=== PATIENT | female | born 1990 | race African-American/Black ===

== ENCOUNTER 2020-10-09 09:20 | Emergency (ER) | payer OTHER, SELFPAY ==
--- NOTE | ~2020-10-09 | US_ITS ---
EXAMINATION: US OB <=14 wk fetus w TV EXAM DATE: 10/09/2020 11:38 INDICATION: Threatened AB bleeding. 1st trimester. TECHNIQUE: Pelvic obstetrical transabdominal and transvaginal sonogram was performed by a technologisiah valencia. There are multiple grayscale and Doppler images available for interpretation. There are no torsten ier studies of this gestation for comparison. FINDINGS: Uterus measures 8.8 x 5.0 x 4.3 cm. There is a 5 mm cystic region which appears more likely in the endometrium rather than the endometrial canal, but can't exclude that this is a gestation sac but without yolk sac or pole. There is a larger nonloculated pocket of fluid in the uterine fu ndus likely blood. Both ovaries are identified and morphologically normal, the left has the corpus kristen teal cyst. No extrauterine identified. IMPRESSION: Small contained appearing cystic endometrial fluid pocket or early gestation sac, with mu ch larger amount of hemorrhage within the endometrial canal. No pole or yolk sac identified at this time. Follow-up with serial beta hCG and/or ultrasound as indicated clinically. Reviewed, dictated and finalized at location A. L BUFFER IMPRESSION: Small contained appearing cystic endometrial fluid pocket or early gestation sac, with much larger amount of hemorrhage within the endometrial can al. No pole or yolk sac identified at this time. Follow-up with serial be ta hCG and/or ultrasound as indicated clinically.
[2020-10-09 09:26] VITALS: BP 138/113; PULSE 113; RESP 20; TEMP 36.5; O2SAT 100
[2020-10-09 09:50] LABS: Basophils Absolute Auto 0.1 K/mm3 (0.0-0.1); Basophils Percent Auto 0.4 % (0.2-1.2); Eosinophils Percent Auto 0.3 % (0-4.4); Hematocrit 42.4 % (37.0-47.0); Hemoglobin 14.8 g/dL (12.0-15.0); Immature Granulocyte Absolute 0.03 K/mm3 (0.00-0.031); Immature Granulocyte Percent A 0.3 % (0-0.5); Lymphocytes Absolute Auto 3.56 K/mm3 (0.9-3.2); Mean Corpuscular HGB Conc 34.9 g/dl (32-36); Mean Corpuscular Hemoglobin 30.3 pg (26-34); Mean Corpuscular Volume 86.9 fl (80-100); Mean Platelet Volume 9.4 fl (7.4-10.4); Monocytes Absolute Auto 0.7 K/mm3 (0.1-0.6); Monocytes Percent Auto 5.8 % (2.6-8.5); Neutrophils Absolute Auto 6.8 K/mm3 (1.3-6.7); Neutrophils Percent Auto 61.2 % (45.5-73.1); Platelet Count Result 463 k/mm3 (150-375); Red Blood Count 4.88 M/mm3 (4.2-5.4); Red Cell Distribution Width 12.1 % (11.5-14.5); White Blood Count 11.1 K/mm3 (4.5-10.0)
--- NOTE | 2020-10-09 11:26 | ED.FEMALEGU ---
HPI - Female Genitourinary General Chief complaint: [employer] Stated complaint: pos preg test, vag bleeding Time Seen by Provider: 10/09/20 09:53 Source: patient Mode of arrival: ambulatory Limitations: no limitations History of Present Illness HPI Narrative: 30-year-old female Reports she was on on Depo shots until stopping them last March purposefully and that her periods since then have been irregular Last period was around August 29 so 3 days ago she did a couple home urine test which were positive The day after that she had some rather heavy vaginal bleeding which at this point is now more or less stopped just a little bit of pink discharge when she wipes She continues to have some moderate lower abdominal crampy discomfort similar to menstrual cramps Related Data Allergies Allergy/AdvReac Type Severity Reaction Status Date / Time No Known Allergies Allergy Verified 10/09/20 09:37 Review of Systems Review of Systems: All systems reviewed & are unremarkable except as noted in HPI and below Constitutional: Constitutional: Denies fatigue, Denies fever(s), Denies headache(s) and Denies weakness ENT: Denies headache(s) Cardiovascular: Cardiovascular: Denies leg edema, Denies palpitations and Denies dyspnea Respiratory: Respiratory: Denies cough and Denies dyspnea Gastrointestinal: Gastrointestinal: Reports abdominal pain, Denies diarrhea, Denies nausea and Denies vomiting Genitourinary: Genitourinary: Reports abnormal vaginal bleeding, Denies hematuria, Denies urinary frequency, Denies dysuria and Reports vaginal discharge Musculoskeletal: Musculoskeletal: Denies deformity, Denies muscle weakness and Denies numbness Integumentary/Breasts: Skin/Breast: Denies wounds Neurologic: Denies headache(s) Psychiatric: Psychiatric: Reports no additional psychiatric complaints Endocrine: Endocrine: Denies palpitations [facility] Social History Social History Gender identity (if verbalized by the patient): Female Exam Const: General: no acute distress, well developed, alert and awake Orientation/consciousness: patient oriented x3 (alert) HENMT: Head: normocephalic and atraumatic General nose exam: No nasal discharge present Face and sinus: face symmetric Eyes: Conjunctivae: conjunctivae normal Sclera: sclerae normal EOM: EOMs intact bilaterally Neck: Neck: normal visual inspection, supple and no JVD Chest: Chest palpation & inspection: deferred Resp: Effort & Inspection: normal respiratory effort and not labored Auscultation: other (BS =) Cardio: Heart sounds: no gallops GI: Inspection: normal to inspection GI Palp: Yes Soft to palpation, Yes Tenderness to palpation present (GI) (Mild, suprapubic), No Guarding due to palpation present (GI) and No Rebound tenderness present : General: Yes bladder normal to palpation and Yes no CVA tenderness Other: Cervical os is closed and there is no bleeding identified whatsoever Back/Spine/Pelvis: Thoracic/Lumbar Spine: thoracic and lumbar spine normal to inspection Skin: General skin exam: normal color and no rashes or lesions noted Neuro: General: patient oriented x3 (alert) and moves all extremities Cranial nerves: Yes facial symmetry Speech: normal speech Extrem: General: normal to inspection and full ROM Psych: Affect: normal affect Course Vital Signs Vital signs: Vital Signs Temperature 36.5 C 10/09/20 09:26 Pulse Rate 113 H 10/09/20 09:26 Respiratory Rate 20 10/09/20 09:26 Blood Pressure 138/113 H 10/09/20 09:26 Pulse Oximetry 100 10/09/20 09:26 Temperature 36.5 C 10/09/20 09:26 Pulse Rate 105 H 10/09/20 11:30 Respiratory Rate 18 10/09/20 11:30 Blood Pressure 129/86 10/09/20 11:30 Pulse Oximetry 98 10/09/20 11:30 MDM - Female Genitourinary Lab Data Result diagrams: 10/09/20 09:36 Labs: Lab Results 10/09/20 10/09/20
[2020-10-09 11:30] VITALS: BP 129/86; PULSE 105; RESP 18; O2SAT 98
== END 2020-10-09 13:10 | disposition home or self-care (01) ==
PROVIDERS: Emergency Provider Emergency Medicine; PCP Physician Assistant
DX: O20.0 Threatened abortion (principal); Z3A.01 Less than 8 weeks gestation of pregnancy
CPT/HCPCS: 36415; 76801; 76817; 84702; 85025; 85461; 99284

== ENCOUNTER 2021-08-13 19:26 | Emergency (ER) | payer OTHER, SELFPAY ==
[2021-08-13 19:43] VITALS: BP 162/100; PULSE 93; RESP 18; TEMP 36.8; O2SAT 96
--- NOTE | 2021-08-13 19:49 | ECG_ITS ---
Measurements Intervals [place] Rate: 90 P: 41 TN: 122 QRS: 33 QRSD: 89 T: 23 QT: 349 QTc: 429 Interpretive Statements SINUS RHYTHM BORDERLINE R WAVE PROGRESSION, ANTERIOR LEADS BASELINE ARTIFACT- I, II, III, AVR, AVL BORDERLINE ECG Electronically Signed On 08-13-2021 20:02:16 SPECIMEN ACCESSIONER by Cory Eli D.O.
--- NOTE | 2021-08-13 22:20 | ED.URI ---
HPI - URI/Sore Throat General Chief Complaint: Upper Respiratory Infection Stated Complaint: I think I have Covid Time Seen by Provider: 08/13/21 22:17 Source: patient Mode of arrival: ambulatory Limitations: no limitations History of Present Illness HPI Narrative: Patient is a 31-year-old female complaining of cough, body aches, fever, chills, shortness of breath that started today. Patient states that she wants to get tested for Covid so she was exposed to someone that tested positive. Patient states that her daughter has similar symptoms and is also here to get tested for Covid. Related Data Allergies Allergy/AdvReac Type Severity Reaction Status Date / Time No Known Allergies Allergy Verified 10/09/20 09:37 Review of Systems Review of Systems: All systems reviewed & are unremarkable except as noted in HPI and below Constitutional: Constitutional: Denies excessive sweating, Denies fatigue, Denies headache(s), Denies lethargy, Denies malaise, Denies weakness and Denies weight loss Eyes: Eyes: Denies blurry vision, Denies change in vision and Denies loss of vision ENT: Denies dizziness, Denies ear discharge, Denies headache(s), Denies lip swelling, Denies epistaxis, Denies nasal congestion, Denies neck pain, Denies throat swelling and Denies tongue swelling Cardiovascular: Cardiovascular: Denies chest pain, Denies chest pain at rest, Denies chest pain with activity, Denies diaphoresis, Denies rapid heart rate, Denies edema, Denies irregular heart rhythm, Denies lightheadedness and Denies palpitations Respiratory: Respiratory: Denies chest congestion and Denies hemoptysis Gastrointestinal: Gastrointestinal: Denies abdominal pain, Denies melena, Denies hematochezia, Denies diarrhea, Denies nausea, Denies vomiting and Denies hematemesis Musculoskeletal: Musculoskeletal: Denies abnormal gait, Denies deformity, Denies joint swelling, Denies limited range of motion, Denies neck pain and Denies numbness Neurologic: Denies Abnormal speech present, Denies abnormal gait, Denies confusion, Denies dizziness, Denies headache(s), Denies focal weakness, Denies loss of vision, Denies numbness, Denies Other visual disturbances, Denies Sensory deficit (Neuro) and Denies weakness Psychiatric: Psychiatric: Denies confusion, Denies depression, Denies auditory hallucinations, Denies homicidal ideation and Denies suicidal ideation Endocrine: Endocrine: Denies cold intolerance, Denies excessive sweating, Denies fatigue, Denies heat intolerance and Denies palpitations Hematologic/Lymphatic: Hematologic/Lymphatic: Denies easy bleeding and Denies easy bruising Allergic/Immunologic: Allergic/Immunologic: Denies lip swelling, Denies throat swelling and Denies tongue swelling [facility] Social History Social History Gender identity (if verbalized by the patient): Female Comments Past medical history: None Family history: None Social history: Non-smoker no EtOH or drug use Exam Const: General: cooperative, healthy appearing, comfortable, no acute distress, well developed, alert and awake; No confusion Orientation/consciousness: oriented to person, oriented to place, oriented to time, patient oriented x3 and No confusion Limitations: no limitations HENMT: Head: normal to inspection, normocephalic and atraumatic Ears: hearing grossly normal bilaterally, TM normal on the right and TM normal on the left General nose exam: Normal external nose present, Normal nares present and No nasal discharge present Face and sinus: normal facial exam Mouth: Yes Normal oral and palatal mucosa present, Yes lip normal, Yes tongue normal and Yes oropharynx normal Throat: posterior oropharynx normal, tonsils normal and uvula midline Eyes: General: appearance normal, both eyes and all related structures Pupils: Equal, round and reactive pupils present EOM: EOMs intact bilaterally Neck: Neck: normal visual inspection, fu
[2021-08-13 22:37] LABS: SARS-CoV-2 RNA PCR Negative
[2021-08-13 22:38] VITALS: BP 134/91; PULSE 83; RESP 18; O2SAT 100
== END 2021-08-13 22:40 | disposition home or self-care (01) ==
PROVIDERS: Emergency Provider Emergency Medicine; PCP Physician Assistant
DX: B34.9 Viral infection, unspecified (principal); J06.9 Acute upper respiratory infection, unspecified; Z20.822 Contact with and (suspected) exposure to COVID-19; R94.31 Abnormal electrocardiogram [ECG] [EKG]
CPT/HCPCS: 87804; 93005; 99283; C9803; U0003; U0005

== ENCOUNTER 2024-03-16 11:22 | Emergency (ER) | payer OTHER, SELFPAY ==
--- NOTE | ~2024-03-16 | XR_ITS ---
EXAMINATION: XR chest 2V DATE: 03/16/2024 11:47 INDICATION: Shortness of breath on exertion. Right chest pain. TECHNIQUE: Frontal and lateral views of the chest were obtained. COMPARISON: Chest single view 04/16/2018 FINDINGS: There is no pneumonia, pleural effusion, or pneumothorax. The heart size is normal. IMPRESSION: 1. No acute cardiopulmonary disease. Reviewed, dictated and finalized at location A.
--- NOTE | 2024-03-16 11:26 | ECG_ITS ---
Test Date: 2024-03-16 11:33:43 Measurements Intervals [place] Rate: 90 P: 39 NM: 128 QRS: 21 QRSD: 85 T: 24 QT: 364 QTc: 447 Interpretive Statements SINUS RHYTHM No previous ECG available for comparison Electronically Signed On 03-17-2024 11:58:19 CDT by Eliel Watters M.D.
[2024-03-16 11:27] VITALS: BP 141/87; PULSE 93; RESP 11; TEMP 36.7; O2SAT 99
[2024-03-16 11:36] VITALS: O2SAT 100
--- NOTE | 2024-03-16 11:43 | PC.NURSE ---
patient to radiology at this time
[2024-03-16 12:08] LABS: Basophils Percent Auto 0.4 % (0.2-1.2); Eosinophils Absolute Auto 0.1 K/mm3 (0-0.3); Eosinophils Percent Auto 0.7 % (0-4.4); Hematocrit 36.6 % (37.0-47.0); Hemoglobin 12.4 g/dL (12.0-15.0); Immature Granulocyte Absolute 0.04 K/mm3 (0.00-0.031); Immature Granulocyte Percent A 0.4 % (0-0.5); Lymphocytes Absolute Auto 2.98 K/mm3 (0.9-3.2); Lymphocytes Percent Auto 32.5 % (18.3-44.2); Mean Corpuscular HGB Conc 33.9 g/dl (32-36); Mean Corpuscular Hemoglobin 30.7 pg (26-34); Mean Corpuscular Volume 90.6 fl (80-100); Mean Platelet Volume 9.8 fl (7.4-10.4); Monocytes Absolute Auto 0.6 K/mm3 (0.1-0.6); Monocytes Percent Auto 6.8 % (2.6-8.5); Neutrophils Absolute Auto 5.4 K/mm3 (1.3-6.7); Neutrophils Percent Auto 59.2 % (45.5-73.1); Platelet Count Result 405 k/mm3 (150-375); Red Blood Count 4.04 M/mm3 (4.2-5.4); Red Cell Distribution Width 13.4 % (11.5-14.5); White Blood Count 9.2 K/mm3 (4.5-10.0)
[2024-03-16 12:23] LABS: Alanine Aminotransferase 23 U/L (6-35); Albumin Level 4.6 g/dL (3.5-5.1); Alkaline Phosphatase 82 U/L (38-126); Anion Gap 13 mmol/L (4-12); Aspartate Amino Transferase 21 U/L (14-36); Bilirubin,Total 0.8 mg/dL (0.2-1.3); Blood Urea Nitrogen 14 mg/dL (7-17); Calcium 9.3 mg/dL (8.4-10.2); Carbon Dioxide 21 mmol/L (22-30); Chloride 101 mmol/L (98-107); Estimated CRCL calculation 142 ml/min; Estimated Glomerular Filt Rate > 60; Glucose 284 mg/dL (65-110); Potassium 3.9 mmol/L (3.4-5.0); Sodium 135 mmol/L (137-145)
[2024-03-16 12:31] LABS: D Dimer 0.83 ug/mL (<0.48)
[2024-03-16 12:34] LABS: Troponin I < 0.012 ng/mL (0.000-0.034)
--- NOTE | 2024-03-16 12:49 | ED.SOB ---
HPI - SOB/Dyspnea General Chief Complaint: Shortness of Breath/Dyspnea Stated Complaint: shortness of breath Time Seen by Provider: 03/16/24 12:03 History of Present Illness HPI Narrative: This is a 34-year-old female with a past medical history significant for insulin-dependent diabetes, hypertension who presents to the ED for evaluation of shortness of breath and congestion. Patient states her symptoms started yesterday and she believes she might have pneumonia. She took a Zyrtec at home with no relief of her symptoms. She took a COVID test at home which was negative. She states she started developing sharp breath under her right rib cage with deep inhalation. Denies any trauma or injuries, no rashes with no long travel or recent procedures. No history of blood clots or leg swelling. She was otherwise in her normal state of health. Denies any chest pain, nauseousness, vomiting, vision changes, abdominal pain, back pain. Related Data Allergies Allergy/AdvReac Type Severity Reaction Status Date / Time No Known Allergies Allergy Verified 03/16/24 11:32 Review of Systems Review of Systems: As reviewed above in the [facility] Social History Social History Gender identity (if verbalized by the patient): Female Exam Narrative: GENERAL: [Well-appearing, well-nourished, and in no acute distress.] HEAD: [Normocephalic, atraumatic.] EYES: [PERRLA and EOMI.] ENT: Nares clear, rhinorrhea is evident, congestion sounds, no posterior pharyngeal swelling or edema, exudates NECK: Supple. CHEST: [Clear to auscultation. No respiratory distress.] HEART: [Regular rate and rhythm]. No murmur heard. [Normal peripheral pulses.] ABDOMEN: [Soft, nondistended], [nontender], [No rigidity or guarding] EXTREMITIES: Normal range of motion. [No edema.] SKIN: Warm, dry, no rash. NEURO: [No focal deficits]. Alert and oriented [x3.] PSYCH: [Normal mood and affect.] Course Vital Signs Vital signs: Vital Signs Temperature 36.7 C 03/16/24 11:27 Pulse Rate 93 03/16/24 11:27 Respiratory Rate 11 L 03/16/24 11:27 Blood Pressure 141/87 H 03/16/24 11:27 Pulse Oximetry 99 03/16/24 11:27 Oxygen Delivery Room Air 03/16/24 11:27 Temperature 36.7 C 03/16/24 11:27 Pulse Rate 93 03/16/24 11:27 Respiratory Rate 11 L 03/16/24 11:27 Blood Pressure 141/87 H 03/16/24 11:27 Pulse Oximetry 100 03/16/24 11:36 Oxygen Delivery Room Air 03/16/24 11:36 MDM - SOB/Dyspnea MDM Narrative Medical decision making narrative: This is a 34-year-old female with history of hypertension, insulin-dependent diabetes presenting with dyspnea. Symptoms started 2 days prior. She woke up today with difficulty in breathing she describes as a pain with deep inhalation and feeling congested in her face and throat. She is not hypoxic, afebrile and aside from stable hypertension she has normal reassuring vital signs without any tachycardia. Patient is concerned she has pneumonia. CBC, BMP, chest x-ray, troponin, code flu and RSV swabs and EKG were obtained. Chest x-ray was independently reviewed by myself and interpreted by radiology with no acute cardiopulmonary process. Patient was re-evaluated still felt some dyspnea. A DM was at on this time to assess for any kind of thromboembolic process. D-dimer was slightly elevated however per the years out rhythm and can be safely exclude that she does not have a pulmonary embolism as is less than 1.0. Lab studies showed no leukocytosis or anemia. Chest x-ray was clear without any signs of pneumonia. Renal function was within normal limits. Normal electrolyte panel. Negative troponin. Because while patient was in the emergency department she received a phone call that her mother was being hospitalized after motor vehicle crash and she needed to leave. Given her reassuring workup at this time she is stable for discharge home and
[2024-03-16 13:48] VITALS: BP 137/82; PULSE 87; RESP 18; TEMP 36.7; O2SAT 98
[2024-03-16 13:58] LABS: Influenza A QL RT-PCR Negative (Negative); Influenza B QL RT-PCR Negative (Negative); RSV RNA, RT-PCR Negative (Negative); SARS-CoV-2 RNA PCR Negative (Negative)
== END 2024-03-16 13:50 | disposition home or self-care (01) ==
PROVIDERS: Emergency Medicine; Emergency Provider Student in an Organized Health Care Education/Training Program; PCP Physician Assistant
DX: J06.9 Acute upper respiratory infection, unspecified (principal); B34.9 Viral infection, unspecified; E11.9 Type 2 diabetes mellitus without complications; I10 Essential (primary) hypertension; Z20.822 Contact with and (suspected) exposure to COVID-19
CPT/HCPCS: 36415; 71046; 80053; 84484; 85025; 85380; 87637; 93005; 99284

== ENCOUNTER 2024-04-15 08:56 | Emergency (ER) | payer OTHER, SELFPAY ==
[2024-04-15] VITALS (13 sets, daily range): BP systolic 125–151; BP diastolic 84–106; PULSE 75–100; RESP 14–18; TEMP 36.5–36.8; O2SAT 97–100
--- NOTE | ~2024-04-15 | CT_ITS ---
EXAMINATION: CT abdomen pelvis w con DATE: 04/15/2024 14:57 INDICATION: Left flank pain TECHNIQUE: Computed tomography (CT) of the abdomen and pelvis was performed with 100 mL Omnipaque-350 intravenous contrast. Automated exposure control and iterative reconstruction technique were employe d. The dose-length product was 754.32 mGy-cm. COMPARISON: None FINDINGS: Lung bases are clear. No pleural effusion. Heart size is normal. Small pericardial effusion. [place] e in the dependent aspect of the normal-appearing gallbladder. Liver, spleen and bilateral adrenal gl ands are normal. A few small dystrophic calcifications in the body of the pancreas consistent with se quela of chronic pancreatitis. There are a few subcentimeter low-attenuation likely cysts in both kid neys. There is an approximately 1.5 cm more ill-defined hypoenhancing parenchymal lesion at the mid l eft kidney. No evident urolithiasis or hydronephrosis. Bowels including the appendix are normal. Blad jerri, anteverted uterus and left adnexa are unremarkable. 2.0 cm hyperdense lesion at the right adnexa which could represent either an enhancing nodule or hemorrhagic cyst. Small amount of likely physiol ogic free fluid in the cul-de-sac. No pathologically enlarged abdominal or pelvic lymphadenopathy. IMPRESSION: 1. Small ill-defined hypoenhancing parenchymal lesion at the mid left kidney suspicious for pyeloneph ritis. Correlate with urinalysis. 2. Cholelithiasis. 3. Indeterminate 2 cm hyperdense lesion at the right ovary which could represent a hemorrhagic cyst o r enhancing nodule. Consider further evaluation with pelvic ultrasound. Reviewed, dictated and finalized at location B. IMPRESSION: 1. Small ill-defined hypoenhancing parenchymal lesion at the mid left kidney rivera spicious for pyelonephritis. Correlate with urinalysis. 2. Cholelithiasis. 3. Indeterminate 2 cm hyperdense lesion at the right ovary which could represen t a hemorrhagic cyst or enhancing nodule. Consider further evaluation with pelv ic ultrasound.
[2024-04-15 10:54] LABS: Basophils Absolute Auto 0.1 K/mm3 (0.0-0.1); Basophils Percent Auto 0.5 % (0.2-1.2); Eosinophils Absolute Auto 0.2 K/mm3 (0-0.3); Eosinophils Percent Auto 1.5 % (0-4.4); Hematocrit 37.8 % (37.0-47.0); Hemoglobin 12.8 g/dL (12.0-15.0); Immature Granulocyte Absolute 0.03 K/mm3 (0.00-0.031); Immature Granulocyte Percent A 0.3 % (0-0.5); Lymphocytes Absolute Auto 3.92 K/mm3 (0.9-3.2); Lymphocytes Percent Auto 39.2 % (18.3-44.2); Mean Corpuscular HGB Conc 33.9 g/dl (32-36); Mean Corpuscular Hemoglobin 30.4 pg (26-34); Mean Corpuscular Volume 89.8 fl (80-100); Mean Platelet Volume 9.5 fl (7.4-10.4); Monocytes Absolute Auto 0.7 K/mm3 (0.1-0.6); Monocytes Percent Auto 6.5 % (2.6-8.5); Neutrophils Absolute Auto 5.2 K/mm3 (1.3-6.7); Platelet Count Result 442 k/mm3 (150-375); Red Blood Count 4.21 M/mm3 (4.2-5.4); Red Cell Distribution Width 12.4 % (11.5-14.5)
[2024-04-15 10:56] LABS: Add Urine Microscopic? NO; Appearance Urine Clear (Clear); Bilirubin Urine Negative (Negative); Blood Urine Negative (Negative); Color Urine Yellow (Yellow); Glucose Urine UA 3+ mg/dL (Negative); Ketones Urine Trace mg/dL (Negative); Leukocyte Esterase Ur Negative LEU/UL (Negative); Nitrate Urine Negative (Negative); Protein Urine Negative (Negative); Urobilinogen Urine 0.2 mg/dL (<2.0); pH Urine 5.5 (5.0-9.0)
[2024-04-15 11:05] LABS: Partial Thromboplastin Time 23.3 Seconds (22.3-36.8); Prothrombin Time 13.2 Seconds (11.1-14.7)
[2024-04-15 11:06] LABS: Lactic Acid Reflex 1.1 mmol/L (0.7-2.0)
[2024-04-15 11:09] LABS: Alanine Aminotransferase 23 U/L (6-35); Albumin Level 4.8 g/dL (3.5-5.1); Alkaline Phosphatase 80 U/L (38-126); Anion Gap 13 mmol/L (4-12); Aspartate Amino Transferase 23 U/L (14-36); Bilirubin,Total 0.5 mg/dL (0.2-1.3); Blood Urea Nitrogen 10 mg/dL (7-17); CRP < 0.5 mg/dL (<1.0); Calcium 9.4 mg/dL (8.4-10.2); Carbon Dioxide 24 mmol/L (22-30); Chloride 99 mmol/L (98-107); Estimated CRCL calculation 163 ml/min; Estimated Glomerular Filt Rate > 60; Glucose 147 mg/dL (65-110); Sodium 136 mmol/L (137-145)
--- NOTE | 2024-04-15 12:08 | ED.GENADULT ---
HPI - General Adult General Chief complaint: Back Pain/Injury Stated complaint: left flank pain Time Seen by Provider: 04/15/24 09:16 History of Present Illness HPI narrative: Patient is a 34-year-old female who presents ER with left-sided flank pain. She is concerned that she has recurrence of urinary tract infection. Patient was recently at [facility] 2 weeks ago and diagnosed with a kidney infection that developed into bacteremia. She reports she is discharged home with a midline she was supposed to take daily ceftriaxone. She was supposed to take it until next month but she had stopped giving herself doses and she removed her midline yesterday on her own. She has not been having any documented fevers currently. No dysuria. No abdominal discomfort. She reports increased flank pain on left side over last 24 hours. Patient has no records with her. She is unsure what bacteria they are treating. She reports she was not getting any help at home and not was another reason she removed the line. She also thought it might be infected because it had a small area of redness. Related Data Allergies Allergy/AdvReac Type Severity Reaction Status Date / Time No Known Allergies Allergy Verified 03/16/24 11:32 Review of Systems Review of Systems: All systems reviewed & are unremarkable except as noted in HPI and below Constitutional: Constitutional: Reports no additional constitutional complaints ENT: Reports system reviewed and no additional complaints, except as documented Cardiovascular: Cardiovascular: Reports no additional cardiovascular complaints Respiratory: Respiratory: Reports no additional respiratory complaints Gastrointestinal: Gastrointestinal: Reports no additional gastrointestinal complaints Genitourinary: Genitourinary: Denies abnormal vaginal bleeding, Denies nocturia, Denies dysuria and Reports flank pain PMFSH Past Medical History Medical History (Updated 04/15/24 @ 15:42 by Sudeep Koroma MD) Healthy female adult Surgical History Surgical History (Updated 04/15/24 @ 13:16 by Sudeep Koroma MD) No pertinent past surgical history Social History Social History Gender identity (if verbalized by the patient): Female Exam Narrative: GENERAL: Well-appearing, well-nourished, and in no acute distress. HEAD: Normocephalic, atraumatic. ENT: Mucous membranes moist. NECK: Supple. CHEST: Clear to auscultation. No respiratory distress. HEART: Regular rate and rhythm. Normal peripheral pulses. ABDOMEN: Soft, nontender, nondistended. No CVA tenderness. EXTREMITIES: Normal range of motion. No edema. SKIN: Warm, dry, no rash. No infection left arm or midline was placed. NEURO: Alert and oriented x3. PSYCH: Normal mood and affect. Course Course Emergency Course: Patient resting comfortably. Receive some Toradol for pain. Discussed lab results. Received records from [facility]. Patient has talked to her ID doctor and has been on oral cefdinir. CT scan shows small hyperdense area on the left kidney that may represent pyelonephritis. Urine clean. Recommend continuing home antibiotics and following up with her physicians at [facility]. We will provide her with some Tylenol with hydrocodone for pain. Patient verbalized understanding. She has been provided a copy of her imaging report. We did discuss the lesion the right ovary that could be a cyst and recommended out patient pelvic ultrasound if she is not having pain in this location. Vital Signs Vital signs: Vital Signs Temperature 98.2 F 04/15/24 09:07 Pulse Rate 100 04/15/24 09:07 Respiratory Rate 16 04/15/24 09:07 Blood Pressure 145/100 H 04/15/24 09:07 Pulse Oximetry 100 04/15/24 09:07 Oxygen Delivery Room Air 04/15/24 09:07 Temperature 97.7 F 04/15/24 11:21 Pulse Rate 75 04/15/24 11:21 Respiratory Rate 18 04/15/24 11:21 Blood Pres
--- NOTE | 2024-04-15 13:31 | PC.NURSE ---
Medical records recieved via fax from [facility]. URI Koroma Notified.
[2024-04-15] MEDS: KETOROLAC 30 MG/ML VIAL (*BKC) IV PUSH (14:31)
[2024-04-15 14:34] LABS: BEDSIDEPREGUCG Negative (Negative)
== END 2024-04-15 15:57 | disposition home or self-care (01) ==
PROVIDERS: Emergency Provider Emergency Medicine
DX: N12 Tubulo-interstitial nephritis, not specified as acute or chronic (principal); K80.20 Calculus of gallbladder without cholecystitis without obstruction; N83.201 Unspecified ovarian cyst, right side
CPT/HCPCS: 36415; 74177; 80053; 81003; 81025; 83605; 85025; 85610; 85730; 86140; 87040; 96374; 99284; J1885; Q9967

== ENCOUNTER 2024-09-23 17:24 | Emergency (ER) | payer BC, MEDICAID, SELFPAY ==
--- NOTE | ~2024-09-23 | CT_ITS ---
EXAMINATION: CT brain wo con DATE: 09/23/2024 17:52 INDICATION: Dizziness. TECHNIQUE: Computed tomography (CT) of the head was performed without intravenous contrast. The mA wa s adjusted according to patient size. Iterative reconstruction technique was employed. The dose-lengt h product was 681.00 mGy-cm. COMPARISON: None FINDINGS: There is no intracranial hemorrhage, acute infarction, or abnormal intracranial mass lesion . The ventricles are normal in size. There is mild mucosal thickening in the paranasal sinuses. The o rbits are normal. The mastoid air cells are normal. IMPRESSION: 1. Normal brain. Reviewed, dictated and finalized at location A. EMIC SUPPORT DIRECTOR IMPRESSION: 1. Normal brain.
--- NOTE | ~2024-09-23 | XR_ITS ---
EXAMINATION: XR chest 2V DATE: 09/23/2024 17:58 INDICATION: Dizziness. TECHNIQUE: Frontal and lateral views of the chest were obtained. COMPARISON: Chest 2 views 03/16/2024, CT abdomen and pelvis 04/15/2024 FINDINGS: There is no pneumonia, pleural effusion, or pneumothorax. The heart size is normal. IMPRESSION: 1. No acute cardiopulmonary disease. Reviewed, dictated and finalized at location A. LATION CUTTER AND FORMER
--- OUTSIDE RECORDS SUMMARY | 2024-09-23 17:27 | XMS_ITS | Encounter Summary ---
Author Organization [facility] Address [address] [place] [address] Care Team Providers Care Real Estate Leasing Manager Name Role Phone Evelin Ruiz MD Primary Care Provider [phone] Kamla Nuñez NP Primary Care Provider [phone] Encounter Details Date Type Department Care Team (Late st Contact Info) Description 06/15/2024 [facility] Message Enc [facility] [address] [place] [address] Josue Dorsey MD [address] [place] [address] Follow up Social History Tobacco Use Types Packs/Day Years Used Date Smoking Tobacco: Never Smokeless Tobacco: Never Alcohol Use Standard Drinks/Week Comments Not Currently 0 (1 standard drink = 0.6 oz pur e alcohol) OASIS D0700: Social Isolation Answer Da te Recorded Frequency of experiencing loneliness or isolatio n Never 04/08/2024 OASIS A1250: Transportation Answer Date Recorded Lack of Transportation (Medical) Yes 04/08/2024 Lack of Transportation (Non-Medical) No 04/08/2024 Patient Unable or Declines to Respond No 04/08/2024 OASIS B1300: Health Literacy Answer Ramirez e Recorded Frequency of needing help to read materials from doctor or pharmacy Never 04/08/2024 B1300 Health Literacy Answer Date Recor ded How often do you need to hav e someone help you when you read instructions, pamphlets, or other written material from your doctor or pharmacy? Never 03/29/2024 [facility] Utilities Answer Date Recorded In the past 12 months has e electric, gas, oil, or water company threatened to shut off services in your home? No 03/29/2024 Humiliation, Afraid, Rape, and Kick questionnair e Answer Date Recorded Within the last year, have y ou been afraid of your partner or ex-partner? No 03/29/2024 Within the last year, have y ou been humiliated or emotionally abused in other ways by your partner or ex-partner? No Within the last year, have y ou been kicked, hit, slapped, or otherwise physically hurt by your partner or ex-partner? No 03/29/2024 Within the last year, have y ou been raped or forced to have any kind of sexual activity by your partner or ex-partner? No 03/29/2024 Social Connection and Isolat ion Panel [NHANES] Answer Date Recorded In a typical week, how many times do you talk on the phone with family, friends, or neighbors? More than three times a week 03/29/2024 How often do you get togethe r with friends or relatives? Three times a week 03/29/2024 How often do you attend chur or voodoo services? 1 to 4 times per year 03/29/2024 Do you belong to any clubs o r organizations such as denominational groups, unions, fraternal or athletic groups, or school groups? No 03/29/2024 How often do you attend meet ings of the clubs or organizations you belong to? Never 03/29/2024 Are you , , di vorced, , never , or living with a partner? 03/29/2024 AUDIT-C Answer Date Recorded Q1: How often do you have a drink containing alcohol? Never 03/29/2024 Q2: How many drinks containi ng alcohol do you have on a typical day when you are drinking? Patient does not drink Q3: How often do you have si x or more drinks on one occasion? Never 03/29/2024 Overall Financial Resource Strain (CARDIA) Answe r Date Recorded How hard is it for you to pa y for the very basics like food, housing, medical care, and heating? Not hard at all 03/29/2024 PHQ-2 Answer Date Recorded Patient Health Questionnaire-2 Score 0 05/13/2024 [facility] - Occupational Stress Questionnaire Answer Date Recorded Do you feel stress - tense, restless, nervous, or anxious, or unable to sleep at night because your mind is troubled all the time - these days? Not at all 03/29/2024 Hunger Vital Sign Answer Date Recorded Within the past 12 months, y ou worried that your food would run out before you got the money to buy more. Never true 03/29/20 24 Within the past 12 months, t he food you bought just didn't last and you didn't have money to get more. Never true 03/29/2024 PRAPARE - Transportation Answer Date Re corded In the past 12 months, has l ack of transportation kept you from medical appointments or from getting medications? No 03/06 In the past 12 months, has l ack of transportation kept you from meetings, work, or from getting things needed for daily living? No 03/29/2024 Housing Stability Vital Sign Answer Ramirez e Recorded In the last 12 months, was t here a time when you were not able to pay the mortgage or rent on time? No 03/29/2024 In the past 12 months, how m any times have you moved where you were living? 0 03/29/2024 At any time in the past 12 m [facility], were you homeless or living in a long-term (including now)? No 03/29/2024 Comments No Sex and Gender Information Value Date Recorded Sex Assigned at Female 09/12/2024 2:[address]ER Legal Sex Female 8:11 PM CDT Gender Identity Not on file Sexual Orientation Not on file documented as of this encounter Functional Status * Are you deaf or do you have serious difficulty hearing Answer Date of Assessment Author Status No 03/29/2024 5:15 PM LINDENT Jimi Cuellar RN Active * Are you blind or do you have serious difficulty seeing, even when wearing glasses? Answer Date of Assessment Author Status No 03/29/2024 5:15 PM LINDENT Jimi Cuellar RN Active * Do you have serious difficulty walking or climbing stairs? Answer Date of Assessment Author Status No 03/29/2024 5:15 PM CDT Jimi Cuellar RN Active * Do you have difficulty dressing or bathing? Answer Date of Assessment Author Status No 03/29/2024 5:15 PM LINDENT Jimi Cuellar RN Active * Because of a physical, mental, or emotional condition, do you have difficulty doing errands alone such as visiting a doctor's office or shopping? Answer Date of Assessment Author Status No 03/29/2024 5:15 PM CDT Jimi Cuellar RN Active documented as of this encounter Mental Status * Because of a physical, mental, or emotional condition, do you have serious difficulty concentrating, remembering, or making decisions? Answer Entry Date Author Status No 03/29/2024 5:15 PM LINDENT Jimi Cuellar RN Active documented in this encounter Plan of Treatment Not on file documented as of this encounter Visit Diagnoses Not on filedocumented in this encounter Care Teams Real Estate Leasing Manager Relationship Specialty Start Date End Date Evelin Ruiz MD [address] [facility] [address] [place] [address] PCP - General FAMILY PRACTICE 04/01/24 08/15/24 Kamla Nuñez NP [address] [facility] [address] [place] [address] PCP - General Nurse Practitioner Family 08/16/24 documented as of this encounter
--- OUTSIDE RECORDS SUMMARY | 2024-09-23 17:27 | XMS_ITS | Clinical Summary ---
Author Organization [facility] Address [address] [place] [id number] Phone Care Team Providers Care Physician Gynecologist Name Role Phone Unavailable Primary Care Provider Unavailabl e Social History Tobacco Use Types Packs/Day Years Used Date Smoking Tobacco: Never Assessed Comments Unknown Sex and Gender Information Value Date Recorded Sex Assigned at Not on file Legal Sex Female 4:39 PM CDT Gender Identity Not on file Sexual Orientation Not on file Plan of Treatment Health Maintenance Due Date Last Done Comments DTAP/TDAP/TD VACCINES (1 - Tdap) 2011 HEPATITIS B VACCINES (1 of 3 - 19+ 3-dose series) 2011 CERVICAL CANCER SCREENING 2022 INFLUENZA VACCINE (#1) 2024 HPV VACCINES Aged Out No longer eligi ble based on patient's age to complete this topic
--- OUTSIDE RECORDS SUMMARY | 2024-09-23 17:27 | XMS_ITS | Clinical Summary ---
Author Organization [facility] Address [address] [place] [address] Care Team Providers Care Fuel Oil Clerk Name Role Phone Unknown, Notinfile Primary Care Provider Unavail [facility], [facility] Mat Med Unavailabl e Unavailable Allergies No known active allergies Medications lancets 28 gauge misc Use as directed 6-8 times per day 6 Active insulin syringe-needle U-100 1 mL 31 gauge x 5/16 syringe 5 injections daily 6 Active pen needle, diabetic 33 gauge x 5/32 needle 4 INJECTIONS DAILY DIRECTED 200 each 2 1 Active blood-glucose meter kit Use as directed. 1 kit 4 Active blood glucose diagnostic (glucose blood) strip Use as directed up to four times a day. 100 each 1 4 Active lancets misc Use as directed up to 4 times a day. 100 each 1 4 Active vit 17-[id number]-dh a 27mg iron- 800 mcg-250 mg capsule Take 1 tablet by mouth daily 90 capsule 2 4 Active glucagon (BAQSIMI) 3 mg/actuation spray,non-aeroso lIndications:Pre -existing type 2 diabetes mellitus during , antepartum Administer 1 spray into one nostril as needed (Hypoglycemia) 2 each 3 4 Active blood-glucose transmitter (Dexcom G6 Transmitter) deviceIndication s:Type 2 diabetes mellitus without complication, with long-term current use of insulin ([facility]) ([facility]) Will use 1 transmitter every 90 days 1 each 3 4 Active blood-glucose sensor (Dexcom G6 Sensor) deviceIndication s:Type 2 diabetes mellitus without complication, with long-term current use of insulin ([facility]) ([facility]) Will use 1 sensor every 10 days. 1 box = 3 sensors. 3 each 4 Active insulin pump cart,auto,BT-cnt r (Omnipod 5 G6 Intro Kit, Gen 5,) cartridgeIndicat ions:Type 2 diabetes mellitus without complication, with long-term current use of insulin ([facility] ([facility]) To change POD once every 2 days. 1 each 4 Active insulin lispro (HumaLOG) 100 unit/mL vial for injection Use to fill insulin pump 10 mL 11 4 Active insulin pump cart,automated,B T (Omnipod 5 G6 Pods, Gen 5,) cartridgeIndicat ions:Type 2 diabetes mellitus without complication, with long-term current use of insulin ([facility]) ([facility]) To change POD every 2 days. 15 each 4 Active polyethylene glycol (MIRALAX) 17 gram/dose bulk powder Take 17 g by mouth daily as needed (constipation) 289 g 4 Active labetaloL (NORMODYNE,TRAND ATE) 200 mg tablet Take 2 tablets (400 mg total) by mouth 2 (two) times a day 120 tablet 11 4 12/07/19 25 Active acetaminophen 500 mg capsuleIndicatio ns:Pain Take 2 capsules (1,000 mg total) by mouth every 6 (six) hours as needed for headaches (Pain) 60 tablet 4 Active ibuprofen (ADVIL,MOTRIN) 600 mg tabletIndication s:Pain Take 1 tablet (600 mg total) by mouth every 6 (six) hours as needed for pain 60 tablet 4 Active oxyCODONE (ROXICODONE) 5 mg immediate release tabletIndication s:Pain Take 1 tablet (5 mg total) by mouth every 4 (four) hours as needed for pain 5 tablet 4 Active Active Problems Problem Noted Date Diagnosed Date History of female sterilization 12/13/2023 Overview (12/13/2023): S/p PP BTL on 12/05/23. B. Fallopian tubes, left and right, bilateral salpingectomy - Fallopian tubes with two complete cross-sections identified care following vaginal delivery 12/03 Overview (12/13/2023): # ID: Afebrile. No signs/symptoms of infection. #Varicella and rubella NI: Recc PP vaccinations # Heme: Hgb 11.7. EBL 350 mL. Hemodynamically stable. # CV/Pulm: superimposed Pre-eclampsia with severe features - magnesium sulfate running at 2g/hr for a total of 24 hours . Blood pressures moderately controlled on labetalol 400 BID. CBC/CMP wnl, UPC not collected . Consented for home BP, has cuff at home. # GI/: Tolerating PO. Voiding spontaneously. #TIIDM: A1c 6.8% on 11/27. Has an Omnipod, managed with insulin pump prior to admission however with poor glycemia control. SETTINGS: Time Basal Rate ICR ISF [id number] 0.5 1:20 1:60 Endocrine consulted for insulin pump management . # Pain: Controlled with above regimen. # MOC: s/p BTL. # MOF: . Urine drug screen not indicated. Patient informed of results: N/A. # Post DVT prophylaxis: The patient has the following MAJOR risk factors none and the following MINOR risk factors BMI 30-39 and parity >/=3. enoxaparin 40 mg daily ordered for VTE prophylaxis # Disposition: Follow up task sent to [facility] scheduling pool. Desires discharge home today pending BP control. 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 11/13/2023 Overview (11/13/2023): - CF carrier on carrier screen Plan: - s/p counseling 11/13 - Offer partner screening CDP: [id number] 10/03/2023 Overview (11/28/2023): Rubella non-immune Plan: [] For PP MMR CDP: VZV non-immune 10/03/2023 Overview (11/28/2023): Varicella non-immune Plan: [] For PP Varivax CDP: Hypokalemia 10/03/2023 Overview (10/03/2023): K 2.9 on IOB labs drawn on 09/18 Repeat CMP K 3.5 HROB: 09/30/2023 Overview (12/02/2023): 1st Trimester: [x] Dating Criteria: 3T US (YESSENIA 12/11/23) [x] Labs: Rh +, Ab neg, Hgb 10.2, Rubella non-immune, VZV non-immune, HIV neg, RPR neg, HepBSAg neg, Hep C Ab neg [x] GC/CT/Trich: Neg (09/18/23) [x] UCx: CISG [x] vitamins [x] Genetic Screening: LR NIPT, BOY! [x] CF/SMA carrier screening: cystic fibrosis carrier > declines partner screening [x] Hgb electrophoresis: normal [x] Pap: NILM (10/2020) [] EPDS: PNBHS referral (if indicated) [x] ASA at 12 weeks (if indicated): Needs Rx [x] DM screening: Ha1c 6.9 > See CDP problem for Diabetes [] Feeding Preferences: benefits of discussed with patient at RN IOB 2nd Trimester: [x] Anatomy ultrasound: wnl [] CBC: [x] 1hr GTT (24-28wks): See diabetes [] Flu Shot (Apr-Jul): [x] Tdap (27-36wks): given [x] Rhogam (if Rh neg): N/A [] Childbirth classes discussed [] education (colostrum, expected breast changes, plan for RTW) and breast pump ordered [] Second trimester education packet 3rd Trimester: [x] CBC/HIV/RPR/T&S: 11/27 [x] GBS: neg [] GC/CT/Trich (if indicated): ordered today [] RSV vaccine [] Final discussion (S2S, Baby Friendly, LC Support, PP experience) [] Third trimester education packet Last visit: [] Last clinic visit SVE: [] IOL start agent: [] Epidural: [] Consents signed: Counseling: [x] Method of delivery: anticipate [] Bottle of CHG 4% and hand out provided @ 36wks (if planned) [x] Timing of delivery: IOL at 38w1d, scheduled for 12/03 at 2100 [x] MOC: BTL, tubal papers signed on [x] MOF: Breast, breast pump given on [] COVID-19 vaccine counseling [] education: completed in all 3 trimesters [x] Prototype Engineer: ALIVIA Melara [x] Car seat discussed [] PP depression counseling HROB: T2DM 09/30/2023 Overview (12/03/2023): History: Diagnosed age 18 History of DKA? no Last hemoglobin A1C: 6.8% on 11/28/23 Pre- regimen: Omni pod PIN [id number] S/p counseling - 11/27: on review of patient's omnipod pump, she has not been putting in her carbs for ICR calculation. She usually guesses how much mealtime coverage she needs. She guesses anywhere from 4-6U depending on what she eats. She has never used her ICR since being on a pump. Will not make changes given suboptimal use of pump and plan for IOL in 6 days. Reviewed importance of putting carbs into pump for correct insulin dose administrations with meals. Plan: Current regimen: see below Time Basal Rate ICR - patient does not put carbs into pump for ICR calculation. Has been putting in 4-6U per meals based on her best guess ISF [id number] 2.6 1:20 1:20 [id number] 2.6 1:20 1:20 [id number] 2.5 1:20 1:20 [id number] 3 1:30 1:20 [id number] 3.1 1:30 1:20 [id number] 3 1:25 1:20 SETTINGS Time Basal Rate ICR ISF [id number] 0.5 1:20 1:60 If patient will not put in carbs to pump to calculate insulin with meals, recommend patient given herself 1-3 units TID with meals. She has been doing this for the majority of her time using the pump. - Physician adjusting insulin dosage: MFM [x] Glucagon prescribed, ordered on 10/01 [x] Referral to ophthalmology for comprehensive eye exam [x] Baseline CMP, UPC, and 24 hour urine protein: Hgb 10.2, Cr 0.35, AST/ALT wnl [x] ASA starting at 12 weeks gestation [x] Baseline EKG ordered [x] Specialized anatomy ultrasound at 18-20 weeks [x] echocardiogram (if Hgb A1C >8.5%): Ha1c 6.9% [x] Serial growth scans starting at 24 weeks [x] Twice weekly testing starting at 32 weeks [] Delivery at 39 0/7-39 6/7. (36 0/7 to 38 6/7 with vascular complications or poorly controlled) [x] insulin pump settings to be calculated after visit. TDD over last week ~75U. Patient will need further education immediately that she should put carbs into pump so she does not use too much insulin and increase her risk of hypoglyecmia [] For endocrine follow up for new pump and dexcom, referral placed HROB: cHTN 09/30/2023 Overview (11/27/2023): S/p counseling 11/13: MR Allen, patient left without collecting CBC/CMP/UPC CURRENT REGIMEN: labetalol 200mg BID Pre- regimen: losartan 50mg every day Plan: [x] ASA at 12 weeks - Ordered on [x] Baseline labs (CBC, CMP, UPC): Hgb 10.2, Cr 0.35, AST/ALT wnl, UPC 128 [] Secondary HTN work-up (if resistant to tx, dx < 30 years) [x] EKG/Echo (if dx>4 years or >30) - Ordered on [x] Serial growth ultrasound starting at 24 weeks - see T2DM prob [] Weekly testing at 32 weeks - see T2DM prob HROB: Anxiety and depression 09/30/2023 Overview (11/13/2023): History - history of hospitalizations: n/A - current regimen: Zoloft (will clarify dose next visit) - therapist/psychiatrist: n/A - history of substance use disorder: n/A S/p counseling Recommendations [] Referral to psychiatry (if severe symptoms, diagnostic uncertainty, suicidality, psychosis, lack of response to interventions and/or need for multiple medications) [] behavioral health services referral HROB: Anemia 09/30/2023 Overview (11/28/2023): IOB Labs notable for Hgb 10.2 Plan: [x] Obtain Hgb electrophoresis - normal hemoglobin electrophoresis [x] Iron studies - iron 42, TIBC 454, transferrin saturation 10% () [x] Rx for PO iron and vitamin C every other for supplementation Uncontrolled diabetes mellitus ([facility]) 021 Overview (08/14/2021): Maternal risks: Reviewed the maternal risk including dvelopment of hypertensive disorders in including but not limited to exacerbation of her chronic hypertension, preeclampsia, HELLP syndrome, and even eclampsia. / risks: Women who have pregestational diabetes are at an increased risk based on their glycemia during conception and through the first trimester during organogenesis for congenital anomalies. The most sensitive organ tissues are the cardiovascular and central nervous system tissues. Given her A1c of 10.1% we discussed a risk of near 20% of congential anomalies. With improvement in overall glycemia, ideally less an A1c less than 6.0, this risk can decrease to the baseline of the general population. We also reviewed the risk for growth restriction or large for gestational age fetuses which is more attributable to increased fat/adipose tissue, which can lead to increased risks for large birthweight, delivery, and shoulder dystocia/ injury. Neonates can also have difficulty with transition to life outside of the uterus. They are at an increased risk for hypoglycemia requiring treatment, NICU admission, jaundice, polycythaemia after , future childhood obesity and diabetes mellitus. Diabetes management: She did not bring her glucose log today but reports fasting blood sugar values in the 140s and pre-prandial values ranging from 160-240. Given this information, her control is sub-optimal. we discussed her goals including fasting values between 60-95 mg/dL and 1 hour post-prandial values less than 140 mg/dL. I encourage her to continue her current CBG checks of fasting, pre and post prandial. We plan to significantly increase her insulin regimen please see below monitoring and assessment: Serial growth ultrasonographic assessments should be performed every 4 weeks. Antepartum testing should include daily kick counts starting at 28 weeks gestational age. testing with nonstress test or Biophysical profile should begin at 32 weeks and occur twice weekly until delivery. Labor/Delivery management: Timing of delivery may be planned for 39 weeks or earlier if indicated with poor glycemic control. Route of delivery and timing may also depend on ultrasound estimation of weight and obstetrical history. If she decides to attempt a trial of labor her glucose control in labor may be achieved by capillary glucose assessment every 2-4 hours in the latent phase of labor and every 1-2 hours in the active phase of labor. Blood glucose values should be maintained between 70-110 mg/dL during labor, and insulin can be utilized if values exceed this target range. If the patient is not taking p.o. nutrition during labor, maintenance fluids should include 5% dextrose to prevent ketosis. is strongly encouraged as long as there are no other contraindications. The benefits of go beyond health. may influence fat deposition that affects adiposity in childhood and adolescence that later tracks into adulthood. : Ms. Castillo insulin requirements will decrease and her regimen should be decreased by 50 percent and further decrease if she is to avoid hypoglycemia. Current Regimen: 11/11/2020 Lantus 30->36 qHS Novolog Breakfast 8 units/ Lunch 10 units/ Dinner 10 units Last Hgb A1c on 10/17/20: 10.1% Plan: - baseline CBC/CMP, Urinary Protein assessment - LD ASA at 12 weeks - Specialized Anatomy Ultrasound at 18-20 weeks - Echo at 20-22 weeks (will work on scheduling after next appointment) - Serial growth ultrasounds at 24-28 weeks - testing at 32 weeks - Delivery by 39 weeks. Maternal risks: Reviewed the maternal risk including dvelopment of hypertensive disorders in including but not limited to exacerbation of her chronic hypertension, preeclampsia, HELLP syndrome, and even eclampsia. / risks: Women who have pregestational diabetes are at an increased risk based on their glycemia during conception and through the first trimester during organogenesis for congenital anomalies. The most sensitive organ tissues are the cardiovascular and central nervous system tissues. Given her A1c of 10.1% we discussed a risk of near 20% of congential anomalies. With improvement in overall glycemia, ideally less an A1c less than 6.0, this risk can decrease to the baseline of the general population. We also reviewed the risk for growth restriction or large for gestational age fetuses which is more attributable to increased fat/adipose tissue, which can lead to increased risks for large birthweight, delivery, and shoulder dystocia/ injury. Neonates can also have difficulty with transition to life outside of the uterus. They are at an increased risk for hypoglycemia requiring treatment, NICU admission, jaundice, polycythaemia after , future childhood obesity and diabetes mellitus. Diabetes management: She did not bring her glucose log today but reports fasting blood sugar values in the 140s and pre-prandial values ranging from 160-240. Given this information, her control is sub-optimal. we discussed her goals including fasting values between 60-95 mg/dL and 1 hour post-prandial values less than 140 mg/dL. I encourage her to continue her current CBG checks of fasting, pre and post prandial. We plan to significantly increase her insulin regimen please see below monitoring and assessment: Serial growth ultrasonographic assessments should be performed every 4 weeks. Antepartum testing should include daily kick counts starting at 28 weeks gestational age. testing with nonstress test or Biophysical profile should begin at 32 weeks and occur twice weekly until delivery. Labor/Delivery management: Timing of delivery may be planned for 39 weeks or earlier if indicated with poor glycemic control. Route of delivery and timing may also depend on ultrasound estimation of weight and obstetrical history. If she decides to attempt a trial of labor her glucose control in labor may be achieved by capillary glucose assessment every 2-4 hours in the latent phase of labor and every 1-2 hours in the active phase of labor. Blood glucose values should be maintained between 70-110 mg/dL during labor, and insulin can be utilized if values exceed this target range. If the patient is not taking p.o. nutrition during labor, maintenance fluids should include 5% dextrose to prevent ketosis. is strongly encouraged as long as there are no other contraindications. The benefits of go beyond health. may influence fat deposition that affects adiposity in childhood and adolescence that later tracks into adulthood. : Ms. Castillo insulin requirements will decrease and her regimen should be decreased by 50 percent and further decrease if she is to avoid hypoglycemia. Current Regimen: 11/11/2020 Lantus 30->36 qHS Novolog Breakfast 8 units/ Lunch 10 units/ Dinner 10 units Last Hgb A1c on 10/17/20: 10.1% Plan: - baseline CBC/CMP, Urinary Protein assessment - LD ASA at 12 weeks - Specialized Anatomy Ultrasound at 18-20 weeks - Echo at 20-22 weeks (will work on scheduling after next appointment) - Serial growth ultrasounds at 24-28 weeks - testing at 32 weeks - Delivery by 39 weeks. Pre-existing hypertension affecting , a ntepartum 10/24/2020 Overview (11/11/2020): We counseled the patient on the effects of chronic hypertension on including the risk of worsening blood pressures requiring titration of antihypertensive therapy, increased risk of preeclampsia, growth restriction, and need for delivery with associated complications of prematurity. Rates of abruption and stillbirth are also higher in women with chronic hypertension. Specifically, we discussed that hypertension is associated with development of superimposed pre-eclampsia in approximately 25% of patients, which can result in iatrogenic delivery in up to 30% of women with mild chronic hypertension. Baseline pre-eclampsia labs (CBC, creatinine, BUN, AST, ALT) is recommended in all patients with a history of hypertension. A workup for end organ damage is also recommended, including an EKG and 24-hour urine for protein. A fundoscopic exam by ophthalmology is recommended as well, if one has not been performed within 12 months. A baby aspirin is recommended at 12 weeks for preeclampsia prophylaxis. Precautions (headache, scotomata, epigastric pain) were reviewed. We reviewed the natural course of blood pressures in , that usually patients experience a decrease in systemic pressure in the first trimester and a gradual rise starting around 28 weeks back to their baseline by the third trimester. This decline in blood pressure does not always occur in women with chronic hypertension. Mildly elevated blood pressures (<150/100) in of patients with chronic hypertension have not been associated with poor outcome in the fetus or the mother. We reviewed the goals of antihypertensive therapy in . Specifically, the goal is to avoid severe hypertension which can result in maternal cerebrovascular accidents or coronary events. In contrast to the non state, very tight blood pressure control is not recommended during and has been associated with lower birthweight infants. In general, antihypertensive therapy is initiated when systolic blood pressures are greater than 160 mmHg and/or diastolic blood pressures are greater than 105 mm Hg. The goals of therapy are between 120 and 155 mmHg systolic and 80-105 mmHg diastolic. We generally recommend home blood pressure monitoring to assist with medication titration as well as to monitor her for the development of preeclampsia. We reviewed the relative safety of various antihypertensive classes of medications during . Labetalol or long- acting nifedipine are safe options for blood pressure control in . We generally avoid TAYLER inhibitors or angiotensin receptor blockers during due to their association with malformations if taken during the first trimester as well as renal dysfunction and oligohydramnios during the second trimester. Finally, we discussed the recommendation for increased antepartum surveillance in patients with chronic hypertension. Given the increased risk of IUGR, serial monthly growth scans are recommended starting at 24-26 weeks, with surveillance starting at 32 weeks. If her hypertension remains mild with no need for medication, delivery at 38 - 39 6/7 weeks is recommended, although we discussed the possibility of earlier delivery for uncontrolled hypertension or pre-clampsia. Current Regimen: 11/11/2020 labetalol 100mg BID Summary - Baseline labs including CBC/CMP and 24hr Urine Assessment, on 10/28, CBC: 12.0/35.5/378, BUN: 6. Cr: 0.52, Ca: 9.4, ALT: 28, AST: 24 - Low dose aspirin to start at 12 weeks - Specialized Anatomy Ultrasound at 18-20 weeks - Serial Growth Ultrasound every 4 weeks from 24-28 weeks - testing at 32 weeks - Delivery at 39 weeks Migraine without aura 10/24/2020 Overview (10/28/2020): Persistent migraines usually daily treated with amitriptyline outside of . She has stopped medication for and is currently using PRN tylenol. We discussed that the course of migraine frequency in is unpredictable, however most women report improvement. We discussed that propranolol is not teratogenic and can be used in , however, some effects have been observed. Beta-blockers are associated with growth restriction and we would again recommend serial growth assessments. We discussed briefly abortive therapies. Although triptans are class C medications, we would recommend alternative medications as first line, including Tylenol, caffeine and Fioricet. We will add Riboflavin for prophylactic therapy HROB: History of PTD 10/24/2020 Overview (09/30/2023): Ms. Danielle has a clear history of cervical insufficiency with a 21 week loss in G1 and a history indicated cerclage in her second with a resultant 35 week delivery after she started having contractions and her cerclage was removed. Discussed with patient that women with a prior spontaneous are at high risk for recurrent . In these women with prior spontaneous , a short cervix is clearly associated with an increased risk of compared with women with a prior spontaneous who have a normal cervical length. Unfortunately patient is past the gestational age for cervical length screening. Will continue closely follow labor symptoms at each OB visit. Hypertension 04/05/2015 Immunizations Immunization Administration Dates Next Due DTP 12/14/1993, 3,1992,05/23 Hep A, Adult 01/19/2020,02/12/2019 Hep B, Adolescent or Pediatric 08/09/1994,1992,01/31/1993 HiB 12/14/1993, 3,01/31/1993,05/23 Influenza, Quadrivalent, Spl it, Intramuscular 08/27/2017,07/23/2016 Influenza, Trivalent, Preser vative Free, Intramuscular 04/25/2016 Influenza, Unspecified 05/13/2018,06/05/2016 MMR 12/07/2023,12/14/1993 OPV 12/14/1993,1992,1992 Pneumococcal Polysaccharide PPV23 08/27/2017 Tdap 10/03/2023,07/23/2016 Varicella 12/07/2023 Surgical History Surgery Date Site/Laterality Comments US ABDOMEN COMPLETE W LIVER DOPPLER (C) 10/10/2020 R ight Medical History Medical History Date Comments Essential (primary) hypertension Hypertension - (Added by TW Conv) Maternal hypertension during Hypertension in , antepartum - (Added by TW Conv) Migraines Family History Medical History Relation Name Comments Hypertension Maternal Grandmother Family history of hypertension - (Added by TW Conv) Thyroid disease Mother Family histo ry of thyroid disease - (Added by TW Conv) Diabetes type II Other Family hist ory of type 2 diabetes mellitus - (Added by TW Conv) Relation Name Status Comments Maternal Grandmother Mother Other Social History Tobacco Use Types Packs/Day Years Used Date Smoking Tobacco: Never Smokeless Tobacco: Never Tobacco Cessation:Counseling Given: Not Answered Alcohol Use Standard Drinks/Week Comments Never 0 (1 standard drink = 0.6 oz pur e alcohol) Social Connection and Isolat ion Panel [NHANES] Answer Date Recorded In a typical week, how many times do you talk on the phone with family, friends, or neighbors? More than three times a week 12/06/2023 How often do you get togethe r with friends or relatives? More than three times a week 12/06/2023 How often do you attend chur ch or mormonism services? Never 12/06/2023 Do you belong to any clubs o r organizations such as anabaptism groups, unions, fraternal or athletic groups, or school groups? No 12/06/2023 How often do you attend meet ings of the clubs or organizations you belong to? Never 12/06/2023 Are you , , di vorced, , never , or living with a partner? Living with partner 12/06/2023 AUDIT-C Answer Date Recorded Frequency of Alcohol Consumption Never 11/29/2018 Average Number of Drinks Not on file 019 Frequency of Binge Drinking Not on file 11/04 Overall Financial Resource Strain (CARDIA) Answe r Date Recorded How hard is it for you to pa y for the very basics like food, housing, medical care, and heating? Not hard at all 12/06/2023 Hunger Vital Sign Answer Date Recorded Within the past 12 months, y ou worried that your food would run out before you got the money to buy more. Never true 12/26/19 24 Within the past 12 months, t he food you bought just didn't last and you didn't have money to get more. Never true 12/26/2023 PRAPARE - Transportation Answer Date Re corded In the past 12 months, has l ack of transportation kept you from medical appointments or from getting medications? No 10/2023 In the past 12 months, has l ack of transportation kept you from meetings, work, or from getting things needed for daily living? No 12/06/2023 Housing Stability Vital Sign Answer Ramirez e Recorded In the last 12 months, was t here a time when you were not able to pay the mortgage or rent on time? No 12/06/2023 In the last 12 months, how many places have you lived? 1 12/06/2023 In the last 12 months, was t here a time when you did not have a steady place to sleep or slept in a longterm (including now)? No 12/06/2023 [place] Depression Scale Answer Date Recorded [place] Depression Scale Total 4 12/26/2023 The thought of harming myself has occurred to me . Never 12/26/2023 Personal Safety Answer Date Recorded Have you ever been in or are you currently in a harmful physical or emotional relationship or is someone making you feel afraid or unsafe? Denies 09/18/2023 Comments No Sex and Gender Information Value Date Recorded Sex Assigned at Not on file Legal Sex Female 6:13 AM [facility] NURSE Gender Identity Not on file Sexual Orientation Not on file Obstetrics History Para Term AB IAB SAB Ectopic Multiple Livin g Live Births 4 4 2 2 0 0 3 3 Date Outcome GA Total Labor Labor/2nd/3rd Weight Sex Type Anes PTL Trupti A1 A5 Name Clin 21w 0d 2016 35w 1d 3.4 kg (7 lb 7.9 oz) F Vag-Sp ont Epidur al Livin g 2021 Term M Vag-Sp ont Livin g 2023 Term 38w 2d 0h 04m 0h 04m 3.32 kg (7 lb 5.1 oz) M Vagina l Epidur al N Livin g 5 [facility] ([facility]LD) Last Filed Vital Signs Vital Sign Reading Time Taken Comments Blood Pressure 141/103 12/26/2023 2:18 PM CDT Pulse 110 12/26/2023 2:18 PM CDT Temperature 36.7 C (98.1 F) 12/07/2023 7:45 AM CDT Respiratory Rate 18 12/07/2023 7:45 AM CDT Oxygen Saturation 97% 12/26/2023 2:18 PM CDT Inhaled Oxygen Concentration - - Weight 91.1 kg (200 lb 14.4 oz) 12/26/2023 2:18 PM CDT Height 175.3 cm (5' 9 ) 12/26/2023 2:18 PM CDT Body Mass Index 29.67 12/26/2023 2:18 PM CDT Plan of Treatment Health Maintenance Due Date Last Done Comments Albumin Creatinine Ratio, Urine 1990 Dilated Eye Exam 1990 Foot Exam 1990 Regular Well Visit/Exam 18-64 2010 Pneumococcal vaccine <65 (2 of 2 - PCV) 08/27/2018 08/27/2017 Cervical Cancer Screening 10/28/2021 10/28/2020 Lipid Panel 09/20/2022 09/20/2021 Varicella Vaccines (2 of 2 - 13+ 2-dose series) 01/04/2024 12/07/2023 Covid-19 Vaccine ( - season) 2024 12/06/2020, 11/18/2020 Influenza Vaccine (#1) 2024 , 05/13/2018, 08/27/2017, Additional history exists Hemoglobin A1C 05/29/2024 11/28/2023, 09/05, 01/31/2023, Additional history exists eGFR 12/03/2024 12/04/2023, 09/06, 09/18/2023, Additional history exists Depression Screening 12/25/2024 12/26/2023 DTaP/Tdap/Td Vaccine (8 - Td or Tdap) 10/02/2033 10/03/2023, 04/24/2022, 07/23/2016, Additional history exists Hepatitis B Screening Completed 08/09/1994 , 05/26/1993, 01/31/1993 Hepatitis C Screening Completed 09/18/2023 HPV Vaccines Aged Out No longer eligi ble based on patient's age to complete this topic Procedures Procedure Name Priority Date/Time Associated Diagnosis Comments EGFR STAT 12/04/2023 9:32 PM CDT HEMOGLOBIN A1C Routine 11/28/2023 11:16 AM CDT Gestational diabetes mellitus (GDM), antepartum, gestational diabetes method of control unspecified HEPATITIS C ANTIBODY STAT 09/18/2023 11:19 AM [facility] NURSE PAP WITH REFLEX TO HIGH RISK HPV Routine 10/28/2020 10:27 AM CDT Supervision of high-risk , unspecified trimester from Last 3 Months or Most Recently Relevant to Health Maintenance Results * eGFR (12/04/2023 9:32 PM CDT) eGFR >90 >=60 mL/min/1. 73 m2 Comment: Interpretive Data Reference Interval Normal >/= 90 mL/min/1.73m2 Mildly decreased* 60 - 89 mL/min/1.73m2 Mildly to moderately decreased 45 - 59 mL/min/1.73m2 Moderately to severely decreased 30 - 44 mL/min/1.73m2 Severely decreased 15 - 29 mL/min/1.73m2 Kidney Failure < 15 mL/min/1.73m2 *Relative to young adult level Estimated glomerular filtration rate is determined by the 2020 CKD-EPI equation recommended by the National Kidney Foundation (A Unifying Approach to GFR Estimation: Recommendations of the NKF-ASK Task Force on Reassessing the Inclusion of Race in Diagnosing Kidney Disease, JASN 2020). The CKD-EPI equation should not be used for patients with unstable renal function and has not been validated in children and those over 70. Current interpretive data was last reviewed 2021. Blood 12/04/2023 9:32 PM CDT 12/04/2023 10:16 PM CDT us India Quesada MD LAB BLOOD ORDERABLES Final Result [facility] Department [place] [address] * (ABNORMAL) Hemoglobin A1c (11/28/2023 11:16 AM CDT) Hgb A1C 6.8(H) 4.0 - 5.6 % Estimated Average Glucose 148 mg/dL [facility] Comment: The ADA recommends reporting an estimated Average Glucose (eAG) with all Hemoglobin A1c results using the equation derived from a study of 507 normal and diabetic adults. Minority populations were underrepresented and children were not included. (Diabetes Care 2020; 43(S1): S66-S76). The eAG is not equivalent to a fasting glucose. Blood 11/28/2023 11:1 6 AM CDT 11/28/2023 11:45 AM CDT Yeny Ku MD LAB BLOOD ORDERABLES Final Result Performing Organization Address City/[facility] Co de Phone Number [facility] [place] [address] * Hepatitis C antibody Blood (09/18/2023 11:19 AM [facility] NURSE) Hep C Ab Nonreactive Nonreactive [facility] Comment:Antibodies to HCV no t detected. Does NOT exclude the possibility of recent exposure to HCV. Current interpretive data was last revised on 22 Blood 09/18/2023 11:1 9 AM [facility] NURSE 09/18/2023 11:32 AM [facility] NURSE India Carrera NP LAB MICROBIOLOGY - GENERA L ORDERABLES Final Result Performing Organization Address City/[facility]/ZIP Co de Phone Number [facility] [place] [address] * Pap with reflex to High Risk HPV (10/28/2020 10:27 AM CDT) Swab (Pap test) 10/28/2020 1 0:27 AM CDT 10/28/2020 12:10 PM CDT Narrative PATHOLOGY [facility] - 11/07/2020 2:00 PM CDT EPIC results best viewed via link to PDF [facility] Christine Tavera [facility] [place] [address] CYTOPATHOLOGY REPORT FINAL Patient Name: ALLEGRA DANIELLE Gender: F : 1990 (Age: 30) Address: [address] [place] [id number] Hospital #: [id number] Service: Laboratory Location: [facility] Patient Type: [facility] Lab Taken: 10/28/2020 Received: 10/28/2020 Accessioned: 10/28/2020 Reported: 11/07/2020 Physician(s): Mariah Malone M.D. FINAL INTERPRETATION SOURCE OF SPECIMEN: Liquid based Thin Prep pap with Reflex HPV STATEMENT OF ADEQUACY: - Satisfactory for evaluation - No endocervical/transformation zone sample present in a patient GENERAL CATEGORY: - Negative for squamous intraepithelial lesion or malignancy DESCRIPTION: - Fungal organisms morphologically consistent with raymond species earle/11/07/2020 14:00 CECI Caballero(ASCP) Report Electronically Reviewed and Signed Out By CECI Caballero(ASCP) 11/07/2020 14:00:24 Cervicovaginal Cytology (Pap Test) Disclaimer: The Pap test is a screening test used to detect cervical cancer and its precursors; it is not a diagnostic procedure. False negative and false positive results do occur. Pap test results should be interpreted in the context of pertinent clinical information and biopsy results as indicated. Gross Description A. Liquid based Thin Prep pap with Reflex HPV: Cervical/vaginal - Screening ThinPrep Clinical Diagnosis and History Last Menstrual Period: unknown Menstrual History: The patient is a 30 year old woman with . Report Images and scanned documents, if included only viewable in PDF version The performance characteristics of some immunohistochemical stains, in-situ hybridization and fluorescence in-situ hybridization tests and immunophenotyping by flow cytometry cited in this report (if any) were determined by the Surgical Pathology Department at [facility] as part of an ongoing quality technician program and in compliance with federally mandated regulations drawn from the Clinical Laboratory Improvement Act of 1988 (CLIA '88). Some of these tests rely on the use of analyte specific reagents and are subject to specific labeling requirements by the US Food and Drug Administration. Such diagnostic tests may only be performed in a facility that is certified by the Department of Health and Human Services as a high complexity laboratory under CLIA '88. The FDA has determined that such clearance or approval is not necessary. This test is used for clinical purposes. It should not be regarded as investigational or for research. Nevertheless, federal rules concerning the medical use of analyte specific reagents require that the following disclaimer be attached to the report: This test was developed and its performance characteristics determined by the Surgical Pathology Department of [facility]. It has not been cleared or approved by the U. S. Food and Drug Administration. Mariah Malone MD LAB CYTOLOGY ORDERABLES Fi nal Result PATHOLOGY [facility] [address] Floor [place], [place] [phone] from Last 3 Months or Most Recently Relevant to Health Maintenance Insurance [facility] [employer] [facility] Address: [facility] [id number] [place] [address] [facility] Member Subscriber Plan / Payer (Ef fective 2017-Present) Name:Sabrina Daniellenylaiman Justin Relation to Subscriber:Self Name:Sabrina Daniellenylaiman Justin Payer ID:[id number] (NAIC) Type:MEDICAID RISK OTHER Address: [address] [address] Address: [address] [place] [address] Advance Directives For more information, please contact: [phone] * Full Code (Latest Code Status on File) Date Activated Date Inactivated Comments 12/05/2023 1:06 PM 12/07/2023 5:17 PM * Full Code Date Activated Date Inactivated Comments 12/04/2023 9:02 PM 12/05/2023 1:06 PM Full CPR in ca se of cardiopulmonary arrest Care Teams Fuel Oil 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
--- OUTSIDE RECORDS SUMMARY | 2024-09-23 17:27 | XMS_ITS | Continuity of Care Document ---
Author Organization [facility] Address [address] [place] [address] Phone Care Team Providers Care Apparel Cutter Name Role Phone Unavailable Unavailable Unavailable Advance Directives Directive Yes / No Effective Date File Name No Information Encounters Encounter Description Practice Location Reason(s) For Visit Diagnoses Date Provider Providers Copied on Encounter [facility], [address] [facility], [place], [place], [id number], [place] tel:[phone] [facility] No Information No Information Family History Family Member Type Diagnosis Age At Onset No Information Payers Payer name Insurance type Covered democrat ID Authoriza tion(s) No Information Social History Type Description Quantity Date Captured Comments Sex Female Smoking Status No Information Chief Complaint And Reason For Visit No Information History Of Present Illness Encounter Date Complaint History Of Prese nt Illness No Information Instructions Date Instruction Additional Infor mation No Information Assessments Type Assessment Date No Information
--- OUTSIDE RECORDS SUMMARY | 2024-09-23 17:27 | XMS_ITS | Data Portability ---
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 Plan of Treatment Reminders Order Date Submit Date Provider Last Modified By Organization Details Last Modified Time Details Appointments None recorded. Lab None recorded. Referral endocrinolo gy referral 2023 024 [facility] - Endocrinology , [address], [facility] [address], [place], [address], 4 11:50:18 Procedures None recorded. Surgeries None recorded. Imaging None recorded. Medication Orders sertraline 100 mg tablet 2023 024 [facility]/Pharmacy #[id number], [address] [place], [address], 4 13:22:58 Ozempic 0.25 mg or 0.5 mg (2 mg/1.5 mL) subcutaneou s pen injector 2023 024 [facility]/Pharmacy #6830, [address] [place], [address], 4 14:30:04 sertraline 100 mg tablet 2023 024 [facility]Pharm[facility] #6830, [address] [place], [address], 4 09:15:08 sertraline 50 mg tablet 2022 023 [facility]/Pharmacy #6830, [address] [place], [address], 4 09:17:50 losartan 50 mg tablet 2022 023 [email or web address] [facility]/Pharmacy #6830, [address] [place], [address], 4 09:38:14 Patient TargetsNo targets recorded. Patient Instructions Encounter Date Encounter Id Patient Instructions Last Modified By Organization Details Last Modified Time 02/04/2023 [id number] dash diet: care instructions [email or web address] Not available 02/27/2023 09:54:59 Reason for Referral Endocrinology Referral for D iabetes mellitus Referring Physician: Zach Soliz Medical Billing Coordinator, Encounter Date: 09/02/2023 Results Created Date Observation Date Name Description Value Unit Range Abnormal Flag Note LastModifiedBy Organization Detail LastModifiedTime 03/25/20 24 03/25/2024 URINE DIP specimen type URINE CLEAN CATCH Not Available [facility] (Lab) [place], [address], 03/25/2024 15:59:56 03/25/20 24 03/25/2024 URINE DIP color YELLOW Not Available [facility] (Lab) [place], [address], 03/25/2024 15:59:56 03/25/20 24 03/25/2024 URINE DIP clarity CLOUDY Not Available [facility] (Lab) [place], [address], 03/25/2024 15:59:56 03/25/20 24 03/25/2024 URINE DIP specific gravity 1.025 1.001- 1.030 Not Available [facility] (Lab) [place], [address], 03/25/2024 15:59:56 03/25/20 24 03/25/2024 URINE DIP pH, urine 6.0 5.0-9. 0 Not Available [facility] (Lab) [address] [place], [address], 03/25/2024 15:59:56 03/25/20 24 03/25/2024 URINE DIP leukocytes TRACE neg abnormal Not Available [facility] (Lab) [address] [place], [address], 03/25/2024 15:59:56 03/25/20 24 03/25/2024 URINE DIP nitrite POSITI VE neg abnormal Not Available [facility] (Lab) [address] [place], [address], 03/25/2024 15:59:56 03/25/20 24 03/25/2024 URINE DIP protein NEGATI VE mg/dL <30 Not Available [facility] (Lab) [address] [place], [address], 03/25/2024 15:59:56 03/25/20 24 03/25/2024 URINE DIP glucose 500 mg/dL neg abnormal Janes er, PA notif ied of +gluc ose in urine , verba l readb ack Not Available [facility] (Lab) [address] [place], [address], 03/25/2024 15:59:56 03/25/20 24 03/25/2024 URINE DIP ketone NEGATI VE mg/dL neg Not Available [facility] (Lab) [address] [place], [address], 03/25/2024 15:59:56 03/25/20 24 03/25/2024 URINE DIP urobilinogen 0.2 mg/dL neg abnormal Not Available [facility] (Lab) [address], [place], [address], 03/25/2024 15:59:56 03/25/20 24 03/25/2024 URINE DIP bilirubin NEGATI VE mg/dL neg Not Available [facility] (Lab) [address], [place], [address], 03/25/2024 15:59:56 03/25/20 24 03/25/2024 URINE DIP blood TRACE neg abnormal Not Available [facility] (Lab) [address], [place], [address], 03/25/2024 15:59:56 03/25/20 24 03/25/2024 URINE CULTU RE header [facility] [place] [address] Patie nt:AMRAAN HANLEY [id number] Med Rec#: [id number] Order ing MD: JANES REBOLLAR : [birth year] Sex: F Locat ion: SEOUC Test: URINE CULTU RE Colle ct Date: 03-25 14:56 Acces cecille #: [id number] Not Available [facility] (Lab) [address], [place], [address], 03/27/2024 10:33:09 03/25/20 24 03/25/2024 URINE CULTU RE urine culture SPECI MEN DESCR IPTIO N - URINE CLEAN CATCH SPECI AL REQUE STS - NO SPECI AL REQUE ST CULTU RE - >100, 000 COL/M L KLEBS IELLA PNEUM ONIAE REPOR T STATU S - FINAL 03/27 ORGAN ISM - >100, 000 COL/M L KLEBS IELLA PNEUM ONIAE METHO D - TOMAS AMPIC ILLIN - 16 RESIS TANT AMP/S ULBAC MAGANA - 4 SUSCE PTIBL E CEFTR IAXON E - <=1 SUSCE PTIBL E CEFTA ZIDIM E - <=1 SUSCE PTIBL E CEFAZ HOPE - <=4 SUSCE PTIBL E ESBL - NEG NITRO FURAN TOIN - 64 INTER MEDIA TE GENTA MICIN - <=1 SUSCE PTIBL E LEVOF LOXAC IN - <=0.1 2 SUSCE PTIBL E PIPRA CIL/T AZO - <=4 SUSCE PTIBL E TRIME TH-GARCIA LFAME THOXA ZOLE - <=20 SUSCE PTIBL E Not Available [facility] (Lab) One [facility], [place], [address], 03/27/2024 10:33:09 04/08/20 24 04/08/2024 CBC W/ DIFFE RENTI AL WBC 9.12 x10'3 /uL 4.4-11 .0 Not Available [facility] (Lab) [address] [place], [address], 04/08/2024 11:53:10 04/08/20 24 04/08/2024 CBC W/ DIFFE RENTI AL RBC 3.70 x10'6 /uL 4.50-5 .10 low Not Available [facility] (Lab) [address] [place], [address], 04/08/2024 11:53:10 04/08/20 24 04/08/2024 CBC W/ DIFFE RENTI AL hemoglobin 11.2 g/dL 12.3-1 5.3 low Not Available [facility] (Lab) [address] [place], [address], 04/08/2024 11:53:10 04/08/20 24 04/08/2024 CBC W/ DIFFE RENTI AL hematocrit 33.4 % 35.9-4 4.6 low Not Available [facility] (Lab) [address] [place], [address], 04/08/2024 11:53:10 04/08/20 24 04/08/2024 CBC W/ DIFFE RENTI AL MCV 90.3 fL 80.0-9 6.0 Not Available [facility] (Lab) [address] [place], [address], 04/08/2024 11:53:10 04/08/20 24 04/08/2024 CBC W/ DIFFE RENTI AL MCH 30.3 pg 25.3-3 0.9 Not Available [facility] (Lab) [facility] [place], [address], 04/08/2024 11:53:10 04/08/20 24 04/08/2024 CBC W/ DIFFE RENTI AL MCHC 33.5 g/dL 31.0-3 4.1 Not Available [facility] (Lab) [address] [place] [address], [address], 04/08/2024 11:53:10 04/08/20 24 04/08/2024 CBC W/ DIFFE RENTI AL RDW 13.0 % 12.4-1 5.1 Not Available [facility] (Lab) [facility] [place], [address], 04/08/2024 11:53:10 04/08/20 24 04/08/2024 CBC W/ DIFFE RENTI AL platelet count 434 x10'3 /uL 151-35 3 high Not Available [facility] (Lab) [address] [place], [address], 04/08/2024 11:53:10 04/08/20 24 04/08/2024 CBC W/ DIFFE RENTI AL MPV 9.4 fL 9.6-12 .0 low Not Available [facility] (Lab) [address] [place] [address], [address], 04/08/2024 11:53:10 04/08/20 24 04/08/2024 CBC W/ DIFFE RENTI AL RBC morphology NORMAL Not Available [facility] (Lab) [facility] [place], [address], 04/08/2024 11:53:10 04/08/20 24 04/08/2024 CBC W/ DIFFE RENTI AL platelet evaluation NORMAL Not Available [facility] (Lab) [address] [place] [address], [address], 04/08/2024 11:53:10 04/08/20 24 04/08/2024 CBC W/ DIFFE RENTI AL WBC morphology NORMAL Not Available [facility] (Lab) [address] [place] [address], [address], 04/08/2024 11:53:10 04/08/20 24 04/08/2024 CBC W/ DIFFE RENTI AL lymphocytes 32.0 % 15.8-4 5.0 Not Available [facility] (Lab) [address] [place], [address], 04/08/2024 11:53:10 04/08/20 24 04/08/2024 CBC W/ DIFFE RENTI AL neutrophils 58.7 % 42.1-7 1.9 Not Available [facility] (Lab) [address] [place] [address], [address], 04/08/2024 11:53:10 04/08/20 24 04/08/2024 CBC W/ DIFFE RENTI AL monocytes 7.3 % 5.7-12 .5 Not Available [facility] (Lab) [address] [place] [address], [address], 04/08/2024 11:53:10 04/08/20 24 04/08/2024 CBC W/ DIFFE RENTI AL eosinophils 1.2 % 0.0-5. 6 Not Available [facility] (Lab) [address] [place] [address], [address], 04/08/2024 11:53:10 04/08/20 24 04/08/2024 CBC W/ DIFFE RENTI AL basophils 0.4 % 0.0-1. 3 Not Available [facility] (Lab) [address] [place], [address], 04/08/2024 11:53:10 04/08/20 24 04/08/2024 CBC W/ DIFFE RENTI AL abs. neutrophils 5.34 x10'3 /uL 1.40-6 .00 Not Available [facility] (Lab) [address] [place], [address], 04/08/2024 11:53:10 04/08/20 24 04/08/2024 CBC W/ DIFFE RENTI AL immature granulocytes 0.4 % 0.0-0. 5 Not Available [facility] (Lab) [address] [place] [address], [address], 04/08/2024 11:53:10 04/08/20 24 04/08/2024 CBC W/ DIFFE RENTI AL abs. lymphocytes 2.92 x10'3 /uL 0.80-4 .70 Not Available [facility] (Lab) [facility] [place], [address], 04/08/2024 11:53:10 04/08/20 24 04/08/2024 COMPR EHENS BERNADETTE METAB OLIC PANEL glucose 193 mg/dL 70-99 high Not Available [facility] (Lab) [address] [place], [address], 04/08/2024 12:12:25 04/08/20 24 04/08/2024 COMPR EHENS BERNADETTE METAB OLIC PANEL BUN 11 mg/dL 7-18 Not Available [facility] (Lab) [address] [place] [address], [address], 04/08/2024 12:12:25 04/08/20 24 04/08/2024 COMPR EHENS BERNADETTE METAB OLIC PANEL creatinine 0.73 mg/dL 0.55-1 .02 Not Available [facility] (Lab) [address] [place] [address], [address], 04/08/2024 12:12:25 04/08/20 24 04/08/2024 COMPR EHENS BERNADETTE METAB OLIC PANEL sodium 137 mmol/ L 136-14 5 Not Available [facility] (Lab) [address] [place] [address], [address], 04/08/2024 12:12:25 04/08/20 24 04/08/2024 COMPR EHENS BERNADETTE METAB OLIC PANEL potassium 4.1 mmol/ L 3.5-5. 1 Not Available [facility] (Lab) [address] [place] [address], [address], 04/08/2024 12:12:25 04/08/20 24 04/08/2024 COMPR EHENS BERNADETTE METAB OLIC PANEL chloride 102 mmol/ L 100-10 8 Not Available [facility] (Lab) [address] [place] [address], [address], 04/08/2024 12:12:25 04/08/20 24 04/08/2024 COMPR EHENS BERNADETTE METAB OLIC PANEL total CO2 26.1 mmol/ L 21-32 Not Available [facility] (Lab) [address] [place] [address], [address], 04/08/2024 12:12:25 04/08/20 24 04/08/2024 COMPR EHENS BERNADETTE METAB OLIC PANEL calcium 9.3 mg/dL 8.5-10 .1 Not Available [facility] (Lab) [address] [place] [address], [address], 04/08/2024 12:12:25 04/08/20 24 04/08/2024 COMPR EHENS BERNADETTE METAB OLIC PANEL total bilirubin 0.4 mg/dL 0.2-1. 2 Not Available [facility] (Lab) [address] [place], [address], 04/08/2024 12:12:25 04/08/20 24 04/08/2024 COMPR EHENS BERNADETTE METAB OLIC PANEL total protein 7.2 g/dL 6.4-8. 2 Not Available [facility] (Lab) [address] [place] [address], [address], 04/08/2024 12:12:25 04/08/20 24 04/08/2024 COMPR EHENS BERNADETTE METAB OLIC PANEL albumin 3.8 g/dL 3.4-5. 0 Not Available [facility] (Lab) [address] [place] [address], [address], 04/08/2024 12:12:25 04/08/20 24 04/08/2024 COMPR EHENS BERNADETTE METAB OLIC PANEL AST 13 U/L 15-37 low Not Available [facility] (Lab) [address] [place] [address], [address], 04/08/2024 12:12:25 04/08/20 24 04/08/2024 COMPR EHENS BERNADETTE METAB OLIC PANEL ALT 24 U/L 14-55 Not Available [facility] (Lab) [address] [place] [address], [address], 04/08/2024 12:12:25 04/08/20 24 04/08/2024 COMPR EHENS BERNADETTE METAB OLIC PANEL alk phosphatase 87 U/L 50-136 Not Available [facility] (Lab) [address] [place] [address], [address], 04/08/2024 12:12:25 04/08/20 24 04/08/2024 COMPR EHENS BERNADETTE METAB OLIC PANEL anion gap 8.9 mmol/ L 5-15 Not Available [facility] (Lab) [address] [place] [address] [place], [address], 04/08/2024 12:12:25 04/08/20 24 04/08/2024 COMPR EHENS BERNADETTE METAB OLIC PANEL BUN creatinine ratio 15.1 6-26 Not Available [facility] (Lab) [address] [place], [address], 04/08/2024 12:12:25 04/08/20 24 04/08/2024 COMPR EHENS BERNADETTE METAB OLIC PANEL A:g ratio 1.1 ratio 1.0-2. 0 Not Available [facility] (Lab) [address] [place], [address], 04/08/2024 12:12:25 04/08/20 24 04/08/2024 COMPR EHENS BERNADETTE METAB OLIC PANEL est GFR >90 mL/mi n/1.7 3_M2 >90 NOTE: eGFR is not calcu lated for patie nts <18 years of age. This is an estim ated GFR calcu latio n using the new CKD EPI creat inine equat ion witho ut race and so does not requi re a corre ction facto r for race. This estim ated GFR shoul d not be used for calcu latin g drug doses . Not Available [facility] (Lab) [address] [place], [address], 04/08/2024 12:12:25 03/16/20 24 03/16/2024 XR, chest No observ ation record ed. [facility] [address], [place], [address], 03/16/2024 15:19:51 03/29/20 CT ABD+p el W con [facility] ONE [facility] [place] [address] Examin ation: CT ABD+PE L W CON Exam time: 024 10:34 AM Indica tion: Bilate ral flank pain for 2 days. Diagno sed with a UTI Saturday with no improv ement on antibi otics. Compar dimitri:N one Techni que: IV contra st: 100 mL Isovue 370. Oral contra st: None. Techni herbert commen ts: Standa rd techni que. Dose reduct ion: This CT exam was perfor med using one or more of the follow ing dose reduct ion techni ques: Automa janina exposu re contro l, adjust ment of the mA and/or kV accord ing to patien t size, and/or use of iterat bernadette recons tructi on techni que. Findin gs: There is a small region of atelec tasis or infilt rate in the manager code ior left lower lobe. The liver is enlarg ed. There is fatty infilt ration of the liver. Cholel ithias is. The spleen and pancre as are unrema rkable . No adrena l mass. There is a somewh at wedge- shaped hypode nse region in the left renal midpol e which is nonspe cific but given the histor y probab ly repres ents pyelon ephrit is. There is no hydron ephros is. No renal or ureter al calcul us. The urinar y bladde r is now well disten ded which preclu ashly evalua tion for urinar y bladde r wall thicke vanessa. There are calcif ied pelvic phlebo liths. There is no eviden ce for append icitis . No bowel obstru ction or free intrap eriton eal air. There is no lympha denopa thy noted. There is a small osteoc hondro ma arisin g from the superi or latera l aspect of the left iliac crest. No acute osseou s abnorm ality. Impres cecille: 1. There is a somewh at wedge- shaped hypode nse region in the left renal midpol e which is nonspe cific but given the histor y probab ly resent s pyelon ephrit is. 2. Hepato megaly . Fatty infilt ration of the liver. 3. Cholel ithias is. 4. There is a small region of atelec tasis or infilt rate in the manager code ior left lower lobe. An early pneumo cally is not exclud ed. Referr ed By: Sara onical ly Signed By: Doug funez MD on 11:31 AM Interp reted By: Doug funez MD, 11:23 AM [email or web address] [facility] [address] [facility], [place], [address], 04/01/2024 12:29:23 05/15/[address] ABD+p el W con [facility] [address] [facility] [place] [address] [facility] [address] [place] [address] Examin ation: CT abdome n and pelvis with IV contra st. Access ion: [id number] Exam Date/T tom: 2023 8:12 AM Indica tion: 34 female . Acute left-s ided pyelon ephrit is. Follow -up compar dimitri PET/CT on 4 Compar dimitri: CT abdome n pelvis Techni que: Comput ed tomogr aphy of the abdome n and pelvis perfor med follow ing uneven tful intrav enous admini strati on of 100 mL Isovue -[address] A dose loweri ng techni que was used for this proced ure, which may includ e, but is not limite d to, dose reduct ion techni que, automa janina exposu re contro l, the use of iterat bernadette recons tructi on, and ALARA (As Low As Reason ably Achiev able) / Image Gently techni ques. CT Findin gs: LOWER CHEST Normal cardia c size. No perica rdial or pleura l effusi on. Lung bases are grossl y clear UPPER ABDOME N Liver and bile ducts: Mild hepati c steato sis. Normal size contou r and enhanc ement. No focal lesion . Hepati c and portal venous system s are patent . No intra or extrah epatic biliar y tree dilata tion. Gallbl adder: Presen t and unrema rkable . Possib le sludge ball versus cholel ithias is (the axial CT image 71). No gallbl adder wall thicke vanessa or inflam mation . Pancre as: Normal . Spleen : Normal . RETROP ERITON EUM Adrena ls: Normal . Kidney s: Normal size and contou r. Improv ed, resolv ing imagin g findin gs of left pyelon ephrit is with a small residu al wedge- shaped area of the parenc hymal hypoen hancem ent extend ing to the cortex left renal manager code ior latera l interp olar region (axial image 55). Remain jerri of both kidney s enhanc e normal ly. No suspic ious focal lesion , collec ting system obstru ction or perine phric strand ing. Lymph nodes: No lympha denopa thy in the abdome n or pelvis . BOWEL AND PERITO NEUM Bowel: Normal in calibe r and wall thickn ess. Distal esopha geal modera te circum ferent ial mural thicke vanessa may be relate d to reflux or a small hiatal hernia . Normal calibe r and thickn ess of the small and large bowel. Normal noninf lamed append ix. Mild right coloni c divert iculos is withou t divert iculit is. Free air or fluid: Trace probab le physio logic fluid fluid in the cul-de -sac. No focal fluid collec tion or genera lized ascite s or free air.. VASCUL ATURE Abdomi nal aorta is unrema rkable . No athero sclero sis or aneury sm. Viscer al branch es are patent . PELVIS Anteve rted nonenl arged uterus . There is a right adnexa l, ovaria n 3.1 cm periph erally enhanc ing statis ticall y most likely physio logic cyst. No follow -up indica janina. Left ovaria n the 1.9 cm probab le luteal cyst. Trace likely physio logic fluid in the cul-de -sac. BONES/ SOFT TISSUE S Normal bone densit y. L4-5 modera te degene rative disc bulge with manager code ior annula r calcif icatio n. Mild diasta ses rectus and a small shallo w fat-co ntaini ng right para midlin e anteri or abdomi nal wall hernia . No concer vanessa focal osteol ytic or blasti c lesion Impres cecille: 1. Left renal improv ed, resolv ing imagin g findin gs of lottie gamble is with a small residu al wedge- shaped area of parenc hymal hypoen hancem ent, as discus sed above. Normal imagin g appear ance of the remain jerri of the urinar y tract. 2. 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 3. Hepati c steato sis. 4. Gallbl adder suspec janina sludge ball versus cholel ithias is. 5. L4-5 disc degene ration . 6. Other noneme rgent, incide ntal, and potent ial chroni c findin gs as discus sed in the report body above. Ordere d By: NELY Alvarez CHEN Electr onical ly Signed By: Beverly Alberto MD on 2023 9:05 AM Interp reted By: Beverly Alberto MD, 2023 8:56 AM [email or web address], [place], [address], 05/15/2024 13:36:42 Result Notes None recorded. Problems Name Problem SNOMED Code Status Onset Date Resolution Date Notes Provider Name and Address Organization Details Recorded Time Benny melgoza 38399830 Completed 201701/19/2019 Zach Soliz PA-C Attn: Accounting ,[address] [facility], [place], [address] , [place] - [facility] 9 11:54:34 Noncompl iance with treatmen t 8312518 Active 2020 Not Available [employer] 3 22:14:09 Migraine 99666341 Active 2020 Not Available [employer] 3 22:14:09 [facility] hyperten cecille 06538557 Active Not Available [employer] 3 22:14:09 Diabetes mellitus 87640827 Active Managed by Endo [facility] Available [facility] 3 22:14:09 Hyperten sive disorder 62969619 Completed 05/29/2018 Zach Soliz PA-C Attn: Accounting ,[address] [facility], [place], [address] , [place] [facility] 8 11:53:29 Diabetes mellitus 55918098 Completed Skip Craion null, [place] [facility] 6 16:32:46 Hyperten sive disorder 44340860 Completed Skip Craion null, [place] [facility] 6 16:32:46 Vaginal discharg e 817509666 Completed 05/29/2018 Zach Soliz PA-C Attn: Accounting ,[address] [facility], [place], [address] , [facility] - [facility] 8 11:53:22 Vaginal discharg e 956018101 Completed Skip Craion null, [place] - [facility] 6 16:32:46 Pain in throat 355053905 Completed 05/29/2018 Zach Soliz PA-C Attn: Accounting ,[address] [facility], [place], [address] , [facility] - S[facility] 8 11:53:25 Problem Notes None recorded. Procedures Surgical History Date Name Laterality Status Provider Name and Address Organization Details Recorded Time Diabetic Foot Exam completed Zach Soliz PA-C Attn: Accounting,[address] [facility], [place], [address], [place] [facility] 05/24/2021 15:18:27 Imaging Results Imaging Date Name Status LastModified by Organiz ation Details LastModified Time 03/16/2024 XR, chest [facility] [place] [id number] [facility] [address], [place], [address], 03/16/2024 15:19:51 03/29/2024 CT ABD+pel W con completed [email or web address] [facility] [address] [facility], [place], [address], 04/01/2024 12:29:23 05/15/2024 CT ABD+pel W con completed [email or web address] [facility] [address], [place], [address], 05/15/2024 13:36:42 Procedure Notes None recorded. Medical Equipment None Reported. Allergies No known drug allergies Medications Name Sig Start Date Stop Date Status Note LastModified by Organization Details LastModified Time losartan 50 mg tablet TAKE 1 TABLET BY MOUTH EVERY DAY 2023 active appt due 03/30/24 Not Available Not Available Not Available amoxicill in 500 mg capsule 01/18 completed Not Available Not Available Not Available metformin 500 mg tablet Take 2 tablets twice a day by oral route with meals. 01/15 completed Not Available Not Available Not Available butalbita l-acetami nophen-ca ffeine 50 mg-325 mg-40 mg capsule 05/24 completed Not Available Not Available Not Available neomycin- polymyxin -hydrocor t 3.5 mg/mL-10, 000 unit/mL-1 % ear solution INSTILL 4 DROPS IN BOTH EARS FOUR TIMES A DAY. LIE WITH EAR UPWARD FOR 5 MIN FOLLOWIN G DROPS. 11/17 completed Not Available Not Available Not Available Vitamin B-6 25 mg tablet TAKE 2 TABLETS BY MOUTH 4 TIMES DAILY NEEDED AFTER MEALS AND AT BEED TIME active Not Available Not Available No t Available labetalol 200 mg tablet TAKE 1 TABLET (200 MG TOTAL) BY MOUTH 2 TIMES A DAY. active Not Available Not Available No t Available clindamyc in HCl 300 mg capsule TAKE 1 CAPSULE THREE TIMES DAILY FOR 7 DAYS 08/12 completed Not Available Not Available Not Available azithromy camelia 250 mg tablet TAKE 2 TABLETS (500 MG) BY ORAL ROUTE ONCE DAILY FOR 1 DAY THEN 1 TABLET (250 MG) BY ORAL ROUTE ONCE DAILY FOR 4 DAYS 11/14 completed Not Available Not Available Not Available ibuprofen 800 mg tablet TAKE 1 TABLET EVERY 8 HOURS NEEDED FOR PAIN-JOSE CRUZ E WITH FOOD active Not Available Not Available No t Available fluconazo le 150 mg tablet 1 TABLET 08/12 completed Not Available Not Available Not Available benzonata te 200 mg capsule TAKE 1 CAPSULE (200 MG TOTAL) BY MOUTH 3 (THREE) TIMES A DAY NEEDED FOR COUGH FOR UP TO 7 DAYS. active Not Available Not Available No t Available hydrocodo ne 5 mg-acetam inophen 325 mg tablet Take 1 tablet every 6 hours by oral route as needed. 10/17 completed Not Available Not Available Not Available meloxicam 15 mg tablet 01/18 completed Not Available Not Available Not Available famotidin e 40 mg tablet 02/12 completed Not Available Not Available Not Available sertralin e 100 mg tablet TAKE 1 TABLET BY MOUTH EVERY DAYnee ds to establis h with new PCP first-no further refills will be provided until finds new PCP active needs to establis h with new PCP first-no further refills will be provided until finds new PCP Not Available Not Available Not Available Milk of Magnesia 400 mg/5 mL oral suspensio n 11/14 completed Not Available Not Available Not Available glipizide ER 5 mg tablet, extended release 24 hr TAKE 1 TABLET EVERY DAY WITH BREAKFAS T 12/20 completed Not Available Not Available Not Available penicilli n V potassium 500 mg tablet 01/18 completed Not Available Not Available Not Available clotrimaz ole 1 % vaginal cream INSERT 1 APPLICAT ORFUL EVERY DAY BY VAGINAL ROUTE AT DINNER FOR 7 DAYS. 05/24 completed Not Available Not Available Not Available metronida zole 500 mg tablet TAKE 1 TABLET BY MOUTH TWICE DAILY 7 DAYS 02/04 completed Not Available Not Available Not Available nifedipin e ER 30 mg tablet,ex tended release Take 1 tablet every day by oral route. 03/05 completed Not Available Not Available Not Available prochlorp erazine maleate 10 mg tablet 05/24 completed Not Available Not Available Not Available ciproflox acin 500 mg tablet 12/05 completed Not Available Not Available Not Available sulfameth oxazole 800 mg-trimet hoprim 160 mg tablet 01/18 completed Not Available Not Available Not Available aspirin 81 mg tablet,de layed release TAKE 2 TABLETS BY MOUTH ONCE DAILY. START AT 12 WEEKS GESTATIO N. 10/10 completed Not Available Not Available Not Available tramadol 50 mg tablet 01/19 completed Not Available Not Available Not Available amoxicill in 500 mg tablet 02/04 completed Not Available Not Available Not Available levothyro xine 25 mcg tablet TAKE 1 TABLET BY MOUTH EVERY DAY IN THE MORNING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 12/09/2018 09:22:49 Contraception care [id number] Z30.42 Due for Depo today. , but outside of window. Negative test discussed with pt today. Other options of contracept iglbert discussed (eg implanon/n explanon/I UD/OCPs/Pa tches/ring s); stated not interested at the time of the encounter. Advised w/ Depo contracept ion can increase risk of Osteoporos is thus take Ca w/ Vit D supplement . Advised must get every 3 months within window period or can possibly get . Advised does not protect from STD & to use condoms. [id number] GAGANDEEP Page ([facility]NA 104) [address] [place] [address] 01/15/2019 11:40:22 01/20/2019 08:35:06 History and physical examination, [facility] 12633734 Z02.0 Routine school physical, completed forms and returned to patient. Diabetes mellitus 833691 09 E11.9 Pt last seen for DM visit in August.. I advised that she needs to take her medication s as directed and see me agin in one month with home glucose readings for review. Last A1C: .10 Aug 2017 Fasting BG range: Not checking Current Therapy: Metformin 1000mg BID and continue Basaglar 10 units daily. Statin: N/A TAYLER: None Foot Exam: Due Microalbum in: 08/27/17 Pneumovax 23: 08/27/17 Pt was counseled on low carbohydra te diet to better manage diabetes. We went discussed pt's diet at length and I made specific dietary recommenda tions. I also encouraged regular exercise of 30-60 minutes most days of the week. Pt was encouraged to get yearly diabetic eye exams as well. [id number] GAGANDEEP Page [address]) [address] [place] [address] 02/12/2019 09:44:13 02/12/2019 13:45:51 Diabetes mellitus 19372723 E11.9 Since pt has not been taking Basaglar we will d/c today and have her start Glipizide ER 5mg daily. She is also going to work on her diet. I will see her again in one month to review home glucose records. Last A1C: .04 February 2019 Fasting BG range: Not checking Current Therapy: Metformin 1000mg BID and Glipizide ER 5mg daily Statin: N/A TAYLER: None Foot Exam: 02/12/19 Microalbum in: 08/27/17 Pneumovax 23: 08/27/17 Pt was counseled on low carbohydra te diet to better manage diabetes. We went discussed pt's diet at length and I made specific dietary recommenda tions. I also encouraged regular exercise of 30-60 minutes most days of the week. Pt was encouraged to get yearly diabetic eye exams as well. Active or passive immunization [id number] Z23 [id number] GAGANDEEP Page [facility] ([facility] [address]) [address] [place] [address] 05/14/2019 10:45:10 05/15/2019 08:26:09 Diabetes mellitus 40035346 E11.9 Last A1C: 10.04 February 2019 Fasting BG range: Not checking, we will revisit this idea next month as pt feels very overwhelme d. Current Therapy: Metformin 1000mg BID and Glipizide ER 5mg daily Statin: N/A TAYLER: None Foot Exam: 02/12/19 Microalbum in: Today Pneumovax 23: 08/27/17 Pt was counseled on low carbohydra te diet to better manage diabetes. We went discussed pt's diet at length and I made specific dietary recommenda tions. I also encouraged regular exercise of 30-60 minutes most days of the week. Pt was encouraged to get yearly diabetic eye exams as well. Depressive disorder 3544 9435 F32.9 We will start Prozac 20mg daily and have pt f/u with Juany for counseling and me in one month for med management . I advised that pt go to ER immediatel y should SI/HI develop and they agreed to do so. [id number] GAGANDEEP Page [facility] ([address]) [address] [place] [address] 12/21/2019 15:38:58 12/22/2019 09:43:46 Contraception care 034856349 Z30.42 Depo continued today, test negative. Other options of contracept gilbert discussed (eg implanon/n explanon/I UD/OCPs/Pa tches/ring s); stated not interested at the time of the encounter. Advised w/ Depo contracept ion can increase risk of Osteoporos is thus take Ca w/ Vit D supplement ation Advised must get every 3 months within window period or can possibilit y get . Advised does not protect from STD & to use condoms - Advised pt that tobacco use with control may increase risk of RI, PE or CVA. Abscess 772197788 L02.91 Pt is currently on antibiotic s for her axillary abscesses, but would like Rx for Ibuprofen for pain. Pt advised to continue antibiotic s and RTC if no improvemen t in ten days. Seek further medical care if condition worsens or fever develops. Diabetes mellitus 796118 09 E11.9 Pt has stopped both Metformin and Glipizide. She felt the immediate release formulatio n of Metformin caused too much GI distress, so we are going to try slowly increasing the ER formulatio n over four weeks. Pt to call office if she cannot tolerate this medication and will likely need to start insulin in that case. Otherwise we will see her again in one month to review home glucose records. Last A1C: 10.04 February 2019 Fasting BG range: Not checking, we will revisit this idea next month as pt feels very overwhelme d. Current Therapy: Metformin ER 1000mg BID Statin: N/A TAYLER: None Foot Exam: 02/12/19 Microalbum in: Today Pneumovax 23: 08/27/17 Pt was counseled on low carbohydra te diet to better manage diabetes. We went discussed pt's diet at length and I made specific dietary recommenda tions. I also encouraged regular exercise of 30-60 minutes most days of the week. Pt was encouraged to get yearly diabetic eye exams as well. [id number] GAGANDEEP Page ([address] [address]) [address] [place] [address] 01/19/2020 09:45:46 01/20/2020 08:01:38 Active or passive immunization [id number] Z23 History an d physical examination, school 10942811 Z02.0 Routine school physical, completed forms and returned to patient. No restrictio ns or or special accomodati ons needed. [id number] GAGANDEEP Page (BRENNA 104) [address] [place] [address] 10/17/2020 15:41:25 10/18/2020 10:55:07 High risk 19300906 O09.91 Shontelle has poorly controlled DM (see below) and HTN making this a high risk . She was counseled on ER precaution s and advised to go to the ER immediatel y if she develops abdominal pain, chest pain, abnormal bleeding or glucose reading above 400. I've placed a referral to maternal and medicine today for her to establish care with a highway technician. Additional ly, she will need to stop nortriptyl ine. I advised that she call her neurologis t to discuss a taper schedule vs abrupt cessation. Vaginal discharge 403319 006 N89.8 Will treat with seven day vaginal clotrimazo le. Pt self swabbed with nuswab, will adjust treatment as indicated when these results are available. Diabetes mellitus 051064 09 E11.9 Following our visit today, I spoke with pt's endocrinol ogist, Dr. India Barr, who said it has been nearly a year since Katie was seen there and that she has been non-compli ant with treatment. Nonetheles s, she suggested stopping both Metformin and Victoza and switching to insulin. Per her recommenda tions, Katie should start: - Lantus 8 units it the morning and 10 units in the evening. - Admelog 4 units with breakfast, lunch and dinner. Increase to 6 units if large meal. - Check glucose four times per day: Before breakfast, lunch, dinner and bedtime. - F/U with Maternal medicine clay! Unfortunat morales Wilson has not answered multiple calls, but I have left instructio ns with our RN to follow up with her tomorrow. Last A1C: 10.1 October 17, 2020 Fasting BG range: Not checking. Current Therapy: D/C Metformin and Victoza, start insulin regimen as noted above. Statin: N/A TAYLER: None Foot Exam: 02/12/19 Microalbum in: 05/14/19 Pneumovax 23: 08/27/17 Pt was counseled on low carbohydra te diet to better manage diabetes. We went discussed pt's diet at length and I made specific dietary recommenda tions. I also encouraged regular exercise of 30-60 minutes most days of the week. Pt was encouraged to get yearly diabetic eye exams as well. Essential hypertension 64129055 I10 Currently well controlled with labetalol, will continue today and have pt f/u with maternal and medicine for further management . Noncomplia nce with medication regimen 738398365 Z91.14 Pt has a history of noncomplia nce with our clinic and with her endocrinol ogist. We had a lengthy conversati on on the importance of follow up with her medical care to avoid negative and potentiall y fatal outcomes. I also stressed that this is no longer just about her health, but will impact her and could result in a miscarriag e if not properly managed. I answered all pt questions and again emphasized the importance of appropriat e medical care. She expressed understand ing. [id number] GAGANDEEP Page FP ([facility] [address]) [address] [facility] [place] [address] 05/24/2021 14:27:22 05/31/2021 12:13:46 History and physical examination, [facility] 63438017 Z02.0 Diabetes mellitus 099562 09 E11.9 Pt is following with Endo Dr. Hamlin but it is unclear when she last had an appt. She is trying to get , so I am going to have her restart Basal insulin at 10 units daily and have pt f/u with Endo as planned next month. Pt advised to inform Endo of her plans for to optimize her DM medication s. Last A1C: 9.3 May 24, 2021Fastin g BG range: Not checkingCu rrent Therapy: Victoza 1.2mg daily and restart Lantus 10 units daily.Stat in: Under 40ACE/ARB: NoneFoot Exam: 05/24/21Mi croalbumin : Ordered todayPneum ovax 23: 08/27/17 Pt was counseled on low carbohydra te diet to better manage diabetes. We went discussed pt's diet at length and I made specific dietary recommenda tions. I also encouraged regular exercise of 30-60 minutes most days of the week. Pt was encouraged to get yearly diabetic eye exams and counseled on diabetic foot care. Contraception care 3990697 3153 Z30.42 Pt currently has uncontroll ed Diabetes and is on nortriptyl ine which should not be taken while . She is wanting to get , but understand s that she needs to get her DM under better control and make some medication changes. Until that is accomplish ed, we are going to start OCP. She is to f/u with both endo and neurology next month to discuss treatment options that are safe to use during . [id number] GAGANDEEP Page FP ([address]) [address] [place] [address] 11/17/2021 10:03:42 11/24/2021 12:37:43 High risk 76390563 O09.91 Pt has already contacted maternal and medicine, who have switched her medication s to a regimen that is safer when . Pt has f/u scheduled with them on 11/23/21. I stressed the importance of keeping this appt and she expressed understand ing. Dental abscess 693208076 K04.7 Will treat with Augmentin x 10 days. Pt advised to take tylenol as needed for pain relief. Pt advised to schedule follow up with her dentist for definitive care. She expressed understand ing and agreed to this treatment plan. [id number] GAGANDEEP Page ([address]) [address] [facility] [address] 10/10/2022 10:52:48 10/11/2022 12:21:03 Obesity 034437307 E66.9 Pt needing labs, CXR and EKG done for [facility] weight loss program. All of which were ordered today. Will contact pt with results when available. Electrocar diogram abnormal 706501500 R94.31 Discussed abnormal EKG showing NSR but with possible anterior infarct of undetermin ed age. Given abnormal ekg, will refer to cardiology as she may now require cardiac clearance. She denies having any CP, SOB or other symptoms at this time. Pt was advised to go to ER immediatel y if CP becomes more persistent or they develop SOB or any other worrisome conditions . Answered all questions and pt expressed understand ing. [id number] GAGANDEEP Page [facility] ([address]) [address] [place] [address] 02/04/2023 11:54:36 02/27/2023 11:05:13 Essential hypertension 20674494 I10 BP elevated on multiple readings. Will start losartan 50mg daily and have pt f/u with me in clinic in a few weeks for BP monitoring . She expressed understand ing and agreed to this treatment plan. -Discussed lifestyle modificati ons including 150 minutes moderate intensity exercise per week, restrictin g intake of fast/proce ssed foods, sweets, sugary beverages. [id number] INOCENCIA [facility] ([facility] [address] [address] [facility] [place] [address] 05/20/2023 15:04:30 05/22/2023 15:23:38 Mixed anxiety and depressive disorder 445390902 F41.8 fu in 1 mo.report to ED if SI/HI, CP, SOB, LUCAS or the like experience dhydration and rest encouraged declined need for diaper and formula samplesDis cussed effectiven ess of medication may take 4-6 weeks. Encouraged to be consistent . [id number] GAGANDEEP Page FP ([address]) [address] [facility] [place] [address] 05/24/2023 14:32:23 05/30/2023 09:14:02 Active or passive immunization 583855391 Z23 [id number] GAGANDEEP Page FP ([address]) [address] [facility] [place] [address] 09/02/2023 09:01:43 09/02/2023 16:28:22 Mixed anxiety and depressive disorder 424723580 F41.8 Symptoms not well controlled , will increase Zoloft to 100mg and f/u with pt in four weeks for reassessme nt. I advised that pt go to ER immediatel y should SI/HI develop and they agreed to do so. Diabetes mellitus 439201 09 E11.9 Pt's previous endocrinol ogist has retired so she will need a new referral. Trulicity is out of stock at local pharmacies , so will switch to Ozempic. Continue to monitor FBG daily and call if above 150 consistent ly. I answered all pt questions, they expressed understand ing and are agreeable to this plan. Last A1C: 7.2 October 10, 2022Fastin g BG range: 190+Curren t Therapy: Metformin 500 mg daily, insulin pump, was on trulicity but out of stock so will switch to ozempicSta tin: Under 40ACE/ARB: NoneFoot Exam: 05/24/21Mi croalbumin : Ordered todayPneum ovax 23: 08/27/17 Pt was counseled on low carbohydra te diet to better manage diabetes. We went discussed pt's diet at length and I made specific dietary recommenda tions. I also encouraged regular exercise of 30-60 minutes most days of the week. Pt was encouraged to get yearly diabetic eye exams and counseled on diabetic foot care. [id number] GAGANDEEP Page ([address]) [address] [place] [address] 09/30/2023 09:25:56 10/02/2023 09:47:26 Mixed anxiety and depressive disorder 781835299 F41.8 Doing well with Zoloft, will continue today. I advised that pt go to ER immediatel y should SI/HI develop and they agreed to do so. 04067448 Z33.1 Continue f/u with highway technician as directed. Health Concerns Section Related Observation LastModified by Organization Detai ls LastModified Time None Recorded Concern Status LastModified by Organization Details LastModified Time None Recorded Advance Directives Directive None Recorded Payers Encounter Date Sequence Insurance Name Policy Number Policy Fisher Covered Member ID Fisher Member ID Guarantor Name 02/04/2023 1 [facility] (MEDICAID HMO) [id number] Katie Danielle [id number] Katie Danielle 05/20/2023 1 [facility] (MEDICAID HMO) [id number] Katie Danielle [id number] Katie Danielle 05/24/2023 1 [employer] [facility] [place] ([place] [id number] Katie Danielle [id number] Katie Danielle 09/02/2023 1 [employer] [facility] [place] [id number] Katie Danielle [id number] Katie Danielle 09/30/2023 1 [employer] [facility] [place] [id number] Katie Danielle [id number] Katie Danielle Notes Date Note Type Note Provider Name and Address Organization Details Recorded Time 02/04/2023 text/html Katie is calling today to discuss elevated BP. States that on multiple checks at work BP has averaged 140/100. Pt not currently on HTN meds and denies fever, SOB, wheezing, CP, LUCAS, hemoptysis, abdominal pain, N/V/D/C or rash. 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 She reports having a 10 months who is formula fed and an autistic 6 year old daughter. She reports difficulty GOOB and does not follow through with plans dt lack of desire. She feels like the world is on her shoulders; as she is the Go-To person in her family. She reports having a support system, however. Pt denies nausea, vomiting, fever, chills, rash, cough, CP, SOB, LUCAS, diarrhea, constipation and dysuria. JONNY Snell Attn: Accounting[address] [place], [address], [facility] 05/20/2023 15:29:42 09/02/2023 text/html Katie is calling today for f/u on depression. She continues to take Zoloft 50mg daily but is experiencing depressive symptoms. Pt reports poor mood, loss of interest, low energy, low motivation and feelings of guilt. Pt denies SI/HI, AH/VH or manic episodes. She would like to increase the dose. Also, she has been following with Dr. India Barr for DM and insulin pump management. However, she has retired and pt will need a new DM referral. She was prescribed Trulicity, but it is out of stock and she will need to switch to another GLP-1. Pt notes her FBG has averaged around 190 without Trulicity. She is otherwise doing well and denies fever, SOB, wheezing, CP, LUCAS, hemoptysis, abdominal pain, N/V/D/C or rash. Zach Soliz PA-C Attn: [address]ing[address] [place], [address], [place] [facility] 09/02/2023 13:01:43 09/30/2023 text/html Katie is calling today for one month follow up after increasing Zoloft to 100mg daily. She also tells me that she just found out she is 8 months . She states she is following with highway technician and recently had her medications adjusted to those in her current medication list. She is very happy with her anxiety and depression improvement on her current dose of Zoloft and would like to continue the medication. She denies SI/HI, AH/VH or manic episodes. Zach Soliz PA-C Attn: [address]ing[address] [facility], [place], [address], [facility] 10/01/2023 21:09:11 OBGyn Episode Ob Episode Information Episode Created Date Number of Fetuses Patient Bloodtype Patient rh Status Prepregnancy Weight lbs Domestic Partner Domestic Partner Phone Father Name Paper Wood Cutter Status 03/25/20 15 1 CLOSED Fetus Data First Name Last Name Admitted to NICU Weight (g) Sex Living Outcome Pediatric Complications Fetus ID Race Codes Race Delivery Type Baby was still born [id number] Vaginal Only Problems Problem Notes Problem Name Start Date End Date Resolution Snomed Code Not e Diabetes mellitus 75756113 Hypertensive disorder 08803678 Vaginal discharge [id number] Yessenia Calculation Initial Yessenia Date Initial Exam Date Initial Exam Provider Initial Ultrasound Date Last Menstrual Period Date Ultra Sound Weeks Gestation 10/08/2015 03/16/2015 03/16/2015 10 Eighteen To Twenty Week Yessenia Update Ultra Sound Date Fundal Height At Umbil Quickening Date Ultra Sound Latest Weeks Gestation Final Yessenia Confirmed By Final Yessenia Confirmed Date Final Yessenia Date Ultra Sound Latest Days Gestation 0 0 Pre-chris Flowsheet Flowsheet Date 03/25/2015 Raza Score Blood Edema Fundus Height Fundus Units Glucose Ketones Leukocytes Nitrite Labor Signs Protein Cervic Dilation Cervic Effacement Cervic Station Type Weight in lbs Pre/Post Dialysis Refused 235.754280728616 BP Diastolic BP Location Tested BP Systolic BP Type 88 134 sitting Fetus Heart Rate Present Fetus Movement Comments Flowsheet Date 08/29/2015 Raza Score Blood Edema Fundus Height Fundus Units Glucose Ketones Leukocytes Nitrite Labor Signs Protein Cervic Dilation Cervic Effacement Cervic Station Type Weight in lbs Pre/Post Dialysis Refused 236.108389865956 BP Diastolic BP Location Tested BP Systolic BP Type 90 134 sitting Fetus Heart Rate Present Fetus Movement Comments Flowsheet Date 10/25/2015 Raza Score Blood Edema Fundus Height Fundus Units Glucose Ketones Leukocytes Nitrite Labor Signs Protein Cervic Dilation Cervic Effacement Cervic Station Type Weight in lbs Pre/Post Dialysis Refused 233.412220589274 BP Diastolic BP Location Tested BP Systolic BP Type 92 140 sitting 80 R arm 130 sitting Fetus Heart Rate Present Fetus Movement Comments Menstrual History Last Menstrual Date Menses Monthly On Bcp Conception Prior Menses Frequency Hcg Plus Date Menarche Onset Age Genetic Screening And Infection History Question Response Note Patient's Age Will Be 35 Years Or Older At Estim ated Date of Delivery false Thalassemia (Luxembourgish, Slovenian, Mediterranean, Or Background): MCV < 80 false Neural Tube Defect (Meningomyelocele, Spina Bifi da, Or Anencephaly) false Congenital Heart Defect false Down Syndrome false Russel-Sachs (eg, Amish, Cajun, Vietnamese-Pitt) f alse Olamide Disease false Sickle Cell Disease Or Trait () false Hemophilia Or Other Blood Disorders false Muscular Dystrophy false Cystic Fibrosis false Nueces's Chorea false Mental Retardation/Autism false If Yes, Was Person Tested For Fragile X? false Other Inherited Genetic Or Chromosomal Disorder false Maternal Metabolic Disorder (eg, Type 1 Diabetes , PKU) false Patient Or Baby's Father Had A Child With Defects Not Listed Above false Recurrent Loss, Or A Stillbirth false Medications (including Suppl ements, Vitamins, Herbs, OTC Drugs), Illicit/Recreational Drugs, Alcohol true If Yes, Agent(s) And Strength/Dosage false Any Other Genetic History false Live With Someone With TB Or Exposed To TB false Patient Or Partner Has History Of Genital Herpes false Rash Or Viral Illness Since Last Menstrual Perio d false History Of STD, Gonorrhea, Chlamydia, HPV, Syphi lis false Other Infection History false Plans and Education First Trimester Discussed Date Discussion Item Discussion Note Discuss ed By 03/25/2015 Anticipated course of care tcraion 03/25/2015 Alcohol tcraion 03/25/2015 Intimate partner violence tc raion 03/25/2015 Environmental/work hazards t craion 03/25/2015 Screening for aneuploidy tcr aion 03/25/2015 Nutrition counseling ; special diet; dietary precautions (mercury, listeriosis) tcraion 03/25/2015 HIV and other routine tests tcraion 03/25/2015 Risk factors identif ied by history tcraion 03/25/2015 Weight gain counseling tcrai on 03/25/2015 Exercise tcron 03/25/2015 Teratogens tcron 03/25/2015 Use of any medicatio ns (including supplements, vitamins, herbs, or OTC drugs) tcron 03/25/2015 tcron 03/25/2015 Sexual activity tcron 03/25/2015 Tobacco/smoking cess ation counseling (ask, advise, assess, assist, and arrange) [facility] 03/25/2015 Illicit/recreational drugs t craion 03/25/2015 Dental care tcron 03/25/2015 Travel tcron 03/25/2015 Seat belt use [facility] 03/25/2015 Indications for ultrasonography tcron 03/25/2015 Avoidance of saunas or hot tubs tcron 03/25/2015 Toxoplasmosis precautions (cats/raw meat) [facility] Second Trimester Discussed Date Discussion Item Discussion Note Discuss ed By Third Trimester Discussed Date Discussion Item Discussion Note Discuss ed By Delivery Information Delivery Date Delivery Type Labor Anesthesia Weeks Gestation Incision Type Labor Labor Length Hrs Delivered By Post Complications Tubal Sterilization Discharge Date Comments 5 11.1 Discharge Information Feeding Method Contraceptive Method Maternal HG B and HCT Levels
--- OUTSIDE RECORDS SUMMARY | 2024-09-23 17:27 | XMS_ITS | Data Portability ---
Author Organization [facility] [employer], Main Office Address [address] [place] [address] Assessment No assessment recorded. Plan of Treatment Reminders Order Date Submit Date Provider Last Modified By Organization Details Last Modified Time Details Appointments None recorded. Lab dexamethaso ne, serum 2022 023 [facility], [address], [address], [place], [address], 3 17:28:23 cortisol, am, serum 2022 023 [facility], [address], [address], [place], [address], 3 17:28:22 HbA1c (hemoglobin A1c), blood 2022 023 [facility], [address], [address], [place], [address], 3 17:27:33 CMP, serum or plasma 2022 023 [facility], [address], [address], [place], [address], 3 17:27:32 microalbumi n/creatinin e, mass ratio, urine 2022 023 [facility], [address], [address], [place], [address], 3 17:27:33 lipid panel, serum 2022 023 [facility], [address] [facility], [address], [place], [address], 3 17:29:28 TSH + free T4, serum 2022 023 [facility], [address] [facility], [address], [place], [address], 3 17:29:28 Referral None recorded. Procedures None recorded. Surgeries None recorded. Imaging None recorded. Medication Orders dexamethaso ne 1 mg tablet 2022 023 [id number] [address] [place], [address], 17:28:09 Trulicity 1.5 mg/0.5 mL subcutaneou s pen injector [address]/Pharmacy #[id number], [address] [place], [address], 19:56:20 metformin ER 500 mg tablet,exte nded release 24 hr 2022 023 [id number], [address] [place], [address], 3 17:27:22 Patient TargetsNo targets recorded. Patient InstructionsNo instructions recorded. Reason for Referral None Reported. Results Created Date Observation Date Name Description Value Unit Range Abnormal Flag Note LastModifiedBy Organization Detail LastModifiedTime 10/17/1910/22/2021 TESTO STERO NE, FREE+ TOTAL LC/MS testosterone , total, lc/MS 36.8 NG/dL 10.0-5 5.0 Not Available [facility] (Lab) [address] [place], [address], 10/22/2021 18:07:52 10/17/19 22 10/22/2021 TESTO STERO NE, FREE+ TOTAL LC/MS testosterone , free 0.89 NG/dL 0.10-0 .85 high Not Available [facility] (Lab) [address] [place], [address], 10/22/2021 18:07:52 10/17/19 22 10/22/2021 TESTO STERO NE, FREE+ TOTAL LC/MS % free testosterone 2.41 % 0.50-2 .80 [facility]fo [facility] at: [facility] [address] [facility] [place] [address] 3[address] Lab Direc tor: Yvonne cantrell MD, Phone : [phone] Not Available [facility] (Lab) [address] [place], [address], 10/22/2021 18:07:52 10/17/19 22 10/17/2021 PROGE STERO NE progesterone <0.1 NG/mL Folli cular phase 0.1 - 0.9 Lutea l phase 1.8 - 23.9 Ovula tion phase 0.1 - 12.0 Pregn ant First trime ster 11.0 - 44.3 Secon d trime ster 25.4 - 83.3 Third trime ster 58.7 - 214.0 Postm enopa usal 0.0 - 0.1 Perfo rmed at: - [facility] [address] [place] [id number] Lab Direc tor: Vincenzo hoover PhD, Phone : [phone] Not Available [facility] (Lab) [address] [place], [address], 10/17/2021 09:14:24 10/17/19 22 10/16/2021 HEMOG LOBIN A1C HA1C 9.8 % 4.0-6. 0 high Diabe jaquan Scree vanessa Crite tex: <5.7% Consi stent with absen ce of diabe jaquan 5.7-6 .4% Consi stent with incre ased risk for diabe jaquan (pred iabet es) >OR=6 .5% Consi stent with diabe jaquan REFER ENCE: Diabe jaquan Care 2016, 39(Escudero ppl.1 ):s13 -s22 Not Available [facility] (Lab) [address] [place], [address], 10/16/2021 12:02:34 10/17/19 22 10/16/2021 TSH thyroid-stim ulating hormone <0.015 uIU/m L 0.465- 4.680 low RESUL T IS LESS THAN REPOR TABLE RANGE OF ASSAY . Not Available [facility] (Lab) [address] [place], [address], 10/16/2021 12:01:40 10/17/19 22 10/16/2021 T4 FREE free T4 0.80 NG/dL 0.78-2 .19 Not Available [facility] (Lab) [address] [place], [address], 10/16/2021 11:44:50 10/17/19 22 10/16/2021 LIPID PANEL cholesterol 222 mg/dL 140-19 9 high NIH ALYCE NSUS RECOM MENDA TION FOR DINH STERO L: ADULT CHILD LOW RISK: <200 <170 BORDE RLINE : <200- 239 ----- HIGH RISK: >240 >200 Not Available [facility] (Lab) [address] [place], [address], 10/16/2021 11:28:58 10/17/19 22 10/16/2021 LIPID PANEL triglyceride s 261 mg/dL 0-150 high NIH ALYCE NSUS REPOR T RECOM MENDA TION FOR TRIGL YCERI JER: ADULT CHILD LOW RISK: <150 ----- BODER LINE: 150-1 99 ----- HIGH RISK: >200 ----- Not Available [facility] (Lab) [address] [place], [address], 10/16/2021 11:28:58 10/17/19 22 10/16/2021 LIPID PANEL HDL cholesterol 52 mg/dL 40- Not Available [facility] (Lab) [address] [place], [address], 10/16/2021 11:28:58 10/17/19 22 10/16/2021 LIPID PANEL LDL cholesterol, calculated 118 mg/dL 0-130 NIH ALYCE NSUS REPOR T RECOM MENDA TIONS FOR LDL: ADULT CHILD LOW RISK <130 <110 (OPTI MAL LDL) <100 ----- BORDE RLINE : 130-1 59 ----- HIGH RISK: >160 >130 A TRIGL YCERI DE RESUL T >400 INVAL IDATE S THE CALCU LATIO N FOR LDL FRACT IONAT ION - THE LDL RESUL T WILL NOT BE REPOR YAMILET. Not Available [facility] (Lab) [address] [place], [address], 10/16/2021 11:28:58 10/17/19 22 10/16/2021 COMPR EHENS BERNADETTE METAB OLIC PANEL sodium 138 mmol/ L 137-14 5 Not Available [facility] (Lab) [address] [place], [address], 10/16/2021 11:28:55 10/17/19 22 10/16/2021 COMPR EHENS BERNADETTE METAB OLIC PANEL potassium 4.2 mmol/ L 3.5-5. 1 Not Available [facility] (Lab) [address] [place], [address], 10/16/2021 11:28:55 10/17/19 22 10/16/2021 COMPR EHENS BERNADETTE METAB OLIC PANEL chloride 104 mmol/ L 98-107 Not Available [facility] (Lab) [address] [place], [address], 10/16/2021 11:28:55 10/17/19 22 10/16/2021 COMPR EHENS BERNADETTE METAB OLIC PANEL carbon dioxide 21 mmol/ L 22-30 low Not Available [facility] (Lab) [address] [place], [address], 10/16/2021 11:28:55 10/17/19 22 10/16/2021 COMPR EHENS BERNADETTE METAB OLIC PANEL agap 17.2 mmol/ L Not Available [facility] (Lab) [address] [place], [address], 10/16/2021 11:28:55 10/17/19 22 10/16/2021 COMPR EHENS BERNADETTE METAB OLIC PANEL glucose 284 mg/dL 70-99 high Not Available [facility] (Lab) [address] [place], [address], 10/16/2021 11:28:55 10/17/19 22 10/16/2021 COMPR EHENS BERNADETTE METAB OLIC PANEL BUN 10 mg/dL 8-19 Not Available [facility] (Lab) [address] [place], [address], 10/16/2021 11:28:55 10/17/19 22 10/16/2021 COMPR EHENS BERNADETTE METAB OLIC PANEL creatinine 0.46 mg/dL 0.66-1 .25 low Not Available [facility] (Lab) [address] [place], [address], 10/16/2021 11:28:55 10/17/19 22 10/16/2021 COMPR EHENS BERNADETTE METAB OLIC PANEL GFR >60 Refer ence Range : Axson ge GFR Healt hy Adult : >60 mL/mi n/1.7 3 m2 Chron ic Kidne y Disea se: 15-60 mL/mi n/1.7 3 m2 Kidne y Failu re: <15/m L/min /1.73 m2 www.n iddk. nih.g ov The MDRD study equat ion has not been valid ated in child zaki <18 years of age; pregn ant women ; the elder ly >85 years of age; or in some racia l or ethni c subgr oups, such as Hispa nics. Outsi de the valid ated radha eters , estim ated GFR is less accur ate, requi ring clini herbert judgm ent on a case- by-ca se basis . Clini herbert inter preta tion for other races and ages must be made by the clini lavon. The MDRD study equat ion has not been valid ated for the evalu ation of serum creat inine relat ed to nutri solo l statu s or medic ation usage . For perso ns <18 years of age, a pedia tric GFR calcu lator is avail able on the [facility] websi te: https ://ww w.kid octavio.o rg/pr ofess ional s/kdo qi/gf r_cal culat or Not Available [facility] (Lab) [address] [place], [address], 10/16/2021 11:28:55 10/17/19 22 10/16/2021 COMPR EHENS BERNADETTE METAB OLIC PANEL alkaline phosphatase 85 U/L 38-126 Not Available [facility] (Lab) [address] [place], [address], 10/16/2021 11:28:55 10/17/19 22 10/16/2021 COMPR EHENS BERNADETTE METAB OLIC PANEL alanine aminotransfe rase 53 U/L 0-35 high Not Available [facility] (Lab) [address] [place], [address], 10/16/2021 11:28:55 10/17/19 22 10/16/2021 COMPR EHENS BERNADETTE METAB OLIC PANEL aspartate aminotransfe rase 40 U/L 15-37 high Not Available [facility] (Lab) [address] [place], [address], 10/16/2021 11:28:55 10/17/19 22 10/16/2021 COMPR EHENS BERNADETTE METAB OLIC PANEL bilirubin, total 0.70 mg/dL 0.20-1 .30 Not Available [facility] (Lab) [address] [place], [address], 10/16/2021 11:28:55 10/17/19 22 10/16/2021 COMPR EHENS BERNADETTE METAB OLIC PANEL calcium 9.7 mg/dL 8.4-10 .2 Not Available [facility] (Lab) [address] [place], [address], 10/16/2021 11:28:55 10/17/19 22 10/16/2021 COMPR EHENS BERNADETTE METAB OLIC PANEL total protein 7.4 g/dL 6.3-8. 2 Not Available [facility] (Lab) [address] [facility] [place], [address], 10/16/2021 11:28:55 10/17/19 22 10/16/2021 COMPR EHENS BERNADETTE METAB OLIC PANEL albumin 4.4 g/dL 3.4-5. 0 Not Available [facility] (Lab) [address] [place], [address], 10/16/2021 11:28:55 10/17/19 22 10/16/2021 COMPR EHENS BERNADETTE METAB OLIC PANEL globulin 3.0 g/dL 2.6-4. 2 Not Available [facility] (Lab) [address] [place], [address], 10/16/2021 11:28:55 10/17/19 22 10/16/2021 COMPR EHENS BERNADETTE METAB OLIC PANEL A/G ratio 1.5 ratio 1.0-2. 0 Not Available [facility] (Lab) [address] [place], [address], 10/16/2021 11:28:55 10/17/19 22 10/16/2021 MICRO ALBUM N RNDM W/CRE AT RATIO ur creat 319.70 mg/dL REFER ENCE RANGE NOT ESTAB LISHE D FOR RANDO M URINE CREAT ININE Not Available [facility] (Lab) [address] [place], [address], 10/16/2021 11:14:53 10/17/19 22 10/16/2021 MICRO ALBUM N RNDM W/CRE AT RATIO microalb 44.0 mg/L 0.0-16 .6 high Not Available [facility] (Lab) [address] [place], [address], 10/16/2021 11:14:53 10/17/19 22 10/16/2021 MICRO ALBUM N RNDM W/CRE AT RATIO ratio 14 mcg/m g 0-29 THE AMERI CAN DIABE JAQUAN ASSOC IATIO N DEFIN ES ABNOR MALIT IES IN ALBUM IN EXCRE TION FOLLO WS: CATEG ORY RESUL T (MCG/ MG CREAT ININE ) FREDA L <30 MICRO ALBUM INURI A 30-29 9 CLINI HERBERT ALBUM INURI A > OR = 300 THE ADA RECOM MENDS THAT 2 OF 2 SPECI MENS COLLE CTED WITHI N A 3- TO 6-MON TH PERIO D BE ABNOR MAL BEFOR E CONSI CORINNE G A PATIE NT TO HAVE CROSS ED ONE OF THESE DIAGN OSTIC THRES HOLDS . REFER ENCE: DIABE JAQUAN CARE, VOL. 26: S94-S , 2002 Not Available [facility] (Lab) [address] [place], [address], 10/16/2021 11:14:53 04/18/20 23 04/18/2023 CORTI NARESH, TOTAL , A.M. siomara AM 1.1 ug/dL 4.5-22 .7 low Not Available [facility] (Lab) [address] [place], [address], 04/18/2023 13:19:50 04/18/2004/25/2023 DEXAM ETHAS ONE dexamethason e 227 NG/dL This test was devel oped and its perfo rmanc e jb cteri stics deter mined by [facility]. It has not been clear ed or appro mirza by the Food and Drug Admin istra tion. Refer ence Range : Adult s basel ine: <30 8:00 AM follo wing 1 mg dexam ethas one previ ous eveni n - 295 8:00 AM follo wing 8 mg dexam ethas one (4 x 2 mg doses ) previ ous day: 1600 - 2850 Perfo rmed at: [facility] [employer] [facility] [address] [place] [id number] Lab Direc tor: Jayden ulloa MD, Phone : [phone] Not Available [facility] (Lab) [address] [place], [address], 04/25/2023 04:08:50 Result Notes None recorded. Problems Name Problem SNOMED Code Status Onset Date Resolution Date Notes Provider Name and Address Organization Details Recorded Time Well controlled type 2 diabetes mellitus 183310014 Active 023 India Barr MD [address], [address], [employer] 3 17:26:18 Weight gain 3072936 Active 023 India Barr MD [address] [facility], [place] [address], [place], [address], [employer] 3 17:27:31 Problem Notes None recorded. Medical Equipment None Reported. Allergies No known drug allergies Medications Name Sig Start Date Stop Date Status Note LastModified by Organization Details LastModified Time losartan 50 mg tablet TAKE 1 TABLET BY MOUTH EVERY DAY active Not Available Not Available No t Available butalbital- acetaminoph en-caffeine 50 mg-325 mg-40 mg capsule 07/20 completed Not Available Not Available Not Available neomycin-po lymyxin-hyd rocort 3.5 mg/mL-10,00 0 unit/mL-1 % ear solution active Not Available Not Available Not Available Vitamin B-6 25 mg tablet TAKE 2 TABLETS BY MOUTH 4 TIMES DAILY NEEDED AFTER MEALS AND AT BEED TIME active Not Available Not Available No t Available clindamycin HCl 300 mg capsule TAKE 1 CAPSULE TWICE DAILY 03/12 completed Not Available Not Available Not Available ibuprofen 800 mg tablet TAKE 1 TABLET BY MOUTH EVERY 6 HOURS NEEDED FOR PAIN active Not Available Not Available No t Available fluconazole 150 mg tablet TAKE 1 TABLET BY MOUTH. TAKE IN 3 DAYS IF SYMPTOMS PERSIST. WILL NEED TO CONTACT DR FOR MORE active Not Available Not Available No t Available clotrimazol e 1 % vaginal cream 07/20 completed Not Available Not Available Not Available metronidazo le 500 mg tablet TAKE 1 TABLET BY MOUTH TWICE DAILY 7 DAYS 11/08 completed Not Available Not Available Not Available prochlorper azine maleate 10 mg tablet 07/20 completed Not Available Not Available Not Available aspirin 81 mg tablet,aline yed release TAKE 2 TABLETS BY MOUTH ONCE DAILY. START AT 12 WEEKS GESTATION . active Not Available Not Available No t Available amoxicillin 500 mg tablet TAKE 1 TABLET BY MOUTH TWICE A DAY 03/07 completed Not Available Not Available Not Available levothyroxi ne 25 mcg tablet TAKE 1 TABLET BY MOUTH EVERY DAY IN THE MORNING 11/08 completed Not Available Not Available Not Available hydrocortis one 2.5 % topical cream with perineal applicator INSERT INTO THE RECTUM AT BEDTIME 11/08 completed Not Available Not Available Not Available amoxicillin 875 mg tablet TAKE 1 TABLET BY MOUTH EVERY 12 HOURS 03/07 completed Not Available Not Available Not Available Humalog U-100 Insulin 100 unit/mL subcutaneou s solution FOR USE IN INSULIN PUMP. TOTAL DAILY DOSE UP TO 100U PER DAY. active Not Available Not Available No t Available Mapap (acetaminop hen) 500 mg capsule TAKE 2 (TWO) CAPSULES BY MOUTH EVERY 8 HOURS NEEDED FOR FEVER OR PAIN 11/08 completed Not Available Not Available Not Available OneTouch Ultra Test strips active Not Available Not Available Not Available dexamethaso ne 1 mg tablet TAKE 1 TABLET BY MOUTH AT 10 PM NIGHT BEFORE 8AM CORTISOL active Not Available Not Available No t Available nortriptyli ne 75 mg capsule Take 1 capsule every day by oral route. 07/20 completed Not Available Not Available Not Available levothyroxi ne 50 mcg tablet Take 1 tablet every day by oral route in the morning for 90 days. 11/08 completed Not Available Not Available Not Available ferrous sulfate 325 mg (65 mg iron) tablet TAKE 1 TABLET BY MOUTH EVERY DAY active Not Available Not Available No t Available polymyxin B sulfate 10,000 unit-trimet hoprim 1 mg/mL eye drops INSTILL 1 DROP INTO LEFT EYE EVERY 4 HOURS FOR 7 DAYS 11/08 completed Not Available Not Available Not Available indomethaci n 25 mg capsule TAKE 1 (ONE) CAPSULE BY MOUTH EVERY 6 HOURS FOR 7 DOSES START ON 01/16 AT 6PM 11/08 completed Not Available Not Available Not Available docusate sodium 100 mg capsule TAKE 1 (ONE) CAPSULE BY MOUTH ONCE DAILY NEEDED FOR CONSTIPAT ION. active Not Available Not Available No t Available gabapentin 300 mg capsule Take 1 capsule 3 times a day by oral route before meals for 90 days. active Not Available Not Available No t Available ergocalcife rol (vitamin D2) 1,250 mcg (50,000 unit) capsule TAKE 1 CAPSULE EVERY WEEK BY ORAL ROUTE. active Not Available Not Available No t Available ibuprofen 600 mg tablet TAKE 1 TABLET BY MOUTH EVERY 6 HOURS NEEDED FOR PAIN 11/08 completed Not Available Not Available Not Available labetalol 100 mg tablet TAKE 1 TABLET BY MOUTH TWICE A DAY 11/08 completed Not Available Not Available Not Available ondansetron 4 mg disintegrat ing tablet DISSOLVE 1 TABLET ON THE TONGUE EVERY 6 HOURS NEEDED FOR NAUSEA AND VOMITING 11/08 completed Not Available Not Available Not Available metformin ER 500 mg tablet,exte nded release 24 hr TAKE 1 TABLET BY MOUTH EVERY DAY WITH MEALS FOR 90 DAYS active Not Available Not Available No t Available Ketostix strips 11/08 completed Not Available Not Available Not Available naproxen 500 mg tablet TAKE 1 TABLET BY MOUTH TWICE A DAY NEEDED active Not Available Not Available No t Available nortriptyli ne 50 mg capsule 07/20 completed Not Available Not Available Not Available metoclopram jarocho 10 mg tablet 07/20 completed Not Available Not Available Not Available amoxicillin 875 mg-potassiu m clavulanate 125 mg tablet TAKE 1 TABLET BY MOUTH TWICE A DAY FOR 7 DAYS 03/07 completed Not Available Not Available Not Available insulin lispro (U-100) 100 unit/mL subcutaneou s pen INJECT 8 UNITS THREE TIMES DAILY WITH MEALS IN ADDITION TO SLIDING SCALE active Not Available Not Available No t Available rosuvastati n 20 mg tablet TAKE 1 TABLET BY MOUTH EVERYDAY AT BEDTIME active Not Available Not Available No t Available nitrofurant oin monohydrate /macrocryst als 100 mg capsule 07/20 completed Not Available Not Available Not Available chlorhexidi ne gluconate 0.12 % mouthwash SWISH AND SPIT WITH 15 ORAL ML TWICE DAILY AFTER BRUSHING TEETH. active Not Available Not Available No t Available Lantus Solostar U-100 Insulin 100 unit/mL (3 mL) subcutaneou s pen INJECT 16 UNITS IN THE AM AND 20 UNITS IN PM. MAX DAILY DOSE:60 2022 active Not Available Not Available Not Avai mirtha Victoza 3-Adebayo 0.6 mg/0.1 mL (18 mg/3 mL) subcutaneou s pen injector Inject 1.2 mg every day by subcutane ous route with meals for 30 days. 10/20 completed Not Available Not Available Not Available Trulicity 1.5 mg/0.5 mL subcutaneou s pen injector INJECT 1.5 MG EVERY WEEK BY SUBCUTANE OUS ROUTE AT DINNER 2022 active Not Available Not Available Not Averik huitronle Trulicity 0.75 mg/0.5 mL subcutaneou s pen injector INJECT 0.75 MG EVERY WEEK BY SUBCUTANE OUS ROUTE AT DINNER FOR 30 DAYS. active Not Available Not Available No t Available TechLITE Pen Needle 31 gauge x 5/16 active Not Available Not Available Not Available TRUEplus Pen Needle 32 gauge x 5/32 USE 1 NEEDLE ONCE DAILY TO USE FOR INSULIN active Not Available Not Available No t Available Dexcom G6 Sensor device CHANGE EVERY 10 DAYS active Not Available Not Available No t Available Dexcom G6 Framing Mill Supervisor USE DIRECTED active Not Available Not Available No t Available Dexcom G6 Transmitter device CHANGE EVERY 90 DAYS active Not Available Not Available No t Available Dedra 0.25 mg-35 mcg tablet active Not Available Not Available Not Available Omnipod Dash Pods (Gen 4) subcutaneou s cartridge CHANGE POD EVERY 72 HOURS 2022 active Not Available Not Available Not Kim shannon M- Plus 27 mg iron-1 mg tablet TAKE 1 TABLET BY MOUTH EVERY DAY active Not Available Not Available No t Available OneTouch Delica Plus Lancet 33 gauge active Not Available Not Available Not Available Baqsimi 3 mg/actuatio n nasal spray 11/08 completed Not Available Not Available Not Available OneTouch Verio Reflect Meter USE ONCE DAILY active Not Available Not Available No t Available Vitals Date Recorded Body weight Body temperature Heart rate Systolic blood pressure Diastolic blood pressure Provider Name and Address Organization Details Last Updated DateTime 11/08/2022 939192. 31 g 98.3 [degF] 90 /min 159 mm[Hg] 88 mm[Hg] Tonara Chamorrosaumya SHAUN CA - [facility] MD [employer] 17:00:09 Social History Question Answer Notes LastModified by Organizat ion Details LastModified Time Tobacco Smoking Status Never Smoker Not Available [employer] 10/03/2022 21:33:20 What Is Your Level Of Alcohol Consumption? Occasional [id number] Information not available 10/03/2022 If You Are , What Was Your Level Of Alcohol Consumption Prior To ? None [id number] Information not available 10/03/2022 What Is Your Level Of Caffeine Consumption? Heavy [id number] Information not available 10/03/2022 What Is The Highest Grade Or Level Of School You Have Completed Or The Highest Degree You Have Received? [id number] Information not available 10/03/2022 Have You Ever Been Counseled For Unhealthy Alcohol Use? No [id number] Information not available 10/03/2022 What Is Your Relationship Status? Single [id number] Information not available 10/03/2022 Do You Use Any Illicit Or Recreational Drugs? No [id number] Information not available 10/03/2022 Has Tobacco Cessation Counseling Been Provided? No [id number] Information not available 10/03/2022 Do You Or Have You Ever Used Any Other Forms Of Tobacco Or Nicotine? No [id number] Information not available 10/03/2022 Sex: Unknown Functional Status None recorded. Mental Status None recorded. Family History Relationship Description Onset Age of this Age Resolved Age Notes LastModified by Organization Details LastModified Time Mother Hypothyroidi sm [id number] Not available 10/03/2022 21:33:22 Mother Hypertensive disorder [id number] Not available 10/03/2022 21:33:22 Maternal Grandmother Hypertensive disorder [id number] Not available 10/03/2022 21:33:22 Paternal Grandmother Hypertensive disorder [id number] Not available 10/03/2022 21:33:22 Paternal Grandmother Diabetes mellitus [id number] Not available 10/03/2022 21:33:22 Paternal Aunt Diabetes mellitus [id number] Not available 10/03/2022 21:33:22 Paternal Uncle Diabetes mellitus [id number] Not available 10/03/2022 21:33:22 Medical History Condition Response DIABETES, TYPE Y HYPERTENSION Y Gynecological HistoryNo gynecological history recorded. Obstetrics History GPAL:G 0 P 0 0 0 0 Past Encounters Encounter ID Performer Location Encounter Start Date Encounter Closed Date Diagnosis/Indication Diagnosis SNOMED-CT Code Diagnosis ICD10 Code Diagnosis Note [id number] _ATHENA_M IGRATION_ DEFAULT_1 _1 , 07/20/2021 00:00:00 07/20/2021 12:08:22 [id number] [facility] [address] [place] [address] 10/20/2021 00:00:00 10/24/2021 20:46:38 [id number] India Barr MD [facility] [address] [place] [address] 11/08/2022 16:51:19 11/08/2022 17:34:03 Well controlled type 2 diabetes mellitus [id number] E11.9 a1c of 7.2%- will restart on metformin for insulin resistance -patient delivered her son 5 months ago and no longer breastfeed ing. Recommende d GLP1 agonist therapy as she is having trouble at times with cravings of sweets and portion control. Discussed potentiall y reducing total carb intake to 120 grams daily into 4-5 small split meals with addition of healthy protein based snack at bedtime to help reduce key maker hyperglyce florentin. She has no hx of pancreatit is or medullary thyroid cancer and is willing to trial on a GLP1 agonist therapy. She was advised to contact clinic if she experience s any nausea, vomiting or significan t thyroid pain / swelling or abdominal pain so we can discuss and discontinu e and potentiall y look to other therapy. Will trial on trulicity 0.75 mg SQ weekly x 4 weeks then increase to 1.5 mg SQ weekly with largest meal of that day as tolerated. Continue basal setting as follows:12 am 2.4 u/hr3 am at 2.5 u/hrnoon 3 u/hr12 am at 2.8 u/hr Patient is aware her glucose may drop lower when starting metformin and trulicity- she has a basal 2 setting that has up to 20% reduction of current settings- she was advised to transition to this setting if sugars under 100 mg/dL consistent ly. She is aware to reach out to clinic for pump setting changes if she has continued lows following any transition s. She voiced understand ing. Weight gain [id number] R63. 5 Will send for low dose dexa suppressio n testing to screen for hypercorti solic state. Spent up to 28 minutes preparing to see the patient (eg, review of tests), obtaining and/or reviewing separately obtained history, performing a medically appropriat e examinatio n and evaluation , counseling and educating the patient, ordering medication s, tests, along with documentin g clinical informatio n in the electronic health record, independen tly interpreti ng results and communicat ing results to the patient. RTC in 4 months. Patient was provided a handwritte n lab order which contains our fax number. If she chooses to go outside of the [facility] system to obtain labwork she was advised to provide our fax number and my informatio n to the lab she will be obtaining labwork from in order to have her labs properly forwarded over for me to review so there is no loss of follow up due to use of outside network. She was also advised to contact our clinic informing us that she has completed her labwork so we are aware we will need to reach out to the appropriat e laboratory to request her results be forwarded to us so I might have the ability to review and make further medical decision making in her case. She voiced understand ing. Health Concerns Section Related Observation LastModified by Organization Detai ls LastModified Time None Recorded Concern Status LastModified by Organization Details LastModified Time None Recorded Advance Directives Directive None Recorded Payers Encounter Date Sequence Insurance Name Policy Number Policy Fisher Covered Member ID Fisher Member ID Guarantor Name 11/08/2022 1 [facility] (MEDICAID HMO) [id number] Katie Danielle [id number] Katie Danielle Notes Date Note Type Note Provider Name and Address Organization Details Recorded Time 11/08/2022 text/html 32 yo female com es in for follow up in management of now better controlled type 2 DM (A1C of 7.2%), findings of mixed dyslipidemia and hypercalcemia. last seen in October 2021 at that time we had patient start on lantus at 20 units in morning and 25 units at bedtime and increase by 3 units every 3 days until fasting glucose 90-130 mg/dL.Continue on lispro prior to meals plus correction.Since her last visit she had a baby- her son was 5 months old now. She is not . She is having cycles that are regular in nature. She never started the trulicity. she is only on pump therapy. She is also taking lantus but doesn't remember her dosing. Sugars over 200 mg/dL premealssugars over 150 mg/dl fasting basal program:12 am 2.4 u/hr3 am at 2.5 u/hrnoon 3 u/hr12 am at 2.8 u/hrtotal dose of 65.25 u/day labs from 10/11/22:a1c 7.2%276/326/48/165B1 2 336 pg/mlfolate 9.8Cal 10.6 mg/dL with PTH 18 pg/MLvit D 9.2 ng/mLTSH of 0.66 uIU/mLglucose 146 mg/dLCr normalLFT normal India Barr MD [address] [facility], [facility] [address], [place], [address], [facility] 11/08/2022 20:00:11 OBGyn Episode No OBEpisode recorded.
--- OUTSIDE RECORDS SUMMARY | 2024-09-23 17:27 | XMS_ITS | Referral Summary ---
Author Organization [facility] Address [address] [place] [address] Care Team Providers Care Bight Maker Name Role Phone Unknown, Notinfile Primary Care Provider Unavail able Clinic, [facility] Mat Med Unavailabl e Unavailable Allergies [...] day. 100 each 1 4 Active vit [id number]-dh a 27mg iron- 800 mcg-250 mg capsule [...] complication, with long-term current use of insulin ([facility]) ([facility]) Will use 1 transmitter every 90 days 1 each 3 4 Active blood-glucose sensor (Dexcom G6 Sensor) deviceIndication s:Type 2 diabetes mellitus without complication, with long-term current use of insulin ([facility]) ([facility]) Will use 1 sensor every 10 days. 1 box = 3 sensors. 3 each 4 Active insulin pump cart,auto,BT-cnt r (Omnipod 5 G6 Intro Kit, Gen 5,) cartridgeIndicat ions:Type 2 diabetes mellitus without complication, with long-term current use of insulin ([facility]) ([facility]) To change POD once every 2 days. 1 each 4 Active insulin lispro (HumaLOG) 100 unit/mL vial for injection Use to fill insulin pump 10 mL 11 4 Active insulin pump cart,automated,B T (Omnipod 5 G6 Pods, Gen 5,) cartridgeIndicat ions:Type 2 diabetes mellitus without complication, with long-term current use of insulin ([facility]) ([facility]) To change POD every 2 days. 15 [...] control. SETTINGS: Time Basal Rate ICR ISF 2771-9722 0.5 1:20 1:60 Endocrine consulted for insulin [...] # Disposition: Follow up task sent to [facility] scheduling pool. Desires discharge home today pending BP control. 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 11/13/2023 Overview (11/13/2023): - CF carrier on carrier screen Plan: - s/p counseling 11/13 - Offer partner screening CDP: [id number]-opy-[id number] 10/03/2023 Overview (11/28/2023): Rubella non-immune Plan: [] [...] education: completed in all 3 trimesters [x] Service Dog Trainer: ALIVIA Melara [x] Car seat discussed [] [...] meals based on her best guess ISF 5621-2159 2.6 1:20 1:20 7944-9374 2.6 1:20 1:20 7443-0160 2.5 1:20 1:20 5726-6651 3 1:30 1:20 9224-3243 3.1 1:30 1:20 8547-5690 3 1:25 1:20 SETTINGS Time Basal Rate ICR ISF 9107-8321 0.5 1:20 1:60 If patient will not [...] every other for supplementation Uncontrolled diabetes mellitus ([facility]) 021 Overview (08/14/2021): Maternal risks: Reviewed the [...] Polysaccharide PPV23 08/27/2017 Tdap 10/03/2023,07/23/2016 Varicella 12/07/2023 Social History Tobacco Use Types Packs/Day Years [...] often do you attend chur ch or hinduism services? Never 12/06/2023 Do you belong to any clubs o r organizations such as hinduism groups, unions, fraternal or athletic groups, or [...] place to sleep or slept in a mcfp (including now)? No 12/06/2023 Rowe Depression Scale Answer Date Recorded Rowe Depression Scale Total 4 12/26/2023 The thought [...] on file Legal Sex Female 6:13 AM LIVE OUT NANNY Gender Identity Not on file Sexual Orientation Not on file Last Filed Vital Signs Vital Sign Reading [...] 12/26/2023 2:18 PM CDT Plan of Treatment Not on file Procedures Procedure Name Priority Date/Time Associated Diagnosis Comments EGFR STAT 12/04/2023 9:32 PM CDT HEMOGLOBIN A1C Routine 11/28/2023 11:16 AM CDT Gestational diabetes mellitus (GDM), antepartum, gestational diabetes method of control unspecified HEPATITIS C ANTIBODY STAT 09/18/2023 11:19 AM LIVE OUT NANNY PAP WITH REFLEX TO HIGH RISK HPV [...] 9:32 PM CDT 12/04/2023 10:16 PM CDT India Quesada MD LAB BLOOD ORDERABLES Final Result [facility] Department [place] [address] * (ABNORMAL) Hemoglobin A1c (11/28/2023 11:16 AM CDT) Hgb A1C 6.8(H) 4.0 - 5.6 % Estimated Average Glucose 148 mg/dL [facility] Comment: The ADA recommends reporting an estimated [...] Ku MD LAB BLOOD ORDERABLES Final Result [facility] Department [place] [address] * Hepatitis C antibody Blood (09/18/2023 11:19 AM LIVE OUT NANNY) Hep C Ab Nonreactive Nonreactive [facility] Comment:Antibodies to HCV no t detected. Does NOT exclude the possibility of recent exposure to HCV. Current interpretive data was last revised on 22 Blood 09/18/2023 11:1 9 AM LIVE OUT NANNY 09/18/2023 11:32 AM LIVE OUT NANNY us India Carrera NP LAB MICROBIOLOGY - GENERA L ORDERABLES Final Result [facility] Department [place] [address] * Pap with reflex to High Risk HPV (10/28/2020 10:27 AM CDT) Swab (Pap test) 10/28/2020 1 0:27 AM CDT 10/28/2020 12:10 PM CDT Narrative PATHOLOGY [facility] - 11/07/2020 2:00 PM CDT EPIC results best viewed via link to PDF [facility] Christine Tavera [facility] [place] [address] CYTOPATHOLOGY REPORT FINAL Patient Name: ALLEGRA DANIELLE Gender: F : 1990 (Age: 30) Address: [address] [place] [address] Hospital #: [id number] Service: Laboratory Location: [facility] Patient Type: [facility] Ref Lab Taken: 10/28/2020 Received: 10/28/2020 Accessioned: 10/28/2020 Reported: 11/07/2020 Physician(s): Mariah B. Faisal, M.D. FINAL INTERPRETATION SOURCE OF SPECIMEN: Liquid [...] determined by the Surgical Pathology Department at [facility] as part of an ongoing research quality assurance specialist program and in compliance with federally mandated [...] determined by the Surgical Pathology Department of [facility]. It has not been cleared or approved by the U. S. Food and Drug Administration. Mariah Malone MD LAB CYTOLOGY ORDERABLES Fi nal Result PATHOLOGY [facility] 3rd Floor [place], [place] [phone] from Last 3 Months or Most Recently Relevant to Health Maintenance Insurance [facility] [employer] [facility] [employer] OOS Advance Directives For more information, please contact: [phone] * Full Code (Latest Code Status on File) Date Activated Date Inactivated Comments 12/05/2023 1:06 PM 12/07/2023 5:17 PM * Full Code Date Activated Date Inactivated Comments 12/04/2023 9:02 PM 12/05/2023 1:06 PM Full CPR in ca se of cardiopulmonary arrest Care Teams Bight Maker Relationship Specialty Start Date End Date Unknown, Notinfile PCP - General 07/19/22 Clinic, [facility] Mat Med 07/19/22
--- OUTSIDE RECORDS SUMMARY | 2024-09-23 17:27 | XMS_ITS | Encounter Summary ---
Author Organization [facility] Address [address] [address] Care Team Providers Care Trimming Department Blocker Name Role Phone Skip Gallo MD Primary Care Provider [phone] Zach Soliz Primary Care Provider [phone] Kamla Nuñez SENIOR MEDICAL TECHNOLOGIST-AUTOMOBILE DAMAGE FIELD APPRAISER Unavailable [phone] Jeanine Flowers MD Primary Care Provider Encounter Details Date Type Department Care Team (Late st Contact Info) Description 10/15/[address] [facility] [address] [place] [id number] Unknown, Provider Social History Tobacco Use Types Packs/Day Years Used Date Smoking Tobacco: Never Assessed Sex and Gender Information Value Date Recorded Sex Assigned at Female 08/17/2021 7:26 AM CREW DISPATCHER Gender Identity Female 08/17/2021 7:26 AM CREW DISPATCHER Sexual Orientation Not on file documented as of this encounter Plan of Treatment Not on file documented as of this encounter Procedures Procedure Name Priority Date/Time Associated Diagnosis Comments RUBEOLA ANTIBODY IGG Routine 10/15/2016 3:50 PM CDT MUMPS ANTIBODY IGG Routine 10/15/2016 3: 50 PM CDT VARICELLA ZOSTER ANTIBODY IGG Routine 10/15/2016 3:50 PM CDT RUBELLA ANTIBODY IGG Routine 10/15/2016 3:50 PM CDT HEPATITIS B SURFACE ANTIBODY Routine 10/15/2016 3:50 PM CDT documented in this encounter Results * VARICELLA ZOSTER ANTIBODY IGG (10/15/2016 3:50 PM CDT) Varicella zoster Virus Antibody IgG 255 Immune >165 index 10/17/2016 12:14 PM CDT [facility] ([facility]) Comment: Negative <135 Equivocal 135 - 165 Positive >165 A positive result generally indicates exposure to the pathogen or administration of specific immunoglobulins, but it is not indication of active infection or stage of disease. Blood BLOOD SPECIMEN / Unknown Venipuncture / Unknown 10/15/2016 3:50 PM CDT 10/15/2016 6:44 PM CDT Narrative [facility] ([facility]) - 10/17/2016 12:14 PM CDT Performed at: [address] [place] [address] [id number] Geospatial Applications Developer: Lucius Evans PhD, Phone: [phone] Provider Unknown LAB - CHEMISTRY ANGELA LEARY Performing Organization Address [facility] de Phone Number [facility]) [address] [place] [address] * RUBEOLA ANTIBODY IGG (10/15/2016 3:50 PM CDT) Pathologist [facility] Measles (Rubeola) Antibody IgG >300.0 Immune >29.9 AU/mL 10/17/2016 12:14 PM CDT [facility] ([facility]) Comment: Negative <25.0 Equivocal 25.0 - 29.9 Positive >29.9 Presence of antibodies to Rubeola is presumptive evidence of immunity except when acute infection is suspected. Blood BLOOD SPECIMEN / Unknown Venipuncture / Unknown 10/15/2016 3:50 PM CDT 10/15/2016 6:44 PM CDT Narrative [facility] ([facility]) - 10/17/2016 12:14 PM CDT Performed at: [address] [place] [address] [id number] Geospatial Applications Developer: Lucius Evans PhD, Phone: [phone] Provider Unknown LAB - CHEMISTRY ANGELA LEARY Performing Organization Address [facility] de Phone Number [facility] ([facility]) [address] [place] [address] * MUMPS ANTIBODY IGG (10/15/2016 3:50 PM CDT) [facility] Mumps Virus Antibody IgG Index 53.2 Immune >10.9 AU/mL 10/17/2016 12:14 PM CDT [facility] ([facility]) Comment: Negative <9.0 Equivocal 9.0 - 10.9 Positive >10.9 A positive result generally indicates past exposure to Mumps virus or previous vaccination. Blood BLOOD SPECIMEN / Unknown Venipuncture / Unknown 10/15/2016 3:50 PM CDT 10/15/2016 6:44 PM CDT Narrative [facility] ([facility]) - 10/17/2016 12:14 PM CDT Performed at: [address] [place] [address] [id number] Geospatial Applications Developer: Lucius Evans PhD, Phone: [phone] Provider Unknown LAB - CHEMISTRY ORDE SAPPHIRE [facility] ([facility]) [address] [place] [address] * RUBELLA ANTIBODY IGG (10/15/2016 3:50 PM CDT) [facility] Rubella Antibody IgG Positive - Immune 10/15/2016 8:[address] [facility] Blood BLOOD SPECIMEN / Unknown Venipuncture / Unknown 10/15/2016 3:50 PM CDT 10/15/2016 6:44 PM CDT Provider Unknown LAB - SEROLOGY ORDER JONO [facility] [address] [place] [address] * (ABNORMAL) HEPATITIS B SURFACE ANTIBODY (10/15/2016 3:50 PM CDT) [facility] HBsAb REACTIVE(A ) Non Reactive 10/15/2016 7:[address] [facility] Blood BLOOD SPECIMEN / Unknown Venipuncture / Unknown 10/15/2016 3:50 PM CDT 10/15/2016 6:44 PM CDT Provider Unknown LAB - CHEMISTRY ANGELA LEARY [facility] [address] [place] [address] documented in this encounter Visit Diagnoses Not on filedocumented in this encounter Care Teams Trimming Department Blocker Relationship Specialty Start Date End Date Skip Gallo MD [address] [place] [id number] PCP - General 12/23/17 09/14/18 Zach Soliz PA [address] [facility] [address] [place] [phone] PCP - General 09/15/18 06/03/24 Kamla Nuñez, SENIOR MEDICAL TECHNOLOGIST-AUTOMOBILE DAMAGE FIELD APPRAISER [address] [place] [id number] PCP - Attributed-[facility] [employer] ST 08/05/18 Jeanine Flowers MD [address] [place] [address] PCP - General Internal Medicine 06/04/24 documented as of this encounter
--- OUTSIDE RECORDS SUMMARY | 2024-09-23 17:28 | XMS_ITS | Encounter Summary ---
Author Organization [facility] Address [address] [place] [address] Care Team Providers Care Barrel Burner Name Role Phone Unknown, Notinfile Primary Care Provider Unavail able Clinic, [facility] Mat Med Unavailabl e Unavailable Encounter Details Date Type Department Care Team (Late st Contact Info) Description 01/03/2024 Telephone Obstetrics and Gynecology Clinic [address] [facility] 3rd Floor [address] [place] [address] Kelsey De La Rosa Social History Tobacco Use Types Packs/Day Years Used Date Smoking Tobacco: Never Smokeless Tobacco: Never Alcohol Use Standard Drinks/Week Comments Never 0 [...] often do you attend chur ch or mandaen services? Never 12/06/2023 Do you belong to any clubs o r organizations such as samaritan groups, unions, fraternal or athletic groups, or [...] place to sleep or slept in a [place] (including now)? No 12/06/2023 [place] Depression Scale Answer Date Recorded [place] Depression Scale Total 4 12/26/2023 The thought [...] on file Legal Sex Female 6:13 AM MILK BOTTLER Gender Identity Not on file Sexual Orientation Not on file documented as of this encounter Plan of Treatment Not on file documented as of this encounter Visit Diagnoses Not on filedocumented in this encounter Care Teams Barrel Burner Relationship Specialty Start Date End Date Unknown, Notinfile PCP - General 07/19/22 [facility], [facility] Mat Med 07/19/22 documented as of this encounter
--- OUTSIDE RECORDS SUMMARY | 2024-09-23 17:28 | XMS_ITS | Patient Health Summary ---
Author Organization [facility] Address [address] [place] [address] Care Team Providers Care Procedures Tech Name Role Phone Kamla Nuñez Nhan DELACRUZN-SALES LEADER Unavailable [phone] Jeanine Flowers MD Primary Care Provider Note from [facility],non-owned Affiliates and Associated Physician Practices is amultiple site organization consisting of ambulatory clinics and hospital sitesin [place], [place], [place] and [place]. This disclosure is being madepursuant to the Care Everywhere program and may not contain all information available regarding this patient. Last updated 18.[facility] Allergies No known active allergies Medications * Be aware that medications may not be up to date on this document. Alwaysverify current medications with the patient. * Glucagon (BAQSIMI TWO PACK) 3 MG/DOSE POWD(Started 11/23/2021) [place] 3 mg into the nose as needed 1 refill by 11/23/2022 * Continuous Blood Gluc Auricular Therapist (Dexcom G6 Auricular Therapist) NICOLE(Started 11/07/2021) as directed * Aspirin Low Dose 81 MG chew tablet(Started 04/10/2024) Take 1 (one) tablet by mouth once daily * Insulin Disposable Pump (Omnipod DASH Pods, Gen 4,) MISC(Started 03/27/2024) CHANGE POD EVERY 72 HOURS * labetalol (Normodyne; Trandate) 200 MG tablet(Started 01/22/2024) TAKE 1 TABLET (200 MG TOTAL) BY MOUTH 2 TIMES A DAY. * losartan (Cozaar) 50 MG tablet(Started 09/11/2023) Take 1 (one) tablet by mouth once daily * mupirocin (Bactroban) 2 % ointment(Started 05/06/2024) APPLY TO AFFECTED AREA 3 TIMES A DAY FOR 7 DAYS * Multiple Vitamins-Minerals (ONE-A-DAY WOMENS PO) Take 1 tablet by mouth once daily * Continuous Glucose Sensor (Dexcom G6 Sensor) [facility]Started 06/04/2024) Inject 1 kit subcutaneously 3 times daily 3 refills by 06/04/2025 * Continuous Glucose Transmitter (Dexcom G6 Transmitter) [facility]Started 06/04/2024) Use 1 kit 3 times daily 1 refill by 06/04/2025 * hydrOXYzine HCl (Atarax) 10 MG tablet(Started 07/09/2024) TAKE 1 (ONE) TABLET BY MOUTH 2 TIMES DAILY NEEDED REASONS: FEELING ANXIOUS * acetaminophen (Tylenol) 500 MG capsule(Started 12/07/2023) Take 2 (two) capsules by mouth every 6 hours as needed * sertraline (Zoloft) 100 MG tablet(Started 07/16/2024) Take 1.5 (one and one-half) tablets by mouth every 24 hours 1 refill by 07/16/2025 * traZODone (Desyrel) 50 MG tablet(Started 07/16/2024) Take 0.5 (one-half) tablet by mouth at bedtime Reasons: Anxiety Disorder, Major Depressive Disorder, Trouble Sleeping * metFORMIN ER 24hr (Glucophage XR) 500 MG tablet(Started 09/01/2024) TAKE 1 TABLET BY MOUTH TWICE A DAY WITH MORNING AND EVENING MEAL FOR TYPE 2 DIABETES * Mounjaro 2.5 MG/0.5ML injection(Started 08/27/2024) Inject 2.5 (two and one-half) mg subcutaneously every 7 days Ended Medications* HumaLOG 100 UNIT/ML vial(Started 06/18/2022)(Discontinued) FOR USE IN INSULIN PUMP. TOTAL DAILY DOSE UP TO 100U PER DAY. 5 refills by 06/18/2023 * HYDROcodone-acetaminophen ([place]) 5-325 MG tablet(Started 04/15/2024) (Discontinued) Take 1 (one) tablet by mouth every 6 hours as needed pain * ibuprofen (Motrin) 600 MG tablet(Started 05/06/2024)(Discontinued) Take 1 (one) tablet by mouth every 8 hours as needed * dulaglutide (Trulicity) 1.5 MG/0.5ML injection(Started 06/04/2024) (Discontinued) Inject 1.5 (one and one-half) mg subcutaneously every 7 days * metFORMIN ER 24hr (Glucophage XR) 500 MG tablet(Started 06/04/2024) (Discontinued) Take 1 (one) tablet by mouth 2 times daily with morning and evening meal Reasons: Type 2 Diabetes * dulaglutide (Trulicity) 1.5 MG/0.5ML injection(Started 08/26/2024) (Discontinued) INJECT 1.5 (ONE AND ONE-HALF) MG SUBCUTANEOUSLY EVERY 7 DAYS Active Problems Problem Noted Date Diagnosed Date Type 2 diabetes mellitus wit h other specified complication, unspecified whether title examiner insulin use 06/04/2024 Bacteremia due to Klebsiella pneumoniae 05/13/20 Sepsis 03/29/2024 History of female sterilization 12/13/2023 Cystic fibrosis carrier 11/13/2023 Hypokalemia 10/03/2023 Anxiety and depression 09/30/2023 Weight gain 11/08/2022 History of migraine 11/23/2021 High cholesterol 09/01/2021 Hyperthyroidism 09/01/2021 Hypertension 04/05/2015 PCOS (polycystic ovarian syndrome) Resolved Problems Problem Noted Date Diagnosed Date Resolved Date Anemia affecting in third trimester 09/30/19 24 06/04/2024 Chronic hypertension affecting 09/30/2023 06/04/2024 Encounter for induction of labor 06/27/2022 06/04/2024 Large for gestational age fetus 05/22/2022 06/04/2024 Cervical insufficiency durin g , antepartum 01/15/2022 06/04/2024 History of cerclage, currently 01/15/2022 06/04/2024 with poor obstetric history 01/15/2022 06/04/2024 History of delivery, currently 10/24/2020 06/04/2024 Pre-existing hypertension af fecting , antepartum 10/24/2020 06/04/2024 Supervision of high-risk pre gnancy, unspecified trimester 10/24/2020 06/04/2024 Type 2 diabetes mellitus in 10/24/2020 06/04/2024 Migraine 09/07/2019 11/23/2021 CERCLAGE STILL IN SITU 06/04 Immunizations * Covid Pfizer primary monovalent 12+ yr 0.3mL Purple cap(Given 12/06/2020, 11/18/2020) * DTP(Given 12/14/1993, 01/31/1993, 1992, 1992) * FLU VACCINE QUAD IIV4 SPLIT 0.25 ML IM(Given 08/27/2017, 07/23/2016) * HEP A VACCINE, ADULT(Given 01/19/2020, 02/12/2019) * HEP B VACCINE, PED/ADOL(Given 08/09/1994, 05/26/1993, 01/31/1993) * HIB VACCINE(Given 12/14/1993, 05/26/1993, 01/31/1993, 1992) * INFLUENZA VACCINE(Given 05/13/2018, 08/27/2017, 07/23/2016, 06/05/2016) * INFLUENZA VACCINE, QUADR. (FLUZONE; FLULAVAL; FLUARIX; AFLURIA QUADRIVALENT; 6MO+), 0.5 ML (IIV4)(Given 05/29/2022) * INFLUENZA VACCINE, TRIV. (FLUZONE; FLULAVAL; FLUARIX; AFLURIA TRIVALENT; 6MO+), 0.5 ML (IIV3)(Given 06/04/2024, 07/23/2016, 04/25/2016) * MMR(Given 12/07/2023, 12/14/1993) * PNEUMOCOCCAL PPSV23(Given 08/27/2017) * POLIO OPV(Given 12/14/1993, 1992, 1992) * TDAP (7yrs+)(Given 10/03/2023, 04/24/2022) * TDAP, HISTORIC VACCINE(Given 07/23/2016) * VARICELLA(Given 12/07/2023) Social History Tobacco Use Types Packs/Day Years Used Date Smoking Tobacco: Never Smokeless Tobacco: Never Tobacco Cessation:Counseling Given: Not Answered Alcohol Use Standard Drinks/Week Comments Yes 0 (1 standard drink = 0.6 oz pur e alcohol) holidays Overall Financial Resource Strain (CARDIA) Answe r Date Recorded How hard is it for you to pa y for the very basics like food, housing, medical care, and heating? Not hard at all 06/27/2022 PHQ-2 Answer Date Recorded Patient Health Questionnaire-2 Score 0 09/02/2024 Hunger Vital Sign Answer Date Recorded Within the past 12 months, y ou worried that your food would run out before you got the money to buy more. Never true 06/27/20 22 Within the past 12 months, t he food you bought just didn't last and you didn't have money to get more. Never true 06/27/2022 PRAPARE - Transportation Answer Date Re corded In the past 12 months, has l ack of transportation kept you from medical appointments or from getting medications? No 06/06 In the past 12 months, has l ack of transportation kept you from meetings, work, or from getting things needed for daily living? No 06/27/2022 Housing Stability Vital Sign Answer Ramirez e Recorded In the last 12 months, was t here a time when you were not able to pay the mortgage or rent on time? No 06/27/2022 In the last 12 months, how many places have you lived? 1 06/27/2022 In the last 12 months, was t here a time when you did not have a steady place to sleep or slept in a nursing home (including now)? No 06/27/2022 [place] Depression Scale Answer Date Recorded RETIRED: Total Score 1 11/23/2021 Last EPDS Self Harm Result Not on file 11/23 Sex and Gender Information Value Date Recorded Sex Assigned at Female 08/17/2021 7:26 AM BUSINESS DEVELOPMENT SALES EXECUTIVE Gender Identity Female 08/17/2021 7:26 AM BUSINESS DEVELOPMENT SALES EXECUTIVE Sexual Orientation Not on file Last Filed Vital Signs Vital Sign Reading Time Taken Comments Blood Pressure 124/83 06/04/2024 11:24 AM CDT Pulse 98 06/04/2024 11:24 AM CDT Temperature 37.1 C (98.7 F) 06/04/2024 11:24 AM CDT Respiratory Rate 16 10/04/2022 12:0 0 PM BUSINESS DEVELOPMENT SALES EXECUTIVE Oxygen Saturation 98% 06/04/2024 11: 24 AM CDT Inhaled Oxygen Concentration - - Weight 97.1 kg (214 lb) 09/02/2024 10:5 2 AM BUSINESS DEVELOPMENT SALES EXECUTIVE 2 weeks ago at the restorative aide Height 175.3 cm (5' 9 ) 09/02/2024 10:5 2 AM BUSINESS DEVELOPMENT SALES EXECUTIVE Body Mass Index 31.6 09/02/2024 10:52 AM BUSINESS DEVELOPMENT SALES EXECUTIVE Procedures * HEMOGLOBIN A1C - POINT OF CARE (AMB)(Performed 06/04/2024) Performed for Type 2 diabetes mellitus with other specified complication, with long-term current use of insulin (HCC) * [place] CHEMODENERV MUSC MIGRAINE(Performed 02/25/2023) Performed for Intractable chronic migraine without aura and without status migrainosus * EKG(Performed 10/10/2022) * LAB MISC TEST(Performed 10/10/2022) * CBC W AUTO DIFFERENTIAL(Performed 06/30/2022) * GLUCOSE - POINT OF CARE(Performed 06/30/2022) * GLUCOSE - POINT OF CARE(Performed 06/30/2022) * BASIC METABOLIC PANEL (CALCIUM TOTAL)(Performed 06/30/2022) * GLUCOSE - POINT OF CARE(Performed 06/30/2022) * GLUCOSE - POINT OF CARE(Performed 06/29/2022) * GLUCOSE - POINT OF CARE(Performed 06/29/2022) * GLUCOSE - POINT OF CARE(Performed 06/29/2022) * GLUCOSE - POINT OF CARE(Performed 06/29/2022) * GLUCOSE - POINT OF CARE(Performed 06/29/2022) * BASIC METABOLIC PANEL (CALCIUM TOTAL)(Performed 06/29/2022) * CBC W AUTO DIFFERENTIAL(Performed 06/29/2022) * GLUCOSE - POINT OF CARE(Performed 06/29/2022) * GLUCOSE - POINT OF CARE(Performed 06/29/2022) * PATHOLOGY TISSUE EXAM (STL)(Performed 06/29/2022) Performed for Type 2 diabetes mellitus during , antepartum (HCC) * BLOOD GASES CORD ART (ISTAT)(Performed 06/28/2022) * BLOOD GASES CORD IAM (ISTAT)(Performed 06/28/2022) * BLOOD GASES CORD ART (ISTAT)(Performed 06/28/2022) * GLUCOSE - POINT OF CARE(Performed 06/28/2022) * GLUCOSE - POINT OF CARE(Performed 06/28/2022) * GLUCOSE - POINT OF CARE(Performed 06/28/2022) * GLUCOSE - POINT OF CARE(Performed 06/28/2022) * GLUCOSE - POINT OF CARE(Performed 06/28/2022) * GLUCOSE - POINT OF CARE(Performed 06/28/2022) * URINE MICROSCOPIC ONLY REFLEX TO CULTURE(Performed 06/28/2022) Performed for Pre-existing hypertension affecting , antepartum ([facility]) * URINALYSIS REFLEX MICROSCOPIC REFLEX CULTURE(Performed 06/28/2022) Performed for Pre-existing hypertension affecting , antepartum ([facility]) * PROTEIN CREATININE RATIO URINE RANDOM PNL(Performed 06/28/2022) Performed for Pre-existing hypertension affecting , antepartum ([facility]) * CBC W AUTO DIFFERENTIAL(Performed 06/28/2022) Performed for Pre-existing hypertension affecting , antepartum ([facility]) * COMPREHENSIVE METABOLIC PANEL(Performed 06/28/2022) Performed for Pre-existing hypertension affecting , antepartum ([facility]) * CULTURE URINE(Performed 06/28/2022) Performed for Pre-existing hypertension affecting , antepartum ([facility]) * GLUCOSE - POINT OF CARE(Performed 06/28/2022) * NEURAXIAL BLOCK(Performed 06/28/2022) * GLUCOSE - POINT OF CARE(Performed 06/28/2022) * GLUCOSE - POINT OF CARE(Performed 06/28/2022) * GLUCOSE - POINT OF CARE(Performed 06/28/2022) * GLUCOSE - POINT OF CARE(Performed 06/28/2022) * GLUCOSE - POINT OF CARE(Performed 06/28/2022) * GLUCOSE - POINT OF CARE(Performed 06/28/2022) * GLUCOSE - POINT OF CARE(Performed 06/28/2022) * GLUCOSE - POINT OF CARE(Performed 06/28/2022) * GLUCOSE - POINT OF CARE(Performed 06/28/2022) * GLUCOSE - POINT OF CARE(Performed 06/27/2022) * NEURAXIAL BLOCK(Performed 06/27/2022) * GLUCOSE - POINT OF CARE(Performed 06/27/2022) * GLUCOSE - POINT OF CARE(Performed 06/27/2022) * GLUCOSE - POINT OF CARE(Performed 06/27/2022) * GLUCOSE - POINT OF CARE(Performed 06/27/2022) * GLUCOSE - POINT OF CARE(Performed 06/27/2022) * GLUCOSE - POINT OF CARE(Performed 06/27/2022) * GLUCOSE - POINT OF CARE(Performed 06/27/2022) * GLUCOSE - POINT OF CARE(Performed 06/27/2022) * GLUCOSE - POINT OF CARE(Performed 06/27/2022) * TYPE + SCREEN PANEL(Performed 06/27/2022) Performed for Encounter for induction of labor ([facility]) * CBC W AUTO DIFFERENTIAL(Performed 06/27/2022) Performed for Encounter for induction of labor ([facility]) * BIOPHYSICAL PROFILE W NST(Performed 06/26/2022) Performed for Primary hypertension, with type 2 diabetes mellitus in third trimester ([facility]) * URINALYSIS REFLEX MICROSCOPIC REFLEX CULTURE(Performed 06/19/2022) Performed for Supervision of high-risk , unspecified trimester ([facility]) * PROTEIN CREATININE RATIO URINE RANDOM PNL(Performed 06/19/2022) Performed for Supervision of high-risk , unspecified trimester ([facility]) * COMPREHENSIVE METABOLIC PANEL(Performed 06/19/2022) Performed for Supervision of high-risk , unspecified trimester ([facility]) * CBC W AUTO DIFFERENTIAL(Performed 06/19/2022) Performed for Supervision of high-risk , unspecified trimester ([facility]) * BIOPHYSICAL PROFILE W NST(Performed 06/19/2022) Performed for Primary hypertension, with type 2 diabetes mellitus in third trimester ([facility]) * CULTURE STREP B(Performed 06/19/2022) Performed for Supervision of high-risk , unspecified trimester ([facility]) * BIOPHYSICAL PROFILE W NST(Performed 06/12/2022) * URINALYSIS - POCT (IP) BEAKER INTERFACE(Performed 06/12/2022) * NON-STRESS TEST(Performed 06/08/2022) * LAB RESULTS ORDER(Performed 06/02/2022) * BIOPHYSICAL PROFILE W NST(Performed 05/29/2022) * TSH REFLEX FREE T4(Performed 05/29/2022) Performed for Thyroid Disease, unspecified * URINALYSIS - POCT (IP) BEAKER INTERFACE(Performed 05/29/2022) * SONOGRAM - COMPLETE(Performed 05/22/2022) Performed for with type 2 diabetes mellitus in third trimester ([facility]), Pre-existing hypertension affecting , antepartum ([facility]), Supervision of high-risk , unspecified trimester ([facility]), with poor obstetric history ([facility]), History of delivery, currently , unspecified trimester ([facility]) * LAB RESULTS ORDER(Performed 05/21/2022) * HEMOGLOBIN A1C(Performed 04/24/2022) Performed for with type 2 diabetes mellitus in second trimester ([facility]) * SYPHILIS ANTIBODY CASCADING REFLEX(Performed 04/24/2022) Performed for Supervision of high-risk , unspecified trimester ([facility]) * HIV-1 HIV-2 ANTIBODY + HIV P24 AG PANEL(Performed 04/24/2022) Performed for Supervision of high-risk , unspecified trimester ([facility]) * CBC W/O DIFFERENTIAL(Performed 04/24/2022) Performed for Supervision of high-risk , unspecified trimester ([facility]) * TSH REFLEX FREE T4(Performed 04/24/2022) Performed for Cervical insufficiency during in first trimester, antepartum ([facility]) * URINALYSIS - POCT (IP) BEAKER INTERFACE(Performed 04/24/2022) * SONOGRAM - COMPLETE(Performed 04/24/2022) * URINALYSIS REFLEX MICROSCOPIC REFLEX CULTURE(Performed 04/06/2022) Performed for Cervical cerclage suture present in second trimester ([facility]) * TRICHOMONAS RAPID TEST(Performed 04/06/2022) Performed for Cervical cerclage suture present in second trimester ([facility]) * CHLAMYDIA + GC AMPLIFIED PROBE(Performed 04/06/2022) Performed for Cervical cerclage suture present in second trimester ([facility]) * GLUCOSE - POINT OF CARE(Performed 04/06/2022) * SONOGRAM - COMPLETE(Performed 03/27/2022) * URINALYSIS - POCT (IP) BEAKER INTERFACE(Performed 03/06/2022) * SONOGRAM - TRANSVAGINAL(Performed 03/06/2022) * SONOGRAM - COMPLETE(Performed 02/21/2022) * URINALYSIS - POCT (IP) BEAKER INTERFACE(Performed 02/21/2022) * THYROID AB PANEL (TPO AB+THYROGLOB AB)(Performed 02/07/2022) Performed for Thyroid Disease, unspecified * THYROID STIMULATING IMMUNOGLOBULIN (TSI)(Performed 02/07/2022) Performed for Thyroid Disease, unspecified * T3 FREE(Performed 02/07/2022) Performed for Thyroid Disease, unspecified * T4 FREE(Performed 02/07/2022) Performed for Thyroid Disease, unspecified * TSH(Performed 02/07/2022) Performed for Thyroid Disease, unspecified * URINALYSIS - POCT (IP) BEAKER INTERFACE(Performed 02/07/2022) * SONOGRAM - TRANSVAGINAL(Performed 02/07/2022) * URINALYSIS - POCT (IP) BEAKER INTERFACE(Performed 01/24/2022) * SONOGRAM - TRANSVAGINAL(Performed 01/24/2022) * CARDIAC EKG ORDER(Performed 01/19/2022) * GLUCOSE - POINT OF CARE(Performed 01/16/2022) * ENDOTRACHEAL TUBE NOTE(Performed 01/16/2022) * NEURAXIAL BLOCK(Performed 01/16/2022) * CERCLAGE CERVIX(Performed 01/16/2022) Performed for Diagnosis unknown * GLUCOSE - POINT OF CARE(Performed 01/16/2022) * T4 FREE DIRECT REFLEXED(Performed 01/03/2022) Performed for Thyroid Disease, unspecified * TSH REFLEX FREE T4(Performed 01/03/2022) Performed for Thyroid Disease, unspecified * URINALYSIS - POCT (IP) BEAKER INTERFACE(Performed 01/03/2022) * FIRST TRI NUCHAL TRANSLUCENCY W:SEQ SCREEN(Performed 01/03/2022) Performed for Nuchal translucency of fetus on ultrasound ([facility]) * ANEUPLOIDY SCREENING(Performed 01/03/2022) * URINALYSIS - POCT (IP) BEAKER INTERFACE(Performed 12/05/2021) * COMPREHENSIVE METABOLIC PANEL(Performed 11/29/2021) Performed for Pre-existing hypertension affecting , antepartum ([facility]) * PROTEIN URINE TIMED QUANTITATIVE(Performed 11/29/2021) Performed for Supervision of high-risk , unspecified trimester ([facility]), Pre-existing hypertension affecting , antepartum ([facility]) * URINALYSIS - POCT (IP) BEAKER INTERFACE(Performed 11/29/2021) * TYPE + SCREEN PANEL(Performed 11/23/2021) Performed for Supervision of high-risk , unspecified trimester ([facility]) * T4 FREE DIRECT REFLEXED(Performed 11/23/2021) Performed for Hyperthyroidism * RUBELLA ANTIBODY IGG(Performed 11/23/2021) Performed for Supervision of high-risk , unspecified trimester ([facility]) * SYPHILIS ANTIBODY CASCADING REFLEX(Performed 11/23/2021) Performed for Supervision of high-risk , unspecified trimester ([facility]) * CBC W AUTO DIFFERENTIAL(Performed 11/23/2021) Performed for Supervision of high-risk , unspecified trimester (HCC) * HEPATITIS B SURFACE ANTIGEN W RFLX CONFIRMATION(Performed 11/23/2021) Performed for Supervision of high-risk , unspecified trimester (HCC) * TSH REFLEX FREE T4(Performed 11/23/2021) Performed for Hyperthyroidism * HEMOGLOBIN A1C(Performed 11/23/2021) Performed for Supervision of high-risk , unspecified trimester (HCC) * PROTEIN CREATININE RATIO URINE RANDOM PNL(Performed 11/23/2021) Performed for Supervision of high-risk , unspecified trimester (HCC) * COMPREHENSIVE METABOLIC PANEL(Performed 11/23/2021) Performed for Supervision of high-risk , unspecified trimester (HCC) * HEMOGLOBINOPATHY FRACTIONATION CASCADE(Performed 11/23/2021) Performed for Supervision of high-risk , unspecified trimester (HCC) * HEPATITIS C ANTIBODY(Performed 11/23/2021) Performed for Supervision of high-risk , unspecified trimester (HCC) * HEPATITIS B SURFACE ANTIGEN W RFLX CONFIRMATION(Performed 11/23/2021) Performed for Supervision of high-risk , unspecified trimester (HCC) * HIV-1 HIV-2 ANTIBODY + HIV P24 AG PANEL(Performed 11/23/2021) Performed for Supervision of high-risk , unspecified trimester (HCC) * CHLAMYDIA + GC AMPLIFIED PROBE(Performed 11/23/2021) Performed for Supervision of high-risk , unspecified trimester (HCC) * TRICHOMONAS RAPID TEST(Performed 11/23/2021) Performed for Supervision of high-risk , unspecified trimester (HCC) * CULTURE URINE(Performed 11/23/2021) Performed for Supervision of high-risk , unspecified trimester (HCC) * URINALYSIS - POCT (IP) BEAKER INTERFACE(Performed 11/23/2021) * SONOGRAM - COMPLETE(Performed 11/23/2021) Performed for Supervision of high-risk , unspecified trimester (HCC), Pre-existing hypertension affecting , antepartum (HCC), History of delivery, currently , unspecified trimester (HCC), Hyperthyroidism, Uncontrolled other specified diabetes mellitus with hypoglyce florentin without coma (HCC) * HEMOGLOBIN A1C(Performed 09/20/2021) Performed for Morbid obesity due to excess calories ([facility]), Pre-op evaluation, Type 2 diabetes mellitus with other specified complication, unspecified whether fdc insulin use (HCC) * TSH(Performed 09/20/2021) Performed for Pre-op evaluation * COMPREHENSIVE METABOLIC PANEL(Performed 09/20/2021) Performed for Pre-op evaluation * CBC W AUTO DIFFERENTIAL(Performed 09/20/2021) Performed for Pre-op evaluation * MAGNESIUM BLOOD(Performed 09/20/2021) Performed for Pre-op evaluation * LIPID PROFILE(Performed 09/20/2021) Performed for Pre-op evaluation * IRON + TRANSFERRIN PANEL(Performed 09/20/2021) Performed for Pre-op evaluation * HEMOGLOBIN A1C(Performed 09/20/2021) Performed for Pre-op evaluation * FERRITIN(Performed 09/20/2021) Performed for Pre-op evaluation * PTH INTACT(Performed 09/20/2021) Performed for Pre-op evaluation * PT PTT PANEL(Performed 09/20/2021) Performed for Pre-op evaluation * VITAMIN D 25-HYDROXY(Performed 09/20/2021) Performed for Pre-op evaluation * VITAMIN B12 FOLATE PANEL(Performed 09/20/2021) Performed for Pre-op evaluation * VITAMIN B1(Performed 09/20/2021) Performed for Pre-op evaluation * XR CHEST 2VW(Performed 09/20/2021) Performed for Morbid obesity due to excess calories (HCC), Pre-op evaluation * MRI BRAIN WO CONTRAST(Performed 02/03/2018) Performed for Intractable chronic post-traumatic headache * URINALYSIS - POINT OF CARE (AMB) [facility](Performed 01/03/2018) Performed for Type 2 diabetes mellitus with complication, without long-term current use of insulin (HCC) * XR CHEST 2VW(Performed 10/19/2016) Performed for Exposure to TB * VARICELLA ZOSTER ANTIBODY IGG(Performed 10/15/2016) * RUBEOLA ANTIBODY IGG(Performed 10/15/2016) * MUMPS ANTIBODY IGG(Performed 10/15/2016) * RUBELLA ANTIBODY IGG(Performed 10/15/2016) * HEPATITIS B SURFACE ANTIBODY(Performed 10/15/2016) Results * HEMOGLOBIN A1C - POINT OF CARE (AMB) (06/04/2024 11:34 AM CDT) Hemoglobin A1c POCT 10.1 % Expiration Date 03/05/26 Lot # [id number] QC Verified Yes Yes Blood BLOOD SPECIMEN / Unknown 06/04/2024 11:34 AM CDT Kamla Justin Joaquin ACADEMIC ASSISTANT-SALES LEADER LAB - POINT OF C ARE ORDERABLES * [place] CHEMODENERV MUSC MIGRAINE (02/25/2023 3:30 PM CDT) Narrative Lucrecia Rees MD - 02/25/2023 3:30 PM CDT Lucrecia Rees MD 02/25/2023 3:52 PM Botox Procedure Note Patient's identity confirmed by having patient say first and last name. Diagnosis: Chronic migraine Procedure code: 11476 History: Baseline number of headaches per month:30 Current migraine prophylactic medications: none Current migraine abortive treatments:none Antiplatelet/Anticoagulation: None The indications for botulinum toxin administration, the transient nature of the expected benefit and the potential side effects including lack of improvement, pain, infection, bleeding, allergic reaction, excessive local or distant paralysis, including the possibility of shortness of breath, swallowing difficulty, droopy eyelid and double vision were discussed. The patient had an opportunity to ask questions and consented to the procedure. BOTOX ADMINISTRATION MODIFIED PREEMPT PROTOCOL Diluted 200 units of Botox with 4 ml of non-preserved normal saline Drawn into 1 ml syringes fitted with 30 gauge 0.5 inch needles. Each syringe had 1 ml = 50 units, and 0.1 ml = 5 units Time out was performed before starting administration. Administration: Corrugators 10 Units (2 sites) Procerus 5 Units L and R Frontalis 20 units (4 sites) R Temporalis 25 units (4 sites) L Temporalis 25 units (4 sites) R occipitalis 15 units (3 sites) L occipitalis 15 units (3 sites) PATIENT WISHED TO STOP AFTER THESE INJECTIONS BECAUSE SHE DOES NOT GET HEADACHES IN BACK OF HER NECK/SHOULDER REGION Total 115 units 85 units wasted There were no complications. The patient tolerated the procedure. HOWEVER, BECAME ORTHOSTATIC. MAY DO INJECTIONS SUPINE AT NEXT BOTOX TREATMENT. Patient is call if experiences any side effects or has any questions. The number for the Neurology Clinic was provided to the patient. Patient to return in 3 months as needed for further treatment. Ordered 200 units for next visit. Lucrecia Rees MD PROCEDURE/MINOR SURG ICAL ORDERABLES * EKG (10/10/2022) Historical Provider MD SCANNING ONLY * LAB MISC TEST (10/10/2022) Blood BLOOD SPECIMEN / Unknown Historical Provider MD LAB SEND OUT * (ABNORMAL) CBC W AUTO DIFFERENTIAL (06/30/2022 1:59 PM BUSINESS DEVELOPMENT SALES EXECUTIVE) Only the most recent of7 resultswithin the time period is included. WBC 10.9(H) 4.4 - 10.7 x10E9/L 06/30/2022 2:03 PM BUSINESS DEVELOPMENT SALES EXECUTIVE [facility] WBC Corrected 06/30/2022 2:03 PM [facility] RBC 3.71(L) 3.80 - 5.20 x10E12/L 06/30/2022 2:03 PM [facility] Hemoglobin 10.8(L) 12.0 - 15.6 gm/dL 06/30/2022 2:03 PM [facility] Hematocrit 32.1(L) 35.9 - 45.5 % 06/30/2022 2:03 PM BUSINESS DEVELOPMENT SALES EXECUTIVE [facility] MCV 86.5 80.7 - 98.3 fl 06/30/2022 2:03 PM [facility] MCH 29.1 26.7 - 34.0 pg 06/30/2022 2:03 PM BUSINESS DEVELOPMENT SALES EXECUTIVE [facility] MCHC 33.6 30.8 - 35.9 gm/dL 06/30/2022 2:03 PM [facility] Platelet Count 283 153 - 416 x10E9/L 06/30/2022 2:03 PM [facility] RDW-CV 14.5 12.1 - 14.9 % 06/30/2022 2:03 PM BUSINESS DEVELOPMENT SALES EXECUTIVE [facility] MPV 9.9 9.4 - 12.9 fl 06/30/2022 2:03 PM BUSINESS DEVELOPMENT SALES EXECUTIVE [facility] Neutrophils % 59.9 44.0 - 73.0 % 06/30/2022 2:03 PM BUSINESS DEVELOPMENT SALES EXECUTIVE [facility] Lymphocytes % 32.0 20.0 - 43.0 % 06/30/2022 2:03 PM [facility] Monocytes % 6.2 5.0 - 13.0 % 06/30/2022 2:03 PM [facility] Eosinophils % 1.1 0.0 - 6.0 % 06/30/2022 2:03 PM [facility] Basophils % 0.6 0.0 - 2.0 % 06/30/2022 2:03 PM [facility] Immature Granulocytes 0.2 0 - 1 % 06/30/2022 2:03 PM [facility] Neutrophil Absolute 6.51 2.01 - 7.14 x10E9/L 06/30/2022 2:03 PM [facility] Lymphocytes Absolute 3.47 1.07 - 3.94 x10E9/L 06/30/2022 2:03 PM [facility] Monocytes Absolute 0.67 0.26 - 1.07 x10E9/L 06/30/2022 2:03 PM [facility] Eosinophils Absolute 0.12 0 - 0.47 x10E9/L 06/30/2022 2:03 PM [facility] Basophils Absolute 0.07 0 - 0.08 x10E9/L 06/30/2022 2:03 PM [facility] Immature Granulocytes Absolute 0.02 0.00 - 0.06 x10E9/L 06/30/2022 2:03 PM [facility] nRBC Auto 0 /100 WBC 06/30/2022 2:03 PM [facility] Blood BLOOD SPECIMEN / Unknown Lab Venipuncture / Unknown 06/30/2022 1:59 PM BUSINESS DEVELOPMENT SALES EXECUTIVE 06/30/2022 1:59 PM BUSINESS DEVELOPMENT SALES EXECUTIVE Cristine Smith MD LAB - HEMATOLOGY OR DERABLES Performing Organization Address City/State/[facility] Co de Phone Number [facility] [address] [place] [address] * (ABNORMAL) GLUCOSE - POINT OF CARE (06/30/2022 11:46 AM BUSINESS DEVELOPMENT SALES EXECUTIVE) Only the most recent of39 resultswithin the time period is included. Glucose WB/POC 69(L) 70 - 106 mg/dL 06/30/2022 11:56 AM [facility] Specimen Type Cap Fingerstick 2021 11:56 AM [facility] Blood BLOOD SPECIMEN / Unknown 06/30/2022 11:46 AM BUSINESS DEVELOPMENT SALES EXECUTIVE 06/30/2022 11:56 AM BUSINESS DEVELOPMENT SALES EXECUTIVE Cristine Smith MD LAB - POINT OF CARE ORDERABLES Performing Organization Address City/[facility]/ZIP Co de Phone Number [facility] [address] [place] [address], [place] [phone] * (ABNORMAL) BASIC METABOLIC PANEL (CALCIUM TOTAL) (06/30/2022 6:57 AM BUSINESS DEVELOPMENT SALES EXECUTIVE) Only the most recent of2 resultswithin the time period is included. [facility] Glucose 80 70 - 105 mg/dL 06/30/2022 7:59 AM [facility] Sodium 140 136 - 145 mmol/L 06/30/2022 7:59 AM [facility] Potassium 3.2(L) 3.5 - 5.1 mmol/L 06/30/2022 7:59 AM [facility] Chloride 108(H) 98 - 107 mmol/L 06/30/2022 7:59 AM [facility] CO2 21(L) 23 - 31 mmol/L 06/30/2022 7:59 AM [facility] Calcium 9.2 8.4 - 10.4 mg/dL 06/30/2022 7:59 AM [facility] Anion Gap 11 8 - 18 mmol/L 06/30/2022 7:59 AM [facility] BUN 7 7 - 18.7 mg/dL 06/30/2022 7:59 AM [facility] Creatinine 0.67 0.57 - 1.11 mg/dL 06/30/2022 7:59 AM [facility] eGFR by CKD-EPI >90 >=90 mL/min/1.7 3 m2 06/30/2022 7:59 AM [facility] Blood BLOOD SPECIMEN / Unknown Lab Venipuncture / Unknown 06/30/2022 6:57 AM BUSINESS DEVELOPMENT SALES EXECUTIVE 06/30/2022 7:36 AM BUSINESS DEVELOPMENT SALES EXECUTIVE Cristine Smith MD LAB - CHEMISTRY ORD ERABLES Performing Organization Address City/[facility]/ZIP Co de Phone Number [facility] [address] [place] [id number] * PATHOLOGY TISSUE EXAM (STL) (06/29/2022 2:40 AM BUSINESS DEVELOPMENT SALES EXECUTIVE) Case Report Surgical Pathology Report Case: [id number] Authorizing Provider: Kellee Eduardo MD Collected: 06/29/2022 02:40 AM Ordering Location: [address] Received: 06/29/2022 08:07 AM Pathologist: Ciarra Carter MD Specimen: Placenta 3rd Trimester 07/02/2022 8:59 AM [facility] Final Diagnosis Placenta, vaginal delivery - Mature placenta - membranes with no histopathologic abnormality - Three-vessel umbilical cord with amnionic web 07/02/2022 8:59 AM [facility] Clinical History The patient is a 32-year-old woman at 37 weeks, 1 day gestation. Procedure/findings: vaginal delivery, nuchal cord. 07/02/2022 8:59 AM [facility] Gross Description The specimen is identified with the patient's name and date of . Received fresh and placed in formalin, specimen A, placenta is a placental disc with attached umbilical cord and membranes. The umbilical cord is inserted centrally, 6.5 cm from margin measuring 21 cm long and 1.5-1.6 cm diameter. The cord is trivascular and appropriately coiled with partially attached membranes, 3 cm from the site of insertion. The membranes are inserted marginally and are novoa, opaque. The surface is blue-novoa with normal vasculature and scattered areas of white-novoa fibrin, less than 5%. The maternal surface is disrupted but appears complete, with mild adherent clot but no indentation. Mild areas of yellow-novoa discoloration is present, less than 5% of the surface. The placental disc is 471 g, 19 x 17.5 x 2.7 cm. Sectioning shows red-brown, spongy cut surfaces. Metal Model [employer] sections submitted as follows: A1-umbilical cord and membrane roll, A2-placental disc central, A3-placental disc peripheral. LJ 07/02/2022 8:59 AM [facility] Microscopic Description Microscopic examination substantiates the above diagnosis. 07/02/2022 8:59 AM [facility] Disclaimer All histochemical and/or immunohistochemical results are interpreted with controls that demonstrate appropriate staining reactions before reporting results. Note on use of immunocytochemistry reagents: This test was developed and its performance characteristic determined by [facility], Department of Laboratory Medicine. It has not been cleared or approved by the U.S. Food and Drug Administration (FDA). The FDA has determined that such clearance or approval is not necessary. The test is used for clinical purpose. It should not be regarded as investigational or for research. This laboratory is certified to perform high complexity testing. The performance characteristics of the IHC/EB assays have been validated on formalin-fixed paraffin embedded tissues only. The assays have not been validated on decalcified tissues. Results should be interpreted with caution. 07/02/2022 8:59 AM BUSINESS DEVELOPMENT SALES EXECUTIVE [facility] Embedded Images 07/02/2022 8:59 AM BUSINESS DEVELOPMENT SALES EXECUTIVE [facility] Pathology/Cytolo gy ENTIRE PLACENTA / Unknown Collection / Unknown 06/29/2022 2:40 AM BUSINESS DEVELOPMENT SALES EXECUTIVE 06/29/2022 8:07 AM BUSINESS DEVELOPMENT SALES EXECUTIVE Kellee Tavares MD LAB - PATHOLOGY /CYTOLOGY ORDERABLES Performing Organization Address [facility]/State/[facility] Co de Phone Number [facility] [address] [place] [address] * (ABNORMAL) BLOOD GASES CORD ART (ISTAT) (06/28/2022 11:22 PM BUSINESS DEVELOPMENT SALES EXECUTIVE) Only the most recent of2 resultswithin the time period is included. pH Cord Arterial POCT 7.22 7.20 - 7.34 pH 06/28/2022 11:32 PM BUSINESS DEVELOPMENT SALES EXECUTIVE [facility] pCO2 Cord Arterial POCT 56.4(H) 45 - 55 mm hg 06/28/2022 11:32 PM [facility] pO2 Cord Arterial POCT 17 12 - 25 mm hg 06/28/2022 11:32 PM BUSINESS DEVELOPMENT SALES EXECUTIVE [facility] HCO3 Cord Arterial POCT 23.2 22 - 24 mmol/L 06/28/2022 11:32 PM BUSINESS DEVELOPMENT SALES EXECUTIVE [facility] BE Cord Arterial POCT -5(L) -2.9 - 8.3 mmol/L 06/28/2022 11:32 PM BUSINESS DEVELOPMENT SALES EXECUTIVE [facility] TCO2 Cord Arterial POCT 25 mmol/L 06/28/2022 11:32 PM BUSINESS DEVELOPMENT SALES EXECUTIVE [facility] O2 Saturation Cord Art % Calc POCT 18 % 06/28/2022 11:32 PM BUSINESS DEVELOPMENT SALES EXECUTIVE [facility] Site CORD ART 06/28/2022 11:32 PM BUSINESS DEVELOPMENT SALES EXECUTIVE [facility] Sample iSTAT CORD ART 06/28/2022 11:32 PM BUSINESS DEVELOPMENT SALES EXECUTIVE [facility] Blood CORD BLOOD SPECIMEN / Unknown 06/28/2022 11:22 PM BUSINESS DEVELOPMENT SALES EXECUTIVE 06/28/2022 11:32 PM BUSINESS DEVELOPMENT SALES EXECUTIVE Cristine Smith MD LAB - POINT OF CARE ORDERABLES Performing Organization Address City/[facility] Co de Phone Number [facility] [address] [place] [address] * (ABNORMAL) BLOOD GASES CORD IAM (ISTAT) (06/28/2022 11:15 PM BUSINESS DEVELOPMENT SALES EXECUTIVE) pH Cord Venous POCT 7.34 7.28 - 7.40 pH 06/28/2022 11:32 PM BUSINESS DEVELOPMENT SALES EXECUTIVE [facility] pCO2 Cord Venous POCT 39.3 35 - 45 mm hg 06/28/2022 11:32 PM BUSINESS DEVELOPMENT SALES EXECUTIVE [facility] pO2 Cord Venous POCT 31 22 - 33 mm hg 06/28/2022 11:32 PM BUSINESS DEVELOPMENT SALES EXECUTIVE [facility] HCO3 Cord Arterial POCT 21.2(L) 22 - 24 mmol/L 06/28/2022 11:32 PM BUSINESS DEVELOPMENT SALES EXECUTIVE [facility] BE Cord Venous POCT Calc -4 -6.4 - 1.6 mmol/L 06/28/2022 11:32 PM BUSINESS DEVELOPMENT SALES EXECUTIVE [facility] TCO2 Cord Venous POCT 22 22 - 30 mmol/L 06/28/2022 11:32 PM BUSINESS DEVELOPMENT SALES EXECUTIVE [facility] O2 Saturation % Cord Venous Calc POCT 55 % 06/28/2022 11:32 PM BUSINESS DEVELOPMENT SALES EXECUTIVE [facility] Site CORD IAM 06/28/2022 11:32 PM BUSINESS DEVELOPMENT SALES EXECUTIVE [facility] Sample iSTAT CORD IAM 06/28/2022 11:32 PM BUSINESS DEVELOPMENT SALES EXECUTIVE [facility] Blood CORD BLOOD SPECIMEN / Unknown 06/28/2022 11:15 PM BUSINESS DEVELOPMENT SALES EXECUTIVE 06/28/2022 11:32 PM BUSINESS DEVELOPMENT SALES EXECUTIVE Cristine Smith MD LAB - POINT OF CARE ORDERABLES [facility] [address] [place], [place] [id number] * (ABNORMAL) URINE MICROSCOPIC ONLY REFLEX TO CULTURE (06/28/2022 5:35 PM BUSINESS DEVELOPMENT SALES EXECUTIVE) Reflex Status Culture to follow 06/28/2022 5:50 PM BUSINESS DEVELOPMENT SALES EXECUTIVE [facility] RBC UA 3-5 0 - 5 # /hpf 06/28/2022 5:50 PM BUSINESS DEVELOPMENT SALES EXECUTIVE [facility] WBC UA 0-5 0 - 5 # /hpf 06/28/2022 5:50 PM BUSINESS DEVELOPMENT SALES EXECUTIVE [facility] Bacteria UA Trace(A) None Seen 06/28/2022 5:50 PM BUSINESS DEVELOPMENT SALES EXECUTIVE [facility] Squamous Epithelial Cells 0-2 0 - 5 /hpf 06/28/2022 5:50 PM BUSINESS DEVELOPMENT SALES EXECUTIVE [facility] Urine URINE SPECIMEN OBTAINED BY SINGLE CATHETERIZATION OF URINARY BLADDER / Unknown Collection / Unknown 06/28/2022 5:35 PM BUSINESS DEVELOPMENT SALES EXECUTIVE 06/28/2022 5:39 PM BUSINESS DEVELOPMENT SALES EXECUTIVE Narrative [facility] - 06/28/2022 5:50 PM BUSINESS DEVELOPMENT SALES EXECUTIVE Cristine Smith MD LAB - URINALYSIS OR DERABLES Performing Organization Address [facility] de Phone Number [facility] [address] [place] [address] * (ABNORMAL) URINALYSIS REFLEX MICROSCOPIC REFLEX CULTURE (06/28/2022 5:35 PM BUSINESS DEVELOPMENT SALES EXECUTIVE) Only the most recent of3 resultswithin the time period is included. Color UA Yellow Straw, Yellow 06/28/2022 5:45 PM BUSINESS DEVELOPMENT SALES EXECUTIVE [facility] Clarity UA Clear Clear 06/28/2022 5:45 PM BUSINESS DEVELOPMENT SALES EXECUTIVE [facility] Glucose UA 1+(A) Negative 06/28/2022 5:45 PM BUSINESS DEVELOPMENT SALES EXECUTIVE [facility] Bilirubin UA Negative Negative 06/28/2022 5:45 PM BUSINESS DEVELOPMENT SALES EXECUTIVE [facility] Ketone UA 1+(A) Negative 06/28/2022 5:45 PM BUSINESS DEVELOPMENT SALES EXECUTIVE [facility] Specific Alliance UA 1.005 1.005 - 1.030 06/28/2022 5:45 PM BUSINESS DEVELOPMENT SALES EXECUTIVE [facility] Blood UA 2+(A) Negative 06/28/2022 5:45 PM BUSINESS DEVELOPMENT SALES EXECUTIVE [facility] pH UA 6.0 5.0 - 8.0 pH 06/28/2022 5:45 PM BUSINESS DEVELOPMENT SALES EXECUTIVE [facility] Protein UA Negative Negative 06/28/2022 5:45 PM BUSINESS DEVELOPMENT SALES EXECUTIVE [facility] Urobilinogen UA Negative Negative mg/dL 06/28/2022 5:45 PM BUSINESS DEVELOPMENT SALES EXECUTIVE [facility] Nitrite UA Negative Negative 06/28/2022 5:45 PM BUSINESS DEVELOPMENT SALES EXECUTIVE [facility] Leukocyte UA Trace(A) Negative 06/28/2022 5:45 PM BUSINESS DEVELOPMENT SALES EXECUTIVE [facility] Urine Microscopy Urine microscopy to follow 06/28/2022 5:45 PM BUSINESS DEVELOPMENT SALES EXECUTIVE [facility] Reflex Status Culture to follow 06/28/2022 5:45 PM BUSINESS DEVELOPMENT SALES EXECUTIVE [facility] Urine URINE SPECIMEN OBTAINED BY SINGLE CATHETERIZATION OF URINARY BLADDER / Unknown Collection / Unknown 06/28/2022 5:35 PM BUSINESS DEVELOPMENT SALES EXECUTIVE 06/28/2022 5:39 PM BUSINESS DEVELOPMENT SALES EXECUTIVE Narrative [facility] - 06/28/2022 5:45 PM BUSINESS DEVELOPMENT SALES EXECUTIVE Cristine Smith MD LAB - URINALYSIS OR DERABLES [facility] [address] [place] [address] * (ABNORMAL) CULTURE URINE (06/28/2022 5:35 PM BUSINESS DEVELOPMENT SALES EXECUTIVE) Only the most recent of2 resultswithin the time period is included. [facility] Culture Urine 1,000-10,000 CFU/mL Enterococcus faecalis(A) TOMAS 06/30/2022 10:52 PM BUSINESS DEVELOPMENT SALES EXECUTIVE [facility] Urine URINE SPECIMEN OBTAINED BY SINGLE CATHETERIZATION OF URINARY BLADDER / Unknown Collection / Unknown 06/28/2022 5:35 PM BUSINESS DEVELOPMENT SALES EXECUTIVE 06/28/2022 5:39 PM BUSINESS DEVELOPMENT SALES EXECUTIVE Narrative [facility] - 06/30/2022 10:52 PM BUSINESS DEVELOPMENT SALES EXECUTIVE Organism Antibiotic Method Susceptibility Enterococcus faecalis Ampicillin TOMAS <=2 ug/mL: Susceptible Enterococcus faecalis Doxycycline TOMAS >=16 ug/mL: Resistant Enterococcus faecalis Linezolid TOMAS 2 ug/mL: Susceptible Enterococcus faecalis Nitrofurantoin TOMAS <=16 ug/mL: Susceptible Enterococcus faecalis Tetracycline TOMAS >=16 ug/mL: Resistant Enterococcus faecalis Vancomycin TOMAS 1 ug/mL: Susceptible Cristine Smith MD LAB - MICROBIOLOGY ORDERABLES [facility] [address] [place] [address], [facility] [phone] * (ABNORMAL) COMPREHENSIVE METABOLIC PANEL (06/28/2022 5:35 PM BUSINESS DEVELOPMENT SALES EXECUTIVE) Only the most recent of5 resultswithin the time period is included. Glucose 173(H) 70 - 105 mg/dL 06/28/2022 6:03 PM [facility] Sodium 140 136 - 145 mmol/L 06/28/2022 6:03 PM [facility] Potassium 2.9(L) 3.5 - 5.1 mmol/L 06/28/2022 6:03 PM [facility] Chloride 109(H) 98 - 107 mmol/L 06/28/2022 6:03 PM [facility] CO2 16(L) 23 - 31 mmol/L 06/28/2022 6:03 PM [facility] Calcium 9.1 8.4 - 10.4 mg/dL 06/28/2022 6:03 PM [facility] Anion Gap 15 8 - 18 mmol/L 06/28/2022 6:03 PM [facility] BUN 5(L) 7 - 18.7 mg/dL 06/28/2022 6:03 PM [facility] Creatinine 0.71 0.57 - 1.11 mg/dL 06/28/2022 6:03 PM [facility] Alkaline Phosphatase 140 40 - 150 U/L 06/28/2022 6:03 PM [facility] ALT 10 0 - 61 U/L 06/28/2022 6:03 PM [facility] AST 15 5 - 34 U/L 06/28/2022 6:03 PM [facility] Protein Total 6.5 6.4 - 8.3 gm/dL 06/28/2022 6:03 PM [facility] Albumin 3.4(L) 3.5 - 5.2 gm/dL 06/28/2022 6:03 PM [facility] Bilirubin Total 1.2 0.2 - 1.2 mg/dL 06/28/2022 6:03 PM [facility] eGFR by CKD-EPI >90 >=90 mL/min/1.7 3 m2 06/28/2022 6:03 PM BUSINESS DEVELOPMENT SALES EXECUTIVE [facility] Blood BLOOD SPECIMEN / Unknown Venipuncture / Unknown 06/28/2022 5:35 PM BUSINESS DEVELOPMENT SALES EXECUTIVE 06/28/2022 5:39 PM BUSINESS DEVELOPMENT SALES EXECUTIVE Cristine Smith MD LAB - CHEMISTRY ORD ERABLES Performing Organization Address [facility] de Phone Number [facility] [address] [place] [address] * (ABNORMAL) PROTEIN CREATININE RATIO URINE RANDOM PNL (06/28/2022 5:35 PM BUSINESS DEVELOPMENT SALES EXECUTIVE) Only the most recent of3 resultswithin the time period is included. Protein Urine 19.1(H) <11.9 mg/dL 06/28/2022 6:03 PM BUSINESS DEVELOPMENT SALES EXECUTIVE [facility] Creatinine Urine 59.16 mg/dL 06/28/2022 6:03 PM BUSINESS DEVELOPMENT SALES EXECUTIVE [facility] Protein/Creatin ine Ratio Urine 0.32 06/28/2022 6:03 PM BUSINESS DEVELOPMENT SALES EXECUTIVE [facility] Urine URINE SPECIMEN OBTAINED BY CLEAN CATCH PROCEDURE / Unknown Collection / Unknown 06/28/2022 5:35 PM BUSINESS DEVELOPMENT SALES EXECUTIVE 06/28/2022 5:38 PM BUSINESS DEVELOPMENT SALES EXECUTIVE Cristine Smith MD LAB - URINE DISPLAY MANAGER RY ORDERABLES Performing Organization Address [facility] Phone Number [facility] [address] [place] [address] * EPIDURAL BLOCK PERF (06/28/2022 4:44 PM BUSINESS DEVELOPMENT SALES EXECUTIVE) Narrative Shey Cross APRN-CAR WASH ATTENDANT - 06/28/2022 4:44 PM BUSINESS DEVELOPMENT SALES EXECUTIVE Shey Cross APRN-CAR WASH ATTENDANT 06/28/2022 4:45 PM Neuraxial Block Note Pre-Procedure: Procedure Name: Neuraxial Block Patient Location: OB Indications: labor analgesia Pre-Anesthetic Checklist: Patient identified, IV Checked, Risks and benefits discussed, Surgical consent verified, Monitors and equipment, Site examined, Pre-op evaluation done, Time-out performed, Informed consent obtained, Questions answered/anesthesia questions answered and Allergies reviewed Anticoagulation/ Anti-thrombosis status confirmed? Yes Monitors: BP and continuous pluse ox Patient Condition: awake Patient Sedated? No Procedure: Block Type: Epidural Prep: Betadine Sterile Field: mask, cap/hat, sterile established and sterile gloves Approach: midline Skin was localized? Yes Skin localized with: lidocaine (XYLOCAINE MPF) 1 % injection - Infiltration, Back 5 mL - 06/28/2022 3:35:00 PM Epidural Block: Is this procedure for postop pain? No Needle Type: Tuohy Needle gauge: 18 G Needle length: 90 mm Placement Site: L3-L4 Number of Attempts: 1 Loss of Resistance: 9 air Catheter length at skin (cm): 14 CSF Aspirated from catheter: No Blood Aspirated: No Test Dose: lidocaine 1.5% with 1-200,000 epinephrine 3 mL Test Dose Response: No Epidural Infusion Medications: Ropivacaine: 0.2% with Fentanyl 2mcg/mL in NS , 150 cc (mL) at 12 mL/hr Degree of difficulty: none Procedure Tolerance: tolerated well Sensory Level: T10 Motor Blockade: Yes Position post procedure: head of bed elevated 30 degrees, left uterine displacement Vital Signs: Vital sings monitored and stable throughout. See anesthesia record for details., Vital signs moniitored and stable throughout. See nursing vitals flowsheet for details., heart tones monitored and stable throughout. Staff: Anesthesia Provider: Shey Cross APRN-CRNA - performed the procedure Additional Notes: Called to room for epidural re -placement. 5 cc local used for infiltration. Epidural placed without complications and pt getting comfortable. Francois Gallardo MD GENERAL ANESTHESIA O RDERABLES * EPIDURAL BLOCK PERF (06/27/2022 10:11 PM BUSINESS DEVELOPMENT SALES EXECUTIVE) Narrative India Lopez APRN-CRNA - 06/27/2022 10:11 PM BUSINESS DEVELOPMENT SALES EXECUTIVE India Lopez APRN-CRNA 06/27/2022 10:11 PM Neuraxial Block Note Pre-Procedure: Procedure Name: Neuraxial Block Patient Location: OB Indications: labor analgesia Pre-Anesthetic Checklist: Patient identified, IV Checked, Risks and benefits discussed, Surgical consent verified, Monitors and equipment, Site examined, Pre-op evaluation done, Time-out performed, Informed consent obtained, Questions answered/anesthesia questions answered and Allergies reviewed Anticoagulation/ Anti-thrombosis status confirmed? Yes Supplemental O2: room air Monitors: BP, continuous pluse ox and EKG Patient Condition: awake Patient Sedated? No Procedure: Block Type: Epidural Prep: Betadine Sterile Field: mask, cap/hat, sterile established and sterile gloves Approach: midline Skin was localized? Yes Skin localized with: lidocaine (XYLOCAINE) 1 % injection - Infiltration 3 mL - 06/27/2022 6:52:00 PM Epidural Block: Is this procedure for postop pain? No Needle Type: Tuohy Needle gauge: 18 G Needle length: 90 mm Placement Site: L3-L4 Number of Attempts: 1 Loss of Resistance: 8 air Catheter length at skin (cm): 13 CSF Aspirated from catheter: No Blood Aspirated: No Test Dose: lidocaine 1.5% with 1-200,000 epinephrine 3 mL Test Dose Response: No Degree of difficulty: none Procedure Tolerance: tolerated well Sensory Level: T10 Motor Blockade: No Position post procedure: left uterine displacement Vital Signs: heart tones monitored and stable throughout., Vital signs moniitored and stable throughout. See nursing vitals flowsheet for details. Staff: Anesthesia Provider: India Lopez APRN-CAR WASH ATTENDANT - performed the procedure Francois Gallardo MD GENERAL ANESTHESIA O RDERABLES * TYPE + SCREEN PANEL (06/27/2022 8:16 AM BUSINESS DEVELOPMENT SALES EXECUTIVE) Only the most recent of2 resultswithin the time period is included. ABO Rh O POS 06/27/2022 9:41 AM BUSINESS DEVELOPMENT SALES EXECUTIVE [facility] Comment:History checked. Antibody Screen NEG 9:41 AM BUSINESS DEVELOPMENT SALES EXECUTIVE [facility] Blood Bank BLOOD SPECIMEN / Unknown Venipuncture / Unknown 06/27/2022 8:16 AM BUSINESS DEVELOPMENT SALES EXECUTIVE 06/27/2022 8:29 AM BUSINESS DEVELOPMENT SALES EXECUTIVE Cristine Smith MD LAB - BLOOD BANK OR DERABLES [facility] [address] [place] [place] [id number] [place] [address] * BIOPHYSICAL PROFILE W NST (06/26/2022 1:16 PM BUSINESS DEVELOPMENT SALES EXECUTIVE) Only the most recent of4 resultswithin the time period is included. Anatomical Region Laterality Modality Other 06/26/2022 1:16 PM BUSINESS DEVELOPMENT SALES EXECUTIVE [facility] 06/26/2022 2:28 PM BUSINESS DEVELOPMENT SALES EXECUTIVE [facility] [place] PHONE: FAX: Pat. Name: ALLEGRA DANIELLE Pat. No: [id number] Study Date: 06/26/2022 1:16pm , Age: 10 1990, 32 Pregnancies: 4, Para 2, Ab 1 Height: 68 in Weight: 212 lb LMP: Unknown GA by Base: 36w6d YESSENIA: 07/18/2022 GA by US: 38w0d YESSENIA: 07/10/2022 GA Selected: 36w6d (From [facility]) YESSENIA: 07/18/2022 Referring MD: Tiesha, , [facility] Training Program Assistant: Ada Carreno, RDMS, RDCS CPT4: 69474,41176 BMI: 32.23 Hist/Ind: Cerclage Placed 01/16/22 T2DM Insulin cHTN Maternal Obesity H/O Pre_Eclampsia H/O Insufficient Cervix G1:Stillborn TAB x 1 H/O PTD at 35 wks (short cvx) Completed anatomy echo not done MEASUREMENTS & AGE GROWTH EVALUATION Measurement GA Range Srce %for GA Ratios ----- ---- ------- BPD 9.6 cm 39w0d (59s7q-79l9t) Hadl BPD 97% FL/BPD 0.75 (0.71 - 0.87) HC 34.2 cm 39w3d (86a9s-58u5p) Hadl HC 81% FL/AC 0.20 (0.20 - 0.24) AC 36.0 cm 39w6d (65o7y-26y7v) Hadl AC >99 HC/AC 0.95 (0.92 - 1.11) FL 7.2 cm 36w6d (72e1d-73q4a) Hadl FL 48% CI 0.80 (0.70 - 0.86) HL 6.9 cm 40w1d (75o5j-39a4h) Vitaly HL >95 GA for sonogram 38w0d (98q9k-87v1h) Weight Estimate: based on (BPD,HC,AC,FL) Hadlock Weight: 3689 gm (3150-4227gm) Had : 8lbs, 2oz Normal: 2997 gm (2248-3747gm) Had Wt% 96% for 36w6d Heart Rate: 149 bpm Amniotic Fluid Index: 16.0cm (07.5-24.5) Q1: 4.2cm Q2: 5.1cm Q3: 3.7cm Q4: 3.0cm Biophysical Profile: 05/14 Breathin Tone: 2 NST: 2 Movement: 2 AFV: 2 EVAL, PLACENTA Presentation: cephalic Placenta: posterior Heart Rate: 149 bpm CLINICAL SUMMARY A single fetus is seen in cephalic presentation. The measurements today are consistent with greater than expected growth. The YESSENIA is based on prior ultrasound examination (confirmed). The amniotic fluid volume is within normal limits. The FHR baseline was 891705 bpm during today's reactive NST. The FHR variability was moderate and no significant decelerations were detected. IMPRESSION: Single, live, intrauterine at 36w6d LGA size Amniotic fluid volume: within normal limits Biophysical profile: Reassuring RECOMMEND: Continue twice weekly NSTs and weekly BPP through delivery Close maternal monitoring of movement (IOL reportedly scheduled for 06/27/22) Thank you for allowing us the opportunity to care for your patient. Jb Leal MD <Electronic Signature> 06/26/2022 02:25pm Kiran Gonzalez MD [facility] * CULTURE STREP B (06/19/2022 12:53 PM BUSINESS DEVELOPMENT SALES EXECUTIVE) Culture Strep B Negative for beta-hemolytic Streptococcus Group B TOMAS 06/22/2022 1:19 PM BUSINESS DEVELOPMENT SALES EXECUTIVE [facility] Microbiology MISCELLANEOUS SAMPLES / Unknown Collection / Unknown 06/19/2022 12:53 PM BUSINESS DEVELOPMENT SALES EXECUTIVE 06/19/2022 2:25 PM BUSINESS DEVELOPMENT SALES EXECUTIVE Nikia Saul MD LAB - MICROBIOLOGY O RDERABLES [facility] [address] [place] [address], [facility] [phone] * (ABNORMAL) URINALYSIS - POCT (IP) BEAKER INTERFACE (06/12/2022 1:05 PM BUSINESS DEVELOPMENT SALES EXECUTIVE) Only the most recent of11 resultswithin the time period is included. Color UA POCT Yellow Straw, Yellow, Dark Yellow, Light Yellow 06/12/2022 1:07 PM BUSINESS DEVELOPMENT SALES EXECUTIVE [facility] Clarity UA POCT Slightly Cloudy(A) Clear 06/12/2022 1:07 PM BUSINESS DEVELOPMENT SALES EXECUTIVE [facility] Specific Alliance UA POCT 1.025 1.005 - 1.030 06/12/2022 1:07 PM BUSINESS DEVELOPMENT SALES EXECUTIVE [facility] pH UA POCT 6.0 5.0 - 8.0 pH 06/12/2022 1:07 PM BUSINESS DEVELOPMENT SALES EXECUTIVE [facility] Protein UA POCT Negative Negative 2 1:07 PM BUSINESS DEVELOPMENT SALES EXECUTIVE [facility] Blood UA POCT Negative Negative 06/12/2022 1:07 PM BUSINESS DEVELOPMENT SALES EXECUTIVE [facility] Leukocyte UA POCT Negative Negative 06/12/2022 1:07 PM BUSINESS DEVELOPMENT SALES EXECUTIVE [facility] Nitrite UA POCT Negative Negative 2 1:07 PM BUSINESS DEVELOPMENT SALES EXECUTIVE [facility] Glucose UA POCT Negative Negative 2 1:07 PM BUSINESS DEVELOPMENT SALES EXECUTIVE [facility] Ketone UA POCT Trace(A) Negative 06/12/2022 1:07 PM BUSINESS DEVELOPMENT SALES EXECUTIVE [facility] Bilirubin UA POCT Negative Negative 06/12/2022 1:07 PM BUSINESS DEVELOPMENT SALES EXECUTIVE [facility] Urobilinogen UA POCT 0.2 0.1 - 1.0 EU/dL 06/12/2022 1:07 PM BUSINESS DEVELOPMENT SALES EXECUTIVE [facility] Urine URINE / Unknown 06/12/2022 1 :05 PM BUSINESS DEVELOPMENT SALES EXECUTIVE 06/12/2022 1:06 PM BUSINESS DEVELOPMENT SALES EXECUTIVE Kiran Gonzalez MD LAB - POINT OF CARE ORDERABLES Performing Organization Address City/State/[facility] Co de Phone Number [facility] [address] [phone] * NON-STRESS TEST (06/08/2022 8:42 PM CDT) Anatomical Region Laterality Modality Other Narrative 06/08/2022 8:42 PM CDT Allison Blas MD 06/09/2022 12:06 AM Name: Allegra Danielle Date of : 1990 Today's Date: 06/08/2022 34w2d NST RESULTS ([place]) OBJECTIVE FINDINGS Temp: 99.9 F (37.7 C), Pulse: 88, Resp: 18, BP: 134/67 Uterine Irritability: No Contractions: Not present OBJECTIVE FINDINGS Monitoring Mode: External Baseline: 130 BPM Variability: Moderate Decelerations: None Accelerations: Yes OTHER INFORMATION Lissette Radford RN Non-Stress Test [facility] Patient Name: Allegra Danielle LMP: Patient's last menstrual period was 10/04/2021 (approximate). Gestational Age: 34w3d as of 06/09/2022 Estimated Date of Delivery: 07/18/22 Indications: other headache, swelling NST date: 06/08/2022 NST duration: >20 mins Interpretation: Baseline: 135 beats/minute moderate variability Reactive Contractions: none Decelerations: none Impression and Plan: FWB reassuring, continue monitoring as scheduled. Allison Blas MD 06/09/2022 12:05 AM Andreia Rothman MD [facility] * LAB RESULTS ORDER (06/02/2022 5:07 PM CDT) Only the most recent of2 resultswithin the time period is included. Narrative 06/02/2022 5:07 PM CDT Ordered by an unspecified provider. Scanned Document LAB - THERAPEUTIC DR UG MONITORING ORDERABLES * TSH REFLEX FREE T4 (05/29/2022 1:51 PM CDT) Only the most recent of4 resultswithin the time period is included. TSH 0.722 0.350 - 4.940 uIU/mL 05/29/2022 3:17 PM CDT [facility] Blood BLOOD SPECIMEN / Unknown Venipuncture / Unknown 05/29/2022 1:51 PM CDT 05/29/2022 2:15 PM CDT Nikia Saul MD LAB - CHEMISTRY [facility] Organization Address City/State/ZIP Co de Phone Number [facility] [address] [place] [address] * SONOGRAM - COMPLETE (05/22/2022 1:43 PM CDT) Only the most recent of5 resultswithin the time period is included. Anatomical Region Laterality Modality Other 05/22/2022 1:43 PM CDT Narrative 05/22/2022 2:54 PM CDT [facility] PHONE: FAX: Pat. Name: ALLEGRA DANIELLE. No: [id number] Study Date: 05/22/2022 1:43pm , Age: 08 1990, 32 Pregnancies: 4, Para 2, Ab 1 Height: 68 in Weight: 212 lb LMP: Unknown GA by Base: 31w6d YESSENIA: 07/18/2022 GA by US: 34w3d YESSENIA: 06/30/2022 GA Selected: 31w6d (From [facility]) YESSENIA: 07/18/2022 Referring MD: Tiesha, , [facility] Training Program Assistant: Maryam Sosa, RDMS, RDCS CPT4: 74171,19345 BMI: 32.23 Hist/Ind: Cerclage Placed 01/16/22 T2DM Insulin cHTN H/O Pre_Eclampsia H/O Insufficient Cervix G1:Stillborn TAB x 1 H/O PTD at 35 wks (short cvx) completed anatomy echo not done MEASUREMENTS & AGE GROWTH EVALUATION Measurement GA Range Srce %for GA Ratios ----- ---- ------- BPD 8.6 cm 34w3d (04d2m-33v9l) Hadl BPD 96% FL/BPD 0.78 (0.71 - 0.87) HC 31.0 cm 34w4d (24n6h-25t0q) Hadl HC 82% FL/AC 0.22 (0.20 - 0.24) AC 30.7 cm 34w4d (31s8u-79n8l) Hadl AC 98% HC/AC 1.01 (0.96 - 1.15) FL 6.6 cm 34w1d (29z4w-14w2e) Hadl FL 90% CI 0.79 (0.70 - 0.86) GA for sonogram 34w3d (15u1j-05q9r) Weight Estimate: based on (BPD,HC,AC,FL) Avg Weight: 2439 gm (2083-2795gm) Had : 5lbs, 6oz Normal: 1924 gm (1443-2405gm) Had Wt% >97 for 31w6d Heart Rate: 133 bpm Amniotic Fluid Index: 20.7cm (08.6-24.1) Q1: 6.5cm Q2: 4.5cm Q3: 4.9cm Q4: 4.8cm Biophysical Profile: 05/14 Breathin Tone: 2 NST: 2 Movement: 2 AFV: 2 EVAL, PLACENTA Presentation: cephalic Placenta: posterior Heart Rate: 133 bpm Amniotic Fluid Volume: normal CLINICAL SUMMARY A single fetus is seen in cephalic presentation. The measurements today are consistent with greater than expected growth. (EFW >97%, AC 98%ile). The YESSENIA is based on prior ultrasound examination. The amniotic fluid volume is within normal limits. Placenta is posterior. Normal cardiac activity and movements were seen today. TESTING The Biophysical profile score is 10/10 The FHR baseline was 130 bpm during today's reactive NST. The FHR variability was moderate. IMPRESSION: Single, live, intrauterine at 31w6d Amniotic fluid volume is within normal limits Biophysical profile is 10/10 size is large for gestational age (LGA) RECOMMEND: Continue twice weekly NST, once weekly BPP testing Repeat growth assessment in 4 weeks Thank you for allowing us the opportunity to care for your patient. Tosin Bro MD <Electronic Signature> 05/22/2022 02:52pm Kiran Gonzalez MD [facility] * SYPHILIS ANTIBODY CASCADING REFLEX (04/24/2022 3:30 PM CDT) Only the most recent of2 resultswithin the time period is included. Treponema pallidum Antibody Non Reactive Non Reactive 04/24/2022 4:33 PM CDT [facility] Comment: No Laboratory evidence of syphilis infection. Note: Circulating antibodies may be low or undetectable in early infection. If recent exposure is suspected, re-draw sample in 2-4 weeks and repeat testing. Blood BLOOD SPECIMEN / Unknown Venipuncture / Unknown 04/24/2022 3:30 PM CDT 04/24/2022 3:43 PM CDT Taihra Heredia MD LAB - SEROLOGY ORDER JONO Performing Organization Address [facility] Co de Phone Number [facility] [address] [place], [place] [phone] * HIV-1 HIV-2 ANTIBODY + HIV P24 AG PANEL (04/24/2022 3:30 PM CDT) Only the most recent of2 resultswithin the time period is included. HIV1/2 Ab + P24 Ag Non Reactive Non Reactive 04/24/2022 4:34 PM CDT [facility] Blood BLOOD SPECIMEN / Unknown Venipuncture / Unknown 04/24/2022 3:30 PM CDT 04/24/2022 3:43 PM CDT Narrative [facility] - 04/24/2022 4:34 PM CDT No Laboratory evidence of HIV infection. Tahira Heredia MD LAB - CHEMISTRY ORDKacy LEARY [facility] [address] [place] [address] * (ABNORMAL) HEMOGLOBIN A1C (04/24/2022 3:30 PM CDT) Only the most recent of4 resultswithin the time period is included. Pathologist [facility] Hemoglobin A1c 6.0(H) <5.7 % 04/24/2022 5:17 PM CDT [facility] Estimated Average Glucose 126 mg/dL 04/24/2022 5:17 PM CDT [facility] Blood BLOOD SPECIMEN / Unknown Venipuncture / Unknown 04/24/2022 3:30 PM CDT 04/24/2022 3:43 PM CDT Narrative [facility] - 04/24/2022 5:17 PM CDT HbA1c Interpretation: Normal: < 5.7% Pre-diabetes: 5.7-6.4% Diabetes: Equal to or greater than 6.5% Test results diagnostic of diabetes should be repeated for confirmation. Treatment target values recommended by ADA and other clinical organizations should be used to evaluate metabolic control in patients. This test should not replace glucose testing for patients with Type 1 diabetes, pediatric patients, or women. Falsely low HbA1c results may be observed in patients with clinical conditions that shorten erythrocyte life span or decrease mean erythrocyte age such as the presence of unstable hemoglobin variants, elevated hemoglobin F level or other causes of hemolytic anemia. HbA1c may not accurately reflect glycemic control when clinical conditions that affect erythrocyte survival are present. Severe Iron deficiency anemia may yield falsely high results. Hemoglobin A1c assay should not be used to diagnose or monitor diabetes in patients with malignancy, recent blood transfusion, chronic kidney or liver disease. This method may yield falsely low results when hemoglobin (HbF) exceeds 5% in the specimen. The [employer] assay for the measurement of HbA1c is a National Glycohemoglobin Standardization Program (NGSP) certified method. Tahira Heredia MD LAB - CHEMISTRY [facility] Organization Address City/State/ZIP Co de Phone Number [facility] [address] [place] [address] * (ABNORMAL) CBC W/O DIFFERENTIAL (04/24/2022 3:30 PM CDT) [facility] WBC 14.1(H) 4.4 - 10.7 x10E9/L 04/24/2022 3:54 PM CDT [facility] RBC 4.05 3.80 - 5.20 x10E12/L 04/24/2022 3:54 PM CDT [facility] Hemoglobin 11.8(L) 12.0 - 15.6 gm/dL 04/24/2022 3:54 PM CDT [facility] Hematocrit 35.3(L) 35.9 - 45.5 % 04/24/2022 3:54 PM CDT [facility] MCV 87.2 80.7 - 98.3 fl 04/24/2022 3:54 PM CDT [facility] MCH 29.1 26.7 - 34.0 pg 04/24/2022 3:54 PM CDT [facility] MCHC 33.4 30.8 - 35.9 gm/dL 04/24/2022 3:54 PM CDT [facility] Platelet Count 391 153 - 416 x10E9/L 04/24/2022 3:54 PM CDT [facility] RDW-CV 13.8 12.1 - 14.9 % 04/24/2022 3:54 PM CDT [facility] MPV 9.5 9.4 - 12.9 fl 04/24/2022 3:54 PM CDT [facility] Blood BLOOD SPECIMEN / Unknown Venipuncture / Unknown 04/24/2022 3:30 PM CDT 04/24/2022 3:43 PM CDT Tahira Heredia MD LAB - HEMATOLOGY ORD ERABLES [facility] [address] [place] [address] * CHLAMYDIA + GC AMPLIFIED PROBE (STL) (04/06/2022 6:38 PM CDT) Only the most recent of2 resultswithin the time period is included. [facility] Chlamydia Amplified Probe Negative Negative 04/07/2022 3:00 AM CDT [facility] GC Amplified Probe Negative Negative 04/07/2022 3:[address] [facility] Microbiology PART OF UTERINE CERVIX / Unknown Collection / Unknown 04/06/2022 6:38 PM CDT 04/06/2022 6:[address] [facility] - 04/07/2022 3:00 AM CDT Results based on detection/no detection of ribosomal RNA by amplified method. Waylon Stevens MD LAB - MICROBIOLOGY O RAKESH Performing Organization Address City/[facility]/ZIP Co de Phone Number [facility] [address] [place], [place] [address] [phone] * TRICHOMONAS RAPID TEST (04/06/2022 6:38 PM CDT) Only the most recent of2 resultswithin the time period is included. Trichomonas Rapid Test Negative Negative 04/06/2022 7:22 PM CDT [facility] Microbiology VAGINAL SWAB / Unknown Collection / Unknown 04/06/2022 6:38 PM CDT 04/06/2022 6:53 PM CDT Waylon Stevens MD LAB - MICROBIOLOGY O RAKESH Performing Organization Address City/[facility] Co de Phone Number [facility] [address] [place] [address] * SONOGRAM - TRANSVAGINAL (03/06/2022 1:24 PM CDT) Only the most recent of3 resultswithin the time period is included. Anatomical Region Laterality Modality Other 03/06/2022 1:24 PM CDT Narrative 03/06/2022 4:19 PM CDT [facility] PHONE: FAX: Pat. Name: ALLEGRA DANIELLE Pat. No: [id number] Study Date: 03/06/2022 1:24pm , Age: 08 1990, 32 Pregnancies: 4, Para 2, Ab 1 Height: 68 in Weight: 212 lb LMP: Unknown GA by Base: 21w3d YESSENIA: 07/14/2022 GA Selected: 21w3d (From [facility]) YESSENIA: 07/14/2022 Referring MD: Tiesha, , [facility] Training Program Assistant: Melly Murillo RDMS CPT4: 36061,61194 BMI: 32.23 Hist/Ind: Cerclage Placed 01/16/22 T2DM Insulin cHTN H/O Pre_Eclampsia H/O Insufficient Cervix G1:Stillborn TAB x 1 H/O PTD at 35 wks (short cvx) Cervix: Length: 5.2 cm Approach: transvaginal Funneling: not present Heart Rate: 156 bpm Amniotic Fluid Index: 07.3cm (Deepest Pocket) EVAL, PLACENTA Presentation: cephalic Umbilical Cord: 3 Vessels Placenta: posterior Previa: no previa seen Heart Rate: 156 bpm Amniotic Fluid Volume: normal Anatomy!Normal!Abnormal!Suboptimal!Prev. Seen!Comments Cranium ! ! ! ! x ! Mdl (CSP/Thal! ! ! ! x ! Ventricles ! ! ! ! x ! Choroid Plexu! ! ! ! x ! Cerebellum ! ! ! ! x ! Cisterna M. ! ! ! ! x ! Nuchal Fold ! ! ! ! x ! Orbits ! ! ! ! x ! Profile ! ! ! ! x ! Nasal Bone ! ! ! ! x ! Lip ! ! ! ! x ! Spine ! ! ! ! x ! Lungs ! ! ! ! x ! 4 Chamber Hea! ! ! ! x ! LVOT ! ! ! ! x ! RVOT ! ! ! ! x ! 3 Vessel View! ! ! ! x ! 3 Vessel Trac! ! ! ! x ! Cross-over ! ! ! ! x ! Ductal Arch ! ! ! ! x ! Aortic Arch ! ! ! ! x ! Caval View ! ! ! ! x ! Situs ! ! ! ! x ! Diaphragm ! ! ! ! x ! Stomach ! x ! ! ! x ! Bowel ! ! ! ! x ! Kidneys ! x ! ! ! x ! Bladder ! x ! ! ! x ! 3 Vessel Cord! x ! ! ! x ! Cord In! ! ! ! x ! Upper Extremi! x ! ! ! ! Hands ! x ! ! ! ! Lower Extremi! ! ! ! x ! Feet ! ! ! ! x ! External Dora! ! ! ! x ! Placental Cor! ! ! ! x ! CLINICAL SUMMARY Study Number: [id number] A single fetus is seen in cephalic presentation. The amniotic fluid volume is within normal limits. IMPRESSION: Single, live, intrauterine at 21w3d Amniotic fluid: within normal limits Reassuring transvaginal cervical length with cerclage imaged intact, in situ No malformations seen within the limitations of ultrasound RECCOMMEND: Ultrasound in 2 weeks for cervical length and growth Thanks for allowing us the opportunity to care for your patient Kiran Gonzalez MD <Electronic Signature> 03/06/2022 04:19pm Kiran Gonzalez MD [facility] * THYROID AB PANEL (TPO AB+THYROGLOB AB) (02/07/2022 3:56 PM CDT) Pathologist [facility] Thyroid Peroxidase TPO Antibody 11 0 - 34 IU/mL 02/09/2022 10:07 PM CDT [facility] ([facility]) Thyroglobulin Antibody <1.0 0.0 - 0.9 IU/mL 02/09/2022 10:07 PM CDT [facility] ([facility]) Comment:Thyroglobulin Antibo dy measured by [facility] [employer] Blood BLOOD SPECIMEN / Unknown Venipuncture / Unknown 02/07/2022 3:56 PM CDT 02/07/2022 4:08 PM CDT Narrative [facility] ([facility]) - 02/09/2022 10:07 PM CDT Performed at: [address] [id number] Proofsheet Corrector: Lucius Evans PhD, Phone: [phone] Kellee Tavares MD LAB - CHEMISTRY ORDERABLES Performing Organization Address [facility] de Phone Number [facility] ([facility]) [address] [place] [address] * THYROID STIMULATING IMMUNOGLOBULIN (TSI) (02/07/2022 3:56 PM CDT) [facility] Thyroid Stimulating Immunoglobulin <0.10 0.00 - 0.55 IU/L 02/10/2022 3:08 PM CDT [facility] ([facility]) Blood BLOOD SPECIMEN / Unknown Venipuncture / Unknown 02/07/2022 3:56 PM CDT 02/07/2022 4:08 PM CDT Narrative [facility] ([facility]) - 02/10/2022 3:08 PM CDT Performed at: [address] [id number] Proofsheet Corrector: Shoshana Kilpatrick MD, Phone: [phone] Kellee Tavares MD LAB - CHEMISTRY ORDERABLES Performing Organization Address City/[facility]/ZIP Co de Phone Number [facility] ([facility]) [address] [place] [address] * T3 FREE (02/07/2022 3:56 PM CDT) T3 Free 3.41 1.58 - 3.91 pg/mL 02/07/2022 5:52 PM CDT [facility] Blood BLOOD SPECIMEN / Unknown Venipuncture / Unknown 02/07/2022 3:56 PM CDT 02/07/2022 4:08 PM CDT Narrative [facility] - 02/07/2022 5:52 PM CDT Attention clinician: Reference Range has changed. Kellee Tavares MD LAB - CHEMISTRY ORDERABLES Performing Organization Address City/[facility]/ZIP Co de Phone Number [facility] [address] [place] [phone] * (ABNORMAL) TSH (02/07/2022 3:56 PM CDT) Only the most recent of2 resultswithin the time period is included. TSH 0.2964(L) 0.35 - 4.94 uIU/mL 02/07/2022 5:52 PM CDT [facility] Blood BLOOD SPECIMEN / Unknown Venipuncture / Unknown 02/07/2022 3:56 PM CDT 02/07/2022 4:08 PM CDT Kellee Tavares MD LAB - CHEMISTRY ORDERABLES Performing Organization Address City/[facility]/ZIP Co de Phone Number [facility] [address] [place] [phone] * T4 FREE (02/07/2022 3:56 PM CDT) T4 Free 0.74 0.70 - 1.48 ng/dL 02/07/2022 5:52 PM CDT [facility] Blood BLOOD SPECIMEN / Unknown Venipuncture / Unknown 02/07/2022 3:56 PM CDT 02/07/2022 4:08 PM CDT Kellee Tavares MD LAB - CHEMISTRY ORDERABLES [facility] [address] [place] [id number] * CARDIAC EKG ORDER (01/19/2022 12:33 AM CDT) Narrative 01/19/2022 12:33 AM CDT Ordered by an unspecified provider. Scanned Document CARDIAC SERVICES ORD ERABLES * ETT LINE PERFORMABLE (01/16/2022 10:20 AM CDT) Narrative Hyacinth Dennis APRN-CRNA - 01/16/2022 10:20 AM CDT Hyacinth Dennis APRN-CRNA 01/16/2022 10:20 AM Endotracheal Tube Placement: Patient Location: OR. Intubation Event Date/Time: 01/16/2022 10:12 AM Procedure: intubation ([id number]). Procedure Section: Sedation: IV sedation. Indications for Airway Management: airway protection Induction: standard IV Patient Position: sniffing and supine Mask Ventilation: easy. Blade Type: Phillip Blade Size: 3 Laryngoscopy View: grade 1 (full cords) Intubation Adjuncts: stylet Tube: endotracheal tube Placement: oral Tube type: cuff - inflated Tube Size (MM): 7 Depth of Insertion (CM): 22 Measured From: gums Cuff volume (mL): 7 Cuff inflation pressure (CM H20): 20 Cuff Inflated With: air Number of Attempts: 1. Placement Verified By: direct visualization, bilateral breath sounds, chest auscultation and CO2 monitor Tube secured with: adhesive tape. Dentition unchanged? Yes Difficult Airway? No. Procedure Start Time: 01/16/2022 10:12 AM. Staff Section Anesthesia Provider: Hyacinth Dennis APRN-CRNA, Performed the procedure Danilo Garcia DO GENERAL ANESTHESIA O RDERABLES * Neuraxial Block (01/16/2022 9:55 AM CDT) Narrative Danilo Garcia DO - 01/16/2022 9:55 AM CDT Danilo Garcia DO 01/16/2022 9:59 AM Neuraxial Block Note Pre-Procedure: Procedure Name: Neuraxial Block Patient Location: Holding Area Indications: surgical anesthesia Pre-Anesthetic Checklist: Patient identified, IV Checked, Risks and benefits discussed, Surgical consent verified, Monitors and equipment, Site examined, Pre-op evaluation done, Time-out performed, Informed consent obtained, Questions answered/anesthesia questions answered and Allergies reviewed Anticoagulation/ Anti-thrombosis status confirmed? Yes Monitors: BP Patient Condition: awake Patient Sedated? No Procedure: Block Type: Spinal Prep: Betadine Sterile Field: mask, cap/hat, sterile established and sterile gloves Approach: midline Skin was localized? Yes Skin localized with: lidocaine (XYLOCAINE) 1 % injection - Infiltration 3 mL - 01/16/2022 9:42:00 AM Spinal Block: Needle Type: spinal needle Needle Gauge: 24 Needle Length: 102 mm Placement Site: L5-S1 Number of Attempts: 3 CSF: free flow, aspiration before injection Local anesthetics used? Yes Spinal local anesthetics/Additives: bupivacaine 0.75 % in dextrose (SENSORCAINE) injection - Intraspinal 11.5 mg - 01/16/2022 9:45:00 AM Degree of difficulty: moderate Procedure Tolerance: tolerated well Motor Blockade: Yes Position post procedure: head of bed elevated 30 degrees Vital Signs: Vital signs monitored and stable throughout. See anesthesia record for details. Start Time: 01/16/2022 9:42 AM End Time: 01/16/2022 9:50 AM Total Time: 8 Staff: Anesthesia Provider: Danilo Garcia DO - performed the procedure Provider #1: Yasmin Gonzalez DO - performed the procedure Danilo Garcia DO GENERAL ANESTHESIA O RDERABLES * T4 FREE DIRECT REFLEXED (01/03/2022 4:34 PM CDT) Only the most recent of2 resultswithin the time period is included. T4 Free 0.77 0.70 - 1.48 ng/dL 01/03/2022 7:56 PM CDT [facility] Blood BLOOD SPECIMEN / Unknown Venipuncture / Unknown 01/03/2022 4:34 PM CDT 01/03/2022 4:50 PM CDT Vianney Solorio MD LAB - CHEMISTRY ANGELA LEARY [facility] [address] [place] [address] * FIRST TRI NUCHAL TRANSLUCENCY W:SEQ SCREEN (01/03/2022 2:45 PM CDT) Anatomical Region Laterality Modality Other 01/03/2022 2:45 PM CDT Narrative 01/03/2022 3:54 PM CDT [facility] PHONE: FAX: Pat. Name: ALLEGRA DANIELLE Pat. No: [id number] Study Date: 01/03/2022 2:45pm , Age: 08 1990, 31 Pregnancies: 4, Para 2211 Height: 68 in Weight: 212 lb LMP: Unknown GA by Base: 12w0d YESSENIA: 07/18/2022 GA by US: 12w1d YESSENIA: 07/17/2022 GA Selected: 12w0d (From [facility]) YESSENIA: 07/18/2022 Referring MD: MD Tiesha, [facility] Training Program Assistant: Melly Murillo RDMS CPT4: 41777,40532 BMI: 32.23 Hist/Ind: Nuchal Translucency T2DM, insulin cHTN Hx Pre-E Hx insufficient cervix G1: Stillborn TAb x 1 Hx PTD #35weeks, short cx Hx cerclage MEASUREMENTS & AGE GROWTH EVALUATION Measurement GA Range Srce %for GA Ratios ----- ---- ------- CRL 5.6 cm 12w1d ([id number]) Hadl CRL 57% GA for sonogram 12w1d ([id number]) based on (CRL) Avg Markers for Chromosomal Abnormality: NT 1.2 mm (Normal) Heart Rate: 166 bpm EVAL, PLACENTA Location: intrauterine Gestational Sac: normal Yolk Sac: not seen Embryo: visualized Heart Rate: 166 bpm MATERNAL ANATOMY Right Desc: Appears normal Left Desc: Appears normal Cul-de-sac LxHxW (mm) No free fluid Anatomy!Seen!Not Seen!Comments Myometrium ! x ! ! Right Ovary ! x ! ! Left Ovary ! x ! ! Cul de sac ! x ! ! Calvarium* ! x ! ! Midline Falx*! x ! ! 4th Ventricle! x ! ! Lateral Ventr! x ! ! Choroid Plexu! x ! ! Nasal Bone* ! x ! ! Neck/Dorsum* ! x ! !< 3mm Abdominal Cor! x ! ! Stomach* ! x ! ! Kidneys* ! x ! ! Bladder* ! x ! ! Upper Extremi! x ! ! Lower Extremi! x ! ! CLINICAL SUMMARY Study Number: 2 Here today for 1st trimester screening with NT. A single intrauterine with cardiac activity is seen. There is no free fluid seen in the pelvis. The right ovary appears normal. The left ovary appears normal. The nuchal translucency measures 1.2 mm. Nasal bone was present. Blood was obtained for serum screening. Although a complete anatomical survey was not performed due to early gestation, no gross abnormalities were noted. IMPRESSION: Single, live, intrauterine at 12w0d First trimester aneuploidy screening was performed RECOMMEND: *History indicated cerclage placement scheduled for 01/16/22- F/U ultrasound scheduled for 01/24/22 Follow up ultrasound at 20 weeks to evaluate anatomy and transvaginal cervical screening We anticipate results of aneuploidy screening within 1-2 weeks Patient may return for 2nd blood draw to complete aneuploidy screening between 15-22weeks (optimal time 16-18 weeks) Thank you for allowing us the opportunity to care for your patient. Mahesh Alcantar, <Electronic Signature> 01/03/2022 03:52pm Kiran Gonzalez MD [facility] ORDERABLES * PANORAMA TEST (01/03/2022) Trisomy 21 Low Risk Trisomy 18 Low Risk Trisomy 13 Low Risk Monosomy X Low Risk Triploidy/Jesenia shing Twin NIPT Low Risk Blood BLOOD SPECIMEN / Unknown 01/03/2022 Narrative Ava Perez RN - 01/11/2022 LOW RISK Predicted Sex: male Fraction: 2.9% Panorama - Anthony Screen Hard copy results available in Media. Tomasa Sanchez MD LAB - C HEMISTRY ORDERABLES * PROTEIN URINE TIMED QUANTITATIVE (11/29/2021 2:16 PM CDT) Volume 24 Hour Urine 2,650 mL 11/29/2021 3:01 PM CDT [facility] Collection Time Hours 24 hrs 11/29/2021 3:01 PM CDT [facility] Protein 24 Hour Urine 11/29/2021 3:01 PM CDT [facility] Comment:Unable to calculate due to limited levels of measurable protein. Protein Urine <6.8 <11.9 mg/dL 11/29/2021 3:01 PM CDT [facility] Urine TIMED URINE SPECIMEN / Unknown Timed Urine Volume Measurement / Unknown 11/29/2021 2:16 PM CDT 11/29/2021 2:37 PM CDT Ciarra Beal MD LAB - URINE DISPLAY MANAGER RY ORDERABLES [facility] [address] [place] [address] * HEMOGLOBINOPATHY FRACTIONATION CASCADE (11/23/2021 10:52 AM CDT) Hemoglobin F 0.0 0.0 - 2.0 % 11/24/2021 2:09 PM CDT [facility] ([facility]) Hemoglobin A 97.0 96.4 - 98.8 % 11/24/2021 2:09 PM CDT [facility] ([facility]) Hemoglobin A2 3.0 1.8 - 3.2 % 11/24/2021 2:09 PM CDT [facility] ([facility]) Hemoglobin S 0.0 0.0 % 11/24/2021 2:09 PM CDT [facility] ([facility]) Interpretation Comment 11/24/2021 2:09 PM CDT [facility] ([facility]) Comment: Normal hemoglobin present; no hemoglobin variant or thalassemia observed. Blood BLOOD SPECIMEN / Unknown Venipuncture / Unknown 11/23/2021 10:52 AM CDT 11/23/2021 11:35 AM CDT Narrative [facility] ([facility]) - 11/24/2021 2:09 PM CDT Performed at: [address] [place] [id number] Proofsheet Corrector: Lucius Evans PhD, Phone: [phone] Ciarra Beal MD LAB - CHEMISTRY ORD ERABLES Performing Organization Address [facility]/ZIP Co de Phone Number [facility] ([facility]) [address] [place] [address] * RUBELLA ANTIBODY IGG (11/23/2021 10:52 AM CDT) Only the most recent of2 resultswithin the time period is included. [facility] Rubella Antibody 1.23 Immune >0.99 index 11/24/2021 7:09 AM CDT [facility] ([facility]) Comment: Non-immune <0.90 Equivocal 0.90 - 0.99 Immune >0.99 Blood BLOOD SPECIMEN / Unknown Venipuncture / Unknown 11/23/2021 10:52 AM CDT 11/23/2021 11:35 AM CDT Narrative [facility] ([facility]) - 11/24/2021 7:09 AM CDT Performed at: [address] [id number] Proofsheet Corrector: Lucius Evans PhD, Phone: [phone] Ciarra Beal MD LAB - SEROLOGY ORDE RABLES Performing Organization Address City/[facility]/ZIP Co de Phone Number [facility] ([facility]) [address] [place] [address] * HEPATITIS B SURFACE ANTIGEN W RFLX CONFIRMATION (11/23/2021 10:52 AM CDT) HBsAg Non Reactive Non Reactive 11/23/2021 12:37 PM CDT [facility] Blood BLOOD SPECIMEN / Unknown Venipuncture / Unknown 11/23/2021 10:52 AM CDT 11/23/2021 11:35 AM CDT Ciarra Beal MD LAB - CHEMISTRY ORD ERABLES [facility] [address] [place] [address] * HEPATITIS C ANTIBODY (11/23/2021 10:52 AM CDT) HCV Antibody Screen Non Reactive Non Reactive 11/23/2021 12:37 PM CDT [facility] Blood BLOOD SPECIMEN / Unknown Venipuncture / Unknown 11/23/2021 10:52 AM CDT 11/23/2021 11:35 AM CDT Narrative [facility] - 11/23/2021 12:37 PM CDT Non Reactive - Antibodies to Hepatitis C virus (HCV) were not detected, result does not exclude early acute HCV infection. Ciarra Beal MD LAB - CHEMISTRY ORD ERABLES Performing Organization Address [facility] Co de Phone Number [facility] [address] [place] [phone] * MAGNESIUM BLOOD (09/20/2021 10:23 AM BUSINESS DEVELOPMENT SALES EXECUTIVE) Pathologist [facility] Magnesium 1.7 1.6 - 2.6 mg/dL 09/20/2021 11:30 AM BUSINESS DEVELOPMENT SALES EXECUTIVE [facility] Blood BLOOD SPECIMEN / Unknown Lab Venipuncture / Unknown 09/20/2021 10:23 AM BUSINESS DEVELOPMENT SALES EXECUTIVE 09/20/2021 10:29 AM BUSINESS DEVELOPMENT SALES EXECUTIVE Prema Gonzalez MD LAB - CHEMISTRY ORDERABLES Performing Organization Address City/[facility]/ZIP Co de Phone Number [facility] [address] [place] [phone] * (ABNORMAL) IRON + TRANSFERRIN PANEL (09/20/2021 10:22 AM BUSINESS DEVELOPMENT SALES EXECUTIVE) Iron 72 50 - 170 ug/dL 09/20/2021 10:55 AM [facility] Transferrin 326 180 - 382 mg/dL 09/20/2021 10:55 AM [facility] TIBC Calculated 408 240 - 450 ug/dL 09/20/2021 10:55 AM [facility] Iron Saturation % 18(L) 20 - 50 % 09/20/2021 10:55 AM [facility] Blood BLOOD SPECIMEN / Unknown Lab Venipuncture / Unknown 09/20/2021 10:22 AM BUSINESS DEVELOPMENT SALES EXECUTIVE 09/20/2021 10:29 AM BUSINESS DEVELOPMENT SALES EXECUTIVE Prema Gonzalez MD LAB - CHEMISTRY ORDERABLES Performing Organization Address [facility]/ZIP Co de Phone Number [facility] [address] [place] [phone] * (ABNORMAL) FERRITIN (09/20/2021 10:22 AM BUSINESS DEVELOPMENT SALES EXECUTIVE) Ferritin 261(H) 5 - 204 ng/mL 09/20/2021 11:15 AM [facility] Blood BLOOD SPECIMEN / Unknown Lab Venipuncture / Unknown 09/20/2021 10:22 AM BUSINESS DEVELOPMENT SALES EXECUTIVE 09/20/2021 10:29 AM BUSINESS DEVELOPMENT SALES EXECUTIVE Prema Gonzalez MD LAB - CHEMISTRY ORDERABLES Performing Organization Address City/[facility]/ZIP Co de Phone Number [facility] [address] [place] [phone] * (ABNORMAL) LIPID PROFILE (09/20/2021 10:22 AM BUSINESS DEVELOPMENT SALES EXECUTIVE) Cholesterol 152 <200 mg/dL 09/20/2021 10:55 AM [facility] Triglycerides 282(H) <150 mg/dL 09/20/2021 10:55 AM [facility] HDL Cholesterol 40(L) >40 mg/dL 10:55 AM [facility] LDL Calculated 56 <130 mg/dL 09/20/2021 10:55 AM [facility] VLDL Calculated 56(H) <=30 mg/dL 10:55 AM [facility] Chol HDL Ratio 3.8 <4.5 09/20/2021 10:55 AM [facility] LDL/HDL Ratio 1.4 <5.0 09/20/2021 10:55 AM [facility] Blood BLOOD SPECIMEN / Unknown Lab Venipuncture / Unknown 09/20/2021 10:22 AM BUSINESS DEVELOPMENT SALES EXECUTIVE 09/20/2021 10:29 AM BUSINESS DEVELOPMENT SALES EXECUTIVE Prema Gonzalez MD LAB - CHEMISTRY ORDERABLES Performing Organization Address City/[facility]/ZIP Co de Phone Number [facility] [address] [place] [address] [phone] * PTH INTACT (09/20/2021 10:21 AM BUSINESS DEVELOPMENT SALES EXECUTIVE) PTH Intact 34.8 8.7 - 77.1 pg/mL 09/20/2021 11:44 AM [facility] Calcium 9.8 8.4 - 10.4 mg/dL 09/20/2021 11:44 AM [facility] Blood BLOOD SPECIMEN / Unknown Lab Venipuncture / Unknown 09/20/2021 10:21 AM BUSINESS DEVELOPMENT SALES EXECUTIVE 09/20/2021 10:29 AM BUSINESS DEVELOPMENT SALES EXECUTIVE Prema Gonzalez MD LAB - CHEMISTRY ORDERABLES [facility] [address] [place] [phone] * PT PTT PANEL (09/20/2021 10:21 AM BUSINESS DEVELOPMENT SALES EXECUTIVE) PT 13.0 12.1 - 14.8 sec 09/20/2021 10:59 AM [facility] INR 1.0 0.9 - 1.1 09/20/2021 10:59 AM [facility] PTT 24.5 23.0 - 38.4 sec 09/20/2021 10:59 AM [facility] Blood BLOOD SPECIMEN / Unknown Lab Venipuncture / Unknown 09/20/2021 10:21 AM BUSINESS DEVELOPMENT SALES EXECUTIVE 09/20/2021 10:29 AM BUSINESS DEVELOPMENT SALES EXECUTIVE Narrative [facility] - 09/20/2021 10:59 AM BUSINESS DEVELOPMENT SALES EXECUTIVE Conventional Warfarin Anticoagulant Therapy: INR Reference Range: 2.0-3.0 Intensive Warfarin Anticoagulant Therapy: INR Reference Range: 2.5-3.5 Heparin Therapeutic Range for PTT: 69.0 - 110.0 seconds. Prema Gonzalez MD LAB - COAGULATIO N ORDERABLES Performing Organization Address City/[facility]/ZIP Co de Phone Number [facility] [address] [place] [address] * VITAMIN B1 (09/20/2021 10:20 AM BUSINESS DEVELOPMENT SALES EXECUTIVE) [facility] Vitamin B1 Whole Blood 147.1 66.5 - 200.0 nmol/L 09/29/2021 12:09 PM BUSINESS DEVELOPMENT SALES EXECUTIVE [facility] Blood BLOOD SPECIMEN / Unknown Lab Venipuncture / Unknown 09/20/2021 10:20 AM BUSINESS DEVELOPMENT SALES EXECUTIVE 09/20/2021 10:29 AM BUSINESS DEVELOPMENT SALES EXECUTIVE Narrative [facility] ([facility]) - 09/29/2021 12:09 PM BUSINESS DEVELOPMENT SALES EXECUTIVE Test(s) 397793-[id number]. B1, Whole Blood was developed and its performance characteristics [facility] by [facility]. It has not been cleared or approved by the Food and Drug Administration. Performed at: 01 - [address] [id number] Proofsheet Corrector: Shoshana Kilpatrick MD, Phone: [phone] Prema Gonzalez MD LAB - CHEMISTRY ORDERABLES Performing Organization Address City/[facility] Co de Phone Number [facility] ([facility]) [address] [place] [address] * (ABNORMAL) VITAMIN D 25-HYDROXY (09/20/2021 10:20 AM BUSINESS DEVELOPMENT SALES EXECUTIVE) [facility] Vitamin D, 25 Hydroxy 14.9(L) 30 - 100 ng/mL 09/20/2021 11:31 AM BUSINESS DEVELOPMENT SALES EXECUTIVE [facility] Blood BLOOD SPECIMEN / Unknown Lab Venipuncture / Unknown 09/20/2021 10:20 AM BUSINESS DEVELOPMENT SALES EXECUTIVE 09/20/2021 10:29 AM BUSINESS DEVELOPMENT SALES EXECUTIVE Narrative [facility] - 09/20/2021 11:31 AM BUSINESS DEVELOPMENT SALES EXECUTIVE Vitamin D Status: Deficiency <20 ng/mL Insufficiency 20-30 ng/mL Sufficiency 30-100 ng/mL Toxicity >100 ng/mL Prema Gonzalez MD LAB - CHEMISTRY ORDERABLES Performing Organization Address City/[facility] Co de Phone Number [facility] [address] [place] [phone] * VITAMIN B12 FOLATE PANEL (09/20/2021 10:20 AM BUSINESS DEVELOPMENT SALES EXECUTIVE) Vitamin B12 296 213 - 816 pg/mL 09/20/2021 11:31 AM BUSINESS DEVELOPMENT SALES EXECUTIVE [facility] Folate 18.0 7.0 - 31.4 ng/mL 09/20/2021 11:31 AM BUSINESS DEVELOPMENT SALES EXECUTIVE [facility] Blood BLOOD SPECIMEN / Unknown Lab Venipuncture / Unknown 09/20/2021 10:20 AM BUSINESS DEVELOPMENT SALES EXECUTIVE 09/20/2021 10:29 AM BUSINESS DEVELOPMENT SALES EXECUTIVE Prema Gonzalez MD LAB - CHEMISTRY ORDERABLES Performing Organization Address City/[facility] Co de Phone Number [facility] [address] [place] [address] [phone] * XR CHEST 2VW (09/20/2021 9:56 AM BUSINESS DEVELOPMENT SALES EXECUTIVE) Only the most recent of2 resultswithin the time period is included. Anatomical Region Laterality Modality Chest Radiographic Deb ging 09/20/2021 10:3 5 AM BUSINESS DEVELOPMENT SALES EXECUTIVE Impressions 09/20/2021 10:36 AM BUSINESS DEVELOPMENT SALES EXECUTIVE Normal. *Reading Radiologist: Janay Campbell on 09/20/2021 at 10:36 AM Narrative 09/20/2021 10:36 AM BUSINESS DEVELOPMENT SALES EXECUTIVE Chest, 2 views DATE: 09/20/2021 INDICATION: Preop weight loss surgery FINDINGS: The lungs are clear and free of effusion. The heart, mediastinum and bony thorax are normal. No change since 10/19/2016 Procedure Note Janay Campbell MD - 09/20/2021 Chest, 2 views DATE: 09/20/2021 INDICATION: Preop weight loss surgery FINDINGS: The lungs are clear and free of effusion. The heart, mediastinum and bony thorax are normal. No change since 10/19/2016 IMPRESSION Normal. *Reading Radiologist: Janay Campbell on 09/20/2021 at 10:36 AM Prema Gonzalez MD DIAGNOSTIC IMAGI NG ORDERABLES * MRI BRAIN WO CONTRAST (02/03/2018 2:49 PM CDT) Anatomical Region Laterality Modality Head Magnetic Resonan ce 02/03/2018 2:50 PM CDT Impressions 02/03/2018 2:55 PM CDT IMPRESSION: Unremarkable intracranial MRI findings. This report was electronically signed by DAINA CONKLIN on 02/03/2018 2:55 PM . Narrative 02/03/2018 2:55 PM CDT EXAMINATION: Magnetic resonance imaging (MRI) of the brain without contrast HISTORY: post-traumatic headaches TECHNIQUE: MRI of the brain was performed without contrast according to standard protocol. FINDINGS: No prior study is available for comparison at the time of this dictation. Supratentorial and infratentorial brain parenchyma has normal signal. No diffusion restriction to suggest cytotoxic edema. No abnormal susceptibility to suspect intracranial bleed. No mass effect or midline shift. Ventricles are normal in size, shape, and configuration. Usual vascular flow voids are present. Mild mucosal thickening of bilateral ethmoid air cells, maxillary antra, and right side of sphenoid sinus, and appearance of fluid level in the sphenoid sinus bilaterally. Mastoid air cells and middle ear cavities are well aerated. Procedure Note Daina Conklin MD - 02/03/2018 EXAMINATION: Magnetic resonance imaging (MRI) of the brain withoutcontrast HISTORY: post-traumatic headaches TECHNIQUE: MRI of the brain was performed without contrast accordingto standard protocol. FINDINGS: No prior study is available for comparison at the time of this dictation. Supratentorial and infratentorial brain parenchyma has normal signal. No diffusion restriction to suggest cytotoxic edema. No abnormal susceptibility to suspect intracranial bleed. No mass effect or midline shift. Ventricles are normal in size, shape,and configuration. Usual vascular flow voids are present. Mild mucosal thickening of bilateral ethmoid air cells, maxillary antra, and right side of sphenoid sinus, and appearance of fluid level in the sphenoid sinus bilaterally. Mastoid air cells and middle ear cavitiesare well aerated. IMPRESSION: Unremarkable intracranial MRI findings. This report was electronically signed by DAINA CONKLIN on 02/03/2018 2:55PM . Mando Smith MD MR ORDERABLES * URINALYSIS - POINT OF CARE (AMB) [facility] (01/03/2018) Pathologist [facility] Specific Alliance UA 1.025 pH UA 6.0 WBC UA neg Nitrite UA neg Protein UA neg Glucose UA 3+ Ketones UA POCT 1+ Urobilinogen UA 3.5 Bilirubin UA POCT neg Blood Urine POCT neg Urine URINE / Unknown 01/03/2018 Lencho Mackenzie PA-C LAB - POINT OF CARE ORDERABLES * RUBEOLA ANTIBODY IGG (10/15/2016 3:50 PM CDT) Pathologist [facility] Measles (Rubeola) Antibody IgG >300.0 Immune >29.9 AU/mL 10/17/2016 12:14 PM CDT [facility] ([facility]) Comment: Negative <25.0 Equivocal 25.0 - 29.9 Positive >29.9 Presence of antibodies to Rubeola is presumptive evidence of immunity except when acute infection is suspected. Blood BLOOD SPECIMEN / Unknown Venipuncture / Unknown 10/15/2016 3:50 PM CDT 10/15/2016 6:44 PM CDT Narrative [facility] ([facility]) - 10/17/2016 12:14 PM CDT Performed at: - [facility] [id number] [place], [place] [id number] Proofsheet Corrector: Lucius Evans PhD, Phone: [phone] Provider Unknown LAB - CHEMISTRY ANGELA LEARY [facility] ([facility]) [address] [place] [address] * MUMPS ANTIBODY IGG (10/15/2016 3:50 PM CDT) Pathologist [facility] Mumps Virus Antibody IgG Index 53.2 Immune >10.9 AU/mL 10/17/2016 12:14 PM CDT [facility] ([facility]) Comment: Negative <9.0 Equivocal 9.0 - 10.9 Positive >10.9 A positive result generally indicates past exposure to Mumps virus or previous vaccination. Blood BLOOD SPECIMEN / Unknown Venipuncture / Unknown 10/15/2016 3:50 PM CDT 10/15/2016 6:44 PM CDT N[facility]ative [facility]) - 10/17/2016 12:14 PM CDT Performed at: [address] [place] [id number] Proofsheet Corrector: Lucius Evans PhD, Phone: [phone] Provider Unknown LAB - [facility]MISTRY [facility] Performing Organization Address [facility] de Phone Number [facility] ([facility]) [address] [place] [address] * VARICELLA ZOSTER ANTIBODY IGG (10/15/2016 3:50 PM CDT) Pathologist [facility] Varicella zoster Virus Antibody IgG 255 Immune >165 index 10/17/2016 12:14 PM CDT [facility] ([facility]) Comment: Negative <135 Equivocal 135 - 165 Positive >165 A positive result generally indicates exposure to the pathogen or administration of specific immunoglobulins, but it is not indication of active infection or stage of disease. Blood BLOOD SPECIMEN / Unknown Venipuncture / Unknown 10/15/2016 3:50 PM CDT 10/15/2016 6:44 PM CDT Narrative [facility] [facility]) - 10/17/2016 12:14 PM CDT Performed at: [address] [id number] Proofsheet Corrector: Lucius Evans PhD, Phone: [phone] Provider Unknown LAB - CHEMISTRY ANGELA LEARY Performing Organization Address [facility] de Phone Number [facility] ([facility]) [address] [place] [address] * (ABNORMAL) HEPATITIS B SURFACE ANTIBODY (10/15/2016 3:50 PM CDT) HBsAb REACTIVE(A ) Non Reactive 10/15/2016 7:29 PM CDT [facility] Blood BLOOD SPECIMEN / Unknown Venipuncture / Unknown 10/15/2016 3:50 PM CDT 10/15/2016 6:44 PM CDT Provider Unknown LAB - CHEMISTRY ANGELA LEARY Performing Organization Address City/State/[facility] Co de Phone Number [facility] [address] [place] [address] Care Teams Procedures Tech Relationship Specialty Start Date End Date Kamla Nuñez, ACADEMIC ASSISTANT-SALES LEADER [address] [place] [phone] PCP - Attributed-[facility] [employer] [facility] 08/05/18 Jeanine Flowers MD [address] [place] [address] PCP - General Internal Medicine 06/04/24
--- OUTSIDE RECORDS SUMMARY | 2024-09-23 17:28 | XMS_ITS | Referral Summary ---
Author Organization [facility] Address [address] [place] [address] Care Team Providers Care Manager Architecture Name Role Phone Kamla Nuñez HOUSE COORDINATOR-DIRECTOR TRANSITION Unavailable [phone] Jeanine Flowers MD Primary Care Provider Source Comments [facility],non-owned Affiliates and Associated Physician Practices is [facility] organization consisting of ambulatory clinics and hospital sitesin [place], [place], [place] and [place]. This disclosure is being madepursuant to the Care Everywhere program and may not contain all information available regarding this patient. Last updated 18.[facility] Encounters Date Type Department Care Team Description 09/02/2024 11:00 AM SALES RECRUITMENT SPECIALIST Video Visit [facility] [address] [place] [phone] Kamla Nuñez, HOUSE COORDINATOR-DIRECTOR TRANSITION Anxiety and depression ; Psychophysiologic insomnia; Type 2 diabetes mellitus with other specified complication, unspecified whether termite control service representative insulin use (HCC); Hypertension due to endocrine disorder 09/01/2024 Refill [facility] [address], [address] [place] [phone] Kamla Nuñez, HOUSE COORDINATOR-DIRECTOR TRANSITION Refill Request 08/26/2024 Refill [facility] [address] [place] [phone] Kamla Nuñez, HOUSE COORDINATOR-DIRECTOR TRANSITION Refill Request 07/16/2024 Refill [facility] [address] [place] [address] Kamla Nuñez, HOUSE COORDINATOR-DIRECTOR TRANSITION Refill Request 07/16/2024 11:00 AM SALES RECRUITMENT SPECIALIST Video Visit [facility] [address] [place] [address] Kamla Nuñez, HOUSE COORDINATOR-DIRECTOR TRANSITION Anxiety and depression ; Psychophysiologic insomnia 07/09/2024 Refill [facility] [address] [place] [address] Kamla Nuñez, HOUSE COORDINATOR-DIRECTOR TRANSITION Med Change Request 06/28/2024 Refill [facility] [address] [place] [address] Kamla Nuñez, HOUSE COORDINATOR-DIRECTOR TRANSITION Med Change Request from Last 3 Months Allergies No known active allergies Medications * Be aware that medications may not be up to date on this document. Alwaysverify current medications with the patient. Medication Sig Dispensed Refills Start Date End Date Status Glucagon (BAQSIMI TWO PACK) 3 MG/DOSE POWD [place] 3 mg into the nose as needed 2 Each 1 2 Active Continuous Blood Gluc Indirect Sales Exec (Dexcom G6 Indirect Sales Exec) NICOLE as directed 2 Active Aspirin Low Dose 81 MG chew tablet Take 1 (one) tablet by mouth once daily 4 Active Insulin Disposable Pump (Omnipod DASH Pods, Gen 4,) MISC CHANGE POD EVERY 72 HOURS 4 Active labetalol (Normodyne; Trandate) 200 MG tablet TAKE 1 TABLET (200 MG TOTAL) BY MOUTH 2 TIMES A DAY. 4 Active losartan (Cozaar) 50 MG tablet Take 1 (one) tablet by mouth once daily 4 Active mupirocin (Bactroban) 2 % ointment APPLY TO AFFECTED AREA 3 TIMES A DAY FOR 7 DAYS 4 Active Multiple Vitamins-Minera ls (ONE-A-DAY WOMENS PO) Take 1 tablet by mouth once daily Active Continuous Glucose Sensor (Dexcom G6 Sensor) MISCIndications :Type 2 diabetes mellitus with other specified complication, with long-term current use of insulin (HCC) Inject 1 kit subcutaneously 3 times daily 1 Each 3 4 Active Continuous Glucose Transmitter (Dexcom G6 Transmitter) MISCIndications :Type 2 diabetes mellitus with other specified complication, with long-term current use of insulin (HCC) Use 1 kit 3 times daily 1 Each 1 4 Active hydrOXYzine HCl (Atarax) 10 MG tabletIndicatio ns:Anxiety TAKE 1 (ONE) TABLET BY MOUTH 2 TIMES DAILY NEEDED REASONS: FEELING ANXIOUS 180 tablet 4 Active acetaminophen (Tylenol) 500 MG capsule Take 2 (two) capsules by mouth every 6 hours as needed 4 Active sertraline (Zoloft) 100 MG tabletIndicatio ns:Anxiety and depression Take 1.5 (one and one-half) tablets by mouth every 24 hours 45 tablet 1 4 Active traZODone (Desyrel) 50 MG tabletIndicatio ns:Anxiety Disorder,Insomn ia,Major Depressive Disorder Take 0.5 (one-half) tablet by mouth at bedtime Reasons: Anxiety Disorder, Major Depressive Disorder, Trouble Sleeping 45 tablet 4 Active metFORMIN ER 24hr (Glucophage XR) 500 MG tablet TAKE 1 TABLET BY MOUTH TWICE A DAY WITH MORNING AND EVENING MEAL FOR TYPE 2 DIABETES 180 tablet 5 Active Mounjaro 2.5 MG/0.5ML injection Inject 2.5 (two and one-half) mg subcutaneously every 7 days 5 Active HumaLOG 100 UNIT/ML vial FOR USE IN INSULIN PUMP. TOTAL DAILY DOSE UP TO 100U PER DAY. 30 mL 5 2 025 Discontinued(Li st Clean-Up) HYDROcodone-ramone taminophen ([place]) 5-325 MG tablet Take 1 (one) tablet by mouth every 6 hours as needed pain 4 025 Discontinued(Li st Clean-Up) ibuprofen (Motrin) 600 MG tablet Take 1 (one) tablet by mouth every 8 hours as needed 4 025 Discontinued(Li st Clean-Up) dulaglutide (Trulicity) 1.5 MG/0.5ML injectionIndica tions:Type 2 diabetes mellitus with other specified complication, with long-term current use of insulin (HCC) Inject 1.5 (one and one-half) mg subcutaneously every 7 days 7 mL 4 025 Discontinued metFORMIN ER 24hr (Glucophage XR) 500 MG tabletIndicatio ns:Type 2 Diabetes Mellitus Take 1 (one) tablet by mouth 2 times daily with morning and evening meal Reasons: Type 2 Diabetes 180 tablet 4 025 Discontinued dulaglutide (Trulicity) 1.5 MG/0.5ML injectionIndica tions:Type 2 diabetes mellitus with other specified complication, with long-term current use of insulin (HCC) INJECT 1.5 (ONE AND ONE-HALF) MG SUBCUTANEOUSLY EVERY 7 DAYS 6 mL 5 025 Discontinued(Li st Clean-Up) Active Problems Patient Care Coordination No te Formatting of this note migh t be different from the original. [employer] form completed. Diapers given. 04/24/2022, 06/19/22 Problem Noted Date Diagnosed Date Type 2 diabetes mellitus wit h other specified complication, unspecified whether termite control service representative insulin use 06/04/2024 Bacteremia due to Klebsiella pneumoniae 05/13/20 Sepsis 03/29/2024 History of female sterilization 12/13/2023 Overview (06/04/2024): S/p PP BTL on 12/05/23. B. Fallopian tubes, left and right, bilateral salpingectomy - Fallopian tubes with two complete cross-sections identified Cystic fibrosis carrier 11/13/2023 Overview (06/04/2024): - CF carrier on carrier screen Plan: - s/p counseling 11/13 - Offer partner screening Hypokalemia 10/03/2023 Overview (06/04/2024): K 2.9 on IOB labs drawn on 09/18 Repeat CMP K 3.5 Anxiety and depression 09/30/2023 Overview (06/04/2024): History - history of hospitalizations: n/A - current regimen: Zoloft (will clarify dose next visit) - therapist/psychiatrist: n/A - history of substance use disorder: n/A S/p counseling Recommendations [] Referral to psychiatry (if severe symptoms, diagnostic uncertainty, suicidality, psychosis, lack of response to interventions and/or need for multiple medications) [] behavioral health services referral Weight gain 11/08/2022 History of migraine 11/23/2021 Overview (11/23/2021): Previously on nortriptyline High cholesterol 09/01/2021 Hyperthyroidism 09/01/2021 Overview (03/28/2022): Follows with Endocrinology at [facility] ([facility]) - Pt unsure if hypo or hyper. Labs not concerning for Graves disease (normal TPO, thyroglobulin, TSI) TSH 0.0131 (09/20) > TSH 0.016/fT4 wnl (11/23) > TSH 0.29/fT4 wnl (02/07) TFTs c/w subclinical hyperthyroidism - no treatment indicated Follow TFTs throughout Hypertension 04/05/2015 PCOS (polycystic ovarian syndrome) Resolved Problems Problem Noted Date Diagnosed Date Resolved Date Anemia affecting in third trimester 09/30/19 24 06/04/2024 Overview (06/04/2024): IOB Labs notable for Hgb 10.2 Plan: [x] Obtain Hgb electrophoresis - normal hemoglobin electrophoresis [x] Iron studies - iron 42, TIBC 454, transferrin saturation 10% () [x] Rx for PO iron and vitamin C every other for supplementation Chronic hypertension affecting 09/30/2023 06/04/2024 Overview (06/04/2024): S/p counseling 11/13: MR BPs, patient left without collecting CBC/CMP/UPC CURRENT REGIMEN: [...] at 32 weeks - see T2DM prob Encounter for induction of labor 06/27/2022 06/04/2024 Large for gestational age fetus 05/22/2022 06/04/2024 Cervical insufficiency durin g , antepartum 01/15/2022 06/04/2024 History of cerclage, currently 01/15/2022 06/04/2024 with poor obstetric history 01/15/2022 06/04/2024 History of delivery, currently 10/24/2020 06/04/2024 Overview (06/26/2022): G1 - 21 week delivery, painful ctx with ROM at home G2 - cerclage at 12 weeks > removed at 35 w due to painful ctx, 35 week delivery G3 - TAB, D&C Hx-indicated Hodge cerclage placed 01/16/22 - S/p normal CL screening - Cerclage removal 06/19/22 - incomplete (knot removed however small portion of mersilene retained in posterior cervix) Pre-existing hypertension af fecting , antepartum 10/24/2020 06/04/2024 Overview (06/26/2022): Previously on Labetalol 100 mg BID. Stopped 1 week ago per PCP direction. Currently stable on no meds ASA 162mg daily for preeclampsia risk reduction Baseline labs wnl, P:C 0.05, 24h UP <6.8 Supervision of high-risk pre gnancy, unspecified trimester 10/24/2020 06/04/2024 Overview (06/26/2022): Dated by 6wk US PNL: O+/ab-, RI, RPR/HIV/HepB/HepC- - GC/CT/trich- - Pap NILM 10/2020 - Hgb electrophoresis wnl - Genetics: NIPT low risk - GBS: neg - Imm: Tdap 04/24, flu 05/29 Type 2 diabetes mellitus in 10/24/2020 06/04/2024 Overview (06/26/2022): Diagnosed age 18 Follows with Endocrinology at [facility] - started on CGM and insulin pump at 5w A1c 9.6% (2) > 9.0% (4) Last eye exam - 2020 EKG wnl 01/19/22 ASA 162mg daily for preeclampsia risk reduction Baseline labs wnl, P:C 0.05 Currently using Omnipod and Dexcom echo deferred - normal heart views on anatomy US Serial growth US, 2x/weekly testing at 32wks Migraine 09/07/2019 11/23/2021 CERCLAGE STILL IN SITU 06/04 Overview (06/20/2022): Cerclage incompletely removed (see clinic note from 06/20) Immunizations Name Administration Dates Next Due TuneStars primary monoval ent 12+ yr 0.3mL Purple cap 12/06/2020,11/18/2020 DTP 12/14/1993, 3,1992,1991 FLU VACCINE QUAD IIV4 SPLIT 0.25 ML IM 08/27/2017,07/23/2016 HEP A VACCINE, ADULT 01/19/2020,02/12/2019 HEP B VACCINE, PED/ADOL 08/09/1994,05/26/1993, HIB VACCINE 12/14/1993, 3,01/31/1993,1991 INFLUENZA VACCINE 05/13/2018, 8,07/23/2016,2015 INFLUENZA VACCINE, QUADR. (F LUZONE; FLULAVAL; FLUARIX; AFLURIA QUADRIVALENT; 6MO+), 0.5 ML (IIV4) 05/29/2022 INFLUENZA VACCINE, TRIV. (FL UZONE; FLULAVAL; FLUARIX; AFLURIA TRIVALENT; 6MO+), 0.5 ML (IIV3) 06/04/2024,07/23/2016,04/25/2016 MMR 12/07/2023,(Deferred: See Comments - patient is immune),12/14/1993 PNEUMOCOCCAL PPSV23 08/27/2017 POLIO OPV 12/14/1993,1992,1992 TDAP (7yrs+) 10/03/2023, 2(Deferred: See Comments - ulysses had antepartum),04/24/2022 TDAP, HISTORIC VACCINE 07/23/2016 VARICELLA 12/07/2023 Social History Tobacco Use Types Packs/Day [...] money to buy more. Never true 06/27/20 Within the past 12 months, t he [...] slept in a mcfp (including now)? No 06/27/2022 [place] Depression Scale Answer Date Recorded RETIRED: Total Score 1 11/23/2021 Last EPDS Self Harm Result Not on file 11/23 Sex and Gender Information Value Date Recorded Sex Assigned at Female 08/17/2021 7:26 AM SALES RECRUITMENT SPECIALIST Gender Identity Female 08/17/2021 7:26 AM SALES RECRUITMENT SPECIALIST Sexual Orientation Not on file Last Filed Vital Signs Vital Sign Reading Time Taken Comments Blood Pressure 124/83 06/04/2024 11:24 AM CDT Pulse 98 06/04/2024 11:24 AM CDT Temperature 37.1 C (98.7 F) 06/04/2024 11:24 AM CDT Respiratory Rate 16 10/04/2022 12:0 0 PM SALES RECRUITMENT SPECIALIST Oxygen Saturation 98% 06/04/2024 11: 24 AM CDT Inhaled Oxygen Concentration - - Weight 97.1 kg (214 lb) 09/02/2024 10:5 2 AM SALES RECRUITMENT SPECIALIST 2 weeks ago at the quality control inspector Height 175.3 cm (5' 9 ) 09/02/2024 10:5 2 AM SALES RECRUITMENT SPECIALIST Body Mass Index 31.6 09/02/2024 10:52 AM SALES RECRUITMENT SPECIALIST Functional Status Functional Status Response Date of Assess ment Is person deaf or have serious hearing difficult y? No 06/27/2022 Is person blind or have serious difficulty seein g? No 06/27/2022 Does person have serious dif ficulty walking/climbing stairs? No 06/27/2022 Does person have difficulty dressing/bathing? No 06/27/2022 Does person have difficulty doing errands alone? No 06/27/2022 Cognitive Status Response Date of Assessm ent Does person have difficulty concentrating/remembering/making decisions? No 06/27/2022 Plan of Treatment Not on file Procedures Procedure Name Priority Date/Time Associated Diagnosis Comments HEMOGLOBIN A1C - POINT OF CARE (AMB) Routine 06/04/2024 11:34 AM CDT Type 2 diabetes mellitus with other specified complication, with long-term current use of insulin (HCC) BASIC METABOLIC PANEL (CALCIUM TOTAL) AM Draw 06/30/2022 6:57 AM SALES RECRUITMENT SPECIALIST HIV-1 HIV-2 ANTIBODY + HIV P24 AG PANEL Routine 04/24/2022 3:30 PM CDT Supervision of high-risk , unspecified trimester (HCC) HEPATITIS C ANTIBODY Routine 11/23/2021 10:52 AM CDT Supervision of high-risk , unspecified trimester (HCC) from Last 3 Months or Most Recently Relevant to Health Maintenance Results * HEMOGLOBIN A1C - POINT OF CARE (AMB) (06/04/2024 11:34 AM CDT) Hemoglobin A1c POCT 10.1 % Expiration Date 03/05/26 Lot # [id number] QC Verified Yes Yes Blood BLOOD SPECIMEN / Unknown 06/04/2024 11:34 AM CDT Kamla Nuñez HOUSE COORDINATOR-DIRECTOR TRANSITION LAB - POINT OF C ARE ORDERABLES * (ABNORMAL) BASIC METABOLIC PANEL (CALCIUM TOTAL) (06/30/2022 6:57 AM SALES RECRUITMENT SPECIALIST) Glucose 80 70 - 105 mg/dL 06/30/2022 7:59 AM [facility] Sodium 140 136 - 145 mmol/L 06/30/2022 7:59 AM [facility] Potassium 3.2(L) 3.5 - 5.1 mmol/L 06/30/2022 7:59 AM [facility] Chloride 108(H) 98 - 107 mmol/L 06/30/2022 7:59 AM [facility] CO2 21(L) 23 - 31 mmol/L 06/30/2022 7:59 AM [facility] Calcium 9.2 8.4 - 10.4 mg/dL 06/30/2022 7:59 AM [facility] Anion Gap 11 8 - 18 mmol/L 06/30/2022 7:59 AM [facility] BUN 7 7 - 18.7 mg/dL 06/30/2022 7:59 AM [facility] Creatinine 0.67 0.57 - 1.11 mg/dL 06/30/2022 7:59 AM [facility] eGFR by CKD-EPI >90 >=90 mL/min/1.7 3 m2 06/30/2022 7:59 AM [facility] Blood BLOOD SPECIMEN / Unknown Lab Venipuncture / Unknown 06/30/2022 6:57 AM SALES RECRUITMENT SPECIALIST 06/30/2022 7:36 AM SALES RECRUITMENT SPECIALIST Cristine Smith MD LAB - CHEMISTRY MATILDA ZAZUETA [facility] [address] [place] [phone] * HIV-1 HIV-2 ANTIBODY + HIV P24 AG PANEL (04/24/2022 3:30 PM CDT) HIV1/2 Ab + P24 Ag Non Reactive Non Reactive 04/24/2022 4:34 PM CDT [facility] Blood BLOOD SPECIMEN / Unknown Venipuncture / Unknown 04/24/2022 3:30 PM CDT 04/24/2022 3:43 PM CDT Narrative [facility] - 04/24/2022 4:34 PM CDT No Laboratory evidence of HIV infection. Tahira Heredia MD LAB - CHEMISTRY ANGELA LEARY Performing Organization Address City/[facility]/ZIP Co de Phone Number [facility] [address] [place], [place] [id number] * HEPATITIS C ANTIBODY (11/23/2021 10:52 AM CDT) HCV Antibody Screen Non Reactive Non Reactive 11/23/2021 12:37 PM CDT [facility] Blood BLOOD SPECIMEN / Unknown Venipuncture / Unknown 11/23/2021 10:52 AM CDT 11/23/2021 11:35 AM CDT Narrative [facility] - 11/23/2021 12:37 PM CDT Non Reactive - Antibodies to Hepatitis C virus (HCV) were not detected, result does not exclude early acute HCV infection. Ciarra Beal MD LAB - CHEMISTRY MATILDA ZAZUETA [facility] [address] [place] [phone] from Last 3 Months or Most Recently Relevant to Health Maintenance Advance Directives * Full Code (Latest Code Status on File) Date Activated Date Inactivated Comments 06/27/2022 8:07 AM 06/30/2022 3:06 PM Care Teams Manager Architecture Relationship Specialty Start Date End Date Kamla Nuñez, HOUSE COORDINATOR-DIRECTOR TRANSITION [address] [place] [phone] PCP - Attributed-[place] [employer] [place] 08/05/18 Jeanine Flowers MD [address] [address] PCP - General Internal Medicine 06/04/24
--- OUTSIDE RECORDS SUMMARY | 2024-09-23 17:28 | XMS_ITS | Clinical Summary ---
Author Organization [facility] Address [address] [place] [address] Care Team Providers Care Big Data Solutions Architect Name Role Phone Kamla Nuñez Nhan RUBBER GOODS FINISHER-REFRIGERATION LEAD Unavailable [phone] Jeanine Flowers MD Primary Care Provider Source Comments [facility],non-owned Affiliates and Associated Physician Practices is amultiple site organization consisting of ambulatory clinics and hospital sitesin [place], [place], [place] and [place]. This disclosure is being madepursuant to the Care Everywhere program and may not contain all information available regarding this patient. Last updated 18.[facility] Allergies No known active allergies Medications * Be aware that medications may not be up to date on this document. Alwaysverify current medications with the patient. Medication Sig Dispensed Refills Start Date End Date Status Glucagon (BAQSIMI TWO PACK) 3 MG/DOSE POWD [place] 3 mg into the nose as needed 2 Each 1 2 Active Continuous Blood Gluc Merchandising Coordinator (Dexcom G6 Merchandising Coordinator) NICOLE as directed 2 Active Aspirin Low [...] 2 025 Discontinued(Li st Clean-Up) HYDROcodone-ramone taminophen ([place]) 5-325 MG tablet Take 1 (one) tablet [...] migh t be different from the original. [employer] form completed. Diapers given. 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 Labs not concerning for Graves disease (normal TPO, thyroglobulin, TSI) TSH 0.0131 (09/20) > TSH 0.016/fT4 wnl (11/23) > TSH 0.29/fT4 wnl (02/07) TFTs c/w subclinical hyperthyroidism - no treatment indicated Follow TFTs throughout Hypertension 04/05/2015 PCOS (polycystic ovarian syndrome) Resolved Problems Problem Noted Date Diagnosed Date Resolved Date Anemia affecting in third trimester 09/30/1906/04/2024 Overview (06/04/2024): IOB Labs notable for Hgb 10.2 Plan: [x] Obtain Hgb electrophoresis - normal hemoglobin electrophoresis [x] Iron studies - iron 42, TIBC 454, transferrin saturation 10% () [x] Rx for PO iron and vitamin C every other for supplementation Chronic hypertension affecting 09/30/2023 06/04/2024 Overview (06/04/2024): S/p counseling 11/13: MR [place], patient left [...] Diagnosed age 18 Follows with Endocrinology at [place] - started on CGM and insulin pump at 5w A1c 9.6% (2/) > 9.0% (4/) Last eye exam - 2020 EKG wnl 01/19/22 ASA 162mg daily for preeclampsia risk reduction Baseline labs wnl, P:C 0.05 Currently using Omnipod and Dexcom echo deferred - normal heart views on anatomy US Serial growth US, 2x/weekly testing at 32wks Migraine 09/07/2019 11/23/2021 CERCLAGE STILL IN SITU 06/04 Overview (06/20/2022): Cerclage incompletely removed (see clinic note from 06/20) Encounters Date Type Department Care Team Description 09/02/2024 11:00 AM TYRE FITTER Video Visit [facility] [address] [place] [phone] Kamla Nuñez, RUBBER GOODS FINISHER-REFRIGERATION LEAD Anxiety and depression ; Psychophysiologic insomnia; Type 2 diabetes mellitus with other specified complication, unspecified whether mcfp insulin use (HCC); Hypertension due to endocrine disorder 09/01/2024 Refill [facility] [address] [place] [phone] Kamla Nuñez, RUBBER GOODS FINISHER-REFRIGERATION LEAD Refill Request 08/26/2024 Refill [facility] [address] [place] [phone] Kamla Nuñez, RUBBER GOODS FINISHER-REFRIGERATION LEAD Refill Request 07/16/2024 11:00 AM TYRE FITTER Video Visit [facility] [address], [address] [place] [phone] Kamla Nuñez, RUBB[facility] GOODS [facility] Anxiety and depression ; Psychophysiologic insomnia 07/16/2024 Refill [facility] [address], [address] [place] [phone] Kamla Nuñez, RUBBER GOODS FINISHER-[facility] Refill Request 07/09/2024 Refill [facility] [address], [address] [place] [phone] Kamla Nuñez, RUBBER GOODS FINISHER-[facility] Med Change Request 06/28/2024 Refill [facility] [address], [address] [place] [phone] Kamla Nuñez, RUBBER GOODS FINISHER-[facility] Med Change Request from Last 3 Months Immunizations Name Administration Dates Next Due [employer] primary monoval ent 12+ yr 0.3mL Purple [...] TRIVALENT; 6MO+), 0.5 ML (IIV3) 06/04/2024,07/23/2016,04/25/2016 MMR 12/07/2023, 2(Deferred: See Comments - patient is immune),12/14/1993 PNEUMOCOCCAL PPSV23 08/27/2017 POLIO OPV 12/14/1993,1992,1992 TDAP (7yrs+) 10/03/2023,(Deferred: See Comments - ulysses had antepartum),04/24/2022 TDAP, HISTORIC VACCINE 07/23/2016 VARICELLA 12/07/2023 Family History Medical History Relation Name Comments None Known Father Hypertension Mother Thyroid Disease Mother Diabetes; unknown type Paternal Grandfather Diabetes; unknown type Paternal Grandmother Migraine Neg Hx Relation Name Status Comments Father Alive Mother Alive Paternal Grandfather Paternal Grandmother Social History Tobacco Use Types Packs/Day Years [...] place to sleep or slept in a retirement (including now)? No 06/27/2022 [place] Depression Scale Answer Date Recorded RETIRED: Total Score 1 11/23/2021 Last EPDS Self Harm Result Not on file 11/23 Sex and Gender Information Value Date Recorded Sex Assigned at Female 08/17/2021 7:26 AM TYRE FITTER Gender Identity Female 08/17/2021 7:26 AM TYRE FITTER Sexual Orientation Not on file Last Filed Vital Signs Vital Sign Reading Time Taken Comments Blood Pressure 124/83 06/04/2024 11:24 AM CDT Pulse 98 06/04/2024 11:24 AM CDT Temperature 37.1 C (98.7 F) 06/04/2024 11:24 AM CDT Respiratory Rate 16 10/04/2022 12:0 0 PM TYRE FITTER Oxygen Saturation 98% 06/04/2024 11: 24 AM CDT Inhaled Oxygen Concentration - - Weight 97.1 kg (214 lb) 09/02/2024 10:5 2 AM TYRE FITTER 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 Height 175.3 cm (5' 9 ) 09/02/2024 10:5 2 AM TYRE FITTER Body Mass Index 31.6 09/02/2024 10:52 AM TYRE FITTER Plan of Treatment Health Maintenance Due Date Last Done Comments Opioid Medication Agreement - Annual 1992 PNEUMOCOCCAL VACCINE (2 of 2 - PCV) 08/27/2018 08/27/2017 DIABETES RETINOPATHY SCREENING 06/07/2021 DIABETES-FOOT EXAM WITH MONOFILAMENT 06/07/2021 COVID-19 VACCINE ( season) 2024 12/06/2020, 11/18/2020 DIABETES - URINE PROTEIN SCREENING 08/05/2024 PAP SMEAR 11/20/2024 11/20/2021, 04/0 12/2020 (Done Outside Per Report) DIABETES-HGB A1C 12/02/2024 06/04/2024, , 01/31/2023, Additional history exists DIABETES-SERUM CREATININE 04/08/20252023, 04/08/2024, 04/01/2024, Additional history exists DTAP/TDAP/TD VACCINES (8 - Td or Tdap) 10/02/2033 10/03/2023, 04/24/2022, 07/23/2016, Additional history exists ZOSTER VACCINE (1 of 2) 2042 HIB VACCINE Completed 12/14/1993, 05/06, 01/31/1993, Additional history exists HEPATITIS B VACCINE Completed 08/09/1994, 05/26/1993, 01/31/1993 HEPATITIS C SCREENING Completed 11/23/2021 HIV SCREENING Completed 04/24/2022, 11/23/2021 INFLUENZA VACCINE Completed 06/04/2024, , 05/13/2018, Additional history exists DEPRESSION SCREENING Completed 09/02/2024, 06/04/20 HPV VACCINE Aged Out No longer eligi ble based on patient's age to complete this topic MENINGOCOCCAL (Group B) VACCINE Aged Out No longer eligible based on patient's age to complete this topic MENINGOCOCCAL VACCINE Aged Out No cassidy davy eligible based on patient's age to complete this topic Procedures Procedure Name Priority Date/Time Associated Diagnosis Comments HEMOGLOBIN A1C - POINT OF CARE (AMB) Routine 06/04/2024 11:34 AM CDT Type 2 diabetes mellitus with other specified complication, with long-term current use of insulin (HCC) BASIC METABOLIC PANEL (CALCIUM TOTAL) AM Draw 06/30/2022 6:57 AM TYRE FITTER HIV-1 HIV-2 ANTIBODY + HIV P24 AG [...] 10.1 % Expiration Date 03/05/26 Lot # [id number] QC Verified Yes Yes Blood BLOOD SPECIMEN / Unknown 06/04/2024 11:34 AM CDT Kamla Nuñez RUBBER GOODS FINISHER-REFRIGERATION LEAD LAB - POINT OF C ARE ORDERABLES * (ABNORMAL) BASIC METABOLIC PANEL (CALCIUM TOTAL) (06/30/2022 6:57 AM TYRE FITTER) Pathologist [facility] Glucose 80 70 - 105 mg/dL 06/30/2022 7:59 AM TYRE FITTER [facility] Sodium 140 136 - 145 mmol/L 06/30/2022 7:59 AM [facility] Potassium 3.2(L) 3.5 - 5.1 mmol/L 06/30/2022 7:59 AM [facility] Chloride 108(H) 98 - 107 mmol/L 06/30/2022 7:59 AM [facility] CO2 21(L) 23 - 31 mmol/L 06/30/2022 7:59 AM [facility] Calcium 9.2 8.4 - 10.4 mg/dL 06/30/2022 7:59 AM [facility] Anion Gap 11 8 - 18 mmol/L 06/30/2022 7:59 AM [facility] BUN 7 7 - 18.7 mg/dL 06/30/2022 7:59 AM [facility] Creatinine 0.67 0.57 - 1.11 mg/dL 06/30/2022 7:59 AM [facility] eGFR by CKD-EPI >90 >=90 mL/min/1.7 3 m2 06/30/2022 7:59 AM [facility] Blood BLOOD SPECIMEN / Unknown Lab Venipuncture / Unknown 06/30/2022 6:57 AM TYRE FITTER 06/30/2022 7:36 AM [facility] Cristine Smith MD LAB - CHEMISTRY ORD ERABLES [facility] [address] [place] [address] * HIV-1 HIV-2 ANTIBODY + HIV P24 AG PANEL (04/24/2022 3:30 PM CDT) Pathologist [facility] HIV1/2 Ab + P24 Ag Non Reactive Non Reactive 04/24/2022 4:34 PM CDT [facility] Blood BLOOD SPECIMEN / Unknown Venipuncture / Unknown 04/24/2022 3:30 PM CDT 04/24/2022 3:43 PM CDT Narrative [facility] - 04/24/2022 4:34 PM CDT No Laboratory evidence of HIV infection. Tahira Heredia MD LAB - CHEMISTRY ANGELA LEARY Performing Organization Address [facility]/ZIP Co de Phone Number [facility] [address] [place] [address] * HEPATITIS C ANTIBODY (11/23/2021 10:52 AM CDT) [facility] HCV Antibody Screen Non Reactive Non Reactive 11/23/2021 12:37 PM CDT [facility] Blood BLOOD SPECIMEN / Unknown Venipuncture / Unknown 11/23/2021 10:52 AM CDT 11/23/2021 11:35 AM CDT Narrative [facility] - 11/23/2021 12:37 PM CDT Non Reactive - Antibodies to Hepatitis C virus (HCV) were not detected, result does not exclude early acute HCV infection. Ciarra Beal MD LAB - CHEMISTRY MATILDA ZAZUETA Performing Organization Address [facility] Co de Phone Number [facility] [address] [place] [address] from Last 3 Months or Most Recently Relevant to Health Maintenance Advance Directives * Full Code (Latest Code Status on File) Date Activated Date Inactivated Comments 06/27/2022 8:07 AM 06/30/2022 3:06 PM Care Teams Big Data Solutions Architect Relationship Specialty Start Date End Date Kamla Nuñez, RUBBER GOODS FINISHER-REFRIGERATION LEAD [address] [place] [phone] PCP - Attributed-[employer] Medicaid ST[place] 08/05/18 Jeanine Flowers MD [address] [place] [address] PCP - General Internal Medicine 06/04/24
--- OUTSIDE RECORDS SUMMARY | 2024-09-23 17:28 | XMS_ITS | Clinical Summary ---
Author Organization [facility] Address [address] [place] [address] Care Team Providers Care Oim Architect Name Role Phone Kamla Nuñez NP Primary Care Provider [phone] Allergies No known active allergies Medications labetalol 100 MG tabletIndicati ons:altered blood pressure Take 2 tablets (200 mg total) by mouth 2 (two) times daily. Indications: altered blood pressure 03/26/20 20 Active ASPIRIN LOW DOSE 81 MG chewable tabletIndicati ons:heart health Chew 1 tablet (81 mg total) by mouth daily. Indications: heart health 03/20/20 24 Active dulaglutide (TRULICITY) 1.5 MG/0.5ML injectionIndic ations:diabete s Inject 1.5 mg into the skin once a week. Indications: diabetes Active Glucagon 3 MG/DOSE PowderIndicati ons:low blood sugar 1 spray by Nasal route as needed (Low Blood Sugar). Indications: low blood sugar 10/03/19 24 Active insulin lispro (HUMALOG/ADMEL OG) 100 UNIT/ML injection (VIAL)Indicati ons:diabetes Inject 1 Units into the skin see administration instructions. Used with Insulin Pump [email or web address] ([email or web address]) Insulin Pump Humalog U-100 Basal Rates Pump to deliver from 00:01 to 06:00 = 2.6 units/hr; from 06:01 to 12:00 = 2.5 units/hr; from 12:01 to 16:00 = 3.1 units/hr; from 16:01 to 00:00 = 3.0 units/hr TOTAL: 67.2 units/day Prandial/Mealtime Insulin to CHO Ratios Pump to deliver 1 unit/20 grams CHO eaten (same ratio for all meals/snacks) Correction Insulin Programmed Sensitivity Factor(s) = 60 mg/dL (same sensitivity factor for all 24 hours) Programmed Blood Glucose (BG) Target = 130 mg/dL (same blood glucose target for all 24 hours). 11/28/19 24 Active sertraline (ZOLOFT) 100 MG tabletIndicati ons:depression Take 1 tablet (100 mg total) by mouth daily. Indications: depression 01/20/20 24 Active Senna (SENOKOT) 8.6 MG tabletIndicati ons:constipati on Take 1 tablet (8.6 mg total) by mouth daily as needed for Constipation. 30 tablet 1 04/01/20 24 Active oseltamivir (TAMIFLU) 75 MG capsule Take 1 capsule (75 mg total) by mouth 2 (two) times daily for 5 days. 10 capsule 09/12/19 25 025 benzonatate (TESSALON PERLES) 100 MG capsule Take 1 capsule (100 mg total) by mouth 3 (three) times daily as needed. 20 capsule 09/13/19 25 025 Active Problems Problem Noted Date Diagnosed Date Bacteremia due to Klebsiella pneumoniae 05/13/20 Pyelonephritis 05/13/2024 Sepsis ([facility]) 03/29/2024 Encounters Date Type Department Care Team Description 09/12/2024 2:26 PM BACK OFFICE MEDICAL ASSISTANT - 09/12/2024 3:15 PM BACK OFFICE MEDICAL ASSISTANT Hospital Encounter [facility] [address] [place] [address] Eduardo Anne NP Flu Like Symptoms Discharge Disposition: Home or Self Care (Routine Discharge) 09/12/2024 Travel 08/16/2024 8:57 AM BACK OFFICE MEDICAL ASSISTANT - 08/16/2024 9:29 AM BACK OFFICE MEDICAL ASSISTANT Hospital Encounter [facility] [address] [place] [address] Tenzin Stoll PA Flu Like Symptoms Discharge Disposition: Home or Self Care (Routine Discharge) 08/16/2024 Travel from Last 3 Months Family History Medical History Relation Comments Hypertension Mother Relation Status Comments Father Alive Mother Alive Social History Tobacco Use Types Packs/Day Years Used Date Smoking Tobacco: Never Passive Smoke Exposure: Never Smokeless Tobacco: Never Tobacco Cessation:Counseling Given: Not Answered Alcohol Use Standard Drinks/Week Comments Yes 0 (1 standard drink = 0.6 oz pur e alcohol) rare use OASIS D0700: Social Isolation Answer Da te [...] from your doctor or pharmacy? Never 03/29/2024 [employer] Util[employer] Answer Date Recorded In the past 12 months has [facility] [employer], [employer], or water [facility] threatened to shut off services in your [...] week 03/29/2024 How often do you attend [facility] or pentecostalism services? 1 to 4 times per year 03/29/2024 Do you belong to any clubs o r organizations such as christian groups, unions, fraternal or athletic groups, or [...] Recorded Patient Health Questionnaire-2 Score 0 05/13/2024 [facility] Occup[facility] ional [facility] - Occupational Stress Questionnaire Answer Date Recorded [...] any time in the past 12 m [facility], were you homeless or living in a detention (including now)? No 03/29/2024 Comments No Sex and Gender Information Value Date Recorded Sex Assigned at Female 09/12/2024 2:09 PM BACK OFFICE MEDICAL ASSISTANT Legal Sex Female 8:11 PM CDT Gender Identity Not on file Sexual Orientation Not on file Last Filed Vital Signs Vital Sign Reading Time Taken Comments Blood Pressure 111/76 09/12/2024 2:30 PM BACK OFFICE MEDICAL ASSISTANT Pulse 120 09/12/2024 2:30 PM BACK OFFICE MEDICAL ASSISTANT Temperature 37.3 C (99.1 F) 09/12/2024 2:30 PM BACK OFFICE MEDICAL ASSISTANT Respiratory Rate 16 09/12/2024 2:30 PM BACK OFFICE MEDICAL ASSISTANT Oxygen Saturation 100% 09/12/2024 2:30 PM BACK OFFICE MEDICAL ASSISTANT Inhaled Oxygen Concentration - - Weight 93 kg (205 lb) 09/12/2024 2:30 PM BACK OFFICE MEDICAL ASSISTANT Height 175.3 cm (5' 9 ) 09/12/2024 2:30 PM BACK OFFICE MEDICAL ASSISTANT Body Mass Index 30.27 09/12/2024 2:30 PM BACK OFFICE MEDICAL ASSISTANT Plan of Treatment Health Maintenance Due Date Last Done Comments Kidney Health Evaluation 1992 Annual Physical 1995 Diabetes: Retinopathy Eye Exam 2010 Pneumococcal Vaccine: Pediatrics (0 to 5 Years) and At-Risk Patients (6 to 64 Years) (2 of 2 - PCV) 08/27/2018 08/27/2017 Lipid Panel 09/20/2022 09/20/2021 Hemoglobin A1C 02/27/2024 11/28/2023, 09/05, 01/31/2023, Additional history exists COVID-19 Vaccine ( season) 2024 12/06/2020, 11/18/2020 PHQ-2 (Physician [place]) 08/05/2024 05/13/2024 Cervical Cancer Screening Pap Smear (Age 30 to 64) Every 3 Years 04/06/2025 04/06/2022 Cervical Cancer Screening Pap with HPV Testing (Age 30 to 64) Every 5 Years 04/06/2027 04/06/2022 Cervical Cancer Screening with HPV 04/06/2027 DTaP, Tdap and Td Vaccines (4 - Td or Tdap) 10/02/2033 10/03/2023, 04/24/2022, 07/23/2016, Additional history exists Hepatitis B Vaccines Completed 08/09/1994, 05/26/1993, 01/31/1993 Hepatitis C Completed 11/23/2021 Influenza Adult Completed 06/04/2024, 05/06, 05/29/2022, Additional history exists HPV Vaccines Aged Out No longer eligi ble based on patient's age to complete this topic Meningococcal B Vaccine Aged Out No l onger eligible based on patient's age to complete this topic Meningococcal Vaccine Aged Out No cassidy davy eligible based on patient's age to complete this topic RSV Immunizations Under 20 Months Aged Out No longer eligible based on patient's age to complete this topic Procedures Procedure Name Priority Date/Time Associated Diagnosis Comments STREP A RAPID STAT 09/12/2024 2:49 PM BACK OFFICE MEDICAL ASSISTANT STREP A RAPID STAT 08/16/2024 9:14 AM BACK OFFICE MEDICAL ASSISTANT from Last 3 Months Results * STREP A RAPID (09/12/2024 2:49 PM BACK OFFICE MEDICAL ASSISTANT) Only the most recent of2 resultswithin the time period is included. SPECIMEN TYPE THROAT 09/12/2024 2:49 PM BACK OFFICE MEDICAL ASSISTANT [facility] RAPID STREP TEST NEGATIVE NEGATIVE 09/12/2024 3:03 PM BACK OFFICE MEDICAL ASSISTANT [facility] STRUCTURE OF ANTERIOR PORTION OF NECK / Unknown 09/12/2024 2:49 PM BACK OFFICE MEDICAL ASSISTANT us Eduardo Anne NP MICROBIOLOGY - GENERAL ORDERAB LES Final Result [facility] [place] [address], [place] from Last 3 Months Insurance [employer] Advance Directives * Full Code (Latest Code Status on File) Date Activated Date Inactivated Comments 04/24/2024 5:38 AM 05/06/2024 4:11 PM * Full Code Date Activated Date Inactivated Comments 04/03/2024 9:26 AM 04/10/2024 3:25 PM * Full Code Date Activated Date Inactivated Comments 03/29/2024 12:32 PM 04/01/2024 2:40 PM Care Teams Oim Architect Relationship Specialty Start Date End Date Kamla Nuñez NP [address] [place] [id number] PCP - General Nurse Practitioner Family 08/16/24
[2024-09-23 17:36] VITALS: BP 147/96; PULSE 100; RESP 16; TEMP 36.2; O2SAT 98
--- NOTE | 2024-09-23 17:37 | ED.DIZZY ---
HPI - Dizziness General Chief Complaint: Dizziness <Malgorzata Encarnacion PA-C - Last Filed: 09/24/24 09:49> Stated Complaint: vertigo x 3-4 days <Malgorzata Encarnacion PA-C - Last Filed: 09/24/24 09:49> Time Seen by Provider: 09/23/24 17:37 <Malgorzata Encarnacion PA-C - Last Filed: 09/24/24 09:49> Focused HPI: This is a 34 year old female that presents to the ER for dizziness. Reports associated nausea and vomiting. Reports she has tried taking meclizine and zofran with little relief. Ongoing over the last 3 days. Denies any recent injury or illness. Reports history of hypertension, diabetes. GENERAL: Well-appearing, well-nourished, and in no acute distress. HEAD: Normocephalic, atraumatic. CHEST: Clear to auscultation. ?No respiratory distress. HEART: Regular rate and rhythm.? NEURO: ?Alert and oriented x3. Patient screened in triage and initial orders placed.? ?Additional care and disposition to be based upon?diagnostic testing and treatment. <Malgorzata Encarnacion PA-C - Last Filed: 09/24/24 09:49> Related Data Home Medications: Home Medications ?Medication ?Instructions ?Recorded ?Confirmed ?Last Taken ?Type hydroxyzine HCl 25 mg tablet 25 mg PO DAILY 08/18/24 08/18/24 Unknown History labetalol 200 mg tablet 200 mg PO Q12H 08/18/24 08/18/24 Unknown History sertraline 100 mg tablet (Zoloft) 100 mg PO DAILY 08/18/24 08/18/24 Unknown History sertraline 25 mg tablet (Zoloft) 25 mg PO DAILY 08/18/24 08/18/24 Unknown History trazodone 50 mg tablet 50 mg PO QHS 08/18/24 08/18/24 Unknown History <GAGANDEEP Gee Last Filed: 09/24/24 09:49> Allergies/Adverse Reactions: Allergies Allergy/AdvReac Type Severity Reaction Status Date / Time No Known Allergies Allergy Verified 08/18/24 09:22 <GAGANDEEP Gee Last Filed: 09/24/24 09:49> Review of Systems Review of Systems: All systems reviewed & are unremarkable except as noted in HPI and below <Malgorzata Encarnacion PA-C - Last Filed: 09/24/24 09:49> PMFSH Past Medical History Medical History: Medical History (Updated 09/24/24 @ 09:49 by Malgorzata Encarnacion PA-C) Healthy female adult <Malgorzata Encarnacion PA-C - Last Filed: 09/24/24 09:49> Surgical History Surgical History: Surgical History (Updated 04/15/24 @ 13:16 by Sudeep Koroma MD) No pertinent past surgical history <Malgorzata Encarnacion PA-C - Last Filed: 09/24/24 09:49> Family History Family History: Family History (Updated 08/18/24 @ 09:24 by Raven Coles MA) Father Diabetes mellitus Mother Hypertension <Malgorzata Encarnacion PA-C - Last Filed: 09/24/24 09:49> Social History Social History: Social History Smoking status: Never smoker Gender identity (if verbalized by the patient): Female <Malgorzata Encarnacion PA-C - Last Filed: 09/24/24 09:49> Exam Narrative: GENERAL: Well-appearing, well-nourished, and in no acute distress. HEAD: Normocephalic, atraumatic. EYES: PERRLA and EOMI. ENT: Nares clear, no rhinorrhea or epistaxis. Mucous membranes moist. Oropharynx without tonsillar hypertrophy exudate or other lesions. NECK: Supple. No adenopathy or masses. CHEST: No respiratory distress. Clear to auscultation. No wheezes rales or rhonchi HEART: Regular rate and rhythm. No murmur heard. Normal peripheral pulses. ABDOMEN: Soft, nontender, nondistended, normal active bowel sounds. MSK: Normal range of motion. No edema. SKIN: Warm, dry, no rash. NEURO: Alert and oriented x4. No focal deficits. PSYCH: Normal mood and affect. <Bk Avery PA-C - Last Filed: 09/23/24 20:29> Course Vital Signs Vital signs: Vital Signs Temperature 97.2 F L 09/23/24 17:36 Pulse Rate 100 09/23/24 17:36 Respiratory Rate 16 09/23/24 17:36 Blood Pressure 147/96 H 09/23/24 17:36 Pulse Oximetry 98 09/23/24 17:36 Temperature 97.2 F L 09/23/24 17:36 Pulse Rate 86 09/23/24 18:21 Respiratory Rate 17 09/23/24 18:21 Blood Pressure 162/98 H 09/23/24 18:21 Pulse Oximetry 100 09/23/24 18:21 Oxygen Delivery Room Air 09/23/24 18:19 <Malgorzata Encarnacion PA-C - Last Filed: 09/24/24 09:49> Vital Signs Temperature 97.2 F L 09/23/24 17:36 Pulse Rate 100 09/23/24 17:36 Respiratory Rate 16 09/23/24 17:36 Blood Pressure 147/96 H 09/23/24 17:36 Pulse Oximetry 98 09/23/24 17:36 Temperature 97.2 F L 09/23/24 17:36 Pulse Rate 86 09/23/24 18:21 Respiratory Rate 17 09/23/24 18:21 Blood Pressure 162/98 H 09/23/24 18:21 Pulse Oximetry 100 09/23/24 18:21 Oxygen Delivery Room Air 09/23/24 18:19 <Bk Avery PA-C - Last Filed: 09/23/24 20:29> MDM - Dizziness MDM Narrative Medical decision making narrative: This is a 34-year-old female who presents to the ED for chief complaint of dizziness. Vitals are normal. Exam is unremarkable overall. No focal neurologic deficits. Dizziness seems to be orthostatic based on history and presentation. EKG shows sinus rhythm with sinus arrhythmia. No significant change compared to previous ECG. Lab work shows mild elevation in white count at 11.9. CMP unremarkable. Urinalysis shows overt UTI with nitrite positive urine, 1+ leuks. Culture pending. Head CT and chest x-ray show no acute findings. Patient patient was given dizziness medications as well as fluids on arrival and is feeling asymptomatic on re-evaluation. Suspect dizziness associated with UTI. She does not exhibit pyelonephritis. Rocephin given here and Rx for Keflex. Patient will be discharged in stable condition. Supportive measures discussed and return precautions given. Patient is understanding and agreeable with plan for discharge with PCP follow-up. <Bk Avery PA-C - Last Filed: 09/23/24 20:29> Lab Data Result diagrams: 09/23/24 18:33 09/23/24 18:33 <Malgorzata Encarnacion PA-C - Last Filed: 09/24/24 09:49> Labs: Lab Results 09/23/24 09/23/24 09/23/24 Range/Units 17:38 18:33 18:52 WBC 11.9 H (4.5-10.0) K/mm3 RBC 4.03 L (4.2-5.4) M/mm3 Hgb 11.7 L (12.0-15.0) g/dL Hct 34.6 L (37.0-47.0) % MCV 85.9 (80-100) fl MCH 29.0 (26-34) pg MCHC 33.8 (32-36) g/dl RDW 12.3 (11.5-14.5) % Plt Count 499 H (150-375) k/mm3 MPV 9.1 (7.4-10.4) fl Immature Gran % (Auto) 0.3 (0-0.5) % Neut % (Auto) 57.8 (45.5-73.1) % Lymph % (Auto) 32.6 (18.3-44.2) % Marathon % (Auto) 8.5 (2.6-8.5) % Eos % (Auto) 0.5 (0-4.4) % Baso % (Auto) 0.3 (0.2-1.2) % Lymph # (Auto) 3.87 H (0.9-3.2) K/mm3 Marathon # (Auto) 1.0 H (0.1-0.6) K/mm3 Eos # (Auto) 0.1 (0-0.3) K/mm3 Baso # (Auto) 0.0 (0.0-0.1) K/mm3 Abs Immat Gran (auto) 0.04 H (0.00-0.031) K/mm3 Absolute Neuts (auto) 6.9 H (1.3-6.7) K/mm3 Absolute Nucleated RBC 0.000 (0.0-0.012) K/mm3 Nucleated RBC % 0.0 (0.0-0.2) % Sodium 141 (137-145) mmol/L Potassium 3.4 (3.4-5.0) mmol/L Chloride 105 (98-107) mmol/L Carbon Dioxide 23 (22-30) mmol/L Anion Gap 13 H (4-12) mmol/L BUN 12 (7-17) mg/dL Creatinine 0.63 L (0.7-1.0) mg/dL Estim Creat Clear Calc 127 ml/min Estimated GFR > 60 (59 - ) Glucose 131 H (65-110) mg/dL Calcium 9.6 (8.4-10.2) mg/dL Total Bilirubin 0.6 (0.2-1.3) mg/dL AST 18 (14-36) U/L ALT 18 (6-35) U/L Alkaline Phosphatase 65 (38-126) U/L Total Protein 8.0 (6.3-8.2) g/dL Albumin 4.4 (3.5-5.1) g/dL Urine Color Dark yellow (Yellow) Urine Appearance Turbid H (Clear) Urine pH 5.0 (5.0-9.0) Ur Specific Closplint 1.042 H (1.001-1.035) Urine Protein 1+ H (Negative) mg/dL Urine Glucose (UA) Negative (Negative) mg/dL Urine Ketones Trace H (Negative) mg/dL Ur Blood (Man) Negative (Negative) Urine Nitrate Positive H (Negative) Urine Bilirubin 1+ H (Negative) Urine Urobilinogen 1.0 (<2.0) mg/dL Add Ur Microanalysis Reviewed Leukocyte Esterase Rfl 1+ H (Negative) FIORDALIZA/UL Urine RBC >100 H (0-2) /hpf Urine WBC 0-5 (0-3) /hpf Ur Squamous Epith Cells Few (Few) /hpf Urine Bacteria 1+ H /hpf Urine Casts 6-10 POC Urine HCG, Qual Negative (Negative) <Malgorzata Encarnacion PA-C - Last Filed: 09/24/24 09:49> Lab Results 09/23/24 09/23/24 09/23/24 Range/Units 17:38 18:33 18:52 WBC 11.9 H (4.5-10.0) K/mm3 RBC 4.03 L (4.2-5.4) M/mm3 Hgb 11.7 L (12.0-15.0) g/dL Hct 34.6 L (37.0-47.0) % MCV 85.9 (80-100) fl MCH 29.0 (26-34) pg MCHC 33.8 (32-36) g/dl RDW 12.3 (11.5-14.5) % Plt Count 499 H (150-375) k/mm3 MPV 9.1 (7.4-10.4) fl Immature Gran % (Auto) 0.3 (0-0.5) % Neut % (Auto) 57.8 (45.5-73.1) % Lymph % (Auto) 32.6 (18.3-44.2) % Marathon % (Auto) 8.5 (2.6-8.5) % Eos % (Auto) 0.5 (0-4.4) % Baso % (Auto) 0.3 (0.2-1.2) % Lymph # (Auto) 3.87 H (0.9-3.2) K/mm3 Marathon # (Auto) 1.0 H (0.1-0.6) K/mm3 Eos # (Auto) 0.1 (0-0.3) K/mm3 Baso # (Auto) 0.0 (0.0-0.1) K/mm3 Abs Immat Gran (auto) 0.04 H (0.00-0.031) K/mm3 Absolute Neuts (auto) 6.9 H (1.3-6.7) K/mm3 Absolute Nucleated RBC 0.000 (0.0-0.012) K/mm3 Nucleated RBC % 0.0 (0.0-0.2) % Sodium 141 (137-145) mmol/L Potassium 3.4 (3.4-5.0) mmol/L Chloride 105 (98-107) mmol/L Carbon Dioxide 23 (22-30) mmol/L Anion Gap 13 H (4-12) mmol/L BUN 12 (7-17) mg/dL Creatinine 0.63 L (0.7-1.0) mg/dL Estim Creat Clear Calc 127 ml/min Estimated GFR > 60 (59 - ) Glucose 131 H (65-110) mg/dL Calcium 9.6 (8.4-10.2) mg/dL Total Bilirubin 0.6 (0.2-1.3) mg/dL AST 18 (14-36) U/L ALT 18 (6-35) U/L Alkaline Phosphatase 65 (38-126) U/L Total Protein 8.0 (6.3-8.2) g/dL Albumin 4.4 (3.5-5.1) g/dL Urine Color Dark yellow (Yellow) Urine Appearance Turbid H (Clear) Urine pH 5.0 (5.0-9.0) Ur Specific Closplint 1.042 H (1.001-1.035) Urine Protein 1+ H (Negative) mg/dL Urine Glucose (UA) Negative (Negative) mg/dL Urine Ketones Trace H (Negative) mg/dL Ur Blood (Man) Negative (Negative) Urine Nitrate Positive H (Negative) Urine Bilirubin 1+ H (Negative) Urine Urobilinogen 1.0 (<2.0) mg/dL Add Ur Microanalysis Reviewed Leukocyte Esterase Rfl 1+ H (Negative) FIORDALIZA/UL Urine RBC >100 H (0-2) /hpf Urine WBC 0-5 (0-3) /hpf Ur Squamous Epith Cells Few (Few) /hpf Urine Bacteria 1+ H /hpf Urine Casts 6-10 POC Urine HCG, Qual Negative (Negative) <Bk Avery PA-C - Last Filed: 09/23/24 20:29> Imaging Data Radiologist's impression: ITS Impressions Head CT 09/23/24 17:56 IMPRESSION: 1. Normal brain. Chest X-Ray 09/23/24 18:04 IMPRESSION: 1. No acute cardiopulmonary disease. <GAGANDEEP Gee Last Filed: 09/24/24 09:49> ECG Data EKG #1: ECG completion date: 09/23/24 <GAGANDEEP Gyale Last Filed: 09/23/24 20:29> ECG completion time: 18:57 <GAGANDEEP Gayle Last Filed: 09/23/24 20:29> Prior ECG tracings: available for review <GAGANDEEP Gayle Last Filed: 09/23/24 20:29> Interpretation: Sinus rhythm with sinus arrhythmia Rate 77 Normal QRS Normal QTC No acute ischemic findings Appears similar compared ECG 03/16/2024 <GAGANDEEP Gayle Last Filed: 09/23/24 20:29> Critical Care Time Critical Care Time Critical Care Time: No <GAGANDEEP Gee Last Filed: 09/24/24 09:49> Discharge Plan Discharge Clinical Impression: Dizziness UTI (urinary tract infection) Qualifiers: Urinary tract infection type: acute cystitis Hematuria presence: without hematuria Qualified Code(s): N30.00 - Acute cystitis without hematuria <GAGANDEEP Gee Last Filed: 09/24/24 09:49> Patient Disposition: Home, Self-Care <GAGANDEEP Gee Last Filed: 09/24/24 09:49> Condition: Stable <GAGANDEEP Gee Last Filed: 09/24/24 09:49> Instructions: Antibiotic Form <GAGANDEEP Gee Last Filed: 09/24/24 09:49> Additional Instructions: Your exam today shows evidence of UTI. Please take it as prescribed. Make sure they are staying well hydrated to assist with the dizziness. Symptoms should start resolve over the next couple of days. Follow-up with PCP closely on this issue. If you have any new or worsening symptoms please return to the ER for further evaluation. <GAGANDEEP Gee Last Filed: 09/24/24 09:49> Patient Language: Nepalese <GAGANDEEP Gee Last Filed: 09/24/24 09:49> Prescriptions: New cephalexin 500 mg capsule 500 mg PO Q8H 7 Days Qty: 21 0RF No Action labetalol 200 mg tablet 200 mg PO Q12H hydroxyzine HCl 25 mg tablet 25 mg PO DAILY trazodone 50 mg tablet 50 mg PO QHS Rx Instructions: take 1/2 tablet at hs sertraline [Zoloft] 100 mg tablet 100 mg PO DAILY sertraline [Zoloft] 25 mg tablet 25 mg PO DAILY (DME) Omnipod 5 G6-G7 Pods (Gen 5) Cartridge See Rx Instructions .ROUTE .MEDSUPPLY Qty: 45 2RF Rx Instructions: Change every 48-72 hours (DME) Omnipod 5 G6-G7 Intro Kt(Gen5) Cartridge See Rx Instructions .Route Qty: 1 0RF Rx Instructions: As directed Mounjaro 2.5 mg/0.5 mL pen injector 2.5 mg subcut WEEKLY Qty: 2 1RF Rx Instructions: for 4 weeks Gvoke HypoPen 2-Pack 1 mg/0.2 mL auto-injector 1 mg subcut ONCE Qty: 0.4 4RF Rx Instructions: may repeat once after 15 minutes if no response glucose [Dex4 Glucose] 4 gram tablet,chewable 16 g PO Q15M PRN (Reason: hypoglycemia) Qty: 60 1RF Rx Instructions: until symptoms of low blood sugar are controlled (DME) pen needle, diabetic [BD Ultra-Fine Terese Pen Needle] 32 gauge x 5/32 needle See Rx Instructions .Route Qty: 100 3RF Rx Instructions: use to take insulin once daily (DME) Dexcom G7 Sensor Device See Rx Instructions .Route Qty: 3 2RF Rx Instructions: change every 10 days insulin glargine [Lantus Solostar U-100 Insulin] 100 unit/mL (3 mL) insulin pen 30 unit subcut QAM PRN (Reason: insulin pump malfuction) Qty: 30 1RF insulin aspart U-100 [Novolog U-100 Insulin aspart] 100 unit/mL solution 100 unit continuous subcutaneous infusion DAILY MDD 100 Qty: 100 1RF <Malgorzata Encarnacion PA-C - Last Filed: 09/24/24 09:49> Follow-up/Referrals: PHYSICIAN NOT ON STAFF,NONSTAFF [Non-Staff] - <Malgorzata Encarnacion PA-C - Last Filed: 09/24/24 09:49> Time of Disposition: 20:07 <Malgorzata Encarnacion PA-C - Last Filed: 09/24/24 09:49> 20:07 <Bk Avery PA-C - Last Filed: 09/23/24 20:29>
--- NOTE | 2024-09-23 17:38 | ECG_ITS ---
Test Date: 2024-09-23 18:57:10 Measurements Intervals Dierks Rate: 77 P: 60 LA: 159 QRS: 52 QRSD: 92 T: 44 QT: 374 QTc: 425 Interpretive Statements SINUS RHYTHM WITH SINUS ARRHYTHMIA BASELINE ARTIFACT- II, III, AVR, AVL, AVF, V4-V6 NORMAL ECG Compared to ECG 03/16/2024 11:33:43 No significant changes Electronically Signed On 09-24-2024 05:56:23 TALENT DIRECTOR by Cory Eli D.O.
[2024-09-23 18:19] VITALS: PULSE 92; RESP 18; O2SAT 98
[2024-09-23 18:21] VITALS: BP 162/98; PULSE 86; RESP 17; O2SAT 100
[2024-09-23 18:40] LABS: Basophils Percent Auto 0.3 % (0.2-1.2); Eosinophils Absolute Auto 0.1 K/mm3 (0-0.3); Eosinophils Percent Auto 0.5 % (0-4.4); Hematocrit 34.6 % (37.0-47.0); Hemoglobin 11.7 g/dL (12.0-15.0); Immature Granulocyte Absolute 0.04 K/mm3 (0.00-0.031); Immature Granulocyte Percent A 0.3 % (0-0.5); Lymphocytes Absolute Auto 3.87 K/mm3 (0.9-3.2); Lymphocytes Percent Auto 32.6 % (18.3-44.2); Mean Corpuscular HGB Conc 33.8 g/dl (32-36); Mean Corpuscular Volume 85.9 fl (80-100); Mean Platelet Volume 9.1 fl (7.4-10.4); Monocytes Percent Auto 8.5 % (2.6-8.5); Neutrophils Absolute Auto 6.9 K/mm3 (1.3-6.7); Neutrophils Percent Auto 57.8 % (45.5-73.1); Platelet Count Result 499 k/mm3 (150-375); Red Blood Count 4.03 M/mm3 (4.2-5.4); Red Cell Distribution Width 12.3 % (11.5-14.5); White Blood Count 11.9 K/mm3 (4.5-10.0)
[2024-09-23 18:50] LABS: Alanine Aminotransferase 18 U/L (6-35); Albumin Level 4.4 g/dL (3.5-5.1); Alkaline Phosphatase 65 U/L (38-126); Anion Gap 13 mmol/L (4-12); Aspartate Amino Transferase 18 U/L (14-36); Bilirubin,Total 0.6 mg/dL (0.2-1.3); Blood Urea Nitrogen 12 mg/dL (7-17); Calcium 9.6 mg/dL (8.4-10.2); Carbon Dioxide 23 mmol/L (22-30); Chloride 105 mmol/L (98-107); Estimated CRCL calculation 127 ml/min; Estimated Glomerular Filt Rate > 60; Glucose 131 mg/dL (65-110); Potassium 3.4 mmol/L (3.4-5.0); Sodium 141 mmol/L (137-145)
--- OUTSIDE RECORDS SUMMARY | 2024-09-23 18:50 | XMS_ITS | Clinical Summary ---
Author Organization [facility] Address [address] [place] [phone] Phone Care Team Providers Care Head Of Marketing Adometry Name Role Phone Unavailable Primary Care Provider [...]
--- OUTSIDE RECORDS SUMMARY | 2024-09-23 18:50 | XMS_ITS | Clinical Summary ---
Author Organization [facility] Address [address] [place] [address] Care Team Providers Care Coating Manager Name Role Phone Unknown, Notinfile Primary Care Provider Unavail [facility], [facility] Mat Med Unavailabl e Unavailable Allergies [...] day. 100 each 1 4 Active vit [id number] a 27mg iron- 800 mcg-250 mg capsule [...] complication, with long-term current use of insulin ([facility]) ([facility]) Will use 1 transmitter every 90 days 1 each 3 4 Active blood-glucose sensor (Dexcom G6 Sensor) deviceIndication s:Type 2 diabetes mellitus without complication, with long-term current use of insulin ([facility]) ([facility]) Will use 1 sensor every 10 days. 1 box = 3 sensors. 3 each 4 Active insulin pump cart,auto,BT-cnt r (Omnipod 5 G6 Intro Kit, Gen 5,) cartridgeIndicat ions:Type 2 diabetes mellitus without complication, with long-term current use of insulin ([facility]) ([facility]) To change POD once every 2 days. 1 each 4 Active insulin lispro (HumaLOG) 100 unit/mL vial for injection Use to fill insulin pump 10 mL 11 4 Active insulin pump cart,automated,B T (Omnipod 5 G6 Pods, Gen 5,) cartridgeIndicat ions:Type 2 diabetes mellitus without complication, with long-term current use of insulin ([facility]) ([facility]) To change POD every 2 days. [...] control. SETTINGS: Time Basal Rate ICR ISF [id number] 0.5 1:20 1:60 Endocrine consulted for insulin [...] # Disposition: Follow up task sent to [facility] scheduling pool. Desires discharge home today pending BP control. 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 11/13/2023 Overview (11/13/2023): - CF carrier on carrier screen Plan: - s/p counseling 11/13 - Offer partner screening CDP: [id number]-[id number] 10/03/2023 Overview (11/28/2023): Rubella non-immune Plan: [] [...] education: completed in all 3 trimesters [x] Make Up Operator Helper: ALIVIA Melara [x] Car seat discussed [] [...] meals based on her best guess ISF [id number] 2.6 1:20 1:20 2776-6747 2.6 1:20 1:20 8198-4976 2.5 1:20 1:20 2479-6644 3 1:30 1:20 4597-4033 3.1 1:30 1:20 4400-8436 3 1:25 1:20 SETTINGS Time Basal Rate ICR ISF 7671-4559 0.5 1:20 1:60 If patient will not [...] every other for supplementation Uncontrolled diabetes mellitus ([facility]) 021 Overview (08/14/2021): Maternal risks: Reviewed [...] often do you attend chur ch or buddhism services? Never 12/06/2023 Do you belong to any clubs o r organizations such as protestant groups, unions, fraternal or athletic groups, or [...] place to sleep or slept in a mcc (including now)? No 12/06/2023 [place] Depression Scale Answer Date Recorded [place] Depression Scale Total 4 12/26/2023 The thought [...] on file Legal Sex Female 6:13 AM COVER SEAMER Gender Identity Not on file Sexual Orientation [...] Epidur al N Livin g 5 [facility] ([facility]) Last Filed Vital Signs Vital Sign [...] HEPATITIS C ANTIBODY STAT 09/18/2023 11:19 AM COVER SEAMER PAP WITH REFLEX TO HIGH RISK HPV [...] BLOOD ORDERABLES Final Result [facility] Department [place] [address] * (ABNORMAL) Hemoglobin A1c (11/28/2023 11:16 AM CDT) Hgb A1C 6.8(H) 4.0 - 5.6 % Estimated Average Glucose 148 mg/dL [facility] Comment: The ADA recommends reporting an estimated [...] BLOOD ORDERABLES Final Result Performing Organization Address City/[facility] Co de Phone Number [facility] Department [place] [address] * Hepatitis C antibody Blood (09/18/2023 11:19 AM COVER SEAMER) Hep C Ab Nonreactive Nonreactive [facility] Comment:Antibodies to HCV no t detected. Does NOT exclude the possibility of recent exposure to HCV. Current interpretive data was last revised on 22 Blood 09/18/2023 11:1 9 AM COVER SEAMER 09/18/2023 11:32 AM COVER SEAMER India Carrera NP LAB MICROBIOLOGY - GENERA L ORDERABLES Final Result Performing Organization Address City/[facility]/ZIP Co de Phone Number [facility] Department [place] [address] * Pap with reflex to High Risk HPV (10/28/2020 10:27 AM CDT) Swab (Pap test) 10/28/2020 1 0:27 AM CDT 10/28/2020 12:10 PM CDT Narrative PATHOLOGY [facility] - 11/07/2020 2:00 PM CDT EPIC results best viewed via link to PDF [facility] Christine Tavera [facility] [place] [address] CYTOPATHOLOGY REPORT FINAL Patient Name: ALLEGRA DANIELLE Gender: F : 1990 (Age: 30) Address: [address] [place] [id number] Hospital #: [id number] Service: Laboratory Location: [facility] Patient Type: [facility] Lab Taken: 10/28/2020 Received: 10/28/2020 Accessioned: 10/28/2020 [...] determined by the Surgical Pathology Department at [facility] as part of an ongoing quality control inspector heading program and in compliance with federally mandated [...] determined by the Surgical Pathology Department of [facility]. It has not been cleared or approved by the U. S. Food and Drug Administration. Mariah Malone MD LAB CYTOLOGY ORDERABLES Fi nal Result PATHOLOGY [facility] 3rd Floor [place], [place] [phone] from Last 3 Months or Most Recently Relevant to Health Maintenance Insurance [facility] [employer] [facility] Member Subscriber Plan / Payer (Ef fective 2017-Present) Name:Sabrina Daniellenylaiman Justin Relation to Subscriber:Self Name:Sabrina Daniellenylaiman Justin Payer ID:[id number] (NAIC) Type:MEDICAID RISK OTHER Address: [address] [id number] ACCESS O Advance Directives For more information, please contact: [phone] * Full Code (Latest Code Status on File) Date Activated Date Inactivated Comments 12/05/2023 1:06 PM 12/07/2023 5:17 PM * Full Code Date Activated Date Inactivated Comments 12/04/2023 9:02 PM 12/05/2023 1:06 PM Full CPR in ca se of cardiopulmonary arrest Care Teams Coating Manager Relationship Specialty Start Date End Date Unknown, Notinfile PCP - General 07/19/22 Clinic, [facility] Mat Med 07/19/22
--- OUTSIDE RECORDS SUMMARY | 2024-09-23 18:50 | XMS_ITS | Continuity of Care Document ---
Author Organization [facility] Address [address] [place] [address] Phone Care Team Providers Care Tailer Off Name Role Phone Unavailable Unavailable Unavailable Advance Directives Directive Yes / No Effective Date File Name No Information Encounters Encounter Description Practice Location Reason(s) For Visit Diagnoses Date Provider Providers Copied on Encounter [facility], [address] [facility], [place], [place], [id number], [place] tel:[phone] [facility] No Information No Information Family History [...]
--- OUTSIDE RECORDS SUMMARY | 2024-09-23 18:51 | XMS_ITS | Clinical Summary ---
Author Organization [facility] Address [address] [place] [address] Care Team Providers Care Catering Assistant Name Role Phone Kamla Nuñez NP Primary Care Provider [phone] Allergies No known active allergies Medications labetalol [...] see administration instructions. Used with Insulin Pump Slate ScienceipTimeliner (Gen4) Insulin Pump Humalog U-100 Basal Rates [...] to Klebsiella pneumoniae 05/13/20 Pyelonephritis 05/13/2024 Sepsis ([facility]) 03/29/2024 Encounters Date Type Department Care Team Description 09/12/2024 2:26 PM [employer] - 09/12/2024 3:15 PM [employer] Hospital Encounter [facility] [address] [place] [address] Eduardo Anne NP Flu Like Symptoms Discharge Disposition: Home or Self Care (Routine Discharge) 09/12/2024 Travel 08/16/2024 8:57 AM [employer] - 08/16/2024 9:29 AM [employer] Hospital Encounter [facility] [address] [place] [address] Tenzin Stoll PA Flu Like Symptoms Discharge [...] from your doctor or pharmacy? Never 03/29/2024 [employer] Answer Date Recorded In the past 12 months has [facility] [employer], [employer], or water [employer] threatened to shut off services in your [...] week 03/29/2024 How often do you attend [facility] or [facility]? 1 to 4 times per year 03/29/2024 Do you belong to any clubs o r organizations such as nondenominational groups, unions, fraternal or athletic groups, or [...] Recorded Patient Health Questionnaire-2 Score 0 05/13/2024 [facility] - Occupational Stress Questionnaire Answer Date Recorded [...] any time in the past 12 m [facility], were you homeless or living in a senior living (including now)? No 03/29/2024 Comments No Sex and Gender Information Value Date Recorded Sex Assigned at Female 09/12/2024 2:09 PM [employer] Legal Sex Female 8:11 PM CDT Gender Identity Not on file Sexual Orientation Not on file Last Filed Vital Signs Vital Sign Reading Time Taken Comments Blood Pressure 111/76 09/12/2024 2:30 PM [employer] Pulse 120 09/12/2024 2:30 PM [employer] Temperature 37.3 C (99.1 F) 09/12/2024 2:30 PM [employer] Respiratory Rate 16 09/12/2024 2:30 PM [employer] Oxygen Saturation 100% 09/12/2024 2:30 PM [employer] Inhaled Oxygen Concentration - - Weight 93 kg (205 lb) 09/12/2024 2:30 PM [employer] Height 175.3 cm (5' 9 ) 09/12/2024 2:30 PM [employer] Body Mass Index 30.27 09/12/2024 2:30 PM [employer] Plan of Treatment Health Maintenance Due Date [...] ( season) 2024 12/06/2020, 11/18/2020 PHQ-2 (Physician [place]) 08/05/2024 05/13/2024 Cervical Cancer Screening Pap Smear [...] STREP A RAPID STAT 09/12/2024 2:49 PM [employer] STREP A RAPID STAT 08/16/2024 9:14 AM [employer] from Last 3 Months Results * STREP A RAPID (09/12/2024 2:49 PM [employer]) Only the most recent of2 resultswithin the time period is included. SPECIMEN TYPE THROAT 09/12/2024 2:49 PM [employer] [facility] RAPID STREP TEST NEGATIVE NEGATIVE 09/12/2024 3:03 PM [employer] [facility] C[facility] STRUCTURE OF ANTERIOR PORTION OF NECK / Unknown 09/12/2024 2:49 PM [employer] us Eduardo Anne NP MICROBIOLOGY - GENERAL ORDERAB LES Final Result [facility] [place] [address], [place] from Last 3 Months Insurance [employer] Advance Directives * Full Code (Latest Code Status on File) Date Activated Date Inactivated Comments 04/24/2024 5:38 AM 05/06/2024 4:11 PM * Full Code Date Activated Date Inactivated Comments 04/03/2024 9:26 AM 04/10/2024 3:25 PM * Full Code Date Activated Date Inactivated Comments 03/29/2024 12:32 PM 04/01/2024 2:40 PM Care Teams Catering Assistant Relationship Specialty Start Date End Date Kamla Nuñez NP [address] [place] [id number] PCP - General Nurse Practitioner Family 08/16/24
--- OUTSIDE RECORDS SUMMARY | 2024-09-23 18:51 | XMS_ITS | Patient Health Summary ---
Author Organization [facility] eEvent Address [address] [place] [address] Care Team Providers Care Buncher Hand Name Role Phone Kamla Nuñez Nhan DELACRUZN-IOS DEVELOPER Unavailable [phone] Jeanine Flowers MD Primary Care Provider Note from [facility],non-owned Affiliates and Associated Physician Practices is amultiple site organization consisting of ambulatory clinics and hospital sitesin [place], [place], [place] and [place]. This disclosure is being madepursuant to the Care Everywhere program and may not contain all information available regarding this patient. Last updated 18.[facility] Allergies No known active allergies Medications * Be aware that medications may not be up to date on this document. Alwaysverify current medications with the patient. * Glucagon (BAQSIMI TWO PACK) 3 MG/DOSE POWD(Started 11/23/2021) [place] 3 mg into the nose as needed 1 refill by 11/23/2022 * Continuous Blood Gluc Retail Custodial Associate (Dexcom G6 Retail Custodial Associate) NICOLE(Started 11/07/2021) as directed * Aspirin Low [...] * Continuous Glucose Sensor (Dexcom G6 Sensor) [facility](Started 06/04/2024) Inject 1 kit subcutaneously 3 times daily 3 refills by 06/04/2025 * Continuous Glucose Transmitter (Dexcom G6 Transmitter) [facility](Started 06/04/2024) Use 1 kit 3 times daily [...] DAY. 5 refills by 06/18/2023 * HYDROcodone-acetaminophen ([place]) 5-325 MG tablet(Started 04/15/2024) (Discontinued) Take 1 [...] wit h other specified complication, unspecified whether exterminator termite insulin use 06/04/2024 Bacteremia due to Klebsiella [...] place to sleep or slept in a group home (including now)? No 06/27/2022 [place] Depression Scale Answer Date Recorded RETIRED: Total Score 1 11/23/2021 Last EPDS Self Harm Result Not on file 11/23 Sex and Gender Information Value Date Recorded Sex Assigned at Female 08/17/2021 7:26 AM GIS CONSULTANT Gender Identity Female 08/17/2021 7:26 AM GIS CONSULTANT Sexual Orientation Not on file Last Filed Vital Signs Vital Sign Reading Time Taken Comments Blood Pressure 124/83 06/04/2024 11:24 AM CDT Pulse 98 06/04/2024 11:24 AM CDT Temperature 37.1 C (98.7 F) 06/04/2024 11:24 AM CDT Respiratory Rate 16 10/04/2022 12:0 0 PM GIS CONSULTANT Oxygen Saturation 98% 06/04/2024 11: 24 AM CDT Inhaled Oxygen Concentration - - Weight 97.1 kg (214 lb) 09/02/2024 10:5 2 AM GIS CONSULTANT 2 weeks ago at the accordion tuner Height 175.3 cm (5' 9 ) 09/02/2024 10:5 2 AM GIS CONSULTANT Body Mass Index 31.6 09/02/2024 10:52 AM GIS CONSULTANT Procedures * HEMOGLOBIN A1C - POINT OF CARE (AMB)(Performed 06/04/2024) Performed for Type 2 diabetes mellitus with other specified complication, with long-term current use of insulin (HCC) * RI CHEMODENERV MUSC MIGRAINE(Performed 02/25/2023) Performed for Intractable [...] Performed for Pre-existing hypertension affecting , antepartum ([facility]) * URINALYSIS REFLEX MICROSCOPIC REFLEX CULTURE(Performed 06/28/2022) Performed for Pre-existing hypertension affecting , antepartum ([facility]) * PROTEIN CREATININE RATIO URINE RANDOM PNL(Performed 06/28/2022) Performed for Pre-existing hypertension affecting , antepartum ([facility]) * CBC W AUTO DIFFERENTIAL(Performed 06/28/2022) Performed for Pre-existing hypertension affecting , antepartum ([facility]) * COMPREHENSIVE METABOLIC PANEL(Performed 06/28/2022) Performed for Pre-existing hypertension affecting , antepartum ([facility]) * CULTURE URINE(Performed 06/28/2022) Performed for Pre-existing hypertension affecting , antepartum ([facility]) * GLUCOSE - POINT [...] Performed for Encounter for induction of labor ([facility]) * CBC W AUTO DIFFERENTIAL(Performed 06/27/2022) Performed for Encounter for induction of labor ([facility]) * BIOPHYSICAL PROFILE W NST(Performed 06/26/2022) Performed for Primary hypertension, with type 2 diabetes mellitus in third trimester ([facility]) * URINALYSIS REFLEX MICROSCOPIC REFLEX CULTURE(Performed 06/19/2022) Performed for Supervision of high-risk , unspecified trimester ([facility]) * PROTEIN CREATININE RATIO URINE RANDOM PNL(Performed 06/19/2022) Performed for Supervision of high-risk , unspecified trimester ([facility]) * COMPREHENSIVE METABOLIC PANEL(Performed 06/19/2022) Performed for Supervision of high-risk , unspecified trimester ([facility]) * CBC W AUTO DIFFERENTIAL(Performed 06/19/2022) Performed for Supervision of high-risk , unspecified trimester ([facility]) * BIOPHYSICAL PROFILE W NST(Performed 06/19/2022) Performed for Primary hypertension, with type 2 diabetes mellitus in third trimester ([facility]) * CULTURE STREP B(Performed 06/19/2022) Performed for Supervision of high-risk , unspecified trimester ([facility]) * BIOPHYSICAL PROFILE W [...] type 2 diabetes mellitus in third trimester ([facility]), Pre-existing hypertension affecting , antepartum ([facility]), Supervision of high-risk , unspecified trimester ([facility]), with poor obstetric history ([facility]), History of delivery, currently , unspecified trimester ([facility]) * LAB RESULTS ORDER(Performed 05/21/2022) * HEMOGLOBIN A1C(Performed 04/24/2022) Performed for with type 2 diabetes mellitus in second trimester ([facility]) * SYPHILIS ANTIBODY CASCADING REFLEX(Performed 04/24/2022) Performed for Supervision of high-risk , unspecified trimester ([facility]) * HIV-1 HIV-2 ANTIBODY + HIV P24 AG PANEL(Performed 04/24/2022) Performed for Supervision of high-risk , unspecified trimester ([facility]) * CBC W/O DIFFERENTIAL(Performed 04/24/2022) Performed for Supervision of high-risk , unspecified trimester ([facility]) * TSH REFLEX FREE T4(Performed 04/24/2022) Performed for Cervical insufficiency during in first trimester, antepartum ([facility]) * URINALYSIS - POCT (IP) BEAKER INTERFACE(Performed 04/24/2022) * SONOGRAM - COMPLETE(Performed 04/24/2022) * URINALYSIS REFLEX MICROSCOPIC REFLEX CULTURE(Performed 04/06/2022) Performed for Cervical cerclage suture present in second trimester ([facility]) * TRICHOMONAS RAPID TEST(Performed 04/06/2022) Performed for Cervical cerclage suture present in second trimester ([facility]) * CHLAMYDIA + GC AMPLIFIED PROBE(Performed 04/06/2022) Performed for Cervical cerclage suture present in second trimester ([facility]) * GLUCOSE - POINT [...] for Nuchal translucency of fetus on ultrasound ([facility]) * ANEUPLOIDY SCREENING(Performed 01/03/2022) * URINALYSIS - POCT (IP) BEAKER INTERFACE(Performed 12/05/2021) * COMPREHENSIVE METABOLIC PANEL(Performed 11/29/2021) Performed for Pre-existing hypertension affecting , antepartum ([facility]) * PROTEIN URINE TIMED QUANTITATIVE(Performed 11/29/2021) Performed for Supervision of high-risk , unspecified trimester ([facility]), Pre-existing hypertension affecting , antepartum ([facility]) * URINALYSIS - POCT (IP) BEAKER INTERFACE(Performed 11/29/2021) * TYPE + SCREEN PANEL(Performed 11/23/2021) Performed for Supervision of high-risk , unspecified trimester ([facility]) * T4 FREE DIRECT REFLEXED(Performed 11/23/2021) Performed for Hyperthyroidism * RUBELLA ANTIBODY IGG(Performed 11/23/2021) Performed for Supervision of high-risk , unspecified trimester ([facility]) * SYPHILIS ANTIBODY CASCADING REFLEX(Performed 11/23/2021) Performed for Supervision of high-risk , unspecified trimester ([facility]) * CBC W AUTO [...] for Morbid obesity due to excess calories ([facility]), Pre-op evaluation, Type 2 diabetes mellitus with other specified complication, unspecified whether intermediate insulin use (HCC) * TSH(Performed 09/20/2021) Performed [...] 10.1 % Expiration Date 03/05/26 Lot # [id number] QC Verified Yes Yes Blood BLOOD SPECIMEN / Unknown 06/04/2024 11:34 AM CDT Kamla Justin Joaquin CAR DETAILER-IOS DEVELOPER LAB - POINT OF C ARE ORDERABLES * RI CHEMODENERV MUSC MIGRAINE (02/25/2023 3:30 PM CDT) Narrative Lucrecia Rees MD - 02/25/2023 3:30 PM CDT Lucrecia Rees MD 02/25/2023 3:52 PM Botox Procedure Note Patient's identity confirmed by having patient say first and last name. Diagnosis: Chronic migraine Procedure code: 75084 History: Baseline number of headaches per month:30 [...] CBC W AUTO DIFFERENTIAL (06/30/2022 1:59 PM GIS CONSULTANT) Only the most recent of7 resultswithin the time period is included. WBC 10.9(H) 4.4 - 10.7 x10E9/L 06/30/2022 2:03 PM GIS CONSULTANT [facility] WBC Corrected 06/30/2022 2:[address] [facility] RBC 3.71(L) 3.80 - 5.20 x10E12/L 06/30/2022 2:[address] [facility] Hemoglobin 10.8(L) 12.0 - 15.6 gm/dL 06/30/2022 2:[address] [facility] Hematocrit 32.1(L) 35.9 - 45.5 % 06/30/2022 2:03 PM GIS CONSULTANT [facility] MCV 86.5 80.7 - 98.3 fl 06/30/2022 2:[address] [facility] MCH 29.1 26.7 - 34.0 pg 06/30/2022 2:03 PM GIS CONSULTANT [facility] MCHC 33.6 30.8 - 35.9 gm/dL 06/30/2022 2:[address] [facility] Platelet Count 283 153 - 416 x10E9/L 06/30/2022 2:[address] [facility] RDW-CV 14.5 12.1 - 14.9 % 06/30/2022 2:03 PM GIS CONSULTANT [facility] MPV 9.9 9.4 - 12.9 fl 06/30/2022 2:03 PM GIS CONSULTANT [facility] Neutrophils % 59.9 44.0 - 73.0 % 06/30/2022 2:03 PM GIS CONSULTANT [facility] Lymphocytes % 32.0 20.0 - 43.0 % 06/30/2022 2:[address] [facility] Monocytes % 6.2 5.0 - 13.0 % 06/30/2022 2:[address] [facility] Eosinophils % 1.1 0.0 - 6.0 % 06/30/2022 2:[address] [facility] Basophils % 0.6 0.0 - 2.0 % 06/30/2022 2:[address] [facility] Immature Granulocytes 0.2 0 - 1 % 06/30/2022 2:[address] [facility] Neutrophil Absolute 6.51 2.01 - 7.14 x10E9/L 06/30/2022 2:[address] [facility] Lymphocytes Absolute 3.47 1.07 - 3.94 x10E9/L 06/30/2022 2:[address] [facility] Monocytes Absolute 0.67 0.26 - 1.07 x10E9/L 06/30/2022 2:[address] [facility] Eosinophils Absolute 0.12 0 - 0.47 x10E9/L 06/30/2022 2:[address] [facility] Basophils Absolute 0.07 0 - 0.08 x10E9/L 06/30/2022 2:[address] [facility] Immature Granulocytes Absolute 0.02 0.00 - 0.06 x10E9/L 06/30/2022 2:[address] [facility] nRBC Auto 0 /100 WBC 06/30/2022 2:[address] [facility] Blood BLOOD SPECIMEN / Unknown Lab Venipuncture / Unknown 06/30/2022 1:59 PM GIS CONSULTANT 06/30/2022 1:59 PM GIS CONSULTANT Cristine Smith MD LAB - HEMATOLOGY OR DERABLES Performing Organization Address City/State/[facility] Co de Phone Number [facility] [address] [place] [address] * (ABNORMAL) GLUCOSE - POINT OF CARE (06/30/2022 11:46 AM GIS CONSULTANT) Only the most recent of39 resultswithin the time period is included. Glucose WB/POC 69(L) 70 - 106 mg/dL 06/30/2022 11:[address] [facility] Specimen Type Cap Fingerstick 2021 11:[address] [facility] Blood BLOOD SPECIMEN / Unknown 06/30/2022 11:46 AM GIS CONSULTANT 06/30/2022 11:56 AM GIS CONSULTANT Cristine Smith MD LAB - POINT OF CARE ORDERABLES Performing Organization Address City/[facility]/ZIP Co de Phone Number [facility] [address] [place], [place] [id number] * (ABNORMAL) BASIC METABOLIC PANEL (CALCIUM TOTAL) (06/30/2022 6:57 AM GIS CONSULTANT) Only the most recent of2 resultswithin the time period is included. [facility] Glucose 80 70 - 105 mg/dL 06/30/2022 7:[address] [facility] Sodium 140 136 - 145 mmol/L 06/30/2022 7:[address] [facility] Potassium 3.2(L) 3.5 - 5.1 mmol/L 06/30/2022 7:[address] [facility] Chloride 108(H) 98 - 107 mmol/L 06/30/2022 7:[address] [facility] CO2 21(L) 23 - 31 mmol/L 06/30/2022 7:[address] [facility] Calcium 9.2 8.4 - 10.4 mg/dL 06/30/2022 7:[address] [facility] Anion Gap 11 8 - 18 mmol/L 06/30/2022 7:[address] [facility] BUN 7 7 - 18.7 mg/dL 06/30/2022 7:[address] [facility] Creatinine 0.67 0.57 - 1.11 mg/dL 06/30/2022 7:[address] [facility] eGFR by CKD-EPI >90 >=90 mL/min/1.7 3 m2 06/30/2022 7:[address] [facility] Blood BLOOD SPECIMEN / Unknown Lab Venipuncture / Unknown 06/30/2022 6:57 AM GIS CONSULTANT 06/30/2022 7:36 AM GIS CONSULTANT Cristine Smith MD LAB - CHEMISTRY ORD ERABLES Performing Organization Address City/[facility]/ZIP Co de Phone Number [facility] [address] [place] [id number] * PATHOLOGY TISSUE EXAM (STL) (06/29/2022 2:40 AM GIS CONSULTANT) Case Report Surgical Pathology Report Case: [id number] Authorizing Provider: Kellee Eduardo MD Collected: 06/29/2022 02:40 AM Ordering Location: [address] Received: 06/29/2022 08:07 AM Pathologist: Ciarra Carter MD Specimen: Placenta 3rd Trimester 07/02/2022 8:[address] [facility] Final Diagnosis Placenta, vaginal delivery - Mature placenta - membranes with no histopathologic abnormality - Three-vessel umbilical cord with amnionic web 07/02/2022 8:[address] [facility] Clinical History The patient is a 32-year-old woman at 37 weeks, 1 day gestation. Procedure/findings: vaginal delivery, nuchal cord. 07/02/2022 8:[address] [facility] Gross Description The specimen [...] cm. Sectioning shows red-brown, spongy cut surfaces. Truss Driver Helper sections submitted as follows: A1-umbilical cord and membrane roll, A2-placental disc central, A3-placental disc peripheral. LJ 07/02/2022 8:[address] [facility] Microscopic Description Microscopic examination substantiates the above diagnosis. 07/02/2022 8:[address] [facility] Disclaimer All histochemical and/or immunohistochemical results are interpreted with controls that demonstrate appropriate staining reactions before reporting results. Note on use of immunocytochemistry reagents: This test was developed and its performance characteristic determined by [facility], Department of Laboratory Medicine. It has not [...] be interpreted with caution. 07/02/2022 8:59 AM GIS CONSULTANT [facility] Embedded Images 07/02/2022 8:59 AM GIS CONSULTANT [facility] Pathology/Cytolo gy ENTIRE PLACENTA / Unknown Collection / Unknown 06/29/2022 2:40 AM GIS CONSULTANT 06/29/2022 8:07 AM GIS CONSULTANT Kellee Tavares MD LAB - PATHOLOGY /CYTOLOGY ORDERABLES Performing Organization Address [facility]/State/[facility] Co de Phone Number [facility] [address] [place] [address] * (ABNORMAL) BLOOD GASES CORD ART (ISTAT) (06/28/2022 11:22 PM GIS CONSULTANT) Only the most recent of2 resultswithin the time period is included. pH Cord Arterial POCT 7.22 7.20 - 7.34 pH 06/28/2022 11:32 PM GIS CONSULTANT [facility] pCO2 Cord Arterial POCT 56.4(H) 45 - 55 mm hg 06/28/2022 11:[address] [facility] pO2 Cord Arterial POCT 17 12 - 25 mm hg 06/28/2022 11:32 PM GIS CONSULTANT [facility] HCO3 Cord Arterial POCT 23.2 22 - 24 mmol/L 06/28/2022 11:32 PM GIS CONSULTANT [facility] BE Cord Arterial POCT -5(L) -2.9 - 8.3 mmol/L 06/28/2022 11:32 PM GIS CONSULTANT [facility] TCO2 Cord Arterial POCT 25 mmol/L 06/28/2022 11:32 PM GIS CONSULTANT [facility] O2 Saturation Cord Art % Calc POCT 18 % 06/28/2022 11:32 PM GIS CONSULTANT [facility] Site CORD ART 06/28/2022 11:32 PM GIS CONSULTANT [facility] Sample iSTAT CORD ART 06/28/2022 11:32 PM GIS CONSULTANT [facility] Blood CORD BLOOD SPECIMEN / Unknown 06/28/2022 11:22 PM GIS CONSULTANT 06/28/2022 11:32 PM GIS CONSULTANT Cristine Smith MD LAB - POINT OF CARE ORDERABLES Performing Organization Address City/[facility] Co de Phone Number [facility] [address] [place] [address] * (ABNORMAL) BLOOD GASES CORD IAM (ISTAT) (06/28/2022 11:15 PM GIS CONSULTANT) pH Cord Venous POCT 7.34 7.28 - 7.40 pH 06/28/2022 11:32 PM GIS CONSULTANT [facility] pCO2 Cord Venous POCT 39.3 35 - 45 mm hg 06/28/2022 11:32 PM GIS CONSULTANT [facility] pO2 Cord Venous POCT 31 22 - 33 mm hg 06/28/2022 11:32 PM GIS CONSULTANT [facility] HCO3 Cord Arterial POCT 21.2(L) 22 - 24 mmol/L 06/28/2022 11:32 PM GIS CONSULTANT [facility] BE Cord Venous POCT Calc -4 -6.4 - 1.6 mmol/L 06/28/2022 11:32 PM GIS CONSULTANT [facility] TCO2 Cord Venous POCT 22 22 - 30 mmol/L 06/28/2022 11:32 PM GIS CONSULTANT [facility] O2 Saturation % Cord Venous Calc POCT 55 % 06/28/2022 11:32 PM GIS CONSULTANT [facility] Site CORD IAM 06/28/2022 11:32 PM GIS CONSULTANT [facility] Sample iSTAT CORD IAM 06/28/2022 11:32 PM GIS CONSULTANT [facility] Blood CORD BLOOD SPECIMEN / Unknown 06/28/2022 11:15 PM GIS CONSULTANT 06/28/2022 11:32 PM GIS CONSULTANT Cristine Smith MD LAB - POINT OF CARE ORDERABLES [facility] [address] [place], [place] [id number] * (ABNORMAL) URINE MICROSCOPIC ONLY REFLEX TO CULTURE (06/28/2022 5:35 PM GIS CONSULTANT) Reflex Status Culture to follow 06/28/2022 5:50 PM GIS CONSULTANT [facility] RBC UA 3-5 0 - 5 # /hpf 06/28/2022 5:50 PM GIS CONSULTANT [facility] WBC UA 0-5 0 - 5 # /hpf 06/28/2022 5:50 PM GIS CONSULTANT [facility] Bacteria UA Trace(A) None Seen 06/28/2022 5:50 PM GIS CONSULTANT [facility] Squamous Epithelial Cells 0-2 0 - 5 /hpf 06/28/2022 5:50 PM GIS CONSULTANT [facility] Urine URINE SPECIMEN OBTAINED BY SINGLE CATHETERIZATION OF URINARY BLADDER / Unknown Collection / Unknown 06/28/2022 5:35 PM GIS CONSULTANT 06/28/2022 5:39 PM GIS CONSULTANT Narrative [facility] - 06/28/2022 5:50 PM GIS CONSULTANT Cristine Smith MD LAB - URINALYSIS OR DERABLES Performing Organization Address [facility] de Phone Number [facility] [address] [place] [address] * (ABNORMAL) URINALYSIS REFLEX MICROSCOPIC REFLEX CULTURE (06/28/2022 5:35 PM GIS CONSULTANT) Only the most recent of3 resultswithin the time period is included. Color UA Yellow Straw, Yellow 06/28/2022 5:45 PM GIS CONSULTANT [facility] Clarity UA Clear Clear 06/28/2022 5:45 PM GIS CONSULTANT [facility] Glucose UA 1+(A) Negative 06/28/2022 5:45 PM GIS CONSULTANT [facility] Bilirubin UA Negative Negative 06/28/2022 5:45 PM GIS CONSULTANT [facility] Ketone UA 1+(A) Negative 06/28/2022 5:45 PM GIS CONSULTANT [facility] Specific Venus UA 1.005 1.005 - 1.030 06/28/2022 5:45 PM GIS CONSULTANT [facility] Blood UA 2+(A) Negative 06/28/2022 5:45 PM GIS CONSULTANT [facility] pH UA 6.0 5.0 - 8.0 pH 06/28/2022 5:45 PM GIS CONSULTANT [facility] Protein UA Negative Negative 06/28/2022 5:45 PM GIS CONSULTANT [facility] Urobilinogen UA Negative Negative mg/dL 06/28/2022 5:45 PM GIS CONSULTANT [facility] Nitrite UA Negative Negative 06/28/2022 5:45 PM GIS CONSULTANT [facility] Leukocyte UA Trace(A) Negative 06/28/2022 5:45 PM GIS CONSULTANT [facility] Urine Microscopy Urine microscopy to follow 06/28/2022 5:45 PM GIS CONSULTANT [facility] Reflex Status Culture to follow 06/28/2022 5:45 PM GIS CONSULTANT [facility] Urine URINE SPECIMEN OBTAINED BY SINGLE CATHETERIZATION OF URINARY BLADDER / Unknown Collection / Unknown 06/28/2022 5:35 PM GIS CONSULTANT 06/28/2022 5:39 PM GIS CONSULTANT Narrative [facility] - 06/28/2022 5:45 PM GIS CONSULTANT Cristine Smith MD LAB - URINALYSIS OR DERABLES [facility] [address] [place] [address] * (ABNORMAL) CULTURE URINE (06/28/2022 5:35 PM GIS CONSULTANT) Only the most recent of2 resultswithin the time period is included. [facility] Culture Urine 1,000-10,000 CFU/mL Enterococcus faecalis(A) TOMAS 06/30/2022 10:52 PM GIS CONSULTANT [facility] Urine URINE SPECIMEN OBTAINED BY SINGLE CATHETERIZATION OF URINARY BLADDER / Unknown Collection / Unknown 06/28/2022 5:35 PM GIS CONSULTANT 06/28/2022 5:39 PM GIS CONSULTANT Narrative [facility] - 06/30/2022 10:52 PM GIS CONSULTANT Organism Antibiotic Method Susceptibility Enterococcus faecalis Ampicillin TOMAS <=2 ug/mL: Susceptible Enterococcus faecalis Doxycycline TOMAS >=16 ug/mL: Resistant Enterococcus faecalis Linezolid TOMAS 2 ug/mL: Susceptible Enterococcus faecalis Nitrofurantoin TOMAS <=16 ug/mL: Susceptible Enterococcus faecalis Tetracycline TOMAS >=16 ug/mL: Resistant Enterococcus faecalis Vancomycin TOMAS 1 ug/mL: Susceptible Cristine Smith MD LAB - MICROBIOLOGY ORDERABLES [facility] [address] [place] [address], [facility] [phone] * (ABNORMAL) COMPREHENSIVE METABOLIC PANEL (06/28/2022 5:35 PM GIS CONSULTANT) Only the most recent of5 resultswithin the time period is included. Glucose 173(H) 70 - 105 mg/dL 06/28/2022 6:[address] [facility] Sodium 140 136 - 145 mmol/L 06/28/2022 6:[address] [facility] Potassium 2.9(L) 3.5 - 5.1 mmol/L 06/28/2022 6:[address] [facility] Chloride 109(H) 98 - 107 mmol/L 06/28/2022 6:[address] [facility] CO2 16(L) 23 - 31 mmol/L 06/28/2022 6:[address] [facility] Calcium 9.1 8.4 - 10.4 mg/dL 06/28/2022 6:[address] [facility] Anion Gap 15 8 - 18 mmol/L 06/28/2022 6:[address] [facility] BUN 5(L) 7 - 18.7 mg/dL 06/28/2022 6:[address] [facility] Creatinine 0.71 0.57 - 1.11 mg/dL 06/28/2022 6:[address] [facility] Alkaline Phosphatase 140 40 - 150 U/L 06/28/2022 6:[address] [facility] ALT 10 0 - 61 U/L 06/28/2022 6:[address] [facility] AST 15 5 - 34 U/L 06/28/2022 6:[address] [facility] Protein Total 6.5 6.4 - 8.3 gm/dL 06/28/2022 6:[address] [facility] Albumin 3.4(L) 3.5 - 5.2 gm/dL 06/28/2022 6:[address] [facility] Bilirubin Total 1.2 0.2 - 1.2 mg/dL 06/28/2022 6:[address] [facility] eGFR by CKD-EPI >90 >=90 mL/min/1.7 3 m2 06/28/2022 6:03 PM [facility] Blood BLOOD SPECIMEN / Unknown Venipuncture / Unknown 06/28/2022 5:35 PM [facility] 06/28/2022 5:39 PM [facility] Cristine Smith MD LAB - CHEMISTRY ORD ERABLES Performing Organization Address [facility] de Phone Number [facility] [address] [place] [address] * (ABNORMAL) PROTEIN CREATININE RATIO URINE RANDOM PNL (06/28/2022 5:35 PM GIS CONSULTANT) Only the most recent of3 resultswithin the time period is included. Protein Urine 19.1(H) <11.9 mg/dL 06/28/2022 6:03 PM GIS CONSULTANT [facility] Creatinine Urine 59.16 mg/dL 06/28/2022 6:03 PM GIS CONSULTANT [facility] Protein/Creatin ine Ratio Urine 0.32 06/28/2022 6:03 PM GIS CONSULTANT [facility] Urine URINE SPECIMEN OBTAINED BY CLEAN CATCH PROCEDURE / Unknown Collection / Unknown 06/28/2022 5:35 PM GIS CONSULTANT 06/28/2022 5:38 PM GIS CONSULTANT Cristine Smith MD LAB - URINE DOUBLE END PRODUCTION GRINDER RY ORDERABLES Performing Organization Address [facility] Phone Number [facility] [address] [place] [address] * EPIDURAL BLOCK PERF (06/28/2022 4:44 PM GIS CONSULTANT) Narrative Shey Cross APRN-WET END HELPER - 06/28/2022 4:44 PM GIS CONSULTANT Shey Cross APRN-WET END HELPER 06/28/2022 4:45 PM Neuraxial Block Note Pre-Procedure: [...] * EPIDURAL BLOCK PERF (06/27/2022 10:11 PM GIS CONSULTANT) Narrative India Lopez APRN-CRNA - 06/27/2022 10:11 PM GIS CONSULTANT India Lopez APRN-CRNA 06/27/2022 10:11 PM Neuraxial [...] for details. Staff: Anesthesia Provider: India Lopez APRN-WET END HELPER - performed the procedure Francois Gallardo MD GENERAL ANESTHESIA O RDERABLES * TYPE + SCREEN PANEL (06/27/2022 8:16 AM GIS CONSULTANT) Only the most recent of2 resultswithin the time period is included. ABO Rh O POS 06/27/2022 9:41 AM GIS CONSULTANT [facility] Comment:History checked. Antibody Screen NEG 9:41 AM GIS CONSULTANT [facility] Blood Bank BLOOD SPECIMEN / Unknown Venipuncture / Unknown 06/27/2022 8:16 AM GIS CONSULTANT 06/27/2022 8:29 AM GIS CONSULTANT Cristine Smith MD LAB - BLOOD BANK OR DERABLES [facility] [address] [place], [place] [id number] [place] [address] * BIOPHYSICAL PROFILE W NST (06/26/2022 1:16 PM GIS CONSULTANT) Only the most recent of4 resultswithin the time period is included. Anatomical Region Laterality Modality Other 06/26/2022 1:16 PM GIS CONSULTANT [facility] 06/26/2022 2:28 PM GIS CONSULTANT [facility] [place] PHONE: FAX: Pat. Name: ALLEGRA DANIELLE Pat. No: [id number] Study Date: 06/26/2022 1:16pm , Age: 08 1990, 32 Pregnancies: 4, Para 2, Ab 1 Height: 68 in Weight: 212 lb LMP: Unknown GA by Base: 36w6d YESSENIA: 07/18/2022 GA by US: 38w0d YESSENIA: 07/10/2022 GA Selected: 36w6d (From [facility]) YESSENIA: 07/18/2022 Referring MD: Tiesha, , [facility] Top Former: Ada Carreno, RDMS, RDCS CPT4: 65525,92030 BMI: 32.23 Hist/Ind: Cerclage Placed 01/16/22 T2DM Insulin cHTN Maternal Obesity H/O Pre_Eclampsia H/O Insufficient Cervix G1:Stillborn TAB x 1 H/O PTD at 35 wks (short cvx) Completed anatomy echo not done MEASUREMENTS & AGE GROWTH EVALUATION Measurement GA Range Srce %for GA Ratios ----- ---- ------- BPD 9.6 cm 39w0d (37t6d-31f2p) Hadl BPD 97% FL/BPD 0.75 (0.71 - 0.87) HC 34.2 cm 39w3d (61g0h-46f3u) Hadl HC 81% FL/AC 0.20 (0.20 - 0.24) AC 36.0 cm 39w6d (86y3d-41h2p) Hadl AC >99 HC/AC 0.95 (0.92 - 1.11) FL 7.2 cm 36w6d (32o1z-39l5v) Hadl FL 48% CI 0.80 (0.70 - 0.86) HL 6.9 cm 40w1d (03p0r-37g2f) Vitaly HL >95 GA for sonogram 38w0d (24x1b-10l5t) Weight Estimate: based on (BPD,HC,AC,FL) [place] Weight: [...] within normal limits. The FHR baseline was 656333 bpm during today's reactive NST. The FHR [...] <Electronic Signature> 06/26/2022 02:25pm Kiran Gonzalez MD [facility] ORDERABLES * CULTURE STREP B (06/19/2022 12:53 PM GIS CONSULTANT) Culture Strep B Negative for beta-hemolytic Streptococcus Group B TOMAS 06/22/2022 1:19 PM GIS CONSULTANT [facility] MICROBIOLOGY Microbiology MISCELLANEOUS SAMPLES / Unknown Collection / Unknown 06/19/2022 12:53 PM GIS CONSULTANT 06/19/2022 2:25 PM GIS CONSULTANT Nikia Saul MD LAB - MICROBIOLOGY O RDERABLES [facility] MI[facility]Y [address] [place] [address], [facility] [phone] * (ABNORMAL) URINALYSIS - POCT (IP) BEAKER INTERFACE (06/12/2022 1:05 PM GIS CONSULTANT) Only the most recent of11 resultswithin the time period is included. Color UA POCT Yellow Straw, Yellow, Dark Yellow, Light Yellow 06/12/2022 1:07 PM GIS CONSULTANT [facility] Clarity UA POCT Slightly Cloudy(A) Clear 06/12/2022 1:07 PM GIS CONSULTANT [facility] Specific Venus UA POCT 1.025 1.005 - 1.030 06/12/2022 1:07 PM GIS CONSULTANT [facility] pH UA POCT 6.0 5.0 - 8.0 pH 06/12/2022 1:07 PM GIS CONSULTANT [facility] Protein UA POCT Negative Negative 2 1:07 PM GIS CONSULTANT [facility] Blood UA POCT Negative Negative 06/12/2022 1:07 PM GIS CONSULTANT [facility] Leukocyte UA POCT Negative Negative 06/12/2022 1:07 PM GIS CONSULTANT [facility] Nitrite UA POCT Negative Negative 2 1:07 PM GIS CONSULTANT [facility] Glucose UA POCT Negative Negative 2 1:07 PM GIS CONSULTANT [facility] Ketone UA POCT Trace(A) Negative 06/12/2022 1:07 PM GIS CONSULTANT [facility] Bilirubin UA POCT Negative Negative 06/12/2022 1:07 PM GIS CONSULTANT [facility] Urobilinogen UA POCT 0.2 0.1 - 1.0 EU/dL 06/12/2022 1:07 PM GIS CONSULTANT [facility] Urine URINE / Unknown 06/12/2022 1 :05 PM GIS CONSULTANT 06/12/2022 1:06 PM GIS CONSULTANT Kiran Gonzalez MD LAB - POINT OF CARE ORDERABLES Performing Organization Address City/State/[facility] Co de Phone Number [facility] [address] [phone] * NON-STRESS TEST (06/08/2022 8:42 PM CDT) [...] OTHER INFORMATION Lissette Radford RN Non-Stress Test [facility] Patient Name: Allegra Danielle LMP: Patient's last menstrual period was 10/04/2021 (approximate). Gestational Age: 34w3d as of 06/09/2022 Estimated Date of Delivery: 07/18/22 Indications: other headache, swelling NST date: 06/08/2022 NST duration: >20 mins Interpretation: Baseline: 135 beats/minute moderate variability Reactive Contractions: none Decelerations: none Impression and Plan: FWB reassuring, continue monitoring as scheduled. Allison Blas MD 06/09/2022 12:05 AM Andreia Rothman MD [facility] ORDERABLES * LAB RESULTS ORDER (06/02/2022 5:07 [...] - 4.940 uIU/mL 05/29/2022 3:17 PM CDT [facility] Blood BLOOD SPECIMEN / Unknown Venipuncture / Unknown 05/29/2022 1:51 PM CDT 05/29/2022 2:15 PM CDT Nikia Saul MD LAB - CHEMISTRY ANGELA LEARY [facility] Organization Address City/State/ZIP Co de Phone Number [facility] [address] [place] [address] * SONOGRAM - COMPLETE (05/22/2022 1:43 PM CDT) Only the most recent of5 resultswithin the time period is included. Anatomical Region Laterality Modality Other 05/22/2022 1:43 PM CDT Narrative 05/22/2022 2:54 PM CDT [facility] PHONE: FAX: Pat. Name: ALLEGRA DANIELLE. No: [id number] Study Date: 05/22/2022 1:43pm , Age: 08 1990, 32 Pregnancies: 4, Para 2, Ab 1 Height: 68 in Weight: 212 lb LMP: Unknown GA by Base: 31w6d YESSENIA: 07/18/2022 GA by US: 34w3d YESSENIA: 06/30/2022 GA Selected: 31w6d (From [facility]) YESSENIA: 07/18/2022 Referring MD: Tiesha, , [facility] Top Former: Maryam Sosa, RDMS, RDCS CPT4: 33587,04850 BMI: 32.23 Hist/Ind: Cerclage Placed 01/16/22 T2DM Insulin cHTN H/O Pre_Eclampsia H/O Insufficient Cervix G1:Stillborn TAB x 1 H/O PTD at 35 wks (short cvx) completed anatomy echo not done MEASUREMENTS & AGE GROWTH EVALUATION Measurement GA Range Srce %for GA Ratios ----- ---- ------- BPD 8.6 cm 34w3d (77z1p-73p6e) Hadl BPD 96% FL/BPD 0.78 (0.71 - 0.87) HC 31.0 cm 34w4d (82v7j-95p8r) Hadl HC 82% FL/AC 0.22 (0.20 - 0.24) AC 30.7 cm 34w4d (92n9d-67z3q) Hadl AC 98% HC/AC 1.01 (0.96 - 1.15) FL 6.6 cm 34w1d (08p2u-37f3g) Hadl FL 90% CI 0.79 (0.70 - 0.86) GA for sonogram 34w3d (47n8b-76a0g) Weight Estimate: based on (BPD,HC,AC,FL) Avg Weight: [...] <Electronic Signature> 05/22/2022 02:52pm Kiran Gonzalez MD [facility] ORDERABLES * SYPHILIS ANTIBODY CASCADING REFLEX (04/24/2022 3:30 PM CDT) Only the most recent of2 resultswithin the time period is included. Treponema pallidum Antibody Non Reactive Non Reactive 04/24/2022 4:33 PM CDT [facility] Comment: No Laboratory evidence of syphilis infection. Note: Circulating antibodies may be low or undetectable in early infection. If recent exposure is suspected, re-draw sample in 2-4 weeks and repeat testing. Blood BLOOD SPECIMEN / Unknown Venipuncture / Unknown 04/24/2022 3:30 PM CDT 04/24/2022 3:43 PM CDT Tahira Heredia MD LAB - SEROLOGY ORDER JONO Performing Organization Address [facility] Co de Phone Number [facility] [address] [place], [place] [phone] * HIV-1 HIV-2 ANTIBODY + HIV P24 AG PANEL (04/24/2022 3:30 PM CDT) Only the most recent of2 resultswithin the time period is included. HIV1/2 Ab + P24 Ag Non Reactive Non Reactive 04/24/2022 4:34 PM CDT [facility] Blood BLOOD SPECIMEN / Unknown Venipuncture / Unknown 04/24/2022 3:30 PM CDT 04/24/2022 3:43 PM CDT Narrative [facility] - 04/24/2022 4:34 PM CDT No Laboratory evidence of HIV infection. Tahira Heredia MD LAB - CHEMISTRY ORDKacy LEARY [facility] [address] [place] [address] * (ABNORMAL) HEMOGLOBIN A1C (04/24/2022 3:30 PM CDT) Only the most recent of4 resultswithin the time period is included. Pathologist [facility] Hemoglobin A1c 6.0(H) <5.7 % 04/24/2022 5:17 PM CDT [facility] Estimated Average Glucose 126 mg/dL 04/24/2022 5:17 PM CDT [facility] Blood BLOOD SPECIMEN / Unknown Venipuncture / Unknown 04/24/2022 3:30 PM CDT 04/24/2022 3:43 PM CDT Narrative [facility] - 04/24/2022 5:17 PM CDT HbA1c [...] exceeds 5% in the specimen. The [employer] assay for the measurement of HbA1c is a National Glycohemoglobin Standardization Program (NGSP) certified method. Tahira Heredia MD LAB - CHEMISTRY ANGELA LEARY [facility] Organization Address City/State/ZIP Co de Phone Number [facility] [address] [place] [address] * (ABNORMAL) CBC W/O DIFFERENTIAL (04/24/2022 3:30 PM CDT) [facility] WBC 14.1(H) 4.4 - 10.7 x10E9/L 04/24/2022 3:54 PM CDT [facility] RBC 4.05 3.80 - 5.20 x10E12/L 04/24/2022 3:54 PM CDT [facility] Hemoglobin 11.8(L) 12.0 - 15.6 gm/dL 04/24/2022 3:54 PM CDT [facility] Hematocrit 35.3(L) 35.9 - 45.5 % 04/24/2022 3:54 PM CDT [facility] MCV 87.2 80.7 - 98.3 fl 04/24/2022 3:54 PM CDT [facility] MCH 29.1 26.7 - 34.0 pg 04/24/2022 3:54 PM CDT [facility] MCHC 33.4 30.8 - 35.9 gm/dL 04/24/2022 3:54 PM CDT [facility] Platelet Count 391 153 - 416 x10E9/L 04/24/2022 3:54 PM CDT [facility] RDW-CV 13.8 12.1 - 14.9 % 04/24/2022 3:54 PM CDT [facility] MPV 9.5 9.4 - 12.9 fl 04/24/2022 3:54 PM CDT [facility] Blood BLOOD SPECIMEN / Unknown Venipuncture / Unknown 04/24/2022 3:30 PM CDT 04/24/2022 3:43 PM CDT Tahira Heredia MD LAB - HEMATOLOGY ORD ERABLES [facility] [address] [place] [address] * CHLAMYDIA + GC AMPLIFIED PROBE (STL) (04/06/2022 6:38 PM CDT) Only the most recent of2 resultswithin the time period is included. [facility] Chlamydia Amplified Probe Negative Negative 04/07/2022 3:00 AM CDT [facility] MICROBIOLOGY GC Amplified Probe Negative Negative 04/07/2022 3:00 AM CDT [facility] MICROBIOLOGY Microbiology PART OF UTERINE CERVIX / Unknown Collection / Unknown 04/06/2022 6:38 PM CDT 04/06/2022 6:53 PM CDT Narrative [facility] - 04/07/2022 3:00 AM CDT Results based on detection/no detection of ribosomal RNA by amplified method. Waylon Stevens MD LAB - MICROBIOLOGY O RAKESH Performing Organization Address City/[facility]/ZIP Co de Phone Number [facility]OLOGY [address] [place], [place] [address] [phone] * TRICHOMONAS RAPID TEST (04/06/2022 6:38 PM CDT) Only the most recent of2 resultswithin the time period is included. Trichomonas Rapid Test Negative Negative 04/06/2022 7:22 PM CDT [facility] Microbiology VAGINAL SWAB / Unknown Collection / Unknown 04/06/2022 6:38 PM CDT 04/06/2022 6:53 PM CDT Waylon Stevens MD LAB - MICROBIOLOGY O RAKESH Performing Organization Address City/[facility] Co de Phone Number [facility] [address] [place] [address] * SONOGRAM - TRANSVAGINAL (03/06/2022 1:24 PM CDT) Only the most recent of3 resultswithin the time period is included. Anatomical Region Laterality Modality Other 03/06/2022 1:24 PM CDT Narrative 03/06/2022 4:19 PM CDT [facility] PHONE: FAX: Pat. Name: ALLEGRA DANIELLE Pat. No: [id number] Study Date: 03/06/2022 1:24pm , Age: 08 1990, 32 Pregnancies: 4, Para 2, Ab 1 Height: 68 in Weight: 212 lb LMP: Unknown GA by Base: 21w3d YESSENIA: 07/14/2022 GA Selected: 21w3d (From [facility]) YESSENIA: 07/14/2022 Referring MD: Tiesha, , [facility] Top Former: Melly Murillo RDMS CPT4: 43378,62473 BMI: 32.23 Hist/Ind: Cerclage Placed 01/16/22 T2DM [...] <Electronic Signature> 03/06/2022 04:19pm Kiran Gonzalez MD [facility] ORDERABLES * THYROID AB PANEL (TPO AB+THYROGLOB AB) (02/07/2022 3:56 PM CDT) Pathologist [facility] Thyroid Peroxidase TPO Antibody 11 0 - 34 IU/mL 02/09/2022 10:07 PM CDT [facility] ([facility]) Thyroglobulin Antibody <1.0 0.0 - 0.9 IU/mL 02/09/2022 10:07 PM CDT [facility]) Comment:Thyroglobulin Antibo dy measured by [facility] [employer] Blood BLOOD SPECIMEN / Unknown Venipuncture / Unknown 02/07/2022 3:56 PM CDT 02/07/2022 4:08 PM CDT Narrative [facility] ([facility]) - 02/09/2022 10:07 PM CDT Performed at: [address] [id number] [employer] Engineering: Lucius Evans PhD, Phone: [phone] Kellee Tavares MD LAB - CHEMISTRY ORDERABLES Performing Organization Address [facility] de Phone Number [facility] [address] [place] [address] * THYROID STIMULATING IMMUNOGLOBULIN (TSI) (02/07/2022 3:56 PM CDT) [facility] Thyroid Stimulating Immunoglobulin <0.10 0.00 - 0.55 IU/L 02/10/2022 3:08 PM CDT [facility] ([facility]) Blood BLOOD SPECIMEN / Unknown Venipuncture / Unknown 02/07/2022 3:56 PM CDT 02/07/2022 4:08 PM CDT Narrative [facility] ([facility]) - 02/10/2022 3:08 PM CDT Performed at: [address] [id number] [employer]: Shoshana Kilpatrick MD, Phone: [phone] Kellee Tavares MD LAB - CHEMISTRY ORDERABLES Performing Organization Address City/[facility]/ZIP Co de Phone Number [facility] ([facility]) [address] [place] [address] * T3 FREE (02/07/2022 3:56 PM CDT) T3 Free 3.41 1.58 - 3.91 pg/mL 02/07/2022 5:52 PM CDT [facility] Blood BLOOD SPECIMEN / Unknown Venipuncture / Unknown 02/07/2022 3:56 PM CDT 02/07/2022 4:08 PM CDT Narrative [facility] - 02/07/2022 5:52 PM CDT Attention clinician: Reference Range has changed. Kellee Tavares MD LAB - CHEMISTRY ORDERABLES Performing Organization Address City/[facility]/ZIP Co de Phone Number [facility] [address] [place] [phone] * (ABNORMAL) TSH (02/07/2022 3:56 PM CDT) Only the most recent of2 resultswithin the time period is included. TSH 0.2964(L) 0.35 - 4.94 uIU/mL 02/07/2022 5:52 PM CDT [facility] Blood BLOOD SPECIMEN / Unknown Venipuncture / Unknown 02/07/2022 3:56 PM CDT 02/07/2022 4:08 PM CDT Kellee Tavares MD LAB - CHEMISTRY ORDERABLES Performing Organization Address City/[facility]/ZIP Co de Phone Number [facility] [address] [place] [phone] * T4 FREE (02/07/2022 3:56 PM CDT) T4 Free 0.74 0.70 - 1.48 ng/dL 02/07/2022 5:52 PM CDT [facility] Blood BLOOD SPECIMEN / Unknown Venipuncture / Unknown 02/07/2022 3:56 PM CDT 02/07/2022 4:08 PM CDT Kellee Tavares MD LAB - CHEMISTRY ORDERABLES [facility] [address] [place] [id number] * CARDIAC EKG ORDER (01/19/2022 12:33 AM CDT) Narrative 01/19/2022 12:33 AM CDT Ordered by an unspecified provider. Scanned Document CARDIAC SERVICES ORD ERABLES * ETT LINE PERFORMABLE (01/16/2022 10:20 AM CDT) Narrative Hyacinth Dennis APRN-CRNA - 01/16/2022 10:20 AM CDT Hyacinth Dennis APRN-CRNA 01/16/2022 10:20 AM Endotracheal Tube Placement: Patient Location: OR. Intubation Event Date/Time: 01/16/2022 10:12 AM Procedure: intubation ([id number]). Procedure Section: Sedation: IV sedation. Indications for [...] - 1.48 ng/dL 01/03/2022 7:56 PM CDT [facility] Blood BLOOD SPECIMEN / Unknown Venipuncture / Unknown 01/03/2022 4:34 PM CDT 01/03/2022 4:50 PM CDT Vianney Solorio MD LAB - CHEMISTRY ANGELA LEARY [facility] [address] [place] [address] * FIRST TRI NUCHAL TRANSLUCENCY W:SEQ SCREEN (01/03/2022 2:45 PM CDT) Anatomical Region Laterality Modality Other 01/03/2022 2:45 PM CDT Narrative 01/03/2022 3:54 PM CDT [facility] PHONE: FAX: Pat. Name: ALLEGRA DANIELLE Pat. No: [id number] Study Date: 01/03/2022 2:45pm , Age: 08 1990, 31 Pregnancies: 4, Para 2211 Height: 68 in Weight: 212 lb LMP: Unknown GA by Base: 12w0d YESSENIA: 07/18/2022 GA by US: 12w1d YESSENIA: 07/17/2022 GA Selected: 12w0d (From [facility]) YESSENIA: 07/18/2022 Referring MD: MD Tiesha, [facility] Top Former: Melly Murillo RDMS CPT4: 84769,03588 BMI: 32.23 Hist/Ind: Nuchal Translucency T2DM, insulin cHTN Hx Pre-E Hx insufficient cervix G1: Stillborn TAb x 1 Hx PTD #35weeks, short cx Hx cerclage MEASUREMENTS & AGE GROWTH EVALUATION Measurement GA Range Srce %for GA Ratios ----- ---- ------- CRL 5.6 cm 12w1d (54h2y-07a4s) Hadl CRL 57% GA for sonogram 12w1d (42s8o-25c6s) based on (CRL) Avg Markers for Chromosomal [...] <Electronic Signature> 01/03/2022 03:52pm Kiran Gonzalez MD [facility] ORDERABLES * PANORAMA TEST (01/03/2022) Trisomy 21 [...] Urine 2,650 mL 11/29/2021 3:01 PM CDT [facility] Collection Time Hours 24 hrs 11/29/2021 3:01 PM CDT [facility] Protein 24 Hour Urine 11/29/2021 3:01 PM CDT [facility] Comment:Unable to calculate due to limited levels of measurable protein. Protein Urine <6.8 <11.9 mg/dL 11/29/2021 3:01 PM CDT [facility] Urine TIMED URINE SPECIMEN / Unknown Timed Urine Volume Measurement / Unknown 11/29/2021 2:16 PM CDT 11/29/2021 2:37 PM CDT Ciarra Beal MD LAB - URINE DOUBLE END PRODUCTION GRINDER RY ORDERABLES [facility] [address] [place] [address] * HEMOGLOBINOPATHY FRACTIONATION CASCADE (11/23/2021 10:52 AM CDT) Hemoglobin F 0.0 0.0 - 2.0 % 11/24/2021 2:09 PM CDT [facility] ([facility] Hemoglobin A 97.0 96.4 - 98.8 % 11/24/2021 2:09 PM CDT [facility]) Hemoglobin A2 3.0 1.8 - 3.2 % 11/24/2021 2:09 PM CDT [facility] Hemoglobin S 0.0 0.0 % 11/24/2021 2:09 PM CDT [facility]) Interpretation Comment 11/24/2021 2:09 PM CDT [facility]) Comment: Normal hemoglobin present; no hemoglobin variant or thalassemia observed. Blood BLOOD SPECIMEN / Unknown Venipuncture / Unknown 11/23/2021 10:52 AM CDT 11/23/2021 11:35 AM CDT Narrative [facility] ([facility]) - 11/24/2021 2:09 PM CDT Performed at: [address] [place] [id number] [employer]: Lucius Evans PhD, Phone: [phone] Ciarra Beal MD LAB - CHEMISTRY ORD ERABLES Performing Organization Address [facility]/ZIP Co de Phone Number [facility] [address] [place] [address] * RUBELLA ANTIBODY IGG (11/23/2021 10:52 AM CDT) Only the most recent of2 resultswithin the time period is included. [facility] Rubella Antibody 1.23 Immune >0.99 index 11/24/2021 7:09 AM CDT [facility] ([facility]) Comment: Non-immune <0.90 Equivocal 0.90 - 0.99 Immune >0.99 Blood BLOOD SPECIMEN / Unknown Venipuncture / Unknown 11/23/2021 10:52 AM CDT 11/23/2021 11:35 AM CDT Narrative [facility] ([facility]) - 11/24/2021 7:09 AM CDT Performed at: [address] [id number] [employer]: Lucius Evans PhD, Phone: [phone] Ciarra Beal MD LAB - SEROLOGY ORDE RABLES Performing Organization Address City/[facility]/ZIP Co de Phone Number [facility] [address] [place] [address] * HEPATITIS B SURFACE ANTIGEN W RFLX CONFIRMATION (11/23/2021 10:52 AM CDT) HBsAg Non Reactive Non Reactive 11/23/2021 12:37 PM CDT [facility] Blood BLOOD SPECIMEN / Unknown Venipuncture / Unknown 11/23/2021 10:52 AM CDT 11/23/2021 11:35 AM CDT Ciarra Beal MD LAB - CHEMISTRY ORD ERABLES [facility] [address] [place] [address] * HEPATITIS C ANTIBODY (11/23/2021 10:52 AM CDT) HCV Antibody Screen Non Reactive Non Reactive 11/23/2021 12:37 PM CDT [facility] Blood BLOOD SPECIMEN / Unknown Venipuncture / Unknown 11/23/2021 10:52 AM CDT 11/23/2021 11:35 AM CDT Narrative [facility] - 11/23/2021 12:37 PM CDT Non Reactive - Antibodies to Hepatitis C virus (HCV) were not detected, result does not exclude early acute HCV infection. Ciarra Beal MD LAB - CHEMISTRY ORD ERABLES Performing Organization Address [facility] Co de Phone Number [facility] [address] [place] [phone] * MAGNESIUM BLOOD (09/20/2021 10:23 AM GIS CONSULTANT) Pathologist [facility] Magnesium 1.7 1.6 - 2.6 mg/dL 09/20/2021 11:30 AM GIS CONSULTANT [facility] Blood BLOOD SPECIMEN / Unknown Lab Venipuncture / Unknown 09/20/2021 10:23 AM GIS CONSULTANT 09/20/2021 10:29 AM GIS CONSULTANT Prema Gonzalez MD LAB - CHEMISTRY ORDERABLES Performing Organization Address City/[facility]/ZIP Co de Phone Number [facility] [address] [place] [phone] * (ABNORMAL) IRON + TRANSFERRIN PANEL (09/20/2021 10:22 AM GIS CONSULTANT) Iron 72 50 - 170 ug/dL 09/20/2021 10:[address] [facility] Transferrin 326 180 - 382 mg/dL 09/20/2021 10:[address] [facility] TIBC Calculated 408 240 - 450 ug/dL 09/20/2021 10:[address] [facility] Iron Saturation % 18(L) 20 - 50 % 09/20/2021 10:[address] [facility] Blood BLOOD SPECIMEN / Unknown Lab Venipuncture / Unknown 09/20/2021 10:22 AM GIS CONSULTANT 09/20/2021 10:29 AM GIS CONSULTANT Prema Gonzalez MD LAB - CHEMISTRY ORDERABLES Performing Organization Address [facility]/ZIP Co de Phone Number [facility] [address] [place] [phone] * (ABNORMAL) FERRITIN (09/20/2021 10:22 AM GIS CONSULTANT) Ferritin 261(H) 5 - 204 ng/mL 09/20/2021 11:[address] [facility] Blood BLOOD SPECIMEN / Unknown Lab Venipuncture / Unknown 09/20/2021 10:22 AM GIS CONSULTANT 09/20/2021 10:29 AM GIS CONSULTANT Prema Gonzalez MD LAB - CHEMISTRY ORDERABLES Performing Organization Address City/[facility]/ZIP Co de Phone Number [facility] [address] [place] [phone] * (ABNORMAL) LIPID PROFILE (09/20/2021 10:22 AM GIS CONSULTANT) Cholesterol 152 <200 mg/dL 09/20/2021 10:[address] [facility] Triglycerides 282(H) <150 mg/dL 09/20/2021 10:[address] [facility] HDL Cholesterol 40(L) >40 mg/dL 10:[address] [facility] LDL Calculated 56 <130 mg/dL 09/20/2021 10:[address] [facility] VLDL Calculated 56(H) <=30 mg/dL 10:[address] [facility] Chol HDL Ratio 3.8 <4.5 09/20/2021 10:[address] [facility] LDL/HDL Ratio 1.4 <5.0 09/20/2021 10:[address] [facility] Blood BLOOD SPECIMEN / Unknown Lab Venipuncture / Unknown 09/20/2021 10:22 AM GIS CONSULTANT 09/20/2021 10:29 AM GIS CONSULTANT Prema Gonzalez MD LAB - CHEMISTRY ORDERABLES Performing Organization Address City/[facility]/ZIP Co de Phone Number [facility] [address] [place] [address] [phone] * PTH INTACT (09/20/2021 10:21 AM GIS CONSULTANT) PTH Intact 34.8 8.7 - 77.1 pg/mL 09/20/2021 11:[address] [facility] Calcium 9.8 8.4 - 10.4 mg/dL 09/20/2021 11:[address] [facility] Blood BLOOD SPECIMEN / Unknown Lab Venipuncture / Unknown 09/20/2021 10:21 AM GIS CONSULTANT 09/20/2021 10:29 AM GIS CONSULTANT Prema Gonzalez MD LAB - CHEMISTRY ORDERABLES [facility] [address] [place] [address] [phone] * PT PTT PANEL (09/20/2021 10:21 AM GIS CONSULTANT) PT 13.0 12.1 - 14.8 sec 09/20/2021 10:[address] [facility] INR 1.0 0.9 - 1.1 09/20/2021 10:[address] [facility] PTT 24.5 23.0 - 38.4 sec 09/20/2021 10:[address] [facility] Blood BLOOD SPECIMEN / Unknown Lab Venipuncture / Unknown 09/20/2021 10:21 AM GIS CONSULTANT 09/20/2021 10:29 AM GIS CONSULTANT Narrative [facility] - 09/20/2021 10:59 AM GIS CONSULTANT Conventional Warfarin Anticoagulant Therapy: INR Reference Range: 2.0-3.0 Intensive Warfarin Anticoagulant Therapy: INR Reference Range: 2.5-3.5 Heparin Therapeutic Range for PTT: 69.0 - 110.0 seconds. Prema Gonzalez MD LAB - COAGULATIO N ORDERABLES Performing Organization Address City/[facility]/ZIP Co de Phone Number [facility] [address] [place] [address] * VITAMIN B1 (09/20/2021 10:20 AM GIS CONSULTANT) [facility] Vitamin B1 Whole Blood 147.1 66.5 - 200.0 nmol/L 09/29/2021 12:09 PM GIS CONSULTANT [facility] Blood BLOOD SPECIMEN / Unknown Lab Venipuncture / Unknown 09/20/2021 10:20 AM GIS CONSULTANT 09/20/2021 10:29 AM GIS CONSULTANT Narrative [facility] ([facility]) - 09/29/2021 12:09 PM GIS CONSULTANT Test(s) 628914-Ash. B1, Whole Blood was developed and its performance characteristics determined by [facility]. It has not been cleared or approved by the Food and Drug Administration. Performed at: 01 - [address] [id number] [employer]: Shoshana Kilpatrick MD, Phone: [phone] Prema Gonzalez MD LAB - CHEMISTRY ORDERABLES Performing Organization Address City/[facility] Co de Phone Number [facility] ([facility]) [address] [place] [address] * (ABNORMAL) VITAMIN D 25-HYDROXY (09/20/2021 10:20 AM GIS CONSULTANT) [facility] Vitamin D, 25 Hydroxy 14.9(L) 30 - 100 ng/mL 09/20/2021 11:31 AM GIS CONSULTANT [facility] Blood BLOOD SPECIMEN / Unknown Lab Venipuncture / Unknown 09/20/2021 10:20 AM GIS CONSULTANT 09/20/2021 10:29 AM GIS CONSULTANT Narrative [facility] - 09/20/2021 11:31 AM GIS CONSULTANT Vitamin D Status: Deficiency <20 ng/mL Insufficiency 20-30 ng/mL Sufficiency 30-100 ng/mL Toxicity >100 ng/mL Prema Gonzalez MD LAB - CHEMISTRY ORDERABLES Performing Organization Address City/[facility] Co de Phone Number [facility] [address] [place] [phone] * VITAMIN B12 FOLATE PANEL (09/20/2021 10:20 AM GIS CONSULTANT) Vitamin B12 296 213 - 816 pg/mL 09/20/2021 11:31 AM GIS CONSULTANT [facility] Folate 18.0 7.0 - 31.4 ng/mL 09/20/2021 11:31 AM GIS CONSULTANT [facility] Blood BLOOD SPECIMEN / Unknown Lab Venipuncture / Unknown 09/20/2021 10:20 AM GIS CONSULTANT 09/20/2021 10:29 AM GIS CONSULTANT Prema Gonzalez MD LAB - CHEMISTRY ORDERABLES Performing Organization Address City/[facility] Co de Phone Number [facility] [address] [place] [address] [phone] * XR CHEST 2VW (09/20/2021 9:56 AM GIS CONSULTANT) Only the most recent of2 resultswithin the time period is included. Anatomical Region Laterality Modality Chest Radiographic Deb ging 09/20/2021 10:3 5 AM GIS CONSULTANT Impressions 09/20/2021 10:36 AM GIS CONSULTANT Normal. *Reading Radiologist: Janay Campbell on 09/20/2021 at 10:36 AM Narrative 09/20/2021 10:36 AM GIS CONSULTANT Chest, 2 views DATE: 09/20/2021 INDICATION: Preop [...] POINT OF CARE (AMB) [facility] (01/03/2018) Pathologist [facility] Specific Venus UA 1.025 pH UA 6.0 WBC UA neg Nitrite UA neg Protein UA neg Glucose UA 3+ Ketones UA POCT 1+ Urobilinogen UA 3.5 Bilirubin UA POCT neg Blood Urine POCT neg Urine URINE / Unknown 01/03/2018 Lencho Mackenzie PA-C LAB - POINT OF CARE ORDERABLES * RUBEOLA ANTIBODY IGG (10/15/2016 3:50 PM CDT) Pathologist [facility] Measles (Rubeola) Antibody IgG >300.0 Immune >29.9 AU/mL 10/17/2016 12:14 PM CDT [facility] ([facility]) Comment: Negative <25.0 Equivocal 25.0 - 29.9 Positive >29.9 Presence of antibodies to Rubeola is presumptive evidence of immunity except when acute infection is suspected. Blood BLOOD SPECIMEN / Unknown Venipuncture / Unknown 10/15/2016 3:50 PM CDT 10/15/2016 6:44 PM CDT Narrative [facility] ([facility]) - 10/17/2016 12:14 PM CDT Performed at: - [facility] [id number] [place], [place] [id number] [employer]fter Engineering: Lucius Evans PhD, Phone: [phone] Provider Unknown LAB - CHEMISTRY ANGELA LEARY [facility] ([facility]) [address] [place] [address] * MUMPS ANTIBODY IGG (10/15/2016 3:50 PM CDT) Pathologist [facility] Mumps Virus Antibody IgG Index 53.2 Immune >10.9 AU/mL 10/17/2016 12:14 PM CDT [facility] ([facility]) Comment: Negative <9.0 Equivocal 9.0 - 10.9 Positive >10.9 A positive result generally indicates past exposure to Mumps virus or previous vaccination. Blood BLOOD SPECIMEN / Unknown Venipuncture / Unknown 10/15/2016 3:50 PM CDT 10/15/2016 6:44 PM CDT Narrative [facility] - 10/17/2016 12:14 PM CDT Performed at: [address] [place] [id number] [employer] Engineering: Lucius Evans PhD, Phone: [phone] Provider Unknown LAB - CHEMISTRY BEL[facility]ENChefmarket.[facility] Performing Organization Address [facility] de Phone Number [facility] ([facility]) [address] [place] [address] * VARICELLA ZOSTER ANTIBODY IGG (10/15/2016 3:50 PM CDT) Pathologist [facility] Varicella zoster Virus Antibody IgG 255 Immune >165 index 10/17/2016 12:14 PM CDT [facility] ([facility]) Comment: Negative <135 Equivocal 135 - 165 Positive >165 A positive result generally indicates exposure to the pathogen or administration of specific immunoglobulins, but it is not indication of active infection or stage of disease. Blood BLOOD SPECIMEN / Unknown Venipuncture / Unknown 10/15/2016 3:50 PM CDT 10/15/2016 6:44 PM CDT Narrative [facility] ([facility]) - 10/17/2016 12:14 PM CDT Performed at: [address] [id number] [employer] Engineering: Lucius Evans PhD, Phone: [phone] Provider Unknown LAB - CHEMISTRY ANGELA LEARY Performing Organization Address [facility] de Phone Number [facility] ([facility]) [address] [place] [address] * (ABNORMAL) HEPATITIS B SURFACE ANTIBODY (10/15/2016 3:50 PM CDT) HBsAb REACTIVE(A ) Non Reactive 10/15/2016 7:29 PM CDT [facility] Blood BLOOD SPECIMEN / Unknown Venipuncture / Unknown 10/15/2016 3:50 PM CDT 10/15/2016 6:44 PM CDT Provider Unknown LAB - CHEMISTRY ANGELA LEARY Performing Organization Address City/State/[facility] Co de Phone Number [facility] [address] [place] [address] Care Teams Buncher Hand Relationship Specialty Start Date End Date Kamla Nuñez, CAR DETAILER-IOS DEVELOPER [address] [place] [phone] PCP - Attributed-[facility] [employer] [facility] 08/05/18 Jeanine Flowers MD [address] [place] [address] PCP - General Internal Medicine 06/04/24
--- OUTSIDE RECORDS SUMMARY | 2024-09-23 18:51 | XMS_ITS | Referral Summary ---
Author Organization [facility] Address [address] [facility] [place] [address] Care Team Providers Care Block Cuber Name Role Phone Kamla Nuñez SUPERVISOR MOLD CLEANING AND STORAGE-PRINCIPAL ARCHITECTURAL FIRM Unavailable [phone] Jeanine Flowers MD Primary Care Provider Source Comments [facility],non-owned Affiliates and Associated Physician Practices is [facility] consisting of ambulatory clinics and hospital sitesin [place], [place], [place] and [place]. This disclosure is being madepursuant to the Care Everywhere program and may not contain all information available regarding this patient. Last updated 18.[facility] Encounters Date Type Department Care Team Description 09/02/2024 11:00 AM PRACTICE BILLING ASSOCIATE Video Visit [facility] [address] [place] [phone] Kamla Nuñez, SUPERVISOR MOLD CLEANING AND STORAGE-PRINCIPAL ARCHITECTURAL FIRM Anxiety and depression ; Psychophysiologic insomnia; Type 2 diabetes mellitus with other specified complication, unspecified whether termite control representative insulin use (HCC); Hypertension due to endocrine disorder 09/01/2024 Refill [facility] [address] [place] [phone] Kamla Nuñez, SUPERVISOR MOLD CLEANING AND STORAGE-PRINCIPAL ARCHITECTURAL FIRM Refill Request 08/26/2024 Refill [facility] [address] [place] [phone] Kamla Nuñez, SUPERVISOR MOLD CLEANING AND STORAGE-PRINCIPAL ARCHITECTURAL FIRM Refill Request 07/16/2024 Refill [facility] [address] [place] [address] Kamla Nuñez, SUPERVISOR MOLD CLEANING AND STORAGE-PRINCIPAL ARCHITECTURAL FIRM Refill Request 07/16/2024 11:00 AM PRACTICE BILLING ASSOCIATE Video Visit [facility] [address] [place] [address] Kamla Nuñez, SUPERVISOR MOLD CLEANING AND STORAGE-PRINCIPAL ARCHITECTURAL FIRM Anxiety and depression ; Psychophysiologic insomnia 07/09/2024 Refill [facility] [address] [place] [address] Kamla Nuñez, SUPERVISOR MOLD CLEANING AND STORAGE-PRINCIPAL ARCHITECTURAL FIRM Med Change Request 06/28/2024 Refill [facility] [address] [place] [address] Kamla Nuñez, SUPERVISOR MOLD CLEANING AND STORAGE-PRINCIPAL ARCHITECTURAL FIRM Med Change Request from Last 3 Months Allergies No known active allergies Medications * Be aware that medications may not be up to date on this document. Alwaysverify current medications with the patient. Medication Sig Dispensed Refills Start Date End Date Status Glucagon (BAQSIMI TWO PACK) 3 MG/DOSE POWD [place] 3 mg into the nose as needed 2 Each 1 2 Active Continuous Blood Gluc Showroom Sales Assistant (Dexcom G6 Showroom Sales Assistant) NICOLE as directed 2 Active Aspirin Low [...] 2 025 Discontinued(Li st Clean-Up) HYDROcodone-ramone taminophen ([place]) 5-325 MG tablet Take 1 (one) tablet [...] migh t be different from the original. [employer] form completed. Diapers given. 04/24/2022, 06/19/22 Problem Noted Date Diagnosed Date Type 2 diabetes mellitus wit h other specified complication, unspecified whether termite control representative insulin use 06/04/2024 Bacteremia due to [...] 09/01/2021 Overview (03/28/2022): Follows with Endocrinology at [place] ([facility]) - Pt unsure if hypo or [...] Diagnosed age 18 Follows with Endocrinology at [place] - started on CGM and insulin pump [...] 06/20) Immunizations Name Administration Dates Next Due AppArchitect primary monoval ent 12+ yr 0.3mL Purple [...] place to sleep or slept in a prison (including now)? No 06/27/2022 [place] Depression Scale Answer Date Recorded RETIRED: Total Score 1 11/23/2021 Last EPDS Self Harm Result Not on file 11/23 Sex and Gender Information Value Date Recorded Sex Assigned at Female 08/17/2021 7:26 AM PRACTICE BILLING ASSOCIATE Gender Identity Female 08/17/2021 7:26 AM PRACTICE BILLING ASSOCIATE Sexual Orientation Not on file Last Filed Vital Signs Vital Sign Reading Time Taken Comments Blood Pressure 124/83 06/04/2024 11:24 AM CDT Pulse 98 06/04/2024 11:24 AM CDT Temperature 37.1 C (98.7 F) 06/04/2024 11:24 AM CDT Respiratory Rate 16 10/04/2022 12:0 0 PM PRACTICE BILLING ASSOCIATE Oxygen Saturation 98% 06/04/2024 11: 24 AM CDT Inhaled Oxygen Concentration - - Weight 97.1 kg (214 lb) 09/02/2024 10:5 2 AM PRACTICE BILLING ASSOCIATE 2 weeks ago at the it communications manager Height 175.3 cm (5' 9 ) 09/02/2024 10:5 2 AM PRACTICE BILLING ASSOCIATE Body Mass Index 31.6 09/02/2024 10:52 AM PRACTICE BILLING ASSOCIATE Functional Status Functional Status Response Date of [...] (CALCIUM TOTAL) AM Draw 06/30/2022 6:57 AM PRACTICE BILLING ASSOCIATE HIV-1 HIV-2 ANTIBODY + HIV P24 AG [...] 10.1 % Expiration Date 03/05/26 Lot # [id number] QC Verified Yes Yes Blood BLOOD SPECIMEN / Unknown 06/04/2024 11:34 AM CDT Kamla Nuñez SUPERVISOR MOLD CLEANING AND STORAGE-PRINCIPAL ARCHITECTURAL FIRM LAB - POINT OF C ARE ORDERABLES * (ABNORMAL) BASIC METABOLIC PANEL (CALCIUM TOTAL) (06/30/2022 6:57 AM PRACTICE BILLING ASSOCIATE) Glucose 80 70 - 105 mg/dL 06/30/2022 7:59 AM [facility] Sodium 140 136 - 145 mmol/L 06/30/2022 7:59 AM [facility] Potassium 3.2(L) 3.5 - 5.1 mmol/L 06/30/2022 7:59 AM [facility] Chloride 108(H) 98 - 107 mmol/L 06/30/2022 7:59 AM [facility] CO2 21(L) 23 - 31 mmol/L 06/30/2022 7:59 AM [facility] Calcium 9.2 8.4 - 10.4 mg/dL 06/30/2022 7:59 AM [facility] Anion Gap 11 8 - 18 mmol/L 06/30/2022 7:59 AM [facility] BUN 7 7 - 18.7 mg/dL 06/30/2022 7:59 AM [facility] Creatinine 0.67 0.57 - 1.11 mg/dL 06/30/2022 7:59 AM [facility] eGFR by CKD-EPI >90 >=90 mL/min/1.7 3 m2 06/30/2022 7:59 AM [facility] Blood BLOOD SPECIMEN / Unknown Lab Venipuncture / Unknown 06/30/2022 6:57 AM PRACTICE BILLING ASSOCIATE 06/30/2022 7:36 AM PRACTICE BILLING ASSOCIATE Cristine Smith MD LAB - CHEMISTRY MATILDA ZAZUETA [facility] [address] [place] [phone] * HIV-1 HIV-2 ANTIBODY + HIV P24 AG PANEL (04/24/2022 3:30 PM CDT) HIV1/2 Ab + P24 Ag Non Reactive Non Reactive 04/24/2022 4:34 PM CDT [facility] Blood BLOOD SPECIMEN / Unknown Venipuncture / Unknown 04/24/2022 3:30 PM CDT 04/24/2022 3:43 PM CDT Narrative [facility] - 04/24/2022 4:34 PM CDT No Laboratory evidence of HIV infection. Tahira Heredia MD LAB - CHEMISTRY ANGELA LEARY Performing Organization Address City/[facility]/ZIP Co de Phone Number [facility] [address] [place], [place] [phone] * HEPATITIS C ANTIBODY (11/23/2021 10:52 AM CDT) HCV Antibody Screen Non Reactive Non Reactive 11/23/2021 12:37 PM CDT [facility] Blood BLOOD SPECIMEN / Unknown Venipuncture / Unknown 11/23/2021 10:52 AM CDT 11/23/2021 11:35 AM CDT Narrative [facility] - 11/23/2021 12:37 PM CDT Non Reactive - Antibodies to Hepatitis C virus (HCV) were not detected, result does not exclude early acute HCV infection. Ciarra Beal MD LAB - CHEMISTRY MATILDA ZAZUETA [facility] [address] [place] [phone] from Last 3 Months or Most Recently Relevant to Health Maintenance Advance Directives * Full Code (Latest Code Status on File) Date Activated Date Inactivated Comments 06/27/2022 8:07 AM 06/30/2022 3:06 PM Care Teams Block Cuber Relationship Specialty Start Date End Date Kamla Nuñez, SUPERVISOR MOLD CLEANING AND STORAGE-PRINCIPAL ARCHITECTURAL FIRM [address] [place] [phone] PCP - Attributed-[place] Medicaid [place] 08/05/18 Jeanine Flowers MD [address] [address] PCP - General Internal Medicine 06/04/24
--- OUTSIDE RECORDS SUMMARY | 2024-09-23 18:51 | XMS_ITS | Clinical Summary ---
Author Organization [facility] Address [address] [place] [address] Care Team Providers Care Underwear Trimmer Name Role Phone Kamla Nuñez Nhan LUBE WORKER-REGULATED PROGRAM MANAGER Unavailable [phone] Jeanine Flowers MD Primary Care Provider Source Comments [facility],non-owned Affiliates and Associated Physician Practices is amultiple site organization consisting of ambulatory clinics and hospital sitesin [place], [place], [place] and [place]. This disclosure is being madepursuant to the Care Everywhere program and may not contain all information available regarding this patient. Last updated 18.[facility] Allergies No known active allergies Medications * Be aware that medications may not be up to date on this document. Alwaysverify current medications with the patient. Medication Sig Dispensed Refills Start Date End Date Status Glucagon (BAQSIMI TWO PACK) 3 MG/DOSE POWD Bogard 3 mg into the nose as needed 2 Each 1 2 Active Continuous Blood Gluc Seam Finisher (Dexcom G6 Seam Finisher) NICOLE as directed 2 Active Aspirin Low [...] 2 025 Discontinued(Li st Clean-Up) HYDROcodone-ramone taminophen ([place]) 5-325 MG tablet Take 1 (one) tablet [...] migh t be different from the original. [place] [employer] form completed. Diapers given. 04/24/2022, 06/19/22 Problem Noted Date Diagnosed Date Type 2 diabetes mellitus wit h other specified complication, unspecified whether ferry terminal supervisor insulin use 06/04/2024 Bacteremia due to Klebsiella [...] 09/01/2021 Overview (03/28/2022): Follows with Endocrinology at [place] ([facility]) - Pt unsure if hypo or [...] Diagnosed age 18 Follows with Endocrinology at [place] - started on CGM and insulin pump [...] Department Care Team Description 09/02/2024 11:00 AM HAND SPRING REPAIRER HELPER Video Visit [facility] [address] [place] [phone] Kamla Nuñez, LUBE WORKER-REGULATED PROGRAM MANAGER Anxiety and depression ; Psychophysiologic insomnia; Type 2 diabetes mellitus with other specified complication, unspecified whether long-term insulin use (HCC); Hypertension due to endocrine disorder 09/01/2024 Refill [facility] [address] [place] [address] Kamla Nuñez, LUBE WORKER-REGULATED PROGRAM MANAGER Refill Request 08/26/2024 Refill [facility] [address] [place] [phone] Kamla Nuñez, LUBE WORKER-REGULATED PROGRAM MANAGER Refill Request 07/16/2024 11:00 AM HAND SPRING REPAIRER HELPER Video Visit [facility] [address] [place] [phone] Kamla Nuñez, [facility] Anxiety and depression ; Psychophysiologic insomnia 07/16/2024 Refill [facility] [address], [address] [place] [phone] Kamla Nuñez, LUBE WORKER-[facility] Refill Request 07/09/2024 Refill [facility] [address] [place] [phone] Kamla Nuñez, LUBE WORKER-[facility] Med Change Request 06/28/2024 Refill [facility] [address] [place] [phone] Kamla Nuñez, LUBE WORKER-[facility] Med Change Request from Last 3 Months Immunizations Name Administration Dates Next Due Tugg primary monoval ent 12+ yr 0.3mL Purple [...] place to sleep or slept in a care home (including now)? No 06/27/2022 [place] Depression Scale Answer Date Recorded RETIRED: Total Score 1 11/23/2021 Last EPDS Self Harm Result Not on file 11/23 Sex and Gender Information Value Date Recorded Sex Assigned at Female 08/17/2021 7:26 AM HAND SPRING REPAIRER HELPER Gender Identity Female 08/17/2021 7:26 AM HAND SPRING REPAIRER HELPER Sexual Orientation Not on file Last Filed Vital Signs Vital Sign Reading Time Taken Comments Blood Pressure 124/83 06/04/2024 11:24 AM CDT Pulse 98 06/04/2024 11:24 AM CDT Temperature 37.1 C (98.7 F) 06/04/2024 11:24 AM CDT Respiratory Rate 16 10/04/2022 12:0 0 PM HAND SPRING REPAIRER HELPER Oxygen Saturation 98% 06/04/2024 11: 24 AM CDT Inhaled Oxygen Concentration - - Weight 97.1 kg (214 lb) 09/02/2024 10:5 2 AM HAND SPRING REPAIRER HELPER 2 weeks ago at the medical editor Height 175.3 cm (5' 9 ) 09/02/2024 10:5 2 AM HAND SPRING REPAIRER HELPER Body Mass Index 31.6 09/02/2024 10:52 AM HAND SPRING REPAIRER HELPER Plan of Treatment Health Maintenance Due Date [...] (CALCIUM TOTAL) AM Draw 06/30/2022 6:57 AM HAND SPRING REPAIRER HELPER HIV-1 HIV-2 ANTIBODY + HIV P24 AG [...] 10.1 % Expiration Date 03/05/26 Lot # [id number] QC Verified Yes Yes Blood BLOOD SPECIMEN / Unknown 06/04/2024 11:34 AM CDT Kamla Nuñez LUBE WORKER-REGULATED PROGRAM MANAGER LAB - POINT OF C ARE ORDERABLES * (ABNORMAL) BASIC METABOLIC PANEL (CALCIUM TOTAL) (06/30/2022 6:57 AM HAND SPRING REPAIRER HELPER) Pathologist [facility] Glucose 80 70 - 105 mg/dL 06/30/2022 7:59 AM HAND SPRING REPAIRER HELPER [facility] Sodium 140 136 - 145 mmol/L 06/30/2022 7:59 AM [facility] Potassium 3.2(L) 3.5 - 5.1 mmol/L 06/30/2022 7:59 AM [facility] Chloride 108(H) 98 - 107 mmol/L 06/30/2022 7:59 AM [facility] CO2 21(L) 23 - 31 mmol/L 06/30/2022 7:59 AM [facility] Calcium 9.2 8.4 - 10.4 mg/dL 06/30/2022 7:59 AM [facility] Anion Gap 11 8 - 18 mmol/L 06/30/2022 7:59 AM [facility] BUN 7 7 - 18.7 mg/dL 06/30/2022 7:59 AM [facility] Creatinine 0.67 0.57 - 1.11 mg/dL 06/30/2022 7:59 AM [facility] eGFR by CKD-EPI >90 >=90 mL/min/1.7 3 m2 06/30/2022 7:59 AM [facility] Blood BLOOD SPECIMEN / Unknown Lab Venipuncture / Unknown 06/30/2022 6:57 AM HAND SPRING REPAIRER HELPER 06/30/2022 7:36 AM RUST Cristine Smith MD LAB - CHEMISTRY ORD ERABLES [facility] [address] [place] [address] * HIV-1 HIV-2 ANTIBODY + HIV P24 AG PANEL (04/24/2022 3:30 PM CDT) Pathologist [facility] HIV1/2 Ab + P24 Ag Non Reactive Non Reactive 04/24/2022 4:34 PM CDT [facility] Blood BLOOD SPECIMEN / Unknown Venipuncture / Unknown 04/24/2022 3:30 PM CDT 04/24/2022 3:43 PM CDT Narrative [facility] - 04/24/2022 4:34 PM CDT No Laboratory evidence of HIV infection. aThira Heredia MD LAB - CHEMISTRY ANGELA LEARY Performing Organization Address [facility]/ZIP Co de Phone Number [facility] [address] [place] [address] * HEPATITIS C ANTIBODY (11/23/2021 10:52 AM CDT) [facility] HCV Antibody Screen Non Reactive Non Reactive 11/23/2021 12:37 PM CDT [facility] Blood BLOOD SPECIMEN / Unknown Venipuncture / Unknown 11/23/2021 10:52 AM CDT 11/23/2021 11:35 AM CDT Narrative [facility] - 11/23/2021 12:37 PM CDT Non Reactive - Antibodies to Hepatitis C virus (HCV) were not detected, result does not exclude early acute HCV infection. Ciarra Beal MD LAB - CHEMISTRY MATILDA ZAZUETA Performing Organization Address [facility] Co de Phone Number [facility] [address] [place] [address] from Last 3 Months or Most Recently Relevant to Health Maintenance Advance Directives * Full Code (Latest Code Status on File) Date Activated Date Inactivated Comments 06/27/2022 8:07 AM 06/30/2022 3:06 PM Care Teams Underwear Trimmer Relationship Specialty Start Date End Date Kamla Nuñez, LUBE WORKER-REGULATED PROGRAM MANAGER [address] [place] [phone] PCP - Attributed-[employer] Medicaid [place] 08/05/18 Jeanine Flowers MD [address] [place] [address] PCP - General Internal Medicine 06/04/24
--- OUTSIDE RECORDS SUMMARY | 2024-09-23 18:51 | XMS_ITS | Encounter Summary ---
Author Organization [facility] Address [address] [place] [address] Care Team Providers Care Poly Packer And Heat Sealer Name Role Phone Evelin Ruiz MD Primary Care Provider [phone] Kamla Nuñez NP Primary Care Provider [phone] Encounter Details Date Type Department Care Team (Late st Contact Info) Description 06/15/2024 Connectem Message Enc [facility] Multispecialty [facility] [address] [place] [address] Josue Dorsey MD [address] [place] [address] Follow up Social History Tobacco [...] How often do you attend chur or faith services? 1 to 4 times per year [...] Recorded Patient Health Questionnaire-2 Score 0 05/13/2024 [facility] - Occupational Stress Questionnaire Answer Date [...] any time in the past 12 m [facility], were you homeless or living in a alf (including now)? No 03/29/2024 Comments No Sex and Gender Information Value Date Recorded Sex Assigned at Female 09/12/2024 2:09 PM MINE PRODUCTION ENGINEER Legal Sex Female 8:11 PM CDT Gender [...] on filedocumented in this encounter Care Teams Poly Packer And Heat Sealer Relationship Specialty Start Date End Date Evelin Ruiz MD [address] [facility] [address] [place] [address] PCP - General FAMILY PRACTICE 04/01/24 08/15/24 Kamla Nuñez NP [address] [facility] [address] [place] [address] PCP - General Nurse Practitioner Family 08/16/24 documented as of this encounter
--- OUTSIDE RECORDS SUMMARY | 2024-09-23 18:51 | XMS_ITS | Encounter Summary ---
Author Organization [facility] Address [address] [place] [address] Care Team Providers Care Dough Machine Operator Name Role Phone Unknown, Notinfile Primary Care Provider Unavail able Clinic, [facility] Mat Med Unavailabl e Unavailable Encounter Details Date Type Department Care Team (Late st Contact Info) Description 01/03/2024 Telephone Obstetrics and Gynecology Clinic [address] [facility] 3rd Floor [address] [place] [address] Kelsey De La Rosa Social [...] often do you attend chur ch or pentecostal services? Never 12/06/2023 Do you belong to any clubs o r organizations such as worship groups, unions, fraternal or athletic groups, or [...] slept in a retirement (including now)? No 12/06/2023 [place] Depression Scale Answer Date Recorded [place] Depression Scale Total 4 12/26/2023 The thought [...] on file Legal Sex Female 6:13 AM FUEL CELL TECHNICIAN Gender Identity Not on file Sexual Orientation Not on file documented as of this encounter Plan of Treatment Not on file documented as of this encounter Visit Diagnoses Not on filedocumented in this encounter Care Teams Dough Machine Operator Relationship Specialty Start Date End Date Unknown, Notinfile PCP - General 07/19/22 [facility], [facility] Mat Med 07/19/22 documented as of this encounter
--- OUTSIDE RECORDS SUMMARY | 2024-09-23 18:51 | XMS_ITS | Referral Summary ---
Author Organization [facility] Address [address] [place] [address] Care Team Providers Care Hearing Officer Name Role Phone Unknown, Notinfile Primary Care Provider Unavail able Clinic, [facility] Mat Med Unavailabl e Unavailable [...] day. 100 each 1 4 Active vit 19-edxl-lumrr-dh a 27mg iron- 800 mcg-250 mg capsule [...] complication, with long-term current use of insulin ([facility]) Will use 1 transmitter every 90 days 1 each 3 4 Active blood-glucose sensor (Dexcom G6 Sensor) deviceIndication s:Type 2 diabetes mellitus without complication, with long-term current use of insulin ([facility]) [facility]) Will use 1 sensor every 10 days. 1 box = 3 sensors. 3 each 4 Active insulin pump cart,auto,BT-cnt r (Omnipod 5 G6 Intro Kit, Gen 5,) cartridgeIndicat ions:Type 2 diabetes mellitus without complication, with long-term current use of insulin ([facility]) [facility]) To change POD once every 2 days. 1 each 4 Active insulin lispro (HumaLOG) 100 unit/mL vial for injection Use to fill insulin pump 10 mL 11 4 Active insulin pump cart,automated,B T (Omnipod 5 G6 Pods, Gen 5,) cartridgeIndicat ions:Type 2 diabetes mellitus without complication, with long-term current use of insulin ([facility]) ([facility]) To change POD every 2 days. 15 [...] control. SETTINGS: Time Basal Rate ICR ISF 1652-0943 0.5 1:20 1:60 Endocrine consulted for insulin [...] # Disposition: Follow up task sent to [facility] scheduling pool. Desires discharge home today pending BP control. 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 11/13/2023 Overview (11/13/2023): - CF carrier on carrier screen Plan: - s/p counseling 11/13 - Offer partner screening CDP: [id number] 10/03/2023 Overview (11/28/2023): Rubella non-immune Plan: [] [...] education: completed in all 3 trimesters [x] Monomer Recovery Operator: ALIVIA Melara [x] Car seat discussed [] [...] meals based on her best guess ISF 8199-1208 2.6 1:20 1:20 6105-1358 2.6 1:20 1:20 5812-6735 2.5 1:20 1:20 5911-3346 3 1:30 1:20 1062-9542 3.1 1:30 1:20 4179-8202 3 1:25 1:20 SETTINGS Time Basal Rate ICR ISF 6434-3202 0.5 1:20 1:60 If patient will not [...] every other for supplementation Uncontrolled diabetes mellitus ([facility]) 021 Overview (08/14/2021): Maternal risks: Reviewed the [...] often do you attend chur ch or orthodoxy services? Never 12/06/2023 Do you belong to any clubs o r organizations such as synagogue groups, unions, fraternal or athletic groups, or [...] place to sleep or slept in a long-term (including now)? No 12/06/2023 [place] Depression Scale Answer Date Recorded [place] Depression Scale Total 4 12/26/2023 The thought [...] on file Legal Sex Female 6:13 AM DENTAL INTERNSHIP Gender Identity Not on file Sexual Orientation [...] HEPATITIS C ANTIBODY STAT 09/18/2023 11:19 AM DENTAL INTERNSHIP PAP WITH REFLEX TO HIGH RISK HPV [...] Quesada MD LAB BLOOD ORDERABLES Final Result [facility] Department [place] [address] * (ABNORMAL) Hemoglobin A1c (11/28/2023 11:16 AM CDT) Hgb A1C 6.8(H) 4.0 - 5.6 % Estimated Average Glucose 148 mg/dL [facility] Comment: The ADA recommends reporting an [...] MD LAB BLOOD ORDERABLES Final Result [facility] Department [place] [address] * Hepatitis C antibody Blood (09/18/2023 11:19 AM DENTAL INTERNSHIP) Hep C Ab Nonreactive Nonreactive [facility] Comment:Antibodies to HCV no t detected. Does NOT exclude the possibility of recent exposure to HCV. Current interpretive data was last revised on 22 Blood 09/18/2023 11:1 9 AM DENTAL INTERNSHIP 09/18/2023 11:32 AM DENTAL INTERNSHIP us India Carrera NP LAB MICROBIOLOGY - GENERA L ORDERABLES Final Result [facility] Department [place] [address] * Pap with reflex to High Risk HPV (10/28/2020 10:27 AM CDT) Swab (Pap test) 10/28/2020 1 0:27 AM CDT 10/28/2020 12:10 PM CDT Narrative PATHOLOGY [facility] - 11/07/2020 2:00 PM CDT EPIC results best viewed via link to PDF [facility] Christine Tavera [facility] [place] [address] CYTOPATHOLOGY REPORT FINAL Patient Name: ALLEGRA DANIELLE Gender: F : 1990 (Age: 30) Address: [address] [place] [id number] Hospital #: [id number] Service: Laboratory Location: [facility] Patient Type: [facility] Ref Lab Taken: 10/28/2020 Received: 10/28/2020 Accessioned: [...] determined by the Surgical Pathology Department at [facility] as part of an ongoing quality control supervisor program and in compliance with federally mandated [...] determined by the Surgical Pathology Department of [facility]. It has not been cleared or approved by the U. S. Food and Drug Administration. Mariah Malone MD LAB CYTOLOGY ORDERABLES Fi nal Result PATHOLOGY [facility] 3rd Floor [place], [place] [phone] from Last 3 Months or Most Recently Relevant to Health Maintenance Insurance [facility] [employer] [facility] [employer] [facility] Advance Directives For more information, please contact: [phone] * Full Code (Latest Code Status on File) Date Activated Date Inactivated Comments 12/05/2023 1:06 PM 12/07/2023 5:17 PM * Full Code Date Activated Date Inactivated Comments 12/04/2023 9:02 PM 12/05/2023 1:06 PM Full CPR in ca se of cardiopulmonary arrest Care Teams Hearing Officer Relationship Specialty Start Date End Date Unknown, Notinfile PCP - General 07/19/22 Clinic, [facility] Mat Med 07/19/22
--- OUTSIDE RECORDS SUMMARY | 2024-09-23 18:51 | XMS_ITS | Encounter Summary ---
Author Organization [facility] Address [address] [place] [address] Care Team Providers Care Cloth Mercerizing Supervisor Name Role Phone Skip Gallo MD Primary Care Provider [phone] Zach Soliz Primary Care Provider [phone] Kamla Nuñez TECHNICAL INSTRUCTOR-RADIO REPORTER Unavailable [phone] Jeanine Flowers MD Primary Care Provider Encounter Details Date Type Department Care Team (Late st Contact Info) Description 10/15/2016 Lab Requisition [facility] [address] [place] [id number] Unknown, Provider Social History Tobacco Use Types Packs/Day Years Used Date Smoking Tobacco: Never Assessed Sex and Gender Information Value Date Recorded Sex Assigned at Female 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 Blood BLOOD SPECIMEN / Unknown Venipuncture / Unknown 10/15/2016 3:50 PM CDT 10/15/2016 6:44 PM CDT Narrative [facility] ([facility]) - 10/17/2016 12:14 PM CDT Performed at: [address] [place] [id number] Application Software Engineer: Lucius Evans PhD, Phone: [phone] Provider Unknown LAB - CHEMISTRY ANGELA LEARY Performing Organization Address [facility] de Phone Number [facility]HubN[facility] AXON [facility]) [address] [place] [address] * RUBEOLA ANTIBODY IGG (10/15/2016 3:50 PM CDT) Pathologist [facility] Measles (Rubeola) Antibody IgG >300.0 Immune >29.9 AU/mL 10/17/2016 12:14 PM CDT [facility] ([facility]) Comment: Negative <25.0 Equivocal 25.0 - 29.9 Positive >29.9 Presence of antibodies to Rubeola is presumptive evidence of immunity except when acute infection is suspected. Blood BLOOD SPECIMEN / Unknown Venipuncture / Unknown 10/15/2016 3:50 PM CDT 10/15/2016 6:44 PM CDT Narrative [facility] ([facility]) - 10/17/2016 12:14 PM CDT Performed at: [address] [place] [id number] Application Software Engineer: Lucius Evans PhD, Phone: [phone] Provider Unknown LAB - CHEMISTRY ANGELA LEARY Performing Organization Address [facility] de Phone Number [facility] ([facility]) [address] [place] [address] * MUMPS ANTIBODY IGG (10/15/2016 3:50 PM CDT) [facility] Mumps Virus Antibody IgG Index 53.2 Immune >10.9 AU/mL 10/17/2016 12:14 PM CDT [facility] ([facility]) Comment: Negative <9.0 Equivocal 9.0 - 10.9 Positive >10.9 A positive result generally indicates past exposure to Mumps virus or previous vaccination. Blood BLOOD SPECIMEN / Unknown Venipuncture / Unknown 10/15/2016 3:50 PM CDT 10/15/2016 6:44 PM CDT Narrative [facility] ([facility]) - 10/17/2016 12:14 PM CDT Performed at: [address] [place] [id number] Application Software Engineer: Lucius Evans PhD, Phone: [phone] Provider Unknown LAB - CHEMISTRY ORDE SAPPHIRE [facility] ([facility]) [address] [place] [address] * RUBELLA ANTIBODY IGG (10/15/2016 3:50 PM CDT) [facility] Rubella Antibody IgG Positive - Immune 10/15/2016 8:15 PM CDT [facility] Blood BLOOD SPECIMEN / Unknown Venipuncture / Unknown 10/15/2016 3:50 PM CDT 10/15/2016 6:44 PM CDT Provider Unknown LAB - SEROLOGY ORDER JONO [facility] [address] [place] [address] * (ABNORMAL) HEPATITIS B SURFACE ANTIBODY (10/15/2016 3:50 PM CDT) [facility] HBsAb REACTIVE(A ) Non Reactive 10/15/2016 7:29 PM CDT [facility] Blood BLOOD SPECIMEN / Unknown Venipuncture / Unknown 10/15/2016 3:50 PM CDT 10/15/2016 6:44 PM CDT Provider Unknown LAB - CHEMISTRY ANGELA LEARY [facility] [address] [place] [address] documented in this encounter Visit Diagnoses Not on filedocumented in this encounter Care Teams Cloth Mercerizing Supervisor Relationship Specialty Start Date End Date Skip Gallo MD [address] [place] [phone] PCP - General 12/23/17 09/14/18 Zach Soliz PA [address] [facility] [address] [place] [phone] PCP - General 09/15/18 06/03/24 Kamla Nuñez, TECHNICAL INSTRUCTOR-RADIO REPORTER [address] [place] [phone] PCP - Attributed-Perez Medicaid ST 08/05/18 Jeanine Flowers MD [address] [place] [address] PCP - General Internal Medicine 06/04/24 documented as of this encounter
[2024-09-23] MEDS: SODIUM CHLORIDE 0.9% IV 1,000 ML 999 ML IV CONT (18:59)
[2024-09-23 19:00] LABS: BEDSIDEPREGUCG Negative (Negative)
[2024-09-23] MEDS: diazePAM INJ (*CRX) 10 MG/2 ML SYRINGE 5 MG IV PUSH (19:00)
[2024-09-23] MEDS: MECLIZINE HCL 25 MG TABLET PO (19:00)
[2024-09-23 19:14] LABS: Add Urine Microscopic? YES; Appearance Urine Turbid (Clear); Bacteria Urine 1+ /hpf; Bilirubin Urine 1+ (Negative); Blood Urine Negative (Negative); Color Urine Dark Yellow (Yellow); Glucose Urine UA Negative (Negative); Ketones Urine Trace mg/dL (Negative); Leukocyte Esterase Ur 1+ LEU/UL (Negative); Need Manual Microscopic Reviewed; Nitrate Urine Positive (Negative); Protein Urine 1+ mg/dL (Negative); RBC Urine >100 /hpf (0-2); Specific Grav Ur 1.042 (1.001-1.035); Squamous Epithelial Cell Urine Few /hpf (Few); WBC Urine 0-5 /hpf (0-3)
== END 2024-09-23 20:32 | disposition home or self-care (01) ==
PROVIDERS: Physician Assistant; Emergency Provider Physician Assistant
DX: N30.00 Acute cystitis without hematuria (principal); R42 Dizziness and giddiness
CPT/HCPCS: 36415; 70450; 71046; 80053; 81001; 81025; 85025; 87086; 93005; 96361; 96365; 96375; 99284; A9270; J0696; J3360; J7030